=== PATIENT | male | born 1945 | race Caucasian/White ===

== ENCOUNTER 2019-10-08 08:13 | Outpatient (CLI) | payer OTHER, SELFPAY ==
--- NOTE | 2019-10-08 08:26 | CT_ITS ---
WS: [id number] CTA scan of the thoracic aorta. Additional two-dimensional coronal and sagittal reconstruction was pe rformed. MIP images were also performed. 10/08/2019 Clinical Data: THORACIC AORTIC ANEURYSM Comparison: CTA of the thoracic aorta, 06/02/2017. DLP: 1505.[address] scans at [facility] use at least one of these dose optimization techniques: automat ed exposure control; mA and/or kV adjustment per patient size (includes targeted exams where dose is matched to clinical indication); or iterative reconstruction. Findings: The ascending aorta measures 4.5 cm in largest dimension which is comparable to prior studies. No dis section or atherosclerotic plaque is seen. The aortic arch and descending aorta show no abnormalities . The lungs show no nodules, masses or effusions. No adnexal or mediastinal adenopathy is seen. The tra paz bifurcates normally into the bronchi. The pulmonary artery is unremarkable. Heart remains the sa me size. No pericardial effusion is present. The upper abdomen shows no change from before. The bones of the thorax demonstrate mild osteoarthriti c change. CT/CT angio chest 01245 Impression: 1. Unchanged dilatation of a sending aorta 4.5 cm. 2. No acute cardiopulmonary disease is noted.
[2019-10-08 08:50] LABS: Blood Urea Nitrogen 12 mg/dL (8-23)
[2019-10-08] MEDS: iodixanol 320 mg/mL 100mL Btl IV (08:57)
== END 2019-10-08 08:14 | disposition home or self-care (01) ==
PROVIDERS: PCP Family Medicine; Visit Provider Family Medicine
DX: I71.2 Thoracic aortic aneurysm, without rupture (principal)
CPT/HCPCS: 71275; 82565; 84520; Q9967

== ENCOUNTER 2021-04-25 09:43 | Emergency (ER) | payer OTHER, MEDICARE, BC, SELFPAY ==
[2021-04-25 10:01] VITALS: BP 158/100; PULSE 87; RESP 16; TEMP 36.7; O2SAT 91
--- NOTE | 2021-04-25 10:08 | XR_ITS ---
WS: [id number] Exam: XR chest 1V portable [id number] Date/Time of Exam: 04/25/2021 10:32 AM Reason For Exam: cough, SOB Comparison 11/10/2014. Mild diffuse infiltrates in the mid and lower bilateral lung zones suspicious for pneumonia. Areas of plaque atelectasis noted bilaterally. No pleural effusions. The lungs are fully expanded. Unremarkab le cardiomediastinal silhouette and regional bony elements. XR/XR chest 1V portable [id number] IMPRESSION: 1. Mild diffuse bilateral groundglass infiltrates in the mid and lower lung zon e suggesting active pneumonia.
--- NOTE | 2021-04-25 10:09 | W.ED.GENADLT ---
HPI - General Adult General: Chief complaint: General Medical Stated complaint: head pain, bilateral ear pain Time Seen by Provider: 04/25/21 09:45 Source: patient and family Mode of arrival: ambulatory Limitations: no limitations History of Present Illness: HPI narrative: Patient is a nice 75-year-old male who presents to ED today with complaint of a nonproductive cough, shortness of breath, headache, and ear pain. He states ear pain and headache has been present over the past week. He just noticed a dry cough and shortness of breath over the past 1 to 2 days. No known COVID exposure. He is unvaccinated for COVID. He is not complaining of chest pain. Associated symptoms: Reports dyspnea and headache(s); Deny chest pain, confusion, nausea, rash, palpitations, syncope or vomiting Review of Systems Const: Reports: other (weakness); Denies: fever(s), chills or body aches Eyes: Denies: change in vision, blurry vision or photophobia ENMT: Reports: ear or mastoid pain; Denies: throat pain, odynophagia, hoarseness, ear discharge, change in hearing, tinnitus, disequilibrium, nasal discharge, nasal congestion, post nasal drip or sinus pain Card: Denies: chest pain, palpitations, irregular heart rhythm, edema, swelling of feet/ankles, lightheadedness, syncope, pre-syncope or leg pain with exertion Resp: Reports: dyspnea and non-productive cough; Denies: wheezing, hemoptysis or chest congestion GI: Denies: abdominal pain, nausea, vomiting or diarrhea : Denies: flank pain or dysuria Musc: Denies: neck pain, back pain, extremity pain or joint pain Skin/Breast: Denies: rash Neuro: Reports: headache(s); Denies: numbness in extremities, weakness in extremities, sensory changes, lack of coordination, difficulty walking, frequent falls, dizziness, vertigo, confusion, behavioral changes, Slurred speech present, difficulty communicating thoughts or seizure-like activity Physical Exam Const: COMMON NORMALS: no acute distress, average body habitus, patient oriented x3, no limitations, healthy appearing, alert and well nourished GENERAL APPEARANCE: cooperative ORIENTATION/CONSCIOUSNESS: Yes awake, Yes oriented to person, Yes oriented to place and Yes oriented to time HENMT: COMMON NORMALS: normocephalic, atraumatic, hearing grossly normal bilaterally, external ears normal and Normal external nose present HEAD & SCALP: normal to inspection, normocephalic and atraumatic FACE & SINUS: normal facial exam NOSE: Normal external nose present EXTERNAL EAR: Yes external ears normal TYMPANIC MEMBRANE: TM normal on the left and unable to visualize TM (R-cerumen impaction) MOUTH: Normal oral and palatal mucosa present, lip normal and tongue normal THROAT: posterior oropharynx normal, tonsils normal and uvula midline OTHER: R EAC irrigated and can now visualize majority of TM and appears normal Eye: COMMON NORMALS: Equal, round and reactive pupils present and EOMs intact bilaterally GENERAL EYE: appearance normal, both eyes and all related structures PUPIL: Yes Equal, round and reactive pupils present Neck/C-Spine: COMMON NORMALS: full ROM, no lymphadenopathy and no meningeal signs Resp: COMMON NORMALS: normal respiratory effort and clear to auscultation bilaterally AUSCULTATION: clear to auscultation bilaterally OTHER: fairly persistent dry cough Cardio: COMMON NORMALS: regular rate and regular rhythm RATE: regular rate RHYTHM: regular rhythm Extremity: COMMON NORMALS: capillary refill normal, no clubbing, cyanosis or edema, no calf tenderness and no pedal edema Neuro: LESA COMA SCALE: document GCS findings Partridge coma scale eye opening: Spontaneous Partridge coma scale verbal response: Orientated Partridge coma scale motor response: Obey commands Partridge coma scale total score: 15 COMMON NORMALS: patient oriented x3, CN's II-XII intact bilaterally, moves all extremities, no focal motor deficits, no sensory deficits noted and gait normal SENSORIUM/ORIENTATION: Yes alert, Yes oriented to person, Yes oriented to place and Yes oriented to time MENINGEAL SIGNS: Yes no meningeal signs Skin: COMMON NORMALS: no rashes or lesions noted GENERAL SKIN EXAM: no rashes or lesions noted Course Vital Signs: Vital signs: Vital Signs Temperature 98.0 F 04/25/21 10:01 Pulse Rate 87 04/25/21 10:01 Respiratory Rate 16 04/25/21 10:01 Blood Pressure 158/100 04/25/21 10:01 Pulse Oximetry 86 L 04/25/21 11:22 MDM - General Adult MDM Narrative: Medical decision making narrative: Patient here with COVID pneumonia. He clinically appears non-ill and non-toxic appearing. His vital signs are stable apart from some mild hypoxia on room air around 88%. He sats well on 2L O2. Labs showing a normal white count, thrombocytopenia, mild decreases in electrolytes, and an elevated CRP at 129. He does not qualify for MCA based on the fact that he is requiring oxygen. Was given IV dexamethasone here and will be sent home with oral tabs x 6 days. He will also be sent with home O2. [facility] to [facility] follow[facility]telehealth visit for reevaluation. Strict return to ED precautions given. Quarantine instructions discussed. Of note upon arrival he seemed very focused on his headache-my early suspicion was this was just secondary to COVID but due to his persistent worry, I did obtain CT imaging which was negative. No neurological symptoms on exam. Lab Data: Labs: Lab Results 04/25/21 04/25/21 04/25/21 Range/Units 10:15 10:15 10:21 WBC 6.6 (4.0-10.0) 10^3/ uL RBC 5.34 H (4.1-5.3) 10^6/u L Hgb 16.5 (11.7-16.6) g/dL Hct 47.8 (42.0-52.0) % MCV 89.5 (80-94) fl MCH 30.9 (28.0-34.0) pg MCHC 34.5 (30.0-36.0) g/dL RDW 13.8 (12.1-15.1) % Plt Count 97 L (130-400) 10^3/c mm MPV 11.8 H (7.4-10.4) fL Neut % (Auto) 79.3 % Lymph % (Auto) 9.5 % [place] % (Auto) 10.6 % Eos % (Auto) 0.0 % Baso % (Auto) 0.3 % Neut # (Auto) 5.23 (1.8-7.7) 10^3/u L Lymph # (Auto) 0.6 L (0.8-4.8) 10^3/u L [place] # (Auto) 0.7 (0.2-0.9) 10^3/u L Eos # (Auto) 0.0 (0.0-0.8) 10^3/u L Baso # (Auto) 0.0 (0.0-0.1) 10^3/u L Nucleated RBC % (a uto) 0 % Nucleated RBCs # 0.0 /100WBC Sodium Cancelled Potassium Cancelled Chloride Cancelled Carbon Dioxide Cancelled Anion Gap Cancelled BUN Cancelled Creatinine Cancelled GFR Calculation Cancelled Glucose Cancelled Calculated Osmolal ity Cancelled Calcium Cancelled Total Bilirubin Cancelled AST Cancelled ALT Cancelled Alkaline Phosphata se Cancelled C-Reactive Protein (0.0-4.9) mg/L Total Protein Cancelled Albumin Cancelled Globulin Cancelled Procalcitonin (0-0.5) ng/mL SARS-CoV-2 Ag (Rap id) Positive H (Negative) 04/25/21 Range/Units 10:31 WBC (4.0-10.0) 10^3/ uL RBC (4.1-5.3) 10^6/u L Hgb (11.7-16.6) g/dL Hct (42.0-52.0) % MCV (80-94) fl MCH (28.0-34.0) pg MCHC (30.0-36.0) g/dL RDW (12.1-15.1) % Plt Count (130-400) 10^3/c mm MPV (7.4-10.4) fL Neut % (Auto) % Lymph % (Auto) % [place] % (Auto) % Eos % (Auto) % Baso % (Auto) % Neut # (Auto) (1.8-7.7) 10^3/u L Lymph # (Auto) (0.8-4.8) 10^3/u L [place] # (Auto) (0.2-0.9) 10^3/u L Eos # (Auto) (0.0-0.8) 10^3/u L Baso # (Auto) (0.0-0.1) 10^3/u L Nucleated RBC % (a uto) % Nucleated RBCs # /100WBC Sodium 133 L Potassium 3.4 L Chloride 94 L Carbon Dioxide 29 Anion Gap 13.4 BUN 13 Creatinine 1.3 H GFR Calculation Not Reportable Glucose 104 Calculated Osmolal ity 276 L Calcium 8.1 L Total Bilirubin 0.6 AST 34 ALT 20 Alkaline Phosphata se 61 C-Reactive Protein 129.5 H (0.0-4.9) mg/L Total Protein 7.0 Albumin 3.8 Globulin 3.2 Procalcitonin 0.29 (0-0.5) ng/mL SARS-CoV-2 Ag (Rap id) (Negative) Imaging Data^: CT Head: Radiologist's impression: [facility] [facility], [place] [address]WZ Scan ReportSigned Patient: Taran Carrera #: [id number]: 1945cct#:[id number]/Sex: 75 / MADM Date: 04/25/21Loc: ERRoom/Bed:Attending Dr: Ordering Provider/Ordering MD: Lashon Omalley Date of Service: 04/25/21 Procedure(s): CT head wo con* [id number] Accession Number(s): [id number] Report Number: [id number] WS: [email or web address] Exam: CT head wo con* [id number] Date/Time of Exam: 04/25/2021 11:11 AM Reason For Exam: severe ESCALANTE, ear pain DLP: 929.[address] scans at [facility] use at least one of these dose optimization techniques: automated exposure control; mA and/or kV adjustment per patient size (includes targeted exams where dose is matched to clinical indication); or iterative reconstruction. No sign of acute intracranial bleed or space-occupying mass. The ventricles and basal cisterns are normal in appearance. Diffuse cerebral atrophy and mild microvascular ischemic changes. No extra-axial fluid collections are seen. The mastoids and middle ear cavities are clear. There is bilateral ethmoid and left frontal sinusitis. The skull is intact. CT/CT head wo con* [id number] IMPRESSION: 1. Diffuse atrophy and microvascular ischemic changes. No acute intracranial process. 2. Bilateral ethmoid and left frontal sinusitis. Dictated By:Milan Hallman, DOSigned By:Milan Hallman, DOSigned Date/Time:04/25/21 1221DD/ 1218 CXR: Radiologist's impression: [facility] [address] [place] [address] XRay Report Signed Patient: Taran Carrera Unit #: [id number] : 1945 Age/Sex: 75 / M ADM Date: 04/25/21 Loc: ER Room/Bed: Attending Dr: Ordering Provider/Ordering MD: Lashon Omalley Date of Service: 04/25/21 Procedure(s): XR chest 1V portable [id number] Accession Number(s): [id number] Report Number: [id number] WS: [email or web address] Exam: XR chest 1V portable [id number] Date/Time of Exam: 04/25/2021 10:32 AM Reason For Exam: cough, SOB Comparison 11/10/2014. Mild diffuse infiltrates in the mid and lower bilateral lung zones suspicious for pneumonia. Areas of plaque atelectasis noted bilaterally. No pleural effusions. The lungs are fully expanded. Unremarkable cardiomediastinal silhouette and regional bony elements. XR/XR chest 1V portable [id number] IMPRESSION: 1. Mild diffuse bilateral groundglass infiltrates in the mid and lower lung zone suggesting active pneumonia. Dictated By: Milan Hallman DO Signed By: Milan Hallman DO Signed Date/Time: 04/25/21 1043 DD/ 1041 Discharge Plan Discharge Patient Disposition: Home Clinical Impression: COVID-19 Condition: Stable Prescriptions: New dexamethasone 6 mg tablet 6 mg PO DAILY Qty: 6 RF: 0 Discharge Orders: Discharge ED (Routine); Ordered 04/25/21 Ordered By: Lashon Omalley Other Ambulatory Orders: DME: Oxygen (Order) Location: None Selected Ordered By: Lashon Omalley Referrals: Sandra Partida MD [Primary Care Provider] - Activity Restrictions/Additional Instructions: As we discussed [facility] to [facility]up appointment in the next 48 hours for reevaluation. You need to return to the emergency department for severe shortness of breath or difficulty breathing, or any other concerns you may have. You need to quarantine for a full 10 days starting from symptom onset. Quarantine is not lifted until symptoms are improving and you are afebrile. Coding Level of Care Code ED Survey Technologist for Chg Fwd Exam Comprehensive
[2021-04-25 10:16] VITALS: O2SAT 93
[2021-04-25 10:32] LABS: Basophils % 0.3 %; Hematocrit 47.8 % (42.0-52.0); Hemoglobin 16.5 g/dL (11.7-16.6); Lymphocytes # 0.6 10^3/uL (0.8-4.8); Lymphocytes % 9.5 %; Mean Corpuscular HGB Conc 34.5 g/dL (30.0-36.0); Mean Corpuscular Hemoglobin 30.9 pg (28.0-34.0); Mean Corpuscular Volume 89.5 fl (80-94); Mean Platelet Volume 11.8 fL (7.4-10.4); Monocytes # 0.7 10^3/uL (0.2-0.9); Monocytes % 10.6 %; Neutrophils # 5.23 10^3/uL (1.8-7.7); Neutrophils % 79.3 %; Nucleated Red Blood Cells % 0 %; Platelet Count 97 10^3/cmm (130-400); Red Blood Count 5.34 10^6/uL (4.1-5.3); Red Cell Distribution Width 13.8 % (12.1-15.1); White Blood Count 6.6 10^3/uL (4.0-10.0)
[2021-04-25 10:48] LABS: SARS Covid-2 Antigen Positive (Negative)
--- NOTE | 2021-04-25 10:59 | CT_ITS ---
WS: [email or web address] Exam: CT head wo con* [id number] Date/Time of Exam: 04/25/2021 11:11 AM Reason For Exam: severe ESCALANTE, ear pain DLP: 929.[address] scans at [facility] use at least one of these dose optimization techniques: automat ed exposure control; mA and/or kV adjustment per patient size (includes targeted exams where dose is matched to clinical indication); or iterative reconstruction. No sign of acute intracranial bleed or space-occupying mass. The ventricles and basal cisterns are no rmal in appearance. Diffuse cerebral atrophy and mild microvascular ischemic changes. No extra-axial fluid collections are seen. The mastoids and middle ear cavities are clear. There is bilateral ethmoi d and left frontal sinusitis. The skull is intact. CT/CT head wo con* [id number] IMPRESSION: 1. Diffuse atrophy and microvascular ischemic changes. No acute intracranial pr ocess. 2. Bilateral ethmoid and left frontal sinusitis.
[2021-04-25 11:17] LABS: Alanine Aminotransferase 20 U/L (0-41); Albumin Level 3.8 g/dL (3.5-5.2); Alkaline Phosphatase 61 IU/L (40-130); Anion Gap 13.4 (5-19); Aspartate Amino Transferase 34 U/L (0-40); Blood Urea Nitrogen 13 mg/dL (8-23); C Reactive Protein 129.5 mg/L (0.0-4.9); Calcium 8.1 mg/dL (8.5-10.5); Carbon Dioxide 29 mmol/L (22-29); Chloride 94 mmol/L (98-107); Globulin 3.2 g/dL (1.3-4.6); Glucose 104 mg/dL (65-115); Osmolality Calculated 276 mOsm/kg (285-295); Potassium 3.4 mmol/L (3.5-5.1); Sodium 133 mmol/L (136-145); Total Bilirubin 0.6 mg/dL (0.15-1.2)
[2021-04-25 11:22] VITALS: O2SAT 86; O2SAT 93
[2021-04-25 11:24] LABS: Procalcitonin 0.29 ng/mL (0-0.5)
[2021-04-25] MEDS: acetaminophen 1,000 MG/100 ML PIGGYBACK 400 MG IV (11:36)
[2021-04-25] MEDS: dexamethasone 10 mg/mL INJ 6 MG IVP (11:36)
[2021-04-25 13:30] VITALS: BP 119/76; PULSE 65; RESP 16; O2SAT 92
== END 2021-04-25 13:31 | disposition home or self-care (01) ==
PROVIDERS: Emergency Provider Physician Assistant; PCP Family Medicine
DX: U07.1 COVID-19 (principal)
CPT/HCPCS: 70450; 71045; 80053; 84145; 85025; 86140; 87426; 96374; 96375; 99283; J1100

== ENCOUNTER 2021-04-28 14:49 | Inpatient (IN) | payer OTHER, MEDICARE, BC, SELFPAY ==
[2021-04-28] VITALS (52 sets, daily range): BP systolic 78–162; BP diastolic 57–120; PULSE 64–110; RESP 17–46; TEMP 36.2–36.7; O2SAT 65–100; BMI 29.5
[2021-04-28] MEDS: succinylcholine 20 mg/mL SDV 10mL 100 MG IV (15:02)
--- NOTE | 2021-04-28 15:09 | XRR_ITS ---
PROCEDURE INFORMATION: Exam: XR Chest Exam date and time: 04/28/2021 3:09 PM Age: 75 years old Clinical indication: Device placement; Other: Et and ng placement; Additional info: Post intubation TECHNIQUE: Imaging protocol: XR of the chest. Views: 1 view. COMPARISON: CR XR chest 1V portable [id number] 04/25/2021 10:22 AM FINDINGS: Tubes, catheters and devices: Intubation with tip 5.0 cm above the lauren. Gastric tube with tip in the mid stomach. Lungs: Mild ground-glass opacities in the central and lower lungs. Pleural spaces: Unremarkable. No pleural effusion. No pneumothorax. Heart/Mediastinum: Unremarkable. No cardiomegaly. Bones/joints: Unremarkable. XR/XR chest 1V portable [id number] IMPRESSION: 1. Mild pulmonary edema versus pneumonia.
[2021-04-28] MEDS: propofol 1,000 MG/100 ML INJ 5.44 MG IV (15:10)
--- NOTE | 2021-04-28 15:10 | ECG_ITS ---
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 Measurements Intervals [place] Rate: 98 P: 19 HI: 147 QRS: 19 QRSD: 138 T: -4 QT: 408 QTc: 521 Interpretive Statements SINUS RHYTHM INTRAVENTRICULAR CONDUCTION DELAY [130+ ms QRS DURATION] Compared to ECG 10/25/2014 21:14:54 Intraventricular conduction delay now present T-wave abnormality no longer present Electronically Signed On 04-28-2021 21:32:28 CDT by Adalberto Taylor M.D. [id number]
--- NOTE | 2021-04-28 15:24 | PC.NURSE ---
intubation note: 1500 time out done. intubation meds given at 1502. pt intubated at 1503 with 8.0 ETT, 24 cm at lip. pt tolerated procedure well. er physician, RN *2, and RT *2 at bedside
--- NOTE | 2021-04-28 15:48 | PC.PHAR ---
pt unable to verify meds due to intubation- dexamethasone 6mg once daily x 6 days last filled on 04/25/21
--- NOTE | 2021-04-28 15:50 | PC.NURSE ---
pt given IVP propofol by ER physician for sedation and pt's BP decreased. Pt's pulse became unpalpable. Pt given 100mcg phenylepinephrine by ER physician at 1533. CPR started at 1534. CPR for *2 minutes. Pt had ROSC at 2min pulse check
[2021-04-28] MEDS: fentaNYL 50 mcg/mL INJ 2mL 100 MCG IVP ×2 (16:10→17:10)
[2021-04-28 16:11] LABS: Basophils # 0.1 10^3/uL (0.0-0.1); Basophils % 0.3 %; Hematocrit 48.3 % (42.0-52.0); Hemoglobin 16.4 g/dL (11.7-16.6); Lymphocytes % 5.8 %; Mean Corpuscular Hemoglobin 30.4 pg (28.0-34.0); Mean Corpuscular Volume 89.4 fl (80-94); Mean Platelet Volume 11.2 fL (7.4-10.4); Monocytes % 11.2 %; Neutrophils # 14.33 10^3/uL (1.8-7.7); Neutrophils % 80.2 %; Nucleated Red Blood Cells % 0.2 %; Platelet Count 199 10^3/cmm (130-400); Red Cell Distribution Width 13.8 % (12.1-15.1); White Blood Count 17.9 10^3/uL (4.0-10.0)
[2021-04-28 16:18] LABS: INR 1.18 (0.8-1.2)
[2021-04-28 16:19] LABS: Fibrinogen 413 mg/dL (174-498); Partial Thromboplastin Time 27.1 SECONDS (23.9-36.7)
[2021-04-28 16:23] LABS: D Dimer 2.24 ug/mIFEU (0-0.59)
[2021-04-28 16:25] LABS: Lactic Sepsis W/Reflex 5.5 mmol/L (0.5-2.2); Troponin(5th) Baseline 162 ng/L (0-15)
[2021-04-28 16:25] LABS: ABG PCO2 37.2 mmHg (35-45); ABG PH Result 7.41 (7.35-7.45); Arterial Blood Gas Hematocrit 54.4 % (42-52); Base Excess ABG -0.5 mmol/L (-2.0-2.0); Blood Gas Allen Test Pos; Blood Gas Operator Identificat glc; Blood Gas Sample Site Radial, right; Blood Gas Sample Type Arterial; Blood Gas Tidal Volume 0.45; HCO3 ABG 23.7 mmol/L (22-26); Oxygen Device VENT; PO2 ABG 77.2 mmHg (80.0-100.0)
[2021-04-28 16:27] LABS: NT Pro B Type Natriuretic Pept 8650 pg/mL (0-450)
--- NOTE | 2021-04-28 16:33 | ED_ITS ---
HPI - General Adult General: Chief complaint: ER Hold Stated complaint: covid/ resp distress Time Seen by Provider: 04/28/21 15:07 History of Present Illness: HPI narrative: HPI: This is a 75 yo patient w/ hx of covid PNA BIBA for severe respiratory distress. Per family, patient has been having symptoms of cough, dyspnea, and generalized weakness x 2 weeks. Today, patient was noted to be confused and altered. EMS was alerted. Patient was satting in the 40s on RA by the time EMS arrived. Patient was placed on CPAP with PEEP of 10 with improvement of sats to the 70. On arrival, patient is confused and unable to answer questions. Onset: 14 days ago Duration: ongoing for the last 14 days Location: home Severity: severe Review of Systems Narrative: PER FAMILY: Constitutional: +subjective fever, +generalized weakness HEENT: No vision changes CV: No chest pain, no palpitations PULM: +dyspnea, +respiratory distress GI: No abdominal pain, no N/V/D. : No dysuria MSKEL: No muscle pain SKIN: No new rashes, no lesions. NEURO: +AMS HEME: No visible bruises PSYCH: Normal mood PFSH ED PFSH: Medical History (Updated 04/28/21 @ 18:22 by Abdiaziz Ann MD) HTN (hypertension) with goal to be determined Surgical History (Updated 04/28/21 @ 18:15 by Abdiaziz Ann MD) No pertinent past surgical history Family History (Updated 04/28/21 @ 18:15 by Abdiaziz Ann MD) Mother Cancer Social History (Updated 04/28/21 @ 18:15 by Abdiaziz Ann MD) Smoking and tobacco status: never smoked Alcohol intake: current Alcohol intake frequency: holidays/special occasions only Substance/Drug Use: never Physical Exam Narrative: EXAM NARRATIVE: Head: Atraumatic Eyes: PERRL, conjunctiva without injection ENT: Dry membrane moist NECK: Supple without lymphadenopathy LUNGS: +Coarse lung sounds, +rhonchi and crackles throughout the lung hightower CV: RRR ABDOMEN: Soft, nontender in all quadrants, no guarding or rebound tenderness EXTREMITY: Normal ROM SKIN: No rash or erythema NEURO: Obtunded, GCS of 6 (occasional eye opening and movement) PSYCH: Unable to assess at this time Procedures Arterial Line Time Out Performed: Yes Size (Gauge): 22 Technique Used: guide wire technique Post-Procedure: line sutured into place Patient Tolerated Procedure: well Complications: none Site: right Additional Comments: Germain test performed on the R hand. R radial/ulnar nerve visualized. Central Line Placement Left Femoral: Time Out Performed: Yes Patient Placed on Monitor/Pulse Ox: Yes MD Prep: mask Central Line Prep: Povidone-Iodine 1% Ultrasound Used for Placement: Yes Central Line Lumen Inserted: triple Post Procedure: sutured in place, good blood return, all ports aspirated, flushed, capped and sterile dressing applied Post Procedure X-Ray: tip of catheter in good position Patient Tolerated Procedure: well Complications: none Intubation Time out performed: Yes sedative: Etomidate Mg Given: 20 paralytic: Succinylcholine Mg Given: 100 Laryngoscope: Carlitos ET Tube Size: 8 ET Tube Uncuffed: No Tube Secured Depth (cm): 25 Tube Secured Location: teeth Tube Placement Confirmation: visualized tube passing through cords, equal breath sounds bilaterally, no breath sounds over epigastrium and confirmation by capnometry Patient Tolerated Procedure: well Intubation Complications: none Course Vital Signs: Vital signs: Vital Signs Temperature 98.1 F 04/29/21 00:00 Pulse Rate 70 04/28/21 23:41 Respiratory Rate 22 H 04/29/21 05:58 Blood Pressure 102/72 04/28/21 23:41 Pulse Oximetry 96 04/29/21 05:58 MDM - General Adult MDM Narrative: Medical decision making narrative: [75]yo patient w/ hx of covid x 2 weeks BIBA for severe respiratory distress. On arrival patient is satting at 76% with increased work of breathing on CPAP on a rrival. [3:20pm] On arrival, patient is altered and hypoxemic requiring immediate intubation. He was preoxygenated with BIPAP with improvement of O2 sat to 95%. Please refer to intubation note. Post-intubation, patient was agitated requiring propofol 200mcg to sedate. Post-intbuation was complicated by hypotension. Transient CPR was performed for 2 minutes while awaiting pulse confirmation. Patient received 100mcg of phenylephrine with successful pulse confirmation and improvement in BP. Patient is currently on a fentanyl drip only. Lactic of 5, WBC of 17.9K. Status post Vanco, cefepime, azithromycin, Decadron, remdesivir. Central line and art line placed. Case was discussed with Dr. Ann from ICU who agrees with plan. Pending CTA chest and CT head. Disposition: Admission to ICU Lab Data: Labs: Lab Results 04/28/21 04/28/21 04/28/21 Range/Units 15:50 15:50 15:50 WBC 17.9 H (4.0-10.0) 10^3/ uL RBC 5.40 H (4.1-5.3) 10^6/u L Hgb 16.4 (11.7-16.6) g/dL Hct 48.3 (42.0-52.0) % MCV 89.4 (80-94) fl MCH 30.4 (28.0-34.0) pg MCHC 34.0 (30.0-36.0) g/dL RDW 13.8 (12.1-15.1) % Plt Count 199 (130-400) 10^3/c mm MPV 11.2 H (7.4-10.4) fL Neut % (Auto) 80.2 % Lymph % (Auto) 5.8 % [place] % (Auto) 11.2 % Eos % (Auto) 0.0 % Baso % (Auto) 0.3 % Neut # (Auto) 14.33 H (1.8-7.7) 10^3/u L Lymph # (Auto) 1.0 (0.8-4.8) 10^3/u L [place] # (Auto) 2.0 H (0.2-0.9) 10^3/u L Eos # (Auto) 0.0 (0.0-0.8) 10^3/u L Baso # (Auto) 0.1 (0.0-0.1) 10^3/u L Nucleated RBC % (a uto) 0.2 % Nucleated RBCs # 0.0 /100WBC PT (12.1-14.9) SECO NDS INR (0.8-1.2) APTT (23.9-36.7) SECO NDS Fibrinogen (174-498) mg/dL D-Dimer (0-0.59) ug/mIFE U Specimen Type Sample Site ABG pH (7.35-7.45) ABG pCO2 (35-45) mmHg ABG pO2 (80.0-100.0) mmH g ABG HCO3 (22-26) mmol/L ABG Base Excess (-2.0-2.0) mmol/ L Germain Test Hematocrit (42-52) % O2 Delivery Device FiO2 % Tidal Volume PEEP cmH20 Sex Worker Or Escort ID Sodium 136 (136-145) mmol/L Potassium 4.6 (3.5-5.1) mmol/L Chloride 96 L (98-107) mmol/L Carbon Dioxide 22 (22-29) mmol/L Anion Gap 22.6 H (5-19) BUN 50 H (8-23) mg/dL Creatinine 2.2 H (0.7-1.2) mg/dL GFR Calculation Not Reportable Glucose 258 H (65-115) mg/dL Estimat Average Gl ucose Hemoglobin A1c (4.0-6.0) % Calculated Osmolal ity 304 H (285-295) mOsm/k g Lactic Acid (0.5-2.2) mmol/L Lactic Acid (Sepsi s) (0.5-2.2) mmol/L Calcium 7.6 L (8.5-10.5) mg/dL Ferritin 2556 H (30-400) ng/mL Total Bilirubin 0.9 (0.15-1.2) mg/dL AST 220 H (0-40) U/L ALT 121 H (0-41) U/L Alkaline Phosphata se 74 (40-130) IU/L Lactate Dehydrogen ase 1380 H (135-225) U/L Creatine Kinase (39-308) U/L Troponin T Baselin e 162 H* (0-15) ng/L Troponin T 120 Min lower [place] (0-15) ng/L Delta Troponin T (0-10) ABS# C-Reactive Protein 60.2 H (0.0-4.9) mg/L NT-Pro-B Natriuret Pep 8650 H (0-450) pg/mL Total Protein 6.5 L (6.6-8.7) g/dL Albumin 3.1 L (3.5-5.2) g/dL Globulin 3.4 (1.3-4.6) g/dL Triglycerides (0-150) mg/dL Cholesterol (0-200) mg/dL LDL Cholesterol, C alc (50-129) mg/dL HDL Cholesterol (60-100) mg/dL LDL/HDL Ratio (0.00-3.22) RATI O Cholesterol/HDL Ra chay (1.0-5.00) mg/dL Lipase 89 H (13-60) U/L Procalcitonin 0.70 H (0-0.5) ng/mL TSH (0.27-4.20) uIU/ mL Urine Color (Yellow) Urine Appearance (CLEAR) Urine pH (5-7) Ur Specific Gravit y (1.005-1.030) Urine Protein (Negative) Urine Glucose (UA) (Normal) Urine Ketones (Negative) Urine Blood (Negative) Urine Nitrate (Negative) Urine Bilirubin (Negative) Urine Urobilinogen (Negative) mg/dL Ur Leukocyte Katia ase (Negative) Urine RBC (0-2) /hpf Urine WBC (0-5) /hpf Ur Eosinophil Smea r (0-0) Ur Squamous Epith Cells (0-5) /hpf Amorphous Sediment Urine Bacteria (NONE) /hpf Urine Eosinophils Ur Random Sodium mmol/L Ur Random Potassiu m mmol/L Ur Random Chloride mmol/L Urine Creatinine (39-259) mg/dL 04/28/21 04/28/21 04/28/21 Range/Units 15:50 15:50 16:15 WBC (4.0-10.0) 10^3/ uL RBC (4.1-5.3) 10^6/u L Hgb (11.7-16.6) g/dL Hct (42.0-52.0) % MCV (80-94) fl MCH (28.0-34.0) pg MCHC (30.0-36.0) g/dL RDW (12.1-15.1) % Plt Count (130-400) 10^3/c mm MPV (7.4-10.4) fL Neut % (Auto) % Lymph % (Auto) % [place] % (Auto) % Eos % (Auto) % Baso % (Auto) % Neut # (Auto) (1.8-7.7) 10^3/u L Lymph # (Auto) (0.8-4.8) 10^3/u L [place] # (Auto) (0.2-0.9) 10^3/u L Eos # (Auto) (0.0-0.8) 10^3/u L Baso # (Auto) (0.0-0.1) 10^3/u L Nucleated RBC % (a uto) % Nucleated RBCs # /100WBC PT 15.30 H (12.1-14.9) SECO NDS INR 1.18 (0.8-1.2) APTT 27.1 (23.9-36.7) SECO NDS Fibrinogen 413 (174-498) mg/dL D-Dimer 2.24 H (0-0.59) ug/mIFE U Specimen Type Sample Site ABG pH (7.35-7.45) ABG pCO2 (35-45) mmHg ABG pO2 (80.0-100.0) mmH g ABG HCO3 (22-26) mmol/L ABG Base Excess (-2.0-2.0) mmol/ L Germain Test Hematocrit (42-52) % O2 Delivery Device FiO2 % Tidal Volume PEEP cmH20 Sex Worker Or Escort ID Sodium (136-145) mmol/L Potassium (3.5-5.1) mmol/L Chloride (98-107) mmol/L Carbon Dioxide (22-29) mmol/L Anion Gap (5-19) BUN (8-23) mg/dL Creatinine (0.7-1.2) mg/dL GFR Calculation Glucose (65-115) mg/dL Estimat Average Gl ucose Hemoglobin A1c (4.0-6.0) % Calculated Osmolal ity (285-295) mOsm/k g Lactic Acid 5.5 H* (0.5-2.2) mmol/L Lactic Acid (Sepsi s) (0.5-2.2) mmol/L Calcium (8.5-10.5) mg/dL Ferritin (30-400) ng/mL Total Bilirubin (0.15-1.2) mg/dL AST (0-40) U/L ALT (0-41) U/L Alkaline Phosphata se (40-130) IU/L Lactate Dehydrogen ase (135-225) U/L Creatine Kinase (39-308) U/L Troponin T Baselin e (0-15) ng/L Troponin T 120 Min lower [place] (0-15) ng/L Delta Troponin T (0-10) ABS# C-Reactive Protein (0.0-4.9) mg/L NT-Pro-B Natriuret Pep (0-450) pg/mL Total Protein (6.6-8.7) g/dL Albumin (3.5-5.2) g/dL Globulin (1.3-4.6) g/dL Triglycerides (0-150) mg/dL Cholesterol (0-200) mg/dL LDL Cholesterol, C alc (50-129) mg/dL HDL Cholesterol (60-100) mg/dL LDL/HDL Ratio (0.00-3.22) RATI O Cholesterol/HDL Ra chay (1.0-5.00) mg/dL Lipase (13-60) U/L Procalcitonin (0-0.5) ng/mL TSH (0.27-4.20) uIU/ mL Urine Color Brown (Yellow) Urine Appearance Cloudy (CLEAR) Urine pH 5 (5-7) Ur Specific Gravit y 1.010 (1.005-1.030) Urine Protein 3+ H (Negative) Urine Glucose (UA) Norm (Normal) Urine Ketones 1+ H (Negative) Urine Blood 3+ H (Negative) Urine Nitrate Negative (Negative) Urine Bilirubin 1+ H (Negative) Urine Urobilinogen 1 H (Negative) mg/dL Ur Leukocyte Katia ase 1+ H (Negative) Urine RBC Too numerous to c nt H (0-2) /hpf Urine WBC >100 H (0-5) /hpf Ur Eosinophil Smea r (0-0) Ur Squamous Epith Cells None (0-5) /hpf Amorphous Sediment Not Reportable Urine Bacteria 1+ H (NONE) /hpf Urine Eosinophils Ur Random Sodium mmol/L Ur Random Potassiu m mmol/L Ur Random Chloride mmol/L Urine Creatinine (39-259) mg/dL 04/28/21 04/28/21 04/28/21 Range/Units 16:15 16:15 16:16 WBC (4.0-10.0) 10^3/ uL RBC (4.1-5.3) 10^6/u L Hgb (11.7-16.6) g/dL Hct (42.0-52.0) % MCV (80-94) fl MCH (28.0-34.0) pg MCHC (30.0-36.0) g/dL RDW (12.1-15.1) % Plt Count (130-400) 10^3/c mm MPV (7.4-10.4) fL Neut % (Auto) % Lymph % (Auto) % [place] % (Auto) % Eos % (Auto) % Baso % (Auto) % Neut # (Auto) (1.8-7.7) 10^3/u L Lymph # (Auto) (0.8-4.8) 10^3/u L [place] # (Auto) (0.2-0.9) 10^3/u L Eos # (Auto) (0.0-0.8) 10^3/u L Baso # (Auto) (0.0-0.1) 10^3/u L Nucleated RBC % (a uto) % Nucleated RBCs # /100WBC PT (12.1-14.9) SECO NDS INR (0.8-1.2) APTT (23.9-36.7) SECO NDS Fibrinogen (174-498) mg/dL D-Dimer (0-0.59) ug/mIFE U Specimen Type Arterial Sample Site Radial, right ABG pH 7.41 (7.35-7.45) ABG pCO2 37.2 (35-45) mmHg ABG pO2 77.2 L (80.0-100.0) mmH g ABG HCO3 23.7 (22-26) mmol/L ABG Base Excess -0.5 (-2.0-2.0) mmol/ L Germain Test Pos Hematocrit 54.4 H (42-52) % O2 Delivery Device Vent FiO2 100.0 % Tidal Volume 0.45 PEEP 12.0 cmH20 Sex Worker Or Escort ID glc Sodium (136-145) mmol/L Potassium (3.5-5.1) mmol/L Chloride (98-107) mmol/L Carbon Dioxide (22-29) mmol/L Anion Gap (5-19) BUN (8-23) mg/dL Creatinine (0.7-1.2) mg/dL GFR Calculation Glucose (65-115) mg/dL Estimat Average Gl ucose Hemoglobin A1c (4.0-6.0) % Calculated Osmolal ity (285-295) mOsm/k g Lactic Acid (0.5-2.2) mmol/L Lactic Acid (Sepsi s) (0.5-2.2) mmol/L Calcium (8.5-10.5) mg/dL Ferritin (30-400) ng/mL Total Bilirubin (0.15-1.2) mg/dL AST (0-40) U/L ALT (0-41) U/L Alkaline Phosphata se (40-130) IU/L Lactate Dehydrogen ase (135-225) U/L Creatine Kinase (39-308) U/L Troponin T Baselin e (0-15) ng/L Troponin T 120 Min lower [place] (0-15) ng/L Delta Troponin T (0-10) ABS# C-Reactive Protein (0.0-4.9) mg/L NT-Pro-B Natriuret Pep (0-450) pg/mL Total Protein (6.6-8.7) g/dL Albumin (3.5-5.2) g/dL Globulin (1.3-4.6) g/dL Triglycerides (0-150) mg/dL Cholesterol (0-200) mg/dL LDL Cholesterol, C alc (50-129) mg/dL HDL Cholesterol (60-100) mg/dL LDL/HDL Ratio (0.00-3.22) RATI O Cholesterol/HDL Ra chay (1.0-5.00) mg/dL Lipase (13-60) U/L Procalcitonin (0-0.5) ng/mL TSH (0.27-4.20) uIU/ mL Urine Color (Yellow) Urine Appearance (CLEAR) Urine pH (5-7) Ur Specific Gravit y (1.005-1.030) Urine Protein (Negative) Urine Glucose (UA) (Normal) Urine Ketones (Negative) Urine Blood (Negative) Urine Nitrate (Negative) Urine Bilirubin (Negative) Urine Urobilinogen (Negative) mg/dL Ur Leukocyte Katia ase (Negative) Urine RBC (0-2) /hpf Urine WBC (0-5) /hpf Ur Eosinophil Smea r 0 (0-0) Ur Squamous Epith Cells (0-5) /hpf Amorphous Sediment Urine Bacteria (NONE) /hpf Urine Eosinophils No eosinophils se en Ur Random Sodium 10 mmol/L Ur Random Potassiu m 30 mmol/L Ur Random Chloride < 10 mmol/L Urine Creatinine 122 (39-259) mg/dL 04/28/21 04/28/21 04/28/21 Range/Units 18:08 18:08 18:08 WBC (4.0-10.0) 10^3/ uL RBC (4.1-5.3) 10^6/u L Hgb (11.7-16.6) g/dL Hct (42.0-52.0) % MCV (80-94) fl MCH (28.0-34.0) pg MCHC (30.0-36.0) g/dL RDW (12.1-15.1) % Plt Count (130-400) 10^3/c mm MPV (7.4-10.4) fL Neut % (Auto) % Lymph % (Auto) % [place] % (Auto) % Eos % (Auto) % Baso % (Auto) % Neut # (Auto) (1.8-7.7) 10^3/u L Lymph # (Auto) (0.8-4.8) 10^3/u L [place] # (Auto) (0.2-0.9) 10^3/u L Eos # (Auto) (0.0-0.8) 10^3/u L Baso # (Auto) (0.0-0.1) 10^3/u L Nucleated RBC % (a uto) % Nucleated RBCs # /100WBC PT (12.1-14.9) SECO NDS INR (0.8-1.2) APTT (23.9-36.7) SECO NDS Fibrinogen (174-498) mg/dL D-Dimer (0-0.59) ug/mIFE U Specimen Type Sample Site ABG pH (7.35-7.45) ABG pCO2 (35-45) mmHg ABG pO2 (80.0-100.0) mmH g ABG HCO3 (22-26) mmol/L ABG Base Excess (-2.0-2.0) mmol/ L Germain Test Hematocrit (42-52) % O2 Delivery Device FiO2 % Tidal Volume PEEP cmH20 Sex Worker Or Escort ID Sodium (136-145) mmol/L Potassium (3.5-5.1) mmol/L Chloride (98-107) mmol/L Carbon Dioxide (22-29) mmol/L Anion Gap (5-19) BUN (8-23) mg/dL Creatinine (0.7-1.2) mg/dL GFR Calculation Glucose (65-115) mg/dL Estimat Average Gl ucose 117 Hemoglobin A1c 5.7 (4.0-6.0) % Calculated Osmolal ity (285-295) mOsm/k g Lactic Acid (0.5-2.2) mmol/L Lactic Acid (Sepsi s) 3.5 H (0.5-2.2) mmol/L Calcium (8.5-10.5) mg/dL Ferritin (30-400) ng/mL Total Bilirubin (0.15-1.2) mg/dL AST (0-40) U/L ALT (0-41) U/L Alkaline Phosphata se (40-130) IU/L Lactate Dehydrogen ase (135-225) U/L Creatine Kinase (39-308) U/L Troponin T Baselin e (0-15) ng/L Troponin T 120 Min lower [place] 179.5 H (0-15) ng/L Delta Troponin T 17.5 H* (0-10) ABS# C-Reactive Protein (0.0-4.9) mg/L NT-Pro-B Natriuret Pep (0-450) pg/mL Total Protein (6.6-8.7) g/dL Albumin (3.5-5.2) g/dL Globulin (1.3-4.6) g/dL Triglycerides (0-150) mg/dL Cholesterol (0-200) mg/dL LDL Cholesterol, C alc (50-129) mg/dL HDL Cholesterol (60-100) mg/dL LDL/HDL Ratio (0.00-3.22) RATI O Cholesterol/HDL Ra chay (1.0-5.00) mg/dL Lipase (13-60) U/L Procalcitonin (0-0.5) ng/mL TSH (0.27-4.20) uIU/ mL Urine Color (Yellow) Urine Appearance (CLEAR) Urine pH (5-7) Ur Specific Gravit y (1.005-1.030) Urine Protein (Negative) Urine Glucose (UA) (Normal) Urine Ketones (Negative) Urine Blood (Negative) Urine Nitrate (Negative) Urine Bilirubin (Negative) Urine Urobilinogen (Negative) mg/dL Ur Leukocyte Katia ase (Negative) Urine RBC (0-2) /hpf Urine WBC (0-5) /hpf Ur Eosinophil Smea r (0-0) Ur Squamous Epith Cells (0-5) /hpf Amorphous Sediment Urine Bacteria (NONE) /hpf Urine Eosinophils Ur Random Sodium mmol/L Ur Random Potassiu m mmol/L Ur Random Chloride mmol/L Urine Creatinine (39-259) mg/dL 04/28/21 04/28/21 04/28/21 Range/Units 18:08 18:08 18:08 WBC 15.3 H (4.0-10.0) 10^3/ uL RBC 5.02 (4.1-5.3) 10^6/u L Hgb 15.5 (11.7-16.6) g/dL Hct 45.7 (42.0-52.0) % MCV 91.0 (80-94) fl MCH 30.9 (28.0-34.0) pg MCHC 33.9 (30.0-36.0) g/dL RDW 13.9 (12.1-15.1) % Plt Count 160 (130-400) 10^3/c mm MPV 10.9 H (7.4-10.4) fL Neut % (Auto) 81.7 % Lymph % (Auto) 4.8 % [place] % (Auto) 11.2 % Eos % (Auto) 0.0 % Baso % (Auto) 0.2 % Neut # (Auto) 12.50 H (1.8-7.7) 10^3/u L Lymph # (Auto) 0.7 L (0.8-4.8) 10^3/u L [place] # (Auto) 1.7 H (0.2-0.9) 10^3/u L Eos # (Auto) 0.0 (0.0-0.8) 10^3/u L Baso # (Auto) 0.0 (0.0-0.1) 10^3/u L Nucleated RBC % (a uto) 0 % Nucleated RBCs # 0.0 /100WBC PT (12.1-14.9) SECO NDS INR (0.8-1.2) APTT (23.9-36.7) SECO NDS Fibrinogen (174-498) mg/dL D-Dimer (0-0.59) ug/mIFE U Specimen Type Sample Site ABG pH (7.35-7.45) ABG pCO2 (35-45) mmHg ABG pO2 (80.0-100.0) mmH g ABG HCO3 (22-26) mmol/L ABG Base Excess (-2.0-2.0) mmol/ L Germain Test Hematocrit (42-52) % O2 Delivery Device FiO2 % Tidal Volume PEEP cmH20 Sex Worker Or Escort ID Sodium (136-145) mmol/L Potassium (3.5-5.1) mmol/L Chloride (98-107) mmol/L Carbon Dioxide (22-29) mmol/L Anion Gap (5-19) BUN (8-23) mg/dL Creatinine (0.7-1.2) mg/dL GFR Calculation Glucose (65-115) mg/dL Estimat Average Gl ucose Hemoglobin A1c (4.0-6.0) % Calculated Osmolal ity (285-295) mOsm/k g Lactic Acid (0.5-2.2) mmol/L Lactic Acid (Sepsi s) (0.5-2.2) mmol/L Calcium (8.5-10.5) mg/dL Ferritin (30-400) ng/mL Total Bilirubin (0.15-1.2) mg/dL AST (0-40) U/L ALT (0-41) U/L Alkaline Phosphata se (40-130) IU/L Lactate Dehydrogen ase (135-225) U/L Creatine Kinase 548 H* (39-308) U/L Troponin T Baselin e (0-15) ng/L Troponin T 120 Min lower [place] (0-15) ng/L Delta Troponin T (0-10) ABS# C-Reactive Protein (0.0-4.9) mg/L NT-Pro-B Natriuret Pep (0-450) pg/mL Total Protein (6.6-8.7) g/dL Albumin (3.5-5.2) g/dL Globulin (1.3-4.6) g/dL Triglycerides 178 H (0-150) mg/dL Cholesterol 98 (0-200) mg/dL LDL Cholesterol, C alc 32 L (50-129) mg/dL HDL Cholesterol 30 L (60-100) mg/dL LDL/HDL Ratio 1.07 (0.00-3.22) RATI O Cholesterol/HDL Ra chay 3.27 (1.0-5.00) mg/dL Lipase (13-60) U/L Procalcitonin (0-0.5) ng/mL TSH 0.16 L (0.27-4.20) uIU/ mL Urine Color (Yellow) Urine Appearance (CLEAR) Urine pH (5-7) Ur Specific Gravit y (1.005-1.030) Urine Protein (Negative) Urine Glucose (UA) (Normal) Urine Ketones (Negative) Urine Blood (Negative) Urine Nitrate (Negative) Urine Bilirubin (Negative) Urine Urobilinogen (Negative) mg/dL Ur Leukocyte Katia ase (Negative) Urine RBC (0-2) /hpf Urine WBC (0-5) /hpf Ur Eosinophil Smea r (0-0) Ur Squamous Epith Cells (0-5) /hpf Amorphous Sediment Urine Bacteria (NONE) /hpf Urine Eosinophils Ur Random Sodium mmol/L Ur Random Potassiu m mmol/L Ur Random Chloride mmol/L Urine Creatinine (39-259) mg/dL 04/28/21 Range/Units 18:08 WBC (4.0-10.0) 10^3/ uL RBC (4.1-5.3) 10^6/u L Hgb (11.7-16.6) g/dL Hct (42.0-52.0) % MCV (80-94) fl MCH (28.0-34.0) pg MCHC (30.0-36.0) g/dL RDW (12.1-15.1) % Plt Count (130-400) 10^3/c mm MPV (7.4-10.4) fL Neut % (Auto) % Lymph % (Auto) % [place] % (Auto) % Eos % (Auto) % Baso % (Auto) % Neut # (Auto) (1.8-7.7) 10^3/u L Lymph # (Auto) (0.8-4.8) 10^3/u L [place] # (Auto) (0.2-0.9) 10^3/u L Eos # (Auto) (0.0-0.8) 10^3/u L Baso # (Auto) (0.0-0.1) 10^3/u L Nucleated RBC % (a uto) % Nucleated RBCs # /100WBC PT 14.80 (12.1-14.9) SECO NDS INR 1.12 (0.8-1.2) APTT (23.9-36.7) SECO NDS Fibrinogen (174-498) mg/dL D-Dimer (0-0.59) ug/mIFE U Specimen Type Sample Site ABG pH (7.35-7.45) ABG pCO2 (35-45) mmHg ABG pO2 (80.0-100.0) mmH g ABG HCO3 (22-26) mmol/L ABG Base Excess (-2.0-2.0) mmol/ L Germain Test Hematocrit (42-52) % O2 Delivery Device FiO2 % Tidal Volume PEEP cmH20 Sex Worker Or Escort ID Sodium (136-145) mmol/L Potassium (3.5-5.1) mmol/L Chloride (98-107) mmol/L Carbon Dioxide (22-29) mmol/L Anion Gap (5-19) BUN (8-23) mg/dL Creatinine (0.7-1.2) mg/dL GFR Calculation Glucose (65-115) mg/dL Estimat Average Gl ucose Hemoglobin A1c (4.0-6.0) % Calculated Osmolal ity (285-295) mOsm/k g Lactic Acid (0.5-2.2) mmol/L Lactic Acid (Sepsi s) (0.5-2.2) mmol/L Calcium (8.5-10.5) mg/dL Ferritin (30-400) ng/mL Total Bilirubin (0.15-1.2) mg/dL AST (0-40) U/L ALT (0-41) U/L Alkaline Phosphata se (40-130) IU/L Lactate Dehydrogen ase (135-225) U/L Creatine Kinase (39-308) U/L Troponin T Baselin e (0-15) ng/L Troponin T 120 Min lower [place]wha (0-15) ng/L Delta Troponin T (0-10) ABS# C-Reactive Protein (0.0-4.9) mg/L NT-Pro-B Natriuret Pep (0-450) pg/mL Total Protein (6.6-8.7) g/dL Albumin (3.5-5.2) g/dL Globulin (1.3-4.6) g/dL Triglycerides (0-150) mg/dL Cholesterol (0-200) mg/dL LDL Cholesterol, C alc (50-129) mg/dL HDL Cholesterol (60-100) mg/dL LDL/HDL Ratio (0.00-3.22) RATI O Cholesterol/HDL Ra chay (1.0-5.00) mg/dL Lipase (13-60) U/L Procalcitonin (0-0.5) ng/mL TSH (0.27-4.20) uIU/ mL Urine Color (Yellow) Urine Appearance (CLEAR) Urine pH (5-7) Ur Specific Gravit y (1.005-1.030) Urine Protein (Negative) Urine Glucose (UA) (Normal) Urine Ketones (Negative) Urine Blood (Negative) Urine Nitrate (Negative) Urine Bilirubin (Negative) Urine Urobilinogen (Negative) mg/dL Ur Leukocyte Katia ase (Negative) Urine RBC (0-2) /hpf Urine WBC (0-5) /hpf Ur Eosinophil Smea r (0-0) Ur Squamous Epith Cells (0-5) /hpf Amorphous Sediment Urine Bacteria (NONE) /hpf Urine Eosinophils Ur Random Sodium mmol/L Ur Random Potassiu m mmol/L Ur Random Chloride mmol/L Urine Creatinine (39-259) mg/dL Imaging Data^: Other Imaging: Radiologist's impression: [address] [id number] ReportSigned Patient: Taran Carrera #: [id number]: [id number]#:[id number]/Sex: 75 / MADM Date: 04/28/21Loc: ER IPRoom/Bed: [id number] Dr: Abdiaziz Ann MD Ordering Provider/Ordering MD: Abdiaziz Ann MD Date of Service: 04/28/21 Procedure(s): XR chest 1V portable [id number] Accession Number(s): [id number] Report Number: [id number] PROCEDURE INFORMATION: Exam: XR Chest Exam date and time: 04/28/2021 6:06 PM Age: 75 years old Clinical indication: Device placement; Ett placement (vent status); Additional info: Post intubation TECHNIQUE: Imaging protocol: XR of the chest. Views: 1 view. COMPARISON: CR XR chest 1V portable [id number] 04/28/2021 4:30 PM FINDINGS: Tubes, catheters and devices: Intubation with tip 4.8 cm above the lauren. NG tube extends into the stomach, beyond the field of view. Pacemaker pad over the lower left chest. Lungs: Ground-glass opacities are unchanged in both lungs. Pleural spaces: Unremarkable. No pleural effusion. No pneumothorax. Heart/Mediastinum: Unremarkable. No cardiomegaly. Bones/joints: Unremarkable. XR/XR chest 1V portable [id number] IMPRESSION: 1. Stable pulmonary edema versus pneumonia. Dictated By:Saji Hampton By:Saji Hampton Date/Time:04/28/21D/ [address] [id number] Scan ReportSigned Patient: Taran Carrera #: [id number]: [id number]#:[id number]/Sex: 75 / MADM Date: 04/28/21Loc: ICURoom/Bed: [address]: Abdiaziz Ann MD Ordering Provider/Ordering MD: Clemente Hernandez MD Date of Service: 04/28/21 Procedure(s): CT head wo con* [id number] Accession Number(s): [id number] Report Number: [id number] PROCEDURE INFORMATION: Exam: CT Head Without Contrast Exam date and time: 04/28/2021 4:37 PM Age: 75 years old Clinical indication: Altered mental status/memory loss; Additional info: AMS on arrival TECHNIQUE: Imaging protocol: Computed tomography of the head without contrast. Radiation optimization: All CT scans at this facility use at least one of these dose optimization techniques: automated exposure control; mA and/or kV adjustment per patient size (includes targeted exams where dose is matched to clinical indication); or iterative reconstruction. COMPARISON: CT head wo con* [id number] 04/25/2021 12:10 PM RADIATION DOSE METRICS: Total DLP (mGy-cm): 916.02 FINDINGS: Brain: Mild diffuse cortical volume loss. Moderate hypodensities in supratentorial periventricular and subcortical white matter, consistent with microangiopathy. No intracranial hemorrhage. Cerebral ventricles: No ventriculomegaly. Paranasal sinuses: Mucosal thickening in the ethmoid air cells. No sinus air-fluid levels. Mastoid air cells: Visualized mastoid air cells are well aerated. Vasculature: No hyperdense artery. Bones/joints: Unremarkable. No acute fracture. Soft tissues: Unremarkable. CT/CT head wo con* [id number] IMPRESSION: No acute intracranial abnormality. Radiation Dose CTDIVOL = (mGy): DLP = 916.02 (mGy-cm) Dictated By:Saji Hampton By:Saji Hampton Date/Time:04/28/21D/ 20 Critical Care Time Critical Care Time: Critical Care Time: Yes Total Critical Care Time: 45 Attestation: Given the high probability of imminent or life threatening deterioration of the patient?s condition without intervention, the patient was immediately assessed by myself and the nurse, and cardiac monitoring initiated. The patient was also placed on oxygen and continuous pulse oximetry initiated. During the course of the patient?s stay, I spent a considerable amount of time at the bedside performing serial re-evaluations of the patient?s hemodynamic and clinical status because of the recognized potential threat to life or limb in this condition. Clinical management of this patient involved high complexity decision making to assess, manipulate, and support vital organ system failure. I then had a chance to review all of the available laboratory and radiographic studies obtained today, and I also reviewed old records available to me at the time. Sequential vital signs were obtained. Critical care time noted below was time spent engaged in work directly related to the individual patient?s care, not including time performing procedures; however it does include time spent at the immediate bedside or elsewhere on the floor or unit. TOTAL CRITICAL CARE TIME ELAPSED: in excess of 30 minutes. BODY SYSTEM AT HIGHEST RISK: Pulmonary. 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
--- NOTE | 2021-04-28 16:37 | CTR_ITS ---
PROCEDURE INFORMATION: Exam: CT Head Without Contrast Exam date and time: 04/28/2021 4:37 PM Age: 75 years old Clinical indication: Altered mental status/memory loss; Additional info: AMS on arrival TECHNIQUE: Imaging protocol: Computed tomography of the head without contrast. Radiation optimization: All CT scans at this facility use at least one of these dose optimization techniques: automated exposure control; mA and/or kV adjustment per patient size (includes targeted exams where dose is matched to clinical indication); or iterative reconstruction. COMPARISON: CT head wo con* [id number] 04/25/2021 12:10 PM RADIATION DOSE METRICS: Total DLP (mGy-cm): 916.02 FINDINGS: Brain: Mild diffuse cortical volume loss. Moderate hypodensities in supratentorial periventricular and subcortical white matter, consistent with microangiopathy. No intracranial hemorrhage. Cerebral ventricles: No ventriculomegaly. Paranasal sinuses: Mucosal thickening in the ethmoid air cells. No sinus air-fluid levels. Mastoid air cells: Visualized mastoid air cells are well aerated. Vasculature: No hyperdense artery. Bones/joints: Unremarkable. No acute fracture. Soft tissues: Unremarkable. CT/CT head wo con* [id number] IMPRESSION: No acute intracranial abnormality. Radiation Dose CTDIVOL = (mGy): DLP = 916.02 (mGy-cm)
[2021-04-28 16:39] LABS: Alanine Aminotransferase 121 U/L (0-41); Albumin Level 3.1 g/dL (3.5-5.2); Alkaline Phosphatase 74 IU/L (40-130); Aspartate Amino Transferase 220 U/L (0-40); Blood Urea Nitrogen 50 mg/dL (8-23); C Reactive Protein 60.2 mg/L (0.0-4.9); Calcium 7.6 mg/dL (8.5-10.5); Carbon Dioxide 22 mmol/L (22-29); Chloride 96 mmol/L (98-107); Creatinine Clr Calc Pharmacy 31.8009; Globulin 3.4 g/dL (1.3-4.6); Glucose 258 mg/dL (65-115); Lipase 89 U/L (13-60); Osmolality Calculated 304 mOsm/kg (285-295); Sodium 136 mmol/L (136-145); Total Bilirubin 0.9 mg/dL (0.15-1.2); Total Protein 6.5 g/dL (6.6-8.7)
[2021-04-28 16:46] LABS: Anion Gap 22.6 (5-19); Potassium 4.6 mmol/L (3.5-5.1)
[2021-04-28 17:00] LABS: Ferritin 2556 ng/mL (30-400); Lactate Dehydrogenase 1380 U/L (135-225)
[2021-04-28] MEDS: dexamethasone 10 mg/mL INJ 6 MG IVP (17:00)
[2021-04-28] MEDS: cefepime 1,000 MG in sodium chloride 0.9% (plus) 50 ML 100 MG IV (17:00)
[2021-04-28] MEDS: sodium chloride 0.9% 1,000 ML 999 ML IV (17:00)
[2021-04-28 17:06] LABS: Reflex Lactate Order REFLEX LACTIC ORDERD
[2021-04-28 17:20] LABS: Add Urine Microscopic? YES; Bilirubin Urine 1+ (Negative); Blood Urine 3+ (Negative); Glucose Urine UA Norm (Normal); Ketones Urine 1+ (Negative); Leukocyte Esterase Urine 1+ (Negative); Nitrate Urine Negative (Negative); Protein Urine 3+ (Negative); Urine Appearance Cloudy (CLEAR); Urine Color Brown (Yellow); Urobilinogen Urine 1 mg/dL (Negative); pH Urine 5 (5-7)
[2021-04-28 17:21] LABS: Add Urine Culture? Yes; Bacteria Urine 1+ /hpf; RBC Urine TOO NUMEROUS TO CNT /hpf (0-2); WBC Urine >100 /hpf (0-5)
[2021-04-28] MEDS: bacitracin ointment Pkt 1 EACH TOPICAL (17:31)
--- NOTE | 2021-04-28 18:06 | XRR_ITS ---
PROCEDURE INFORMATION: Exam: XR Chest Exam date and time: 04/28/2021 6:06 PM Age: 75 years old Clinical indication: Device placement; Ett placement (vent status); Additional info: Post intubation TECHNIQUE: Imaging protocol: XR of the chest. Views: 1 view. COMPARISON: CR XR chest 1V portable [id number] 04/28/2021 4:30 PM FINDINGS: Tubes, catheters and devices: Intubation with tip 4.8 cm above the lauren. NG tube extends into the stomach, beyond the field of view. Pacemaker pad over the lower left chest. Lungs: Ground-glass opacities are unchanged in both lungs. Pleural spaces: Unremarkable. No pleural effusion. No pneumothorax. Heart/Mediastinum: Unremarkable. No cardiomegaly. Bones/joints: Unremarkable. XR/XR chest 1V portable [id number] IMPRESSION: 1. Stable pulmonary edema versus pneumonia.
--- NOTE | 2021-04-28 18:10 | P.HP_ITS ---
Providers/Chief Complaint Admitting Physician: Abdiaziz Ann MD Primary Care Provider: Sandra Partida MD Chief Complaint: ncovid/ resp distress History of Present Illness Taran Carrera is a 75 year old male with a past medical history of hypertension who presents to [facility] due to concerns for shortness of breath and hypoxia. Currently patient is intubated, sedated, in the emergency room history was obtained from . According to , patient started to develop h eadaches, fatigue, malaise starting on April 20, over the week he started to develop intermittent fevers, cough, fatigue, malaise, shortness of breath. He showed up to the emergency room on April 25, was diagnosed with COVID-19 pneumonia, was sent home on oxygen, is not sure maybe 2 L, he was given Decadron, antibiotics, shortness of breath, cough, fatigue, malaise, intermittent fevers. This morning, patient had sudden worsening of shortness of breath, he was confused, his O2 sats were in the low 40s, so they brought him over to the emergency room. He was brought in by EMS he was satting in the 40s on room air, was placed on CPAP with a PEEP of 10, O2 sats remained in the 70s, remained confused, Review of Systems General: Reports: ROS unobtainable due to medical condition Medications/Allergies Home Medications Medication Instructions Recorded Confirmed Last Taken Type dexamethasone 6 mg PO DAILY #6 tab MDD see 04/25/21 04/28/21 Unknown Rx pharmacy comment Allergies Allergy/AdvReac Type Severity Reaction Status Date / Time No Known Allergies Allergy Verified 04/25/21 10:07 PFSH Acute PFSH: Medical History (Updated 04/28/21 @ 18:22 by Abdiaziz Ann MD) HTN (hypertension) with goal to be determined Surgical History (Updated 04/28/21 @ 18:15 by Abdiaziz Ann MD) No pertinent past surgical history Family History (Updated 04/28/21 @ 18:15 by Abdiaziz Ann MD) Mother Cancer Social History (Updated 04/28/21 @ 18:15 by Abdiaziz Ann MD) Smoking and tobacco status: never smoked Alcohol intake: current Alcohol intake frequency: holidays/special occasions only Substance/Drug Use: never Vitals/I&O/Wt Last Vital Signs Temp 97.2 F L 04/28/21 14:51 Pulse 87 04/28/21 17:42 Resp 22 H 04/28/21 17:42 BP 117/84 04/28/21 17:42 Pulse Ox 91 04/28/21 17:42 04/28/21 04/28/21 04/28/21 06:59 14:59 22:59 Intake Total 9.036 / 9.036 Balance 9.036 / 9.036 Weight last 48 hrs Weight 90.718 kg Physical Exam Narrative: EXAM NARRATIVE: Intubated, sedated, on the ventilator HENMT: COMMON NORMALS: normocephalic Eye: OTHER: Pupils Neck/C-Spine: OTHER: Bloody discharge from OG tube Lymph: LYMPHATIC: no lymphadenopathy noted Chest: COMMONS NORMALS: normal inspection of the chest Resp: COMMON NORMALS: normal respiratory effort, No retractions and No use of accessory muscles AUSCULTATION: diminished lung sounds diffuse Cardio: COMMON NORMALS: regular rate, regular rhythm, S1 normal heart sound present and S2 normal heart sound present GI: COMMON NORMALS: Normal to inspection, nondistended, normoactive bowel sounds present, Soft to palpation and non-tender : OTHER: William catheter in place, William bag blood within the urine Extremity: COMMON NORMALS: no pedal edema Neuro: OTHER: Intubated, sedated Urinary Catheter Management^: William: Cath Placed During This Visit: yes Urinary Catheter Date of Insertion: 04/28/21 Urinary Catheter Time of Insertion: 16:00 Sepsis: Is patient septic: Yes Focused sepsis exam performed: Yes Date exam was performed: 04/28/21 Time exam was performed: 18:00 Data : 04/28/21 15:50 04/28/21 15:50 A&P Assessment and plan (1) Pneumonia due to COVID-19 virus: Acute hypoxic respiratory acute hypoxic respiratory failure secondary to COVID-19 pneumonia, with acute respiratory distress syndrome -Septic shock secondary to COVID-19 pneumonia, possible secondary bacterial pneumonia, possible UTI Plan: -Admit to ICU -Ventilator protocol, minimize tidal volume, minimize FiO2, optimize PEEP -pH 7.41, PCO2 37.2, PO2 77.2, bicarb 23.7 on 100% FiO2, PEEP of 12, tidal v olume 450 -Prone, paralyzed -Nimbex, bis -Fentanyl, Versed, propofol for sedation -When supine, can start trickle feeds, hold Nimbex --Levophed, maintain MAP greater than 65 -Follow blood cultures, sputum cultures, urine bacterial antigens, urine cultures -Continue remdesivir -Continue Decadron -We will consider Actemra based upon cultures -Continue broad-spectrum antibiotic therapy for, vancomycin, cefepime, Levaquin -Serial EKGs, monitor QT -Monitor ferritin, procalcitonin, CRP -Vitamin C, zinc, vitamin D - CT angiogram of the chest pending -CT of the head pending -CT of the abdomen pelvis pending -BNP is elevated, cardiac echo pending -Patient does have bloody output from OG tube, hematuria, repeat CBC -Protonix for GI prophylaxis -DVT prophylax SCDs, hold off on anticoagulation until imaging, repeat CBC -Full code -Prognosis is guarded, status is critical Blood sugar on admission was 258, known history of underlying diabetes, obtain an A1c, check blood sugars, depending on work-up will start him on sliding scale Bloody output from OG tube, no significant anemia, no significant coagulopathy, blood in the urine, will get DIC markers, repeat CBC, Protonix 40 twice daily, Carafate Septic shock, secondary to COVID-19 pneumonia, possible secondary bacterial pneumonia, possible UTI Transaminitis, secondary to COVID-19 pneumonia, sepsis GUMARO on CKD, creatinine 2.2, urine output in the ER was over 2 L, bloody, obtain renal ultrasound, urine studies, likely secondary to sepsis, will give fluid bolus, maintain MAP greater than 75, nephrology on consult Lactic acidosis, secondary to septic shock NSTEMI -No known underlying cardiovascular disease -EKG no acute ST-T wave changes -Baseline troponin 162 -BNP 8650 -Clinically does not look fluid overloaded, chest x-ray does show slight evidence of pulmonary edema Plan: -Elevated troponin, likely secondary to sepsis, COVID-19 pneumonia as above, possible Covid 19 myocarditis -However cannot rule out underlying cardiovascular disease, given age, history of hypertension -Continue aspirin -Statin if CPK is reasonable -Hold off on anticoagulation, given bleeding from William catheter, OG tube site, until CBC and imaging is obtained -Cardiac echo -Serial EKGs, serial troponins, telemetry monitoring Status: Acute (2) Acute respiratory distress syndrome: Status: Acute (3) Septic shock: Status: Acute (4) Transaminitis: Status: Acute (5) Acute kidney injury superimposed on CKD: Status: Acute (6) Acute respiratory failure with hypoxia: Status: Acute (7) Acidosis, lactic: Status: Acute (8) NSTEMI (non-ST elevated myocardial infarction): Status: Acute (9) UTI (urinary tract infection): Status: Acute Attestations Medical Necessity Statement*: Patient requires hospitalization, inpatient due to pneumonia secondary COVID-19, acute respiratory distress syndrome, acute hypoxic respiratory failure, GUMARO, acute renal failure, NSTEMI, lactic acidosis, Coding Level of Care Code 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 [facility] Fwd Diagnoses Pneumonia due to COVID-19 virus U07.1; J12.82 Acute respiratory distress syndrome J80 Septic shock A41.9; R65.21 Transaminitis R74.01 Acute kidney injury superimposed on CKD N17.9; N18.9 Acute respiratory failure with hypoxia J96.01 Acidosis, lactic E87.2 NSTEMI (non-ST elevated myocardial infarction) I21.4 UTI (urinary tract infection) N39.0 Sepsis Event Note Evaluation Current stage of sepsis: severe sepsis Initial hypotension due to sepsis/infection: SBP < 90 mmHg Possible source: pulmonary and genitourinary Focused Exam Vital signs: Vital Signs Temp Pulse Pulse Resp BP BP Pulse Ox 04/28/21 18:08 90 21 H 112/71 94 04/28/21 17:42 87 22 H 117/84 91 04/28/21 16:15 99 32 H 132/95 98 04/28/21 15:09 65 L 04/28/21 15:00 99 94 04/28/21 14:51 97.2 F L 110 H 40 H 162/120 66 L Respiratory exam: Present respiratory distress Capillary refill: > 3 Seconds Peripheral pulse strength: 1+ Faint Peripheral pulse location: Pedal Skin exam: flushed Date exam was performed: 04/28/21 Time exam was performed: 18:19 Problem List (1) Pneumonia due to COVID-19 virus: Status: Acute (2) Acute respiratory distress syndrome: Status: Acute (3) Septic shock: Status: Acute (4) Transaminitis: Status: Acute (5) Acute kidney injury superimposed on CKD: Status: Acute (6) Acute respiratory failure with hypoxia: Status: Acute (7) Acidosis, lactic: Status: Acute (8) NSTEMI (non-ST elevated myocardial infarction): Status: Acute (9) UTI (urinary tract infection): Status: Acute Sepsis Event Note Evaluation Current stage of sepsis: severe sepsis Focused Exam Vital Signs Temp Pulse Pulse Resp BP BP Pulse Ox 04/28/21 18:08 90 21 H 112/71 94 04/28/21 17:42 87 22 H 117/84 91 04/28/21 16:15 99 32 H 132/95 98 04/28/21 15:09 65 L 04/28/21 15:00 99 94 04/28/21 14:51 97.2 F L 110 H 40 H 162/120 66 L Date exam was performed: 04/28/21 Time exam was performed: 18:19 Problem List (1) Pneumonia due to COVID-19 virus: Status: Acute (2) Acute respiratory distress syndrome: Status: Acute (3) Septic shock: Status: Acute (4) Transaminitis: Status: Acute (5) Acute kidney injury superimposed on CKD: Status: Acute (6) Acute respiratory failure with hypoxia: Status: Acute (7) Acidosis, lactic: Status: Acute (8) NSTEMI (non-ST elevated myocardial infarction): Status: Acute (9) UTI (urinary tract infection): Status: Acute
[2021-04-28 18:20] LABS: Urine Creatinine 122 mg/dL (39-259)
[2021-04-28 18:24] LABS: Urine Random Sodium 10 mmol/L
[2021-04-28 18:25] LABS: Urine Random Chloride < 10 mmol/L
[2021-04-28 18:26] LABS: Basophils % 0.2 %; Hematocrit 45.7 % (42.0-52.0); Hemoglobin 15.5 g/dL (11.7-16.6); Lymphocytes # 0.7 10^3/uL (0.8-4.8); Lymphocytes % 4.8 %; Mean Corpuscular HGB Conc 33.9 g/dL (30.0-36.0); Mean Corpuscular Hemoglobin 30.9 pg (28.0-34.0); Mean Platelet Volume 10.9 fL (7.4-10.4); Monocytes # 1.7 10^3/uL (0.2-0.9); Monocytes % 11.2 %; Neutrophils % 81.7 %; Nucleated Red Blood Cells % 0 %; Platelet Count 160 10^3/cmm (130-400); Red Blood Count 5.02 10^6/uL (4.1-5.3); Red Cell Distribution Width 13.9 % (12.1-15.1); White Blood Count 15.3 10^3/uL (4.0-10.0)
[2021-04-28 18:41] LABS: INR 1.12 (0.8-1.2)
[2021-04-28 18:50] LABS: Lactic Acid level (Lactate) 3.5 mmol/L (0.5-2.2)
[2021-04-28 18:59] LABS: Chol HDL Ratio 3.27 mg/dL (1.0-5.00); Cholesterol 98 mg/dL (0-200); HDL Cholesterol 30 mg/dL (60-100); LDL Cholesterol Calculated 32 mg/dL (50-129); LDL HDL Ratio 1.07 RATIO (0.00-3.22); Thyroid Stimulating Hormone 0.16 uIU/mL (0.27-4.20); Triglycerides 178 mg/dL (0-150)
[2021-04-28 19:01] LABS: Creatine Phosphokinase 548 U/L (39-308); Troponin 5 2HR 179.5 ng/L (0-15); Troponin 5 2HR Delta 17.5 ABS# (0-10)
[2021-04-28] MEDS: vancomycin 1,000 MG in sodium chloride 0.9% 250 ML 250 MG IV (19:29)
[2021-04-28] MEDS: remdesivir 200 MG in sodium chloride 0.9% (100 ml) 100 ML 100 MG IV (19:43)
[2021-04-28 20:06] LABS: Urine Random Potassium 30 mmol/L
[2021-04-28] MEDS: levofloxacin-dextrose 5 % 750 MG/150 ML PREMIX 100 MG IV (20:07)
[2021-04-28 20:16] LABS: Eosinophil Urine No Eosinophils Seen; Urine Eosinophil Count 0 (0-0)
[2021-04-28] MEDS: pantoprazole 40 mg SDV IVP (21:00)
[2021-04-28] MEDS: lactated ringers 500 ML 999 ML IV (21:00)
[2021-04-28 21:20] LABS: Estmated Average Glucose 117; Hemoglobin A1C 5.7 % (4.0-6.0)
[2021-04-28 22:35] LABS: Troponin 5 6HR 139.6 ng/L (0-15); Troponin 5 6HR Delta -22.4 ng/L (0-12)
[2021-04-29] VITALS (63 sets, daily range): BP systolic 87–119; BP diastolic 68–84; PULSE 55–62; RESP 18–22; TEMP 36.6–36.8; O2SAT 92–97
[2021-04-29 00:01] LABS: Glucose Point of Care 227 mg/dL (70-110)
[2021-04-29] MEDS: propofol 1,000 MG/100 ML INJ 2.72 MG IV (03:46)
[2021-04-29 04:35] LABS: ABG PH Result 7.37 (7.35-7.45); Base Excess ABG -1.8 mmol/L (-2.0-2.0); Blood Gas Operator Identificat JB; Blood Gas Sample Type Arterial; Blood Gas Tidal Volume 0.45; HCO3 ABG 23.5 mmol/L (22-26); Oxygen Device VENT
[2021-04-29 04:50] LABS: Basophils % 0.2 %; Hematocrit 44.9 % (42.0-52.0); Lymphocytes # 0.7 10^3/uL (0.8-4.8); Lymphocytes % 3.4 %; Mean Corpuscular HGB Conc 33.4 g/dL (30.0-36.0); Mean Corpuscular Hemoglobin 30.7 pg (28.0-34.0); Monocytes # 1.3 10^3/uL (0.2-0.9); Monocytes % 6.5 %; Neutrophils # 17.65 10^3/uL (1.8-7.7); Neutrophils % 87.8 %; Nucleated Red Blood Cells % 0 %; Platelet Count 175 10^3/cmm (130-400); Red Blood Count 4.88 10^6/uL (4.1-5.3); Red Cell Distribution Width 14.1 % (12.1-15.1); White Blood Count 20.1 10^3/uL (4.0-10.0)
[2021-04-29 05:05] LABS: Fibrinogen 333 mg/dL (174-498); Partial Thromboplastin Time 28.3 SECONDS (23.9-36.7)
[2021-04-29 05:08] LABS: Alanine Aminotransferase 161 U/L (0-41); Albumin Level 2.9 g/dL (3.5-5.2); Alkaline Phosphatase 61 IU/L (40-130); Anion Gap 14.2 (5-19); Aspartate Amino Transferase 235 U/L (0-40); Blood Urea Nitrogen 55 mg/dL (8-23); Calcium 7.1 mg/dL (8.5-10.5); Carbon Dioxide 26 mmol/L (22-29); Chloride 102 mmol/L (98-107); Globulin 2.8 g/dL (1.3-4.6); Glucose 248 mg/dL (65-115); Magnesium 3.5 mg/dL (1.7-2.3); Osmolality Calculated 309 mOsm/kg (285-295); Phosphorus 4.1 mg/dL (2.5-4.5); Potassium 4.2 mmol/L (3.5-5.1); Sodium 138 mmol/L (136-145); Total Bilirubin 0.7 mg/dL (0.15-1.2); Total Protein 5.7 g/dL (6.6-8.7)
[2021-04-29 05:10] LABS: INR 1.14 (0.8-1.2)
[2021-04-29 05:20] LABS: NT Pro B Type Natriuretic Pept 6903 pg/mL (0-450); Procalcitonin 1.26 ng/mL (0-0.5)
[2021-04-29 05:35] LABS: Creatine Phosphokinase 553 U/L (39-308)
[2021-04-29 05:49] LABS: Ferritin 2023 ng/mL (30-400)
--- NOTE | 2021-04-29 06:00 | ECG_ITS ---
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 Measurements Intervals [place] Rate: 58 P: 27 IA: 161 QRS: 8 QRSD: 106 T: -7 QT: 508 QTc: 499 Interpretive Statements SINUS BRADYCARDIA NONSPECIFIC ST ELEVATION [0.05+ mV ST ELEVATION] PROLONGED QT INTERVAL Compared to ECG 04/28/2021 16:24:22 ST (T wave) deviation now present Prolonged QT interval now present Sinus rhythm no longer present Intraventricular conduction delay no longer present Electronically Signed On 04-29-2021 19:48:31 CDT by Adalberto Taylor M.D. [email or web address]
[2021-04-29 06:12] LABS: Cortisol Random 12.24 ug/dL (2.47-19.5)
[2021-04-29] MEDS: pantoprazole 40 mg SDV IVP ×2 (06:40→17:58)
--- NOTE | 2021-04-29 07:00 | XRR_ITS ---
PROCEDURE INFORMATION: Exam: XR Chest Exam date and time: 04/29/2021 7:00 AM Age: 75 years old Clinical indication: Shortness of breath; Additional info: SOB TECHNIQUE: Imaging protocol: XR of the chest. Views: 1 view. Total images: 1 COMPARISON: CR (CHEST, ) 04/28/2021 6:03 PM FINDINGS: Tubes, catheters and devices: Nasogastric tube has its proximal port in the lower esophagus, recommend advancement by 7-10 cm. An endotracheal tube is present, terminating above the lauren by unchanged Lungs: Bilateral pulmonary opacities are again noted and appear unchanged. Pleural spaces: Unremarkable. No pleural effusion. No pneumothorax. Heart/Mediastinum: Heart is enlarged but stable when compared to the prior exam. Bones/joints: Osseous structures are unchanged from the prior exam. XR/XR chest 1V portable [id number] IMPRESSION: 1. Nasogastric tube has its proximal port in the lower esophagus, recommend advancement by 7-10 cm. 2. Heart is enlarged but stable when compared to the prior exam. 3. Bilateral pulmonary opacities are again noted and appear unchanged.
--- NOTE | 2021-04-29 07:34 | PC.NURSE ---
Frequent safety and comfort rounds continue. Orders and/or nursing care completed as indicated. Patient monitored for response to intervention and treatment(s). Education provided includes[]. Patient and/or advertising representative [[email or web address]]. Will continue to monitor. Received patient from ED at 2313. Replaced the dressings on the arterial line and the left femoral central line. The patient remained critically stable on the monitor.
[2021-04-29] MEDS: ascorbic acid 500 mg Tablet PO ×2 (08:12→17:14)
[2021-04-29] MEDS: zinc gluconate 50 mg Tablet PO (08:12)
[2021-04-29] MEDS: cholecalciferol (vitamin D3) 1,000 unit Tablet 1000 UNIT PO (08:13)
[2021-04-29] MEDS: aspirin 81 mg EC Tablet PO (08:13)
[2021-04-29] MEDS: propofol 1,000 MG/100 ML INJ 16.33 MG IV ×3 (08:19→21:09)
[2021-04-29] MEDS: sucralfate 1 gm/10 mL Oral Liq UDC PO ×2 (09:41→21:58)
[2021-04-29] MEDS: enoxaparin 100 mg/mL Syringe 90 MG SUBCUT ×2 (09:44→21:58)
--- NOTE | 2021-04-29 10:15 | P.CONIM_ITS ---
Providers/Reason For Consult Consulting Physician/Specialty*: Nephrology Reason for Consult*: Renal Failure Attending Physician: Abdiaziz Ann MD Primary Care Provider: Sandra Partida MD History of Present Illness History of Present Illness Thank you for consultation, today had the pleasure of reviewing this 75-year-old gentleman for evaluation of acute on chronic kidney disease. He has had shortness of breath, fevers and chills now for the last 2 weeks. He originally presented on 04/25 to the emergency department where he was diagnosed with Covid pneumonitis and received oral Decadron and was subsequently discharged. He represented to our facility yesterday with sudden increasing shortness of breath and confusion. Oxygen saturation with in the low 40s and subsequently he required intubation and mechanical ventilation. Unfortunately he has not been vaccinated. Today he is more stable on the ventilator, FiO2 75%, PEEP of 12 and sat 95%. Hemodynamics relatively stable, requiring low dose Levophed to maintain a more robust pressure. From a nephrology perspective, I see in his chart that he has an elevated creatinine of 1.4 as measured in October of last year, on 04/25 his creatinine was 1.3, yesterday and today his creatinine is 2.2 mg/dL. Urine output was 1300 mL over the last 24 hours. No known exposure to nephrology services, history of needing dialysis etc. He currently has a William catheter. No obvious extremity edema or other features of hypervolemia. The only known medical history is of high blood pressure. No recent exposure to nephrotoxic agents as far as I can see. It appears that he was not taking other medications at home. History is taken from bedside RN and EMR as he is currently intubated and mechanically ventilated. Review of Systems General: Reports: ROS unobtainable due to endotracheal tube, ROS unobtainable due to medical condition and ROS unobtainable due to mental status Meds/Allergies Home Medications and Allergies Home Medications Medication Instructions Recorded Confirmed Last Taken Type dexamethasone 6 mg PO DAILY #6 tab MDD see 04/25/21 04/28/21 Unknown Rx pharmacy comment Allergies Allergy/AdvReac Type Severity Reaction Status Date / Time No Known Allergies Allergy Verified 04/25/21 10:07 Current Medications Current Medications Generic Name Dose Route Start Last Admin Trade Name Freq PRN Reason Stop Dose Admin Ascorbic Acid 500 mg 04/28/21 18:00 04/29/21 08:12 Ascorbic Acid 500 Mg Tablet PO 500 mg BID HIWOT Administration Aspirin 81 mg 04/28/21 17:45 04/29/21 08:13 Aspirin 81 Mg Ec Tablet PO 81 mg DAILY HIWOT Administration Enoxaparin Sodium 90 mg 04/29/21 10:00 04/29/21 09:44 Enoxaparin 100 Mg/Ml Syringe 1 mg/kg (90 mg) 90 mg SUBCUT Administration Q12H HIWOT Fentanyl 1,000 mcg/ Sodium 100 mls @ 0 mls/hr 04/28/21 15:15 04/29/21 08:00 Chloride IV 75 mcg/hr .Q0M HIWOT 7.5 mls/hr Titration Protocol Per Protocol Propofol 1,000 mg in 100 mls @ 0 mls/hr 04/28/21 15:15 04/29/21 08:19 Diprivan IV 30 mcg/kg/min .Q0M HIWOT 16.33 mls/hr Administration Protocol Per Protocol Cefepime HCl 2,000 mg/ Sodium 50 mls @ 100 mls/hr 04/29/21 06:00 04/29/21 07:01 Chloride IV Not Given Q12H HIWOT Protocol Levofloxacin/Dextrose 750 mg in 150 mls @ 100 mls/hr 04/28/21 18:00 04/28/21 20:07 Levaquin-D5w IV 100 mls/hr Q24H HIWOT Administration Protocol Midazolam HCl 100 mg/ Sodium 100 mls @ 0 mls/hr 04/28/21 17:45 04/29/21 08:35 Chloride IV 0 mg/hr .Q0M HIWOT 0 mls/hr Titration Protocol Per Protocol Norepinephrine Bitartrate 4 mg 254 mls @ 0 mls/hr 04/28/21 17:45 04/29/21 08:00 / Dextrose IV 3 mcg/min .Q0M HIWOT 11.43 mls/hr Titration Protocol Per Protocol Pantoprazole Sodium 40 mg 04/28/21 17:45 04/29/21 06:40 Pantoprazole 40 Mg Sdv IVP 40 mg Q12H HIWOT Administration Sucralfate 1 gm 04/28/21 21:00 04/29/21 09:41 Sucralfate 1 Gm/10 Ml Oral Liq Udc PO 1 gm Q12H HIWOT Administration Vitamin D 1,000 unit 04/29/21 09:00 04/29/21 08:13 Cholecalciferol (Vitamin D3) 1,000 Unit Tablet PO 1,000 unit DAILY HIWOT Administration Zinc Gluconate 50 mg 04/29/21 09:00 04/29/21 08:12 Zinc Gluconate 50 Mg Tablet PO 50 mg DAILY HIWOT Administration PFSH Acute PFSH: Medical History (Updated 04/28/21 @ 18:22 by Abdiaziz Ann MD) HTN (hypertension) with goal to be determined Surgical History (Updated 04/28/21 @ 18:15 by Abdiaziz Ann MD) No pertinent past surgical history Family History (Updated 04/28/21 @ 18:15 by Abdiaziz Ann MD) Mother Cancer Social History (Updated 04/28/21 @ 18:15 by Abdiaziz Ann MD) Smoking and tobacco status: never smoked Alcohol intake: current Alcohol intake frequency: holidays/special occasions only Substance/Drug Use: never Vitals/I&O/Wt Last Vital Signs Temp 98 F 04/29/21 08:00 Pulse 57 L 04/29/21 08:00 Resp 20 H 04/29/21 09:36 BP 109/79 04/29/21 08:00 Pulse Ox 95 04/29/21 09:36 04/28/21 04/29/21 04/29/21 22:59 06:59 14:59 Intake Total 1909.036 / 1909.036 94.934 / 2003.970 160.150 / 160.150 Output Total 1300 / 1300 300 / 1600 Balance 609.036 / 609.036 -205.066 / 403.970 160.150 / 160.150 Weight last 48 hrs Weight 92.442 kg Weight 90.718 kg Physical Exam Narrative: EXAM NARRATIVE: Constitutional: Sedated and vented HEENT: Wet mucosa, no jvp, non icteric Lungs: Bilaterally diminshed, without discernible wheeze, rales in all lung zones CVS: S1 S2, no murmurs Abdo: Soft, BS ok Ext 4: Minimal edema, peripheral perfusion with no cyanosis Neurological: Grossly non-focal Urinary Catheter Management^: William: Cath Placed During This Visit: yes Reason for Continuing Indwelling Catheter: Accurate Measurement of Urinary Output in Critically Ill Patients Urinary Catheter Date of Insertion: 04/28/21 Urinary Catheter Time of Insertion: 16:00 Data Micro: Micro: Microbiology 04/28/21 16:13 Gram Stain - Final Sputum - Endotrac heal Tube Aspirate 04/28/21 16:15 Bacterial Antigens - Final Urine,Clean Catch 04/28/21 18:08 Blood Culture - Pr eliminary Blood SPECIMEN BELKIS ISABELLE 04/28/21 18:08 Blood Culture - Pr eliminary Blood SPECIMEN [facility] ISABELLE A&P Additional A&P Information 1. Acute on chronic kidney disease We commonly see this in Covid pneumonitis, it is a multifactorial process. We like to keep these patients as dry as possible for the sake of ventilation. If we can defer diuretics for the time being that would be my preference, defer further IV hydration. Renal function relatively stable since yesterday. Urine output remains relatively robust since yesterday We will do a limited evaluation to include urinalysis, uric acid, TSH, CPK, fractional excretion of sodium. Daily renal panel Close monitoring of I's and O's Dose medications for GFR less than 30 Avoid usual nephrotoxic agents 2. Covid pneumonitis Unfortunately was not vaccinated Receiving combination medication including remdesivir, cefepime, Levaquin and has received steroids Vent settings per ICU 3. Lytes Well balanced 4. 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
[2021-04-29 12:53] LABS: Glucose Point of Care 206 mg/dL (70-110)
[2021-04-29] MEDS: cisatracurium 100 MG in sodium chloride 0.9% 50 ML IV (13:00)
--- NOTE | 2021-04-29 13:11 | PM.PN ---
Subjective Subjective: Interval history: No acute events overnight, afebrile overnight, onto Levophed, sedated with propofol and fentanyl, continues to have decent urine output, patient is intubated, sedated Vitals/I&O/Wt Last Vital Signs Temp 98 F 04/29/21 08:00 Pulse 57 L 04/29/21 08:00 Resp 20 H 04/29/21 09:36 BP 109/79 04/29/21 08:00 Pulse Ox 95 04/29/21 09:36 04/28/21 04/29/21 04/29/21 22:59 06:59 14:59 Intake Total 1909.036 / 1909.036 94.934 / 2003.970 160.150 / 160.150 Output Total 1300 / 1300 300 / 1600 Balance 609.036 / 609.036 -205.066 / 403.970 160.150 / 160.150 Weight last 48 hrs Weight 92.442 kg Weight 90.718 kg Physical Exam Narrative: EXAM NARRATIVE: Intubated, sedated, on the ventilator Const: COMMON NORMALS: no acute distress OTHER: Intubated, sedated Resp: COMMON NORMALS: normal respiratory effort, No retractions, No use of accessory muscles and clear to auscultation bilaterally AUSCULTATION: clear to auscultation bilaterally Cardio: COMMON NORMALS: regular rate, regular rhythm, S1 normal heart sound present and S2 normal heart sound present RATE: regular rate RHYTHM: regular rhythm HEART SOUNDS: S1 normal heart sound present and S2 normal heart sound present GI: COMMON NORMALS: Normal to inspection, nondistended, normoactive bowel sounds present, Soft to palpation, non-tender and no bruits PALPATION: Yes Soft to palpation : OTHER: William catheter in place, William bag blood within the urine Extremity: COMMON NORMALS: no pedal edema NARRATIVE EXTREMITY EXAM: Right art line in place, left femoral line in place OTHER: DP PT pulses palpable Skin: COMMON NORMALS: turgor normal and no mottling GENERAL SKIN EXAM: turgor normal Urinary Catheter Management^: William: Cath Placed During This Visit: yes Reason for Continuing Indwelling Catheter: Accurate Measurement of Urinary Output in Critically Ill Patients Urinary Catheter Date of Insertion: 04/28/21 Urinary Catheter Time of Insertion: 16:00 Data : 04/29/21 04:00 04/29/21 04:00 Micro: Microbiology 04/28/21 16:13 Gram Stain - Final Sputum - Endotracheal Tube Aspirate 04/28/21 16:15 Bacterial Antigens - Final Urine,Clean Catch 04/28/21 18:08 Blood Culture - Preliminary Blood SPECIMEN COLLECTED 04/28/21 18:08 Blood Culture - Preliminary Blood SPECIMEN COLLECTED A&P Assessment and plan (1) Pneumonia due to COVID-19 virus: Acute hypoxic respiratory acute hypoxic respiratory failure secondary to COVID-19 pneumonia, with acute respiratory distress syndrome -Septic shock secondary to COVID-19 pneumonia, possible secondary bacterial pneumonia, possible UTI Plan: -Admit to ICU -Ventilator protocol, minimize tidal volume, minimize FiO2, optimize PEEP -pH 7.37, PCO2 41, PO2 118, bicarb 23.5, 100% FiO2, tidal volume 450, PEEP of 12, will titrate down FiO2 -Currently supine -Start prone positioning at 4 PM today, Nimbex -Fentanyl, Versed, propofol for sedation -When supine, can start trickle feeds, Pulmicort 10 cc/hr, free water flushes 50 cc every 4 hours --Levophed, maintain MAP greater than 75, currently minimally going at 2 -Due to concerns for fluid overload, hold off on hydration therapy or fluid boluses -Follow blood cultures, sputum cultures, urine bacterial antigens, urine cultures -Continue remdesivir -Continue Decadron -We will consider Actemra based upon cultures -Continue broad-spectrum antibiotic therapy for, vancomycin, cefepime, Levaquin -Serial EKGs, monitor QT -Monitor ferritin, procalcitonin, CRP -Vitamin C, zinc, vitamin D -CT angiogram cannot be performed due to patient's creatinine -CT of the head no acute findings -Renal artery ultrasound no nephrolithiasis or hydronephrosis -BNP is elevated, no clinical signs of fluid overload, hold off on Lasix therapy -Cardiac echocardiogram shows an ejection of 40 to 45%, mild global hypokinesis -Protonix for GI prophylaxis -DVT prophylax SCDs, full dose anticoagulation given elevated D-dimer of 13, cannot rule out underlying pulmonary emboli -Full code -Prognosis is guarded, status is critical Blood sugar on admission was 258, A1c 5.7, no history of diabetes , no known history of underlying diabetes, check blood sugars, start low-dose sliding scale Bloody output from OG tube, no significant anemia, no significant coagulopathy, blood in the urine, continue, Protonix 40 twice daily, Carafate Septic shock, secondary to COVID-19 pneumonia, possible secondary bacterial pneumonia, possible UTI Transaminitis, secondary to COVID-19 pneumonia, sepsis GUMARO on CKD, creatinine 2.2, continues to have good urine output, bloody, , urine studies, likely secondary to sepsis, will give fluid bolus, maintain MAP greater than 75, nephrology on consult Lactic acidosis, secondary to septic shock NSTEMI -No known underlying cardiovascular disease -EKG no acute ST-T wave changes -Baseline troponin 162, 6-hour 139 -BNP 8650 -Clinically does not look fluid overloaded, chest x-ray does show slight evidence of pulmonary edema Plan: -Elevated troponin, likely secondary to sepsis, COVID-19 pneumonia as above, possible Covid 19 myocarditis -However cannot rule out underlying cardiovascular disease, given age, history of hypertension -Continue aspirin -Hold statin given elevated CPK -Hold off on anticoagulation, given bleeding from William catheter, OG tube site, until CBC and imaging is obtained -Cardiac echo shows an ejection fraction of 40 to 45%, global left ventricle hypokinesis, Status: Acute (2) Acute respiratory distress syndrome: Status: Acute (3) Septic shock: Status: Acute (4) Transaminitis: Status: Acute (5) Acute kidney injury superimposed on CKD: Status: Acute (6) Acute respiratory failure with hypoxia: Status: Acute (7) Acidosis, lactic: Status: Acute (8) NSTEMI (non-ST elevated myocardial infarction): Status: Acute (9) UTI (urinary tract infection): Status: Acute (10) Myocarditis due to 2019 novel coronavirus: Status: Acute Attestations Medical Necessity Statement*: Patient requires hospitalization for acute respiratory failure secondary COVID-19, septic shock, multiorgan failure, Coding Level of Care Code 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 Diagnoses Pneumonia due to COVID-19 virus U07.1; J12.82 Acute respiratory distress syndrome J80 Septic shock A41.9; R65.21 Transaminitis R74.01 Acute kidney injury superimposed on CKD N17.9; N18.9 Acute respiratory failure with hypoxia J96.01 Acidosis, lactic E87.2 NSTEMI (non-ST elevated myocardial infarction) I21.4 UTI (urinary tract infection) N39.0 Myocarditis due to 2019 novel coronavirus U07.1; I40.0
[2021-04-29 13:37] LABS: Basophils # 0.1 10^3/uL (0.0-0.1); Basophils % 0.2 %; Hematocrit 45.4 % (42.0-52.0); Lymphocytes # 0.6 10^3/uL (0.8-4.8); Lymphocytes % 2.4 %; Mean Corpuscular Hemoglobin 30.5 pg (28.0-34.0); Mean Corpuscular Volume 92.5 fl (80-94); Mean Platelet Volume 11.2 fL (7.4-10.4); Monocytes # 1.7 10^3/uL (0.2-0.9); Monocytes % 7.1 %; Neutrophils # 20.79 10^3/uL (1.8-7.7); Neutrophils % 86.8 %; Nucleated Red Blood Cells % 0.1 %; Platelet Count 165 10^3/cmm (130-400); Red Blood Count 4.91 10^6/uL (4.1-5.3); Red Cell Distribution Width 14.1 % (12.1-15.1)
[2021-04-29 14:05] LABS: Alanine Aminotransferase 137 U/L (0-41); Albumin Level 2.9 g/dL (3.5-5.2); Alkaline Phosphatase 67 IU/L (40-130); Anion Gap 14.1 (5-19); Aspartate Amino Transferase 118 U/L (0-40); Blood Urea Nitrogen 53 mg/dL (8-23); Calcium 7.5 mg/dL (8.5-10.5); Carbon Dioxide 24 mmol/L (22-29); Chloride 103 mmol/L (98-107); Globulin 3.2 g/dL (1.3-4.6); Glucose 215 mg/dL (65-115); Osmolality Calculated 305 mOsm/kg (285-295); Potassium 4.1 mmol/L (3.5-5.1); Sodium 137 mmol/L (136-145); Total Bilirubin 0.9 mg/dL (0.15-1.2); Total Protein 6.1 g/dL (6.6-8.7)
--- NOTE | 2021-04-29 14:54 | PC.NURSE ---
1400 patient to prone position with multiple nurse assistance. Patient resp at 18 which is what the vent is set at, 18, on Nimbex at 1.2mcg/kg/min. 1445 Running 38-40 on BIS. Sats holding well at 97%.
--- NOTE | 2021-04-29 17:34 | USCV_ITS ---
Taran Carrera Age: 75 Gender: M : 1945 Exam Date: 04/29/2021 06:13 Ordering Phys: Abdiaziz Ann MD Technologist: Maxine Tinajero Exam Location: [facility] [place] Indication: SOB COVID ON VENT BP: 110 / 79 HR: 56 Rhythm: Sinus Technical Quality: Adequate MEASUREMENTS (Male / Female) Normal Values 2D ECHO LV Diastolic Diameter PLAX 3.2 cm 4.2 - 5.9 / 3.9 - 5.3 cm LV Systolic Diameter PLAX 1.9 cm LV Chamber Size 3.3 cm IVS Diastolic Thickness 1.2 cm 0.6 - 1.0 / 0.6 - 0.9 cm IVS Systolic Thickness 1.1 cm LVPW Diastolic Thickness 1.6 cm 0.6 - 1.0 / 0.6 - 0.9 cm LVPW Systolic Thickness 1.7 cm RV Chamber Size 3.4 cm LVOT Diameter 2.0 cm LV Ejection Fraction 2D Teich 73.5 % LV Ejection Fraction MOD 2C 26.6 % LV Ejection Fraction 2C AL 21.2 % LA Diameter 3.8 cm LA Width 3.7 cm LA Height 4.3 cm RA Width 3.8 cm RA Height 4.8 cm Aorta at Sinotubular Diameter 3.1 cm M-MODE LV Diastolic Diameter MM 4.5 cm 4.2 - 5.9 / 3.9 - 5.3 cm LV Systolic Diameter MM 3.1 cm LV Ejection Fraction MM Teich 58.4 % IVS Diastolic Thickness MM 1.3 cm 0.6 - 1.0 / 0.6 - 0.9 cm IVS Systolic Thickness MM 1.5 cm LVPW Diastolic Thickness MM 1.4 cm 0.6 - 1.0 / 0.6 - 0.9 cm LVPW Systolic Thickness MM 2.0 cm Aortic Annulus Diameter 3.6 cm LA Ao Ratio MM 1.1 MV E Point Septal Separation 0.5 cm DOPPLER AV Peak Velocity 150.0 cm/s LVOT Peak Velocity 76.0 cm/s AV Area Cont Eq vti 1.9 cm squared AV Area Cont Eq pk 1.6 cm squared MV Area PHT 3.1 cm squared Mitral E to A Ratio 1.0 MV E' Velocity 26.0 cm/s Mitral E to MV E' Ratio 11.7 Mitral E to LV E' Lateral Ratio 11.7 Mitral E to LV E' Septal Ratio 11.7 TR Peak Velocity 201.6 cm/s TR Peak Gradient 16.3 mmHg TR Mean Velocity 142.7 cm/s TR Mean Gradient 9.6 mmHg TR Velocity Time Integral 68.6 cm TV Peak E Velocity 36.0 cm/s Right Atrial Pressure 15.0 mmHg Pulmonary Artery Systolic Pressu 31.3 mmHg PV Peak Velocity 49.7 cm/s RV Acceleration Time 0.2 s RV Ejection Time 0.4 s RV AcT/ET 0.4 FINDINGS Left Ventricle Normal left ventricular size. LV systolic function is mildly reduced with EF of 40-45%. Mild global hypokinesis. Diastolic function is abnormal Right Ventricle Not well visualized. Grossly normal in size Right Atrium The right atrium is normal in size. Left Atrium The left atrium is normal in size. Mitral Valve Grossly normal without significant stenosis or prolapse. There is no mitral regurgitation. Aortic Valve Grossly normal without significant sclerosis or stenosis. There is no aortic regurgitation. Tricuspid Valve Structurally normal tricuspid valve without significant stenosis or regurgitation. Insufficient TR jet to calculate RVSP Pulmonic Valve Not well visualized Pericardium Normal pericardium without effusion. Aorta Normal ascending aorta dimension. CONCLUSIONS Technically difficult study because of poor ultrasonic windows. LV systolic function is mildly reduced with EF of 40 to 45%. Mild global hypokinesis is noted. Diastolic function is abnormal. Mild mitral regurgitation is seen. No comparison studies are available. Adalberto Taylor MD (Electronically Signed) Final Date: 29 April 2021 12:54 S
--- NOTE | 2021-04-29 17:34 | USR_ITS ---
PROCEDURE INFORMATION: Exam: US Duplex Lower Extremity Veins, Bilateral Exam date and time: 04/29/2021 5:34 PM Age: 75 years old Clinical indication: Edema, localized and other: Maybe pe but chest CT not yet done; Lower extremity, bilateral; Patient HX: PT. Icu on vent. Covid; Additional info: Covid 19, evaluate for dvt TECHNIQUE: Imaging protocol: Real-time duplex ultrasound of the extremities with 2-D dixon scale, color Doppler flow and spectral waveform analysis with image documentation. Complete exam focused on the bilateral lower extremity veins. Total images: 63 COMPARISON: CT Chest/Abdomen/Pelvis w IV* 10/25/2014 6:31 PM FINDINGS: Right deep veins: Unremarkable. The common femoral, femoral, proximal profunda femoral and popliteal veins are patent without thrombus. Normal Doppler waveforms. Normal compressibility and/or augmentation response. Right superficial veins: Saphenofemoral junction is patent without thrombus. Left deep veins: Unremarkable. The common femoral, femoral, proximal profunda femoral and popliteal veins are patent without thrombus. Normal Doppler waveforms. Normal compressibility and/or augmentation response. Left superficial veins: Saphenofemoral junction is patent without thrombus. Soft tissues: Unremarkable. US/[place] [id number] IMPRESSION: No evidence of deep vein thrombosis.
--- NOTE | 2021-04-29 17:34 | USR_ITS ---
PROCEDURE INFORMATION: Exam: US Retroperitoneal; Complete; Kidneys and Bladder Exam date and time: 04/29/2021 5:34 PM Age: 75 years old Clinical indication: Other: Vincent; Patient HX: On vent with covid. Change in lab values; Additional info: Vincent, need crrt TECHNIQUE: Imaging protocol: Real-time ultrasound of the retroperitoneum with image documentation. Complete exam focused on the kidneys and bladder. Total images: 35 COMPARISON: CT Chest/Abdomen/Pelvis w IV* 10/25/2014 6:31 PM FINDINGS: Right kidney: 9.7 cm length of right kidney. Right kidney with normal echogenicity and no hydronephrosis, calculi, solid masses, nor perinephric fluid collection. Left kidney: 9.4 cm length of left kidney. Left kidney with normal echogenicity and no hydronephrosis, calculi, solid masses, nor perinephric fluid collection. Aorta: Limited visualization of the abdominal aorta is unremarkable. Urinary bladder: A William catheter decompresses urinary bladder. US/US renal BI* [id number] IMPRESSION: Unremarkable kidneys
[2021-04-29] MEDS: remdesivir 100 MG in sodium chloride 0.9% (100 ml) 100 ML IV (18:19)
--- NOTE | 2021-04-29 18:30 | PC.NURSE ---
1600 BIS running at 42. 1800 BIS running at 39. Patient continues to have resp of 18, which is what the vent is set at, a rate of 18.
[2021-04-29] MEDS: vancomycin 1,250 MG/250 ML PIGGYBACK 250 MG IV (21:56)
[2021-04-30] VITALS (117 sets, daily range): BP systolic 96–150; BP diastolic 70–99; PULSE 53–75; RESP 18–20; TEMP 36.6–37.1; O2SAT 88–97
[2021-04-30] MEDS: propofol 1,000 MG/100 ML INJ 27.22 MG IV ×5 (01:39→23:38)
[2021-04-30] MEDS: cisatracurium 100 MG in sodium chloride 0.9% 50 ML 6.53 MG IV ×2 (02:00→16:51)
[2021-04-30 03:58] LABS: Basophils # 0.1 10^3/uL (0.0-0.1); Basophils % 0.4 %; Hematocrit 44.3 % (42.0-52.0); Hemoglobin 14.7 g/dL (11.7-16.6); Lymphocytes # 0.5 10^3/uL (0.8-4.8); Mean Corpuscular HGB Conc 33.2 g/dL (30.0-36.0); Mean Corpuscular Hemoglobin 31.1 pg (28.0-34.0); Mean Corpuscular Volume 93.9 fl (80-94); Mean Platelet Volume 11.1 fL (7.4-10.4); Monocytes # 1.7 10^3/uL (0.2-0.9); Monocytes % 6.4 %; Neutrophils % 86.3 %; Nucleated Red Blood Cells % 0.1 %; Platelet Count 159 10^3/cmm (130-400); Red Blood Count 4.72 10^6/uL (4.1-5.3); Red Cell Distribution Width 14.2 % (12.1-15.1); White Blood Count 27.3 10^3/uL (4.0-10.0)
[2021-04-30 04:10] LABS: INR 1.27 (0.8-1.2)
[2021-04-30 04:11] LABS: Partial Thromboplastin Time 36.2 SECONDS (23.9-36.7)
[2021-04-30 04:15] LABS: Lactate (Lactic Acid level) 1.2 mmol/L (0.5-2.2)
[2021-04-30 04:21] LABS: Fibrinogen 309 mg/dL (174-498)
[2021-04-30 04:29] LABS: NT Pro B Type Natriuretic Pept 980 pg/mL (0-450); Procalcitonin 0.66 ng/mL (0-0.5)
[2021-04-30 04:31] LABS: D Dimer 13.31 ug/mIFEU (0-0.59)
[2021-04-30 04:41] LABS: Alanine Aminotransferase 113 U/L (0-41); Albumin Level 2.8 g/dL (3.5-5.2); Alkaline Phosphatase 64 IU/L (40-130); Anion Gap 14.5 (5-19); Aspartate Amino Transferase 61 U/L (0-40); Blood Urea Nitrogen 49 mg/dL (8-23); C Reactive Protein 72.8 mg/L (0.0-4.9); Calcium 7.2 mg/dL (8.5-10.5); Carbon Dioxide 25 mmol/L (22-29); Chloride 106 mmol/L (98-107); Creatine Phosphokinase 249 U/L (39-308); Globulin 2.9 g/dL (1.3-4.6); Glucose 178 mg/dL (65-115); Magnesium 3.4 mg/dL (1.7-2.3); Osmolality Calculated 309 mOsm/kg (285-295); Potassium 4.5 mmol/L (3.5-5.1); Sodium 141 mmol/L (136-145); Total Bilirubin 0.7 mg/dL (0.15-1.2); Total Protein 5.7 g/dL (6.6-8.7)
[2021-04-30 05:08] LABS: ABG PCO2 49.6 mmHg (35-45); ABG PH Result 7.32 (7.35-7.45); Arterial Blood Gas Hematocrit 45.7 % (42-52); Blood Gas Operator Identificat JB; Blood Gas Sample Type Arterial; Blood Gas Tidal Volume 0.45; HCO3 ABG 25.8 mmol/L (22-26); Oxygen Device VENT; PO2 ABG 86.2 mmHg (80.0-100.0)
[2021-04-30 05:09] LABS: Ferritin 1973 ng/mL (30-400)
--- NOTE | 2021-04-30 06:00 | ECG_ITS ---
[facility] Test Date: 2021-04-30 Pat Name: Taran Carrera Department: Room: [facility] Gender: Male Appeals Coordinator: : 1945 Requested By: Abdiaziz Ann Order Number: [id number] Kalyan MD: Adalberto Taylor M.D. Measurements Intervals [address] Rate: 60 P: 44 [place]: 161 QRS: 11 QRSD: 109 T: 4 QT: 480 QTc: 480 Interpretive Statements SINUS RHYTHM NONSPECIFIC ST ELEVATION [0.05+ mV ST ELEVATION] PROLONGED QT INTERVAL Compared to ECG 04/29/2021 06:40:55 Sinus bradycardia no longer present ST (T wave) deviation still present Electronically Signed On 04-30-2021 6:58:52 CDT by Adalberto Taylor M.D. [email or web address]
--- NOTE | 2021-04-30 06:00 | PC.NURSE ---
The respiratory therapist, Sheryl, was present as we supine the patient at 0600. There were no complications during the turn.
--- NOTE | 2021-04-30 07:00 | PC.NURSE ---
Addendum entered by Gonzalo Zimmerman RN 04/30/21 07:53: The patient was in the prone position for the shift. The patient's rhythm remained in Sinus Bradycardia, and blood pressure was stable. The levophed was completely turned off a little before the start of day shift. The blood pressure even with the levophed off remained stable. The patient's BIS during the ranged from low thirties to low forties. Original Note: Shift Note Frequent safety and comfort rounds continue. Orders and/or nursing care completed as indicated. Patient monitored for response to intervention and treatment(s). Education provided includes[]. Patient and/or financial sales representative [ResponseToTeaching]. Will continue to monitor.
--- NOTE | 2021-04-30 07:00 | XRR_ITS ---
PROCEDURE INFORMATION: Exam: XR Chest Exam date and time: 04/30/2021 7:00 AM Age: 75 years old Clinical indication: Shortness of breath; Additional info: SOB TECHNIQUE: Imaging protocol: XR of the chest. Views: 1 view. COMPARISON: CR (CHEST, ) 04/29/2021 6:22 AM FINDINGS: Tubes, catheters and devices: Endotracheal tube, tip 5.7 cm above lauren. Nasogastric tube, tip in the left upper quadrant of the abdomen. Lungs: Moderate interstitial opacities throughout both lungs, increased from prior study. These may represent any combination of pulmonary edema and pneumonia. Pleural spaces: No visible pneumothorax or pleural effusion. Heart/Mediastinum: Heart size within normal limits. Bones/joints: No emergent findings identified. XR/XR chest 1V portable [id number] IMPRESSION: 1. Moderate interstitial opacities throughout both lungs, increased from prior study. These may represent any combination of pulmonary edema and pneumonia.
[2021-04-30] MEDS: pantoprazole 40 mg SDV IVP ×2 (07:01→16:33)
--- NOTE | 2021-04-30 08:37 | PC.CHAP ---
Pastoral Care Encounter/Spiritual Assessment Type of Contact [] Declined shoeblack visit [] Patient/Family/Request visit [] Outpatient visit [] Follow-up visit [] Physician referral [] Code/Alert [x] Routine visit [] Staff referral [] Actively dying [] Patient sleeping [] Family support [] [] Out of room [] Palliative care [] [] Receiving care in room [] Pre-surgical visit [] Trauma [] Long length of stay [x] ICU visit [x] Other: covid Relational/Emotional Strength [] Patient feels connected with others/family/visitors/staff [] Distress [] Loneliness/isolation [] Abandonment Spirituality of Patient [] Person of [place] [] Attends Jehovah'S Witness of their [place] [] Believes in Prayer [] Reads Bible or Baptist materials [] There are Spiritual issues to be addressed 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 [x] Prayer [] Active listening [] Non-anxious presence [] Spiritual/emotional support [] Crisis/trauma care [] Spiritual counseling [] Bereavement support [] Provided bereavement packet [] Provided Bible/devotional materials [] Provided toy/stuffed animal, coloring book to patient or family member [] Provided Communion [] Anointing/[place] [] Salvation [x] Completed spiritual assessment [] Other: Impact on Illness or Injury [] Angry [] Fearful [] Anxious [] Often cries [] Exhaustion [] Unable to work [] Unable to attend taoist [] Unable to walk/stand [] Unable to read [] Unable to drive [] Unable to eat/drink [] Unable to sleep [] Unable to be with family [] Patient intubated [] Other: Summary Time spent with patient
[2021-04-30] MEDS: ascorbic acid 500 mg Tablet PO (08:39)
[2021-04-30] MEDS: aspirin 81 mg EC Tablet PO (08:39)
[2021-04-30] MEDS: zinc gluconate 50 mg Tablet PO (08:39)
[2021-04-30] MEDS: cholecalciferol (vitamin D3) 1,000 unit Tablet 1000 UNIT PO (08:39)
[2021-04-30] MEDS: enoxaparin 100 mg/mL Syringe 90 MG SUBCUT ×2 (08:39→21:27)
[2021-04-30] MEDS: sucralfate 1 gm/10 mL Oral Liq UDC PO ×2 (08:39→20:40)
[2021-04-30] MEDS: FUROsemide 10 mg/mL SDV 10mL 60 MG IVP (10:23)
--- NOTE | 2021-04-30 10:34 | P.PN_ITS ---
Subjective Subjective: Interval history: Sedated and vented. Hemodynamics reviewed, intermittent requirement for Levophed. FiO2 coming down to 50% and PEEP of 12. Chest x-ray noted to demonstrate increased consolidation consistent with pneumonia/pulmonary edema. No other evidence of hypervolemia i.e. no anasarca. Vitals/I&O/Wt Last Vital Signs Temp 98.0 F 04/30/21 07:35 Pulse 53 L 04/30/21 07:45 Resp 20 H 04/30/21 09:39 BP 96/70 04/30/21 07:45 Pulse Ox 94 04/30/21 09:39 04/29/21 04/30/21 04/30/21 22:59 06:59 14:59 Intake Total 809.423 / 1073.657 283.910 / 1357.567 69.625 / 69.625 Output Total 425 / 425 1725 / 1725 Balance 384.423 / 648.657 283.910 / 932.567 -1655.375 / -1655.375 Weight last 48 hrs Weight 92.442 kg Weight 90.718 kg Physical Exam Narrative: EXAM NARRATIVE: Constitutional: Sedated and vented HEENT: Wet mucosa, no jvp, non icteric Lungs: Bilaterally diminshed, without discernible wheeze, rales in all lung zones CVS: S1 S2, no murmurs Abdo: Soft, BS ok Ext 4: Minimal edema, peripheral perfusion with no cyanosis Neurological: Grossly non-focal Urinary Catheter Management^: William: Cath Placed During This Visit: yes Reason for Continuing Indwelling Catheter: Accurate Measurement of Urinary Output in Critically Ill Patients Urinary Catheter Date of Insertion: 04/28/21 Urinary Catheter Time of Insertion: 16:00 Data : 04/30/21 03:30 04/30/21 03:30 Micro: Microbiology 04/28/21 16:13 Gram Stain - Final Sputum - Endotracheal Tube Aspirate Sputum Culture - Preliminary 04/28/21 16:15 Urine Culture - Final Urine,Clean Catch 04/28/21 18:08 Blood Culture - Preliminary Blood NEGATIVE TO DATE 04/28/21 18:08 Blood Culture - Preliminary Blood NEGATIVE TO DATE 04/28/21 16:15 Bacterial Antigens - Final Urine,Clean Catch A&P Additional A&P Information 1. Acute on chronic kidney disease We commonly see this in Covid pneumonitis, it is a multifactorial process. We like to keep these patients as dry as possible for the sake of ventilation. If we can defer diuretics for the time being that would be my preference, defer further IV hydration. Renal function improved with decreasing creatinine and good urine output Daily renal panel Close monitoring of I's and O's Dose medications for GFR less than 30 Avoid usual nephrotoxic agents 2. Covid pneumonitis Unfortunately was not vaccinated Receiving combination medication including remdesivir, cefepime, Levaquin and has received steroids Vent settings per ICU Given CXR findings will give Lsaix 60mg ivp x 1 3. Lytes Well balanced 4. 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
--- NOTE | 2021-04-30 14:30 | PC.NURSE ---
Proned Pt proned at 1430 with the help of nursing staff and RT.
--- NOTE | 2021-04-30 15:14 | PM.PN ---
Subjective Subjective: Interval history: This is a 75-year-old male with past medical history of hypertension who presented to the hospital with concerns of shortness of breath and hypoxemia. He was intubated and sedated in the emergency room. The patient was diagnosed with COVID-19 April 25. There was also concern that he may have had PEA. Given a dose of phenylephrine. The patient currently on ventilator protocol. Also being treated for suspected bacterial pneumonia. Also noted to have bloody output from OG tube without significant anemia. Protonix as well as Carafate was initiated. Nephrology also has been consulted for acute on chronic kidney disease. plan to prone today current vent settings: CMV TV 450/12/ FIOW 50/RR 20 Medications: Reviewed: Yes Vitals/I&O/Wt Last Vital Signs Temp 98.7 F 04/30/21 12:00 Pulse 62 04/30/21 14:00 Resp 20 H 04/30/21 13:21 BP 96/70 04/30/21 12:00 Pulse Ox 92 04/30/21 13:21 04/30/21 04/30/21 04/30/21 06:59 14:59 22:59 Intake Total 283.910 / 1357.567 169.625 / 169.625 Output Total 3450 / 3450 Balance 283.910 / 932.567 -3280.375 / -3280.375 Weight last 48 hrs Weight 203 lb 12.8 oz Physical Exam Const: OTHER: intubated and sedated Resp: COMMON NORMALS: No use of accessory muscles and clear to auscultation bilaterally AUSCULTATION: clear to auscultation bilaterally Cardio: COMMON NORMALS: regular rate and regular rhythm RATE: regular rate RHYTHM: regular rhythm GI: COMMON NORMALS: Soft to palpation PALPATION: Yes Soft to palpation Extremity: OTHER: no pedal edema Urinary Catheter Management^: William: Cath Placed During This Visit: yes Reason for Continuing Indwelling Catheter: Accurate Measurement of Urinary Output in Critically Ill Patients Urinary Catheter Date of Insertion: 04/28/21 Urinary Catheter Time of Insertion: 16:00 Data : 04/30/21 03:30 04/30/21 03:30 Micro: Microbiology 04/28/21 16:13 Gram Stain - Final Sputum - Endotracheal Tube Aspirate Sputum Culture - Preliminary 04/28/21 16:15 Urine Culture - Final Urine,Clean Catch 04/28/21 18:08 Blood Culture - Preliminary Blood NEGATIVE TO DATE 04/28/21 18:08 Blood Culture - Preliminary Blood NEGATIVE TO DATE A&P Assessment and plan (1) Acute respiratory distress syndrome: Status: Acute (2) Pneumonia due to COVID-19 virus: Status: Acute (3) Septic shock: Status: Acute (4) NSTEMI (non-ST elevated myocardial infarction): Status: Acute Additional A&P Information #Covid 19 pneumonia #acute hypoxic respiratory failure #septic shock --Continue ventilator protocol --Continue remdesivir, restart Decadron --Continue empiric antibiotics including vancomycin, cefepime, Levaquin --Zinc vitamin D, vitamin C #hyperglycemia --does not have history of diabetes, aic 5.7 --imagine will elevate with decadron #NSTEMI --Likely multifactorial demand ischemia intermittent need for Levophed. #acute on CKD --likely multi factorial including secondary to septic shock. Monitor I's and O's. Renally dose medications. Appreciate nephrology recommendations. #elevated CK --statin held --improved 548--> 553--> 249 DVT: Lovenox 90 mg every 12 hours CTA unable to be completed due to kidney function Attestations Medical Necessity Statement*: Taran Carrera's hospital stay will require greater than 2 midnights for respiratory failure Coding Level of Care Code Acute Children'S Minister for g Fwd Exam Expanded Problem Focused Diagnoses Acute respiratory distress syndrome J80 Pneumonia due to COVID-19 virus U07.1; J12.82 Septic shock A41.9; R65.21 NSTEMI (non-ST elevated myocardial infarction) I21.4
[2021-04-30] MEDS: dexamethasone 10 mg/mL INJ 6 MG IVP ×2 (16:33→16:36)
[2021-04-30 16:59] LABS: Osmolality Urine 465 mOsm/kg (50-1200)
[2021-04-30 17:39] LABS: Glucose Point of Care 146 mg/dL (70-110)
[2021-04-30] MEDS: remdesivir 100 MG in sodium chloride 0.9% (100 ml) 100 ML IV (18:16)
--- NOTE | 2021-04-30 18:49 | PC.NUTR ---
Tube feeding recommendation: Trickle feeds mentioned in MD note 04/28, and [facility] @ 10 ml/hr with 50 ml H2O flush q 4 hrs mentioned in MD note 04/29, however no orders in place at this time. Recommend to initiate TF when medically appropriate. Standard formulas generally recommended in covid patients, per ASPEN. Recommend Glucerna 1.2 starting at 10 ml/hr, increasing by 10 ml/hr q 8 hours to goal rate of 30 ml/hr, to provide 864 kcal, 43 g protein, 580 ml H2O. Additional H2O flushes per MD discretion. Noted Propofol @ 27.22 ml/hr providing 719 kcal/day. TF goal rate likely to increase to meet calorie needs when propofol is decreased. See full RD assessment for further details.
[2021-04-30] MEDS: vancomycin 1,250 MG/250 ML PIGGYBACK 250 MG IV (20:38)
[2021-04-30] MEDS: levofloxacin-dextrose 5 % 750 MG/150 ML PREMIX 100 MG IV (20:40)
[2021-05-01] VITALS (63 sets, daily range): BP systolic 106–165; BP diastolic 78–105; PULSE 65–109; RESP 18–20; TEMP 36.4–37.1; O2SAT 90–98
[2021-05-01] MEDS: propofol 1,000 MG/100 ML INJ 27.22 MG IV ×4 (04:36→21:56)
[2021-05-01 04:58] LABS: ABG PCO2 47.9 mmHg (35-45); ABG PH Result 7.36 (7.35-7.45); Arterial Blood Gas Hematocrit 44.3 % (42-52); Base Excess ABG 0.8 mmol/L (-2.0-2.0); Blood Gas Sample Type Arterial; Blood Gas Tidal Volume 0.45; Oxygen Device VENT; PO2 ABG 92.2 mmHg (80.0-100.0)
[2021-05-01] MEDS: pantoprazole 40 mg SDV IVP ×2 (05:14→16:52)
[2021-05-01 05:44] LABS: Blood Gas Sample Site ARTLINE
--- NOTE | 2021-05-01 06:00 | ECG_ITS ---
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: : 1945 Requested By: Abdiaziz Ann Order Number: [id number] Reading MD: BERNARDINO MITCHELL Measurements Intervals [place] Rate: 65 P: 41 MS: 157 QRS: 5 QRSD: 110 T: -5 QT: 455 QTc: 475 Interpretive Statements SINUS RHYTHM INCOMPLETE RIGHT BUNDLE BRANCH BLOCK [90+ ms QRS DURATION, TERMINAL R IN V1/V2, 40+ ms S IN I/aVL/V4/V5/V6] PROLONGED QT INTERVAL Compared to ECG 04/30/2021 05:56:37 Incomplete right bundle-branch block now present ST (T wave) deviation no longer present Electronically Signed On 05-01-2021 21:12:57 CDT by BERNARDINO MITCHELL [id number]
[2021-05-01 06:01] LABS: Hematocrit 44.5 % (42.0-52.0); Hemoglobin 14.5 g/dL (11.7-16.6); Mean Corpuscular HGB Conc 32.6 g/dL (30.0-36.0); Mean Corpuscular Hemoglobin 30.6 pg (28.0-34.0); Mean Corpuscular Volume 93.9 fl (80-94); Mean Platelet Volume 10.7 fL (7.4-10.4); Platelet Count 150 10^3/cmm (130-400); Red Blood Count 4.74 10^6/uL (4.1-5.3); Red Cell Distribution Width 14.3 % (12.1-15.1); White Blood Count 22.2 10^3/uL (4.0-10.0)
[2021-05-01 06:20] LABS: Lactate (Lactic Acid level) 1.4 mmol/L (0.5-2.2)
[2021-05-01 06:25] LABS: INR 1.26 (0.8-1.2); NT Pro B Type Natriuretic Pept 446 pg/mL (0-450); Procalcitonin 0.41 ng/mL (0-0.5)
[2021-05-01 06:26] LABS: Partial Thromboplastin Time 36.1 SECONDS (23.9-36.7)
[2021-05-01 06:27] LABS: Fibrinogen 331 mg/dL (174-498)
[2021-05-01 06:37] LABS: Alanine Aminotransferase 77 U/L (0-41); Albumin Level 2.7 g/dL (3.5-5.2); Alkaline Phosphatase 63 IU/L (40-130); Anion Gap 11.5 (5-19); Aspartate Amino Transferase 37 U/L (0-40); Blood Urea Nitrogen 45 mg/dL (8-23); C Reactive Protein 49.4 mg/L (0.0-4.9); Calcium 7.3 mg/dL (8.5-10.5); Carbon Dioxide 29 mmol/L (22-29); Chloride 108 mmol/L (98-107); Creatine Phosphokinase 209 U/L (39-308); Globulin 2.7 g/dL (1.3-4.6); Glucose 143 mg/dL (65-115); Magnesium 2.9 mg/dL (1.7-2.3); Osmolality Calculated 312 mOsm/kg (285-295); Phosphorus 3.5 mg/dL (2.5-4.5); Potassium 4.5 mmol/L (3.5-5.1); Sodium 144 mmol/L (136-145); Total Bilirubin 0.6 mg/dL (0.15-1.2); Total Protein 5.4 g/dL (6.6-8.7)
[2021-05-01 06:57] LABS: Ferritin 1592 ng/mL (30-400)
[2021-05-01 07:03] LABS: Slide Review Slide Review Perform
[2021-05-01 07:05] LABS: Absolute Neutrophil 18.6 10^3/cmm (1.4-6.5); Absolute Segmented Neutrophil 15.3 10/cmm (1.6-7.1); Band Neutrophils Absolute 3.3 10^3/cmm (0.0-1.2); Lymphocytes 5 %; Lymphocytes Absolute 1.3 10^3/cmm (1.2-3.4); Monocytes Absolute 1.3 10^3/cmm (0.1-0.6); Platelet Estimate Normal (Normal); Segmented Neutrophils 69 %; Total Cells Counted 100 (0-100)
[2021-05-01 07:06] LABS: Eosinophils 0 %
--- NOTE | 2021-05-01 07:17 | PC.NURSE ---
Shift Note Frequent safety and comfort rounds continue. Orders and/or nursing care completed as indicated. Patient monitored for response to intervention and treatment(s). Education provided includes[]. Patient and/or physician representative [ResponseToTeaching]. Will continue to monitor. The patient did really well during the shift while proned. There were no changes and the patient remained stable. Urine output was 1075 mL for the shift. Lungs sounds sound considerably more clear since yesterday, before the lasix was given on day shift.
--- NOTE | 2021-05-01 07:29 | PM.PN ---
Subjective Subjective: Interval history: intubated, sedated- can not get aROS Medications: Reviewed: Yes Medication Review Details: Current Medications Acetaminophen (Acetaminophen 325 Mg Tablet) 650 mg PO Q6H PRN PRN Reason: Mild/Mod Pain Or Temp >/= 101 Artificial Tears (Artificial Tears Op Oint 3.5 Gm) 1 applic EYE-BOTH PRN PRN PRN Reason: DRY EYE(S) Ascorbic Acid (Ascorbic Acid 500 Mg Tablet) 500 mg PO BID REPLACED BY [facility] Last Admin: 04/30/21 16:25 Dose: Not Given Documented by: Aspirin (Aspirin 81 Mg Ec Tablet) 81 mg PO DAILY REPLACED BY [facility] Last Admin: 04/30/21 08:39 Dose: 81 mg Documented by: Bisacodyl (Bisacodyl 5 Mg Tablet) 10 mg PO DAILY PRN; Protocol PRN Reason: Constipation (see protocol) Dexamethasone (Dexamethasone 10 Mg/Ml Inj) 6 mg IVP Q24H REPLACED BY [facility] Last Admin: 04/30/21 16:36 Dose: 6 mg Documented by: Dextrose (Dextrose 50% Syringe 50 Ml) 25 ml IVP ONCE PRN; Protocol PRN Reason: hypoglycemia protocol Dextrose (Dextrose 50% Syringe 50 Ml) 50 ml IVP PRN PRN; Protocol PRN Reason: hypoglycemia protocol Enoxaparin Sodium (Enoxaparin 100 Mg/Ml Syringe) 90 mg 1 mg/kg (90 mg) SUBCUT Q12H [facility]WOT Last Admin: 04/30/21 21:27 Dose: 90 mg Documented by: Glucagon (Glucagon 1 Mg/Ml Inj 1 Ml) 1 mg IM ONCE PRN; Protocol PRN Reason: Adult Acute Hypoglycemia Prot. Fentanyl 1,000 mcg/ Sodium (Chloride) 100 mls @ 0 mls/hr IV .Q0M REPLACED BY [facility]; Protocol Last Admin: 05/01/21 05:43 Dose: 50 mcg/hr, 5 mls/hr Documented by: Propofol (Diprivan) 1,000 mg in 100 mls @ 0 mls/hr IV .Q0M REPLACED BY [facility]; Protocol Last Admin: 05/01/21 04:36 Dose: 50 mcg/kg/min, 27.22 mls/hr Documented by: Remdesivir 100 mg/ Sodium (Chloride) 100 mls @ 100 mls/hr IV Q24H REPLACED BY [facility] Stop: 05/02/21 18:59 Last Infusion: 04/30/21 19:16 Dose: Infused Documented by: Cisatracurium Besylate 100 mg/ (Sodium Chloride) 100 mls @ 0 mls/hr IV .Q0M HIWOT; Protocol Last Admin: 04/30/21 16:51 Dose: 1.2 mcg/kg/min, 6.53 mls/hr Documented by: Midazolam HCl 100 mg/ Sodium (Chloride) 100 mls @ 0 mls/hr IV .Q0M HIWOT; Protocol Last Titration: 04/29/21 08:35 Dose: 0 mg/hr, 0 mls/hr Documented by: Norepinephrine Bitartrate 4 mg (/ Dextrose) 254 mls @ 0 mls/hr IV .Q0M HIWOT; Protocol Last Titration: 04/29/21 23:01 Dose: 2 mcg/min, 7.62 mls/hr Documented by: Dextrose (D5w) 500 mls @ 100 mls/hr IV ONCE PRN; Protocol PRN Reason: Adult Acute Hypoglycemia Prot Vancomycin/PEG/NADA/Lysine/Water (Vancocin) 1,250 mg in 250 mls @ 250 mls/hr IV Q24H HIWOT Last Infusion: 04/30/21 21:38 Dose: Infused Documented by: Cefepime HCl 2,000 mg/ Sodium (Chloride) 100 mls @ 200 mls/hr IV Q24H HIWOT; Protocol Last Infusion: 04/30/21 17:05 Dose: Infused Documented by: Levofloxacin/Dextrose (Levaquin-D5w) 750 mg in 150 mls @ 100 mls/hr IV Q24H HIWOT; Protocol Last Infusion: 04/30/21 22:10 Dose: Infused Documented by: Lactulose (Lactulose Oral Liq 20 Gm/30 Ml Udc) 10 gm PO DAILY PRN; Protocol PRN Reason: Constipation (see protocol) Lorazepam (Lorazepam 2 Mg/Ml Inj 1 Ml) 1 mg IVP Q1H PRN PRN Reason: for breakthrough agitation Non-Formulary Route - Milrinone 200 Mcg/Ml 0 each INHALATION Q4H PRN PRN Reason: RESP DILATION Last Admin: 04/29/21 23:57 Dose: 1 each Documented by: Ondansetron HCl (Ondansetron 2 Mg/Ml Sdv 2 Ml) 4 mg IVP Q8H PRN PRN Reason: vomiting, or N/V if npo Pantoprazole Sodium (Pantoprazole 40 Mg Sdv) 40 mg IVP Q12H REPLACED BY [facility] Last Admin: 05/01/21 05:14 Dose: 40 mg Documented by: Sucralfate (Sucralfate 1 Gm/10 Ml Oral Liq Udc) 1 gm PO Q12H REPLACED BY [facility] Last Admin: 04/30/21 20:40 Dose: 1 gm Documented by: Vitamin D (Cholecalciferol (Vitamin D3) 1,000 Unit Tablet) 1,000 unit PO DAILY REPLACED BY [facility] Last Admin: 04/30/21 08:39 Dose: 1,000 unit Documented by: Zinc Gluconate (Zinc Gluconate 50 Mg Tablet) 50 mg PO DAILY REPLACED BY [facility] Last Admin: 04/30/21 08:39 Dose: 50 mg Documented by: Vitals/I&O/Wt Last Vital Signs Temp 98.7 F 05/01/21 04:00 Pulse 68 05/01/21 06:00 Resp 20 H 05/01/21 05:50 BP 121/84 05/01/21 03:25 Pulse Ox 98 05/01/21 05:50 04/30/21 05/01/21 05/01/21 22:59 06:59 14:59 Intake Total 996.971 / 1166.596 100 / 1266.596 Output Total 2300 / 5750 1075 / 6825 Balance -1303.029 / -4583.404 -975 / -5558.404 Physical Exam Narrative: EXAM NARRATIVE: exam by RN- as COVID-1(= to limit risk of infection spread- telehealth ipad and stethoscope not brought in to pts room sedated, vent- fio2=45%, PEEP 12, RR20, CMV, heent- nc/at neck supple lungs crackles heart reg abd soft ext 1+ edema Urinary Catheter Management^: William: Cath Placed During This Visit: yes Reason for Continuing Indwelling Catheter: Accurate Measurement of Urinary Output in Critically Ill Patients Urinary Catheter Date of Insertion: 04/28/21 Urinary Catheter Time of Insertion: 16:00 Data : 05/01/21 05:27 05/01/21 05:27 Micro: Microbiology 04/28/21 16:13 Gram Stain - Final Sputum - Endotracheal Tube Aspirate Sputum Culture - Preliminary 04/28/21 16:15 Urine Culture - Final Urine,Clean Catch A&P Additional A&P Information 1. Acute on chronic kidney disease from ATN vs COVID related disease Renal function improving, with decreasing creatinine and good urine output Daily renal panel Close monitoring of I's and O's Dose medications for decreased GFR Avoid usual nephrotoxic agents 2. Covid pneumonitis Receiving combination medication including remdesivir, cefepime, Levaquin and has received steroids Vent settings per ICU -diuretics per medicine/ pulm 3. Lytes hypernatremia from lasix- if gets more diuretics, then give water also 4. meds reviewed renal fxn improving. 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
[2021-05-01 07:41] LABS: Glucose Point of Care 133 mg/dL (70-110)
[2021-05-01] MEDS: cisatracurium 100 MG in sodium chloride 0.9% 50 ML 6.53 MG IV (08:21)
--- NOTE | 2021-05-01 08:41 | PC.CHAP ---
Pastoral Care Encounter/Spiritual Assessment Type of Contact [] Declined canal driver visit [] Patient/Family/Request visit [] Outpatient visit [] Follow-up visit [] Physician referral [] Code/Alert [x] Routine visit [] Staff referral [] Actively dying [] Patient sleeping [] Family support [] [] Out of room [] Palliative care [] [] Receiving care in room [] Pre-surgical visit [] Trauma [] Long length of stay [x] ICU visit [] Other: Relational/Emotional Strength [] Patient feels connected with others/family/visitors/staff [] Distress [] Loneliness/isolation [] Abandonment Spirituality of Patient [] Person of [place] [] Attends Evangelical of their [place] [] Believes in Prayer [] Reads Bible or Methodist materials [] There are Spiritual issues to be addressed Labor Relations Consultant 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 [x] Prayer [] Active listening [] Non-anxious presence [] Spiritual/emotional support [] Crisis/trauma care [] Spiritual counseling [] Bereavement support [] Provided bereavement packet [] Provided Bible/devotional materials [] Provided toy/stuffed animal, coloring book to patient or family member [] Provided Communion [] Anointing/[place] [] Salvation [x] Completed spiritual assessment [] Other: Impact on Illness or Injury [] Angry [] Fearful [] Anxious [] Often cries [] Exhaustion [] Unable to work [] Unable to attend yazidism [] Unable to walk/stand [] Unable to read [] Unable to drive [] Unable to eat/drink [] Unable to sleep [] Unable to be with family [] Patient intubated [] Other: Summary Time spent with patient
[2021-05-01] MEDS: ascorbic acid 500 mg Tablet PO ×2 (08:50→17:36)
[2021-05-01] MEDS: cholecalciferol (vitamin D3) 1,000 unit Tablet 1000 UNIT PO (08:50)
[2021-05-01] MEDS: zinc gluconate 50 mg Tablet PO (08:50)
[2021-05-01] MEDS: FUROsemide 10 mg/mL SDV 4mL 40 MG IVP (08:50)
[2021-05-01] MEDS: aspirin 81 mg EC Tablet PO (08:50)
[2021-05-01] MEDS: sucralfate 1 gm/10 mL Oral Liq UDC PO ×2 (08:50→20:04)
[2021-05-01] MEDS: enoxaparin 100 mg/mL Syringe 90 MG SUBCUT ×2 (08:51→21:13)
--- NOTE | 2021-05-01 09:14 | PC.SOCIAL ---
IMM update IMM not updated due to patient not expected to DC in the next 24-48 hours.
[2021-05-01 11:34] LABS: Glucose Point of Care 165 mg/dL (70-110)
--- NOTE | 2021-05-01 15:48 | PM.PN ---
Subjective Subjective: Interval history: This is a 75-year-old male with past medical history of hypertension who presented to the hospital with concerns of shortness of breath and hypoxemia. He was intubated and sedated in the emergency room. The patient was diagnosed with COVID-19 April 25. There was also concern that he may have had PEA. Given a dose of phenylephrine. The patient currently on ventilator protocol. Also being treated for suspected bacterial pneumonia. Also noted to have bloody output from OG tube without significant anemia. Protonix as well as Carafate was initiated. Nephrology also has been consulted for acute on chronic kidney disease. current vent settings CMV/450/18/10/40% Medications: Reviewed: Yes Vitals/I&O/Wt Last Vital Signs Temp 98.2 F 05/01/21 12:00 Pulse 75 05/01/21 14:00 Resp 20 H 05/01/21 13:38 BP 121/84 05/01/21 12:00 Pulse Ox 95 05/01/21 13:38 05/01/21 05/01/21 05/01/21 06:59 14:59 22:59 Intake Total 100 / 1266.596 200 / 200 Output Total 1075 / 6825 1200 / 1200 Balance -975 / -5558.404 -1000 / -1000 Physical Exam Const: OTHER: intubated and sedated Resp: EFFORT & INSPECTION: Yes symmetric chest movement OTHER: on vent Cardio: COMMON NORMALS: regular rate and regular rhythm RATE: regular rate RHYTHM: regular rhythm GI: COMMON NORMALS: Soft to palpation and non-tender PALPATION: Yes Soft to palpation Extremity: COMMON NORMALS: no pedal edema GENERAL: No edema Urinary Catheter Management^: William: Cath Placed During This Visit: yes Reason for Continuing Indwelling Catheter: Accurate Measurement of Urinary Output in Critically Ill Patients Urinary Catheter Date of Insertion: 04/28/21 Urinary Catheter Time of Insertion: 16:00 Data : 05/01/21 05:27 05/01/21 05:27 Micro: Microbiology 04/28/21 16:13 Gram Stain - Final Sputum - Endotracheal Tube Aspirate Sputum Culture - Final A&P Assessment and plan (1) UTI (urinary tract infection): Status: Acute (2) Myocarditis due to 2019 novel coronavirus: Status: Acute (3) NSTEMI (non-ST elevated myocardial infarction): Status: Acute (4) Acute respiratory failure with hypoxia: Status: Acute (5) Acute kidney injury superimposed on CKD: Status: Acute (6) Acute respiratory distress syndrome: Status: Acute (7) Acute hypoxemic respiratory failure: Status: Acute Additional A&P Information #Covid 19 pneumonia #acute hypoxic respiratory failure #septic shock --Continue ventilator protocol, FIO@ 40% --Continue remdesivir, r Decadron --Continue empiric antibiotics including vancomycin, cefepime, Levaquin --Zinc vitamin D, vitamin C #hyperglycemia --does not have history of diabetes, aic 5.7 --imagine will elevate with decadron #NSTEMI --Likely multifactorial demand ischemia intermittent need for Levophed. #acute on CKD --likely multi factorial including secondary to septic shock. Monitor I's and O's. Renally dose medications. Appreciate nephrology recommendations. 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
[2021-05-01] MEDS: dexamethasone 10 mg/mL INJ 6 MG IVP (16:52)
[2021-05-01] MEDS: remdesivir 100 MG in sodium chloride 0.9% (100 ml) 100 ML IV (17:37)
--- NOTE | 2021-05-01 18:27 | PC.NURSE ---
Shift Note Frequent safety and comfort rounds continue. Orders and/or nursing care completed as indicated. Patient monitored for response to intervention and treatment(s). Education provided includes ventilator settings and sedation. Patient and/or area representative verbalize understanding. Will continue to monitor.
[2021-05-01] MEDS: levofloxacin-dextrose 5 % 750 MG/150 ML PREMIX 100 MG IV (19:45)
[2021-05-01] MEDS: vancomycin 1,250 MG/250 ML PIGGYBACK 250 MG IV (19:46)
[2021-05-01] MEDS: ipratropium-albuterol 3 mL Neb INHALATION ×2 (20:44→23:58)
[2021-05-01] MEDS: cisatracurium 100 MG in sodium chloride 0.9% 50 ML 7.08 MG IV (21:15)
[2021-05-02] VITALS (45 sets, daily range): BP systolic 102–170; BP diastolic 68–109; PULSE 85–113; RESP 18–25; TEMP 37.5–38.1; O2SAT 89–94
[2021-05-02] MEDS: propofol 1,000 MG/100 ML INJ 27.22 MG IV ×6 (01:26→21:01)
[2021-05-02] MEDS: ipratropium-albuterol 3 mL Neb INHALATION ×6 (04:10→23:40)
[2021-05-02 04:50] LABS: ABG PCO2 56.3 mmHg (35-45); ABG PH Result 7.36 (7.35-7.45); Arterial Blood Gas Hematocrit 49.8 % (42-52); Base Excess ABG 4.7 mmol/L (-2.0-2.0); Blood Gas Sample Type Arterial; HCO3 ABG 32.1 mmol/L (22-26); PO2 ABG 71.3 mmHg (80.0-100.0)
[2021-05-02 04:52] LABS: Blood Gas Operator Identificat HARKR; Blood Gas Sample Site Not specified; Blood Gas Tidal Volume 0.45; Oxygen Device VENT
[2021-05-02] MEDS: pantoprazole 40 mg SDV IVP ×2 (05:03→17:53)
[2021-05-02 05:49] LABS: Basophils % 0.1 %; Hematocrit 48.9 % (42.0-52.0); Lymphocytes % 3.3 %; Mean Corpuscular HGB Conc 32.7 g/dL (30.0-36.0); Mean Corpuscular Hemoglobin 30.9 pg (28.0-34.0); Mean Corpuscular Volume 94.6 fl (80-94); Monocytes # 1.5 10^3/uL (0.2-0.9); Monocytes % 5.3 %; Neutrophils # 22.39 10^3/uL (1.8-7.7); Neutrophils % 77.1 %; Nucleated Red Blood Cells % 0.1 %; Platelet Count 202 10^3/cmm (130-400); Red Blood Count 5.17 10^6/uL (4.1-5.3); Red Cell Distribution Width 14.5 % (12.1-15.1)
[2021-05-02 06:03] LABS: Alanine Aminotransferase 100 U/L (0-41); Albumin Level 3.1 g/dL (3.5-5.2); Alkaline Phosphatase 88 IU/L (40-130); Anion Gap 13.5 (5-19); Aspartate Amino Transferase 67 U/L (0-40); Blood Urea Nitrogen 35 mg/dL (8-23); Calcium 7.8 mg/dL (8.5-10.5); Carbon Dioxide 31 mmol/L (22-29); Chloride 105 mmol/L (98-107); Globulin 2.6 g/dL (1.3-4.6); Glucose 181 mg/dL (65-115); Magnesium 2.6 mg/dL (1.7-2.3); Osmolality Calculated 313 mOsm/kg (285-295); Phosphorus 3.8 mg/dL (2.5-4.5); Potassium 4.5 mmol/L (3.5-5.1); Sodium 145 mmol/L (136-145); Total Bilirubin 1.2 mg/dL (0.15-1.2); Total Protein 5.7 g/dL (6.6-8.7)
[2021-05-02 06:07] LABS: Vancomycin Random 16.7 ug/mL (20.0-40.0)
[2021-05-02 06:22] LABS: Slide Review Slide Review Perform
[2021-05-02] MEDS: sucralfate 1 gm/10 mL Oral Liq UDC PO ×2 (08:27→20:00)
[2021-05-02] MEDS: zinc gluconate 50 mg Tablet PO (08:27)
[2021-05-02] MEDS: ascorbic acid 500 mg Tablet PO ×2 (08:27→17:53)
[2021-05-02] MEDS: enoxaparin 100 mg/mL Syringe 90 MG SUBCUT ×2 (08:27→21:00)
[2021-05-02] MEDS: cholecalciferol (vitamin D3) 1,000 unit Tablet 1000 UNIT PO (08:27)
[2021-05-02] MEDS: aspirin 81 mg EC Tablet PO (08:27)
--- NOTE | 2021-05-02 08:29 | XR_ITS ---
WS: [id number] Portable AP semiupright chest, 05/02/2021 Clinical Data: followup pneumonia Comparison: Portable chest, 04/30/2021. Findings: The bilateral pulmonary opacities have cleared moderately. The heart is at the upper limits of normal. Endotracheal tube and nasogastric tube remain in the same position. Monitor leads are on the chest wall. XR/XR chest 1V portable [id number] Impression: 1. Moderate clearing of bilateral patchy opacities. 2. No change in position of nasogastric tube and endotracheal tube.
--- NOTE | 2021-05-02 08:55 | PC.CHAP ---
Pastoral Care Encounter/Spiritual Assessment Type of Contact [] Declined manager non profit visit [] Patient/Family/Request visit [] Outpatient visit [] Follow-up visit [] Physician referral [] Code/Alert [x] Routine visit [] Staff referral [] Actively dying [] Patient sleeping [] Family support [] [] Out of room [] Palliative care [] [] Receiving care in room [] Pre-surgical visit [] Trauma [] Long length of stay [x] ICU visit [] Other: Relational/Emotional Strength [] Patient feels connected with others/family/visitors/staff [] Distress [] Loneliness/isolation [] Abandonment Spirituality of Patient [] Person of [place] [] Attends Orthodox of their [place] [] Believes in Prayer [] Reads Bible or Yarsani materials [] There are Spiritual issues to be addressed Criminal Profiler 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 [x] Prayer [] Active listening [] Non-anxious presence [] Spiritual/emotional support [] Crisis/trauma care [] Spiritual counseling [] Bereavement support [] Provided bereavement packet [] Provided Bible/devotional materials [] Provided toy/stuffed animal, coloring book to patient or family member [] Provided Communion [] Anointing/[place] [] Salvation [x] Completed spiritual assessment [] Other: Impact on Illness or Injury [] Angry [] Fearful [] Anxious [] Often cries [] Exhaustion [] Unable to work [] Unable to attend jew [] Unable to walk/stand [] Unable to read [] Unable to drive [] Unable to eat/drink [] Unable to sleep [] Unable to be with family [] Patient intubated [] Other: Summary Time spent with patient
--- NOTE | 2021-05-02 09:14 | PC.NURSE ---
Shift Note Frequent safety and comfort rounds continue. Orders and/or nursing care completed as indicated. Patient monitored for response to intervention and treatment(s). Education provided includes[covid 19, ventilation, sedation and sedation vacation]. Patient and/or labor representative [verbally understood]. Will continue to monitor. Received bed side shift report from off going nurse. Pt's plan of care reviewed. Pt is resting in bed. Respirations are even and unlabored. No s/sx of distress noted. Pt is currently vented and under sedation medication. Pt appears to be resting comfortably at this time. Family called and was notified of pt's status and plan of care. Bed in lowest and locked position and bed alarm on. Will continue to monitor pt.
--- NOTE | 2021-05-02 13:47 | P.PN_ITS ---
Subjective Subjective: Interval history: This is a 75-year-old male with past medical history of hypertension who presented to the hospital with concerns of shortness of breath and hypoxemia. He was intubated and sedated in the emergency room. The patient was diagnosed with COVID-19 April 25. There was also concern that he may have had PEA. Given a dose of phenylephrine. The patient currently on ventilator protocol. Also being treated for suspected bacterial pneumonia. Also noted to have bloody output from OG tube without significant anemia. Protonix as well as Carafate was initiated. Nephrology also has been consulted for acute on chronic kidney disease. CMV/450/19/8/40% Medications: Reviewed: Yes Vitals/I&O/Wt Last Vital Signs Temp 99.5 F 05/02/21 07:57 Pulse 97 05/02/21 12:00 Resp 23 H 05/02/21 13:36 BP 111/82 05/02/21 12:00 Pulse Ox 90 05/02/21 13:36 05/01/21 05/02/21 05/02/21 22:59 06:59 14:59 Intake Total 1713.849 / 5679.300 8364.549 / 2920.398 280.238 / 280.238 Output Total 600 / 1800 950 / 2750 Balance 1113.849 / 113.849 56.549 / 170.398 280.238 / 280.238 Physical Exam Const: OTHER: intubated and sedated Chest: COMMONS NORMALS: normal inspection of the chest Resp: EFFORT & INSPECTION: Yes symmetric chest movement OTHER: clear Cardio: COMMON NORMALS: regular rate and regular rhythm RATE: regular rate RHYTHM: regular rhythm GI: COMMON NORMALS: Soft to palpation PALPATION: Yes Soft to palpation Neuro: OTHER: on vent Skin: COMMON NORMALS: no rashes or lesions noted GENERAL SKIN EXAM: no rashes or lesions noted Urinary Catheter Management^: William: Cath Placed During This Visit: yes Reason for Continuing Indwelling Catheter: Accurate Measurement of Urinary Output in Critically Ill Patients Urinary Catheter Date of Insertion: 04/28/21 Urinary Catheter Time of Insertion: 16:00 Data : 05/02/21 05:15 05/02/21 05:15 A&P Assessment and plan (1) Myocarditis due to 2019 novel coronavirus: Status: Acute (2) UTI (urinary tract infection): Status: Acute (3) NSTEMI (non-ST elevated myocardial infarction): Status: Acute (4) Acute respiratory failure with hypoxia: Status: Acute (5) Acute kidney injury superimposed on CKD: Status: Acute (6) Transaminitis: Status: Acute (7) Acute respiratory distress syndrome: Status: Acute Additional A&P Information #Covid 19 pneumonia #acute hypoxic respiratory failure #septic shock --Continue ventilator protocol, CMV/450/19/8/40% --currently supine --Continue Decadron --remdisivir given --Continue empiric antibiotics including vancomycin, cefepime, Levaquin --Zinc vitamin D, vitamin C #hyperglycemia --does not have history of diabetes, aic 5.7 --imagine will elevate with decadron #NSTEMI --Likely multifactorial demand ischemia intermittent need for Levophed. #acute on CKD --likely multi factorial including secondary to septic shock. Monitor I's and O's. Renally dose medications. Appreciate nephrology recommendations. 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
--- NOTE | 2021-05-02 14:02 | PC.NUTR ---
Nutrition note: Pt triggered for dietitian assessment per Luis today, however pt assessed by this RD on 04/30/21 with recommendations placed in EMR. Will follow up tomorrow 05/03/21. See assessment and note from 04/30 for further details.
[2021-05-02] MEDS: dexamethasone 10 mg/mL INJ 6 MG IVP (17:48)
[2021-05-02] MEDS: cefepime 2,000 MG in sodium chloride 0.9% (plus) 50 ML 100 MG IV (18:13)
[2021-05-02] MEDS: remdesivir 100 MG in sodium chloride 0.9% (100 ml) 100 ML IV (18:26)
[2021-05-02 19:54] LABS: Vancomycin Trough 14.4 ug/mL (10-15)
[2021-05-02] MEDS: vancomycin 1,250 MG/250 ML PIGGYBACK 250 MG IV (19:59)
[2021-05-02] MEDS: levofloxacin-dextrose 5 % 750 MG/150 ML PREMIX 100 MG IV (19:59)
[2021-05-03] VITALS (40 sets, daily range): BP systolic 90–139; BP diastolic 61–85; PULSE 89–103; RESP 20–24; TEMP 37.2–37.7; O2SAT 88–93
[2021-05-03] MEDS: propofol 1,000 MG/100 ML INJ 27.22 MG IV ×6 (00:42→21:38)
[2021-05-03 01:20] LABS: Glucose Point of Care 192 mg/dL (70-110)
[2021-05-03] MEDS: ipratropium-albuterol 3 mL Neb INHALATION ×6 (03:44→23:30)
[2021-05-03 04:44] LABS: Glucose Point of Care 157 mg/dL (70-110)
[2021-05-03 05:21] LABS: Basophils % 0.1 %; Hematocrit 45.2 % (42.0-52.0); Hemoglobin 14.6 g/dL (11.7-16.6); Lymphocytes % 2.7 %; Mean Corpuscular HGB Conc 32.3 g/dL (30.0-36.0); Mean Corpuscular Hemoglobin 30.5 pg (28.0-34.0); Mean Corpuscular Volume 94.6 fl (80-94); Mean Platelet Volume 11.4 fL (7.4-10.4); Monocytes # 1.6 10^3/uL (0.2-0.9); Monocytes % 4.5 %; Neutrophils # 28.09 10^3/uL (1.8-7.7); Neutrophils % 77.7 %; Nucleated Red Blood Cells % 0.1 %; Platelet Count 229 10^3/cmm (130-400); Red Blood Count 4.78 10^6/uL (4.1-5.3); Red Cell Distribution Width 14.9 % (12.1-15.1)
[2021-05-03] MEDS: pantoprazole 40 mg SDV IVP ×2 (05:53→17:01)
[2021-05-03 05:59] LABS: Alanine Aminotransferase 88 U/L (0-41); Albumin Level 2.7 g/dL (3.5-5.2); Alkaline Phosphatase 71 IU/L (40-130); Aspartate Amino Transferase 75 U/L (0-40); Blood Urea Nitrogen 58 mg/dL (8-23); Calcium 7.7 mg/dL (8.5-10.5); Carbon Dioxide 28 mmol/L (22-29); Chloride 106 mmol/L (98-107); Globulin 3.2 g/dL (1.3-4.6); Glucose 143 mg/dL (65-115); Magnesium 3.1 mg/dL (1.7-2.3); Osmolality Calculated 317 mOsm/kg (285-295); Phosphorus 3.1 mg/dL (2.5-4.5); Sodium 144 mmol/L (136-145); Total Bilirubin 1.1 mg/dL (0.15-1.2); Total Protein 5.9 g/dL (6.6-8.7)
[2021-05-03 06:01] LABS: Vancomycin Random 25.7 ug/mL (20.0-40.0)
[2021-05-03 06:03] LABS: Anion Gap 14.7 (5-19); Potassium 4.7 mmol/L (3.5-5.1)
--- NOTE | 2021-05-03 06:18 | PC.NURSE ---
Shift Note Frequent safety and comfort rounds continue. Orders and/or nursing care completed as indicated. Patient monitored for response to intervention and treatment(s). Education provided includes[]. Patient and/or artists' booking representative [ResponseToTeaching]. Will continue to monitor. It was uneventful shift with the patient who remained sedated and stable on propofol and fentanyl drips. He appears to have a weak gag and cough reflex when performing inline suction. Temperatures for the patient slowly decreased from the day shift to within normal limits. There was one hypotensive episode that occured around 0100, which lead to having the levophed drip turned back on to 2 mcg. The blood pressure has been fine ever since, and could probably be turned off. Last arterial blood pressure was 122/63, and the manual BP cuff showed 109/81.
[2021-05-03 06:51] LABS: Slide Review Slide Review Perform; White Blood Count 36.1 10^3/uL (4.0-10.0)
[2021-05-03 07:52] LABS: Glucose Point of Care 143 mg/dL (70-110)
[2021-05-03] MEDS: cholecalciferol (vitamin D3) 1,000 unit Tablet 1000 UNIT PO (07:54)
[2021-05-03] MEDS: sucralfate 1 gm/10 mL Oral Liq UDC PO ×2 (07:55→20:15)
[2021-05-03] MEDS: ascorbic acid 500 mg Tablet PO ×2 (07:55→17:00)
[2021-05-03] MEDS: aspirin 81 mg EC Tablet PO (07:55)
[2021-05-03] MEDS: zinc gluconate 50 mg Tablet PO (07:55)
[2021-05-03] MEDS: enoxaparin 100 mg/mL Syringe 90 MG SUBCUT ×2 (09:53→21:05)
[2021-05-03 11:53] LABS: Glucose Point of Care 172 mg/dL (70-110)
--- NOTE | 2021-05-03 15:35 | PC.RESP ---
RT Shift Note Frequent safety and respiratory rounds continue. Orders completed as indicated. Patient monitored pre and post treatments throughout shift. Patient [Did.] tolerate treatments appropriately. Condition [I.DidNotChange]. Patient and/or labor union business representative educated on respiratory treatment and medications. Patient and/or labor union business representative [unable to comprehend]. Will continue to monitor patient progress.
[2021-05-03] MEDS: dexamethasone 10 mg/mL INJ 6 MG IVP (17:01)
--- NOTE | 2021-05-03 17:15 | PC.NUTR ---
Tube feeding recommendations: Recommend to change order to continuous (24 hr) if proning sessions completed. Currently running at 15 ml/hr, suggest increasing to 20 ml/hr, with 50 ml H2O flushes q 4 hours, to provide 720 kcal, 30 g protein, and 677 ml H2O. Flushes to be modified per MD discretion. Noted Propofol @ 27.22 ml/hr providing 719 kcal/day. D5W @ 100 ml/hr providing 408 kcal/day. TF would only provide 41% protein needs. If unable to increase TF rate within 1-3 days, would suggest addition of Beneprotein to meet protein needs. See full RD assessment for further details.
[2021-05-03 17:36] LABS: Glucose Point of Care 144 mg/dL (70-110)
[2021-05-03] MEDS: cefepime 2,000 MG in sodium chloride 0.9% (plus) 50 ML 100 MG IV (17:52)
--- NOTE | 2021-05-03 18:36 | PC.NURSE ---
Shift Note Frequent safety and comfort rounds continue. Orders and nursing care completed as indicated. Patient continues to stay intubated and sedated. Pt turn every 2 hours with help of nursing staff. Tube feedings increased to 20ml/hour with 50ml water flushes Q4H. Patient monitored for response to intervention and treatment. Unable to educate patient at this time dut to patient being sedated and ventilated. Spoke with family this morning and afternoon regarding plan of care and patient status, verbalized understanding. Will continue to monitor. CURRENT VENTILATOR SETTINGS MODE: CMV FIO2:45 RR: 20 PEEP: 10 VT: 450 ETT: 8.0 26 at lip
--- NOTE | 2021-05-03 18:58 | P.PN_ITS ---
Subjective Subjective: Interval history: Patient remained on vent. Unchanged. CMV/450/19/8/40% Afebrile Medications: Reviewed: Yes Medication Review Details: Current Medications Acetaminophen (Acetaminophen 325 Mg Tablet) 650 mg PO Q6H PRN PRN Reason: Mild/Mod Pain Or Temp >/= 101 Artificial Tears (Artificial Tears Op Oint 3.5 Gm) 1 applic EYE-BOTH PRN PRN PRN Reason: DRY EYE(S) Ascorbic Acid (Ascorbic Acid 500 Mg Tablet) 500 mg PO BID [facility] Last Admin: 04/30/21 16:25 Dose: Not Given Documented by: Aspirin (Aspirin 81 Mg Ec Tablet) 81 mg PO DAILY [facility] Last Admin: 04/30/21 08:39 Dose: 81 mg Documented by: Bisacodyl (Bisacodyl 5 Mg Tablet) 10 mg PO DAILY PRN; Protocol PRN Reason: Constipation (see protocol) Dexamethasone (Dexamethasone 10 Mg/Ml Inj) 6 mg IVP Q24H [facility] Last Admin: 04/30/21 16:36 Dose: 6 mg Documented by: Dextrose (Dextrose 50% Syringe 50 Ml) 25 ml IVP ONCE PRN; Protocol PRN Reason: hypoglycemia protocol Dextrose (Dextrose 50% Syringe 50 Ml) 50 ml IVP PRN PRN; Protocol PRN Reason: hypoglycemia protocol Enoxaparin Sodium (Enoxaparin 100 Mg/Ml Syringe) 90 mg 1 mg/kg (90 mg) SUBCUT Q12H [facility] Last Admin: 04/30/21 21:27 Dose: 90 mg Documented by: Glucagon (Glucagon 1 Mg/Ml Inj 1 Ml) 1 mg IM ONCE PRN; Protocol PRN Reason: Adult Acute Hypoglycemia Prot. Fentanyl 1,000 mcg/ Sodium (Chloride) 100 mls @ 0 mls/hr IV .Q0M [facility]; Protocol Last Admin: 05/01/21 05:43 Dose: 50 mcg/hr, 5 mls/hr Documented by: Propofol (Diprivan) 1,000 mg in 100 mls @ 0 mls/hr IV .Q0M [facility]; Protocol Last Admin: 05/01/21 04:36 Dose: 50 mcg/kg/min, 27.22 mls/hr Documented by: Remdesivir 100 mg/ Sodium (Chloride) 100 mls @ 100 mls/hr IV Q24H [facility] Stop: 05/02/21 18:59 Last Infusion: 04/30/21 19:16 Dose: Infused Documented by: Cisatracurium Besylate 100 mg/ (Sodium Chloride) 100 mls @ 0 mls/hr IV .Q0M [facility]; Protocol Last Admin: 04/30/21 16:51 Dose: 1.2 mcg/kg/min, 6.53 mls/hr Documented by: Midazolam HCl 100 mg/ Sodium (Chloride) 100 mls @ 0 mls/hr IV .Q0M [facility]; Protocol Last Titration: 04/29/21 08:35 Dose: 0 mg/hr, 0 mls/hr Documented by: Norepinephrine Bitartrate 4 mg (/ Dextrose) 254 mls @ 0 mls/hr IV .Q0M [facility]; Protocol Last Titration: 04/29/21 23:01 Dose: 2 mcg/min, 7.62 mls/hr Documented by: Dextrose (D5w) 500 mls @ 100 mls/hr IV ONCE PRN; Protocol PRN Reason: Adult Acute Hypoglycemia Prot Vancomycin/PEG/NADA/Lysine/Water (Vancocin) 1,250 mg in 250 mls @ 250 mls/hr IV Q24H [facility] Last Infusion: 04/30/21 21:38 Dose: Infused Documented by: Cefepime HCl 2,000 mg/ Sodium (Chloride) 100 mls @ 200 mls/hr IV Q24H [facility]; Protocol Last Infusion: 04/30/21 17:05 Dose: Infused Documented by: Levofloxacin/Dextrose (Levaquin-D5w) 750 mg in 150 mls @ 100 mls/hr IV Q24H [facility]; Protocol Last Infusion: 04/30/21 22:10 Dose: Infused Documented by: Lactulose (Lactulose Oral Liq 20 Gm/30 Ml Udc) 10 gm PO DAILY PRN; Protocol PRN Reason: Constipation (see protocol) Lorazepam (Lorazepam 2 Mg/Ml Inj 1 Ml) 1 mg IVP Q1H PRN PRN Reason: for breakthrough agitation Non-Formulary Route - Milrinone 200 Mcg/Ml 0 each INHALATION Q4H PRN PRN Reason: RESP DILATION Last Admin: 04/29/21 23:57 Dose: 1 each Documented by: Ondansetron HCl (Ondansetron 2 Mg/Ml Sdv 2 Ml) 4 mg IVP Q8H PRN PRN Reason: vomiting, or N/V if npo Pantoprazole Sodium (Pantoprazole 40 Mg Sdv) 40 mg IVP Q12H [facility] Last Admin: 05/01/21 05:14 Dose: 40 mg Documented by: Sucralfate (Sucralfate 1 Gm/10 Ml Oral Liq Udc) 1 gm PO Q12H [facility] Last Admin: 04/30/21 20:40 Dose: 1 gm Documented by: Vitamin D (Cholecalciferol (Vitamin D3) 1,000 Unit Tablet) 1,000 unit PO DAILY [facility] Last Admin: 04/30/21 08:39 Dose: 1,000 unit Documented by: Zinc Gluconate (Zinc Gluconate 50 Mg Tablet) 50 mg PO DAILY [facility] Last Admin: 04/30/21 08:39 Dose: 50 mg Documented by: Vitals/I&O/Wt Last Vital Signs Temp 98.9 F 05/03/21 12:00 Pulse 99 05/03/21 16:00 Resp 21 H 05/03/21 17:52 BP 109/68 05/03/21 16:00 Pulse Ox 92 05/03/21 17:52 05/03/21 05/03/21 05/03/21 06:59 14:59 22:59 Intake Total 980 / 2663.238 300 / 300 415.289 / 715.289 Output Total 700 / 1500 750 / 750 Balance 280 / 1163.238 300 / 300 -334.711 / -34.711 Physical Exam Narrative: EXAM NARRATIVE: Intubated, sedated, on the ventilator Const: OTHER: intubated and sedated Eye: OTHER: Pupils Neck/C-Spine: OTHER: Bloody discharge from OG tube Lymph: LYMPHATIC: no lymphadenopathy noted Resp: COMMON NORMALS: normal respiratory effort, No retractions, No use of accessory muscles and clear to auscultation bilaterally EFFORT & INSPECTION: Yes symmetric chest movement AUSCULTATION: clear to auscultation bilaterally and diminished lung sounds diffuse OTHER: Vented sounds b/l Cardio: COMMON NORMALS: regular rate, regular rhythm, S1 normal heart sound present and S2 normal heart sound present RATE: regular rate RHYTHM: regular rhythm HEART SOUNDS: S1 normal heart sound present and S2 normal heart sound present GI: COMMON NORMALS: Normal to inspection, nondistended, normoactive bowel sounds present, Soft to palpation, non-tender and no bruits PALPATION: Yes Soft to palpation : OTHER: William catheter in place, William bag blood within the urine Extremity: COMMON NORMALS: no pedal edema NARRATIVE EXTREMITY EXAM: Right art line in place, left femoral line in place GENERAL: No edema OTHER: DP PT pulses palpable Neuro: OTHER: on vent Skin: COMMON NORMALS: no rashes or lesions noted, turgor normal and no mottling GENERAL SKIN EXAM: no rashes or lesions noted and turgor normal Urinary Catheter Management^: William: Cath Placed During This Visit: yes Reason for Continuing Indwelling Catheter: Accurate Measurement of Urinary Output in Critically Ill Patients Urinary Catheter Date of Insertion: 04/28/21 Urinary Catheter Time of Insertion: 16:00 Data : 05/03/21 04:20 05/03/21 04:20 Micro: Microbiology 04/28/21 18:08 Blood Culture - Final Blood NO GROWTH AFTER 5 DAYS 04/28/21 18:08 Blood Culture - Final Blood NO GROWTH AFTER 5 DAYS A&P Assessment and plan (1) Myocarditis due to 2019 novel coronavirus: Status: Acute (2) UTI (urinary tract infection): Status: Acute (3) NSTEMI (non-ST elevated myocardial infarction): Status: Acute (4) Acute respiratory failure with hypoxia: Status: Acute (5) Acute kidney injury superimposed on CKD: Status: Acute (6) Transaminitis: Status: Acute (7) Acute respiratory distress syndrome: Status: Acute Additional A&P Information #Covid 19 pneumonia #acute hypoxic respiratory failure #septic shock --Continue ventilator protocol, CMV/450/19/8/40% --currently supine --Continue Decadron --remdisivir given --Continue empiric antibiotics including vancomycin, cefepime, Levaquin --Zinc vitamin D, vitamin C -- Worsening leukocytosis -- Will check pro-xi in am -- Will d/w pulmonary -- Concern for superimposed opportunistic infection -- CBC in am #hyperglycemia --does not have history of diabetes, aic 5.7 --imagine will elevate with decadron #NSTEMI --Likely multifactorial demand ischemia #acute on CKD --likely multi factorial including secondary to septic shock. Monitor I's and O's. Renally dose medications. Appreciate nephrology recommendations. #elevated CK --statin held --improved 548--> 553--> 249 #Bloody output from OG tube, no significant anemia, no significant coagulopathy, blood in the urine, continue, Protonix 40 twice daily, Carafate DVT: Lovenox 90mg q12 hr Attestations Medical Necessity Statement*: Will require further hospitalization for management of vent dependent respiratory failure and sepsis Time Spent in Patient Care: Greater than 35 minutes (>than 50% of time spent in counselling and/or direct pt care on unit) . Critical Care Time: Critical Care Time (min): 55 Coding Level of Care Code Acute [employer] [facility] Fwd Diagnoses Myocarditis due to 2019 novel coronavirus U07.1; I40.0 UTI (urinary tract infection) N39.0 NSTEMI (non-ST elevated myocardial infarction) I21.4 Acute respiratory failure with hypoxia J96.01 Acute kidney injury superimposed on CKD N17.9; N18.9 Transaminitis R74.01 Acute respiratory distress syndrome J80
[2021-05-03] MEDS: vancomycin 1,250 MG/250 ML PIGGYBACK 250 MG IV (19:22)
[2021-05-03] MEDS: levofloxacin-dextrose 5 % 750 MG/150 ML PREMIX 100 MG IV (19:22)
[2021-05-03 21:12] LABS: Glucose Point of Care 174 mg/dL (70-110)
[2021-05-03 21:25] LABS: Vancomycin Trough 48.7 ug/mL (10-15)
--- NOTE | 2021-05-03 21:36 | PC.PHAR ---
Vancomycin trough noted as critical at 48.7. Documentation shows that Vancomycin administered at 1922 and trough drawn at 1940 which means that the trough was basically obtained from the IV bag. Asked nurse to continue Vancomycin as ordered at every 24 hours and another trough ordered and to please be sure the level is drawn before the IV administered.
[2021-05-04] VITALS (45 sets, daily range): BP systolic 77–133; BP diastolic 54–85; PULSE 87–172; RESP 18–25; TEMP 37–38.1; O2SAT 87–94
[2021-05-04] MEDS: propofol 1,000 MG/100 ML INJ 27.22 MG IV ×6 (01:25→22:49)
[2021-05-04] MEDS: ipratropium-albuterol 3 mL Neb INHALATION ×6 (03:48→23:42)
[2021-05-04 04:10] LABS: ABG PH Result 7.36 (7.35-7.45); Arterial Blood Gas Hematocrit 39.3 % (42-52); Base Excess ABG -2.5 mmol/L (-2.0-2.0); Blood Gas Operator Identificat HARKR; Blood Gas Sample Type Arterial; HCO3 ABG 22.7 mmol/L (22-26); Oxygen Device VENT; PO2 ABG 64.5 mmHg (80.0-100.0)
[2021-05-04 04:19] LABS: Glucose Point of Care 137 mg/dL (70-110)
[2021-05-04] MEDS: pantoprazole 40 mg SDV IVP ×2 (05:55→17:36)
[2021-05-04 06:50] LABS: Basophils # 0.1 10^3/uL (0.0-0.1); Basophils % 0.5 %; Eosinophils % 0.1 %; Hematocrit 42.8 % (42.0-52.0); Hemoglobin 13.9 g/dL (11.7-16.6); Lymphocytes # 0.4 10^3/uL (0.8-4.8); Lymphocytes % 1.2 %; Mean Corpuscular HGB Conc 32.5 g/dL (30.0-36.0); Mean Corpuscular Hemoglobin 31.1 pg (28.0-34.0); Mean Corpuscular Volume 95.7 fl (80-94); Mean Platelet Volume 11.1 fL (7.4-10.4); Monocytes # 0.8 10^3/uL (0.2-0.9); Monocytes % 2.5 %; Neutrophils # 24.74 10^3/uL (1.8-7.7); Neutrophils % 82.7 %; Nucleated Red Blood Cells % 0 %; Platelet Count 175 10^3/cmm (130-400); Red Blood Count 4.47 10^6/uL (4.1-5.3); Red Cell Distribution Width 15.1 % (12.1-15.1); White Blood Count 29.9 10^3/uL (4.0-10.0)
[2021-05-04 07:00] LABS: D Dimer 2.49 ug/mIFEU (0-0.59)
--- NOTE | 2021-05-04 07:00 | XR_ITS ---
WS: [id number] Portable AP semiupright chest, 05/04/2021 Clinical Data: respiratory failure Comparison portable chest, 05/04/2021 Findings: The bilateral patchy pulmonary opacities again are seen. There is a slight increase in the right opacity. The endotracheal tube and nasogastric tube are in good position. Monitor leads are on the chest wall. XR/XR chest 1V portable [id number] Impression: 1. Slight increase in bilateral pulmonary opacities. 2. No change in endotracheal tube and nasogastric tube.
--- NOTE | 2021-05-04 07:12 | PC.NURSE ---
Shift Note Frequent safety and comfort rounds continue. Orders and/or nursing care completed as indicated. Patient monitored for response to intervention and treatment(s). Education provided includes[]. Patient and/or assistance representative [ResponseToTeaching]. Will continue to monitor. During the shift there were only a few changes with the patient's condition. The patient's oxygen saturation was hovering from 88-92% with an FiO2 at 45 most the shift. I believe around 2556-0829 the RT increased the FiO2 up to 50%. The patient also had an hypotensive episode shortly after shift change and so the levophed was restarted at 2 mcg. The patient received a bath, and the dressing on the arterial line was changed. Sedations include propofol and fentanyl. Urine output was 950 for the shift.
[2021-05-04 07:18] LABS: Phosphorus 4.3 mg/dL (2.5-4.5)
[2021-05-04 07:20] LABS: Glucose Point of Care 131 mg/dL (70-110)
[2021-05-04 07:21] LABS: Alanine Aminotransferase 64 U/L (0-41); Albumin Level 2.6 g/dL (3.5-5.2); Alkaline Phosphatase 61 IU/L (40-130); Anion Gap 17.6 (5-19); Aspartate Amino Transferase 50 U/L (0-40); Blood Urea Nitrogen 72 mg/dL (8-23); C Reactive Protein 194.7 mg/L (0.0-4.9); Calcium 7.9 mg/dL (8.5-10.5); Carbon Dioxide 23 mmol/L (22-29); Chloride 106 mmol/L (98-107); Globulin 3.1 g/dL (1.3-4.6); Glucose 122 mg/dL (65-115); Magnesium 3.1 mg/dL (1.7-2.3); Osmolality Calculated 316 mOsm/kg (285-295); Potassium 4.6 mmol/L (3.5-5.1); Sodium 142 mmol/L (136-145); Total Bilirubin 1.2 mg/dL (0.15-1.2); Total Protein 5.7 g/dL (6.6-8.7)
[2021-05-04 07:32] LABS: Ferritin 1672 ng/mL (30-400)
[2021-05-04] MEDS: aspirin 81 mg EC Tablet PO (07:59)
[2021-05-04] MEDS: cholecalciferol (vitamin D3) 1,000 unit Tablet 1000 UNIT PO (07:59)
[2021-05-04] MEDS: zinc gluconate 50 mg Tablet PO (07:59)
[2021-05-04] MEDS: sucralfate 1 gm/10 mL Oral Liq UDC PO ×2 (07:59→20:50)
[2021-05-04] MEDS: ascorbic acid 500 mg Tablet PO ×2 (07:59→17:36)
[2021-05-04 08:05] LABS: Slide Review Slide Review Perform
[2021-05-04] MEDS: enoxaparin 100 mg/mL Syringe 90 MG SUBCUT (09:28)
[2021-05-04] MEDS: dexmedeTOMIDine 0.9 % NaCL 400 MCG/100 ML PREMIX IV (09:52)
[2021-05-04 10:05] LABS: Procalcitonin 0.98 ng/mL (0-0.5)
[2021-05-04] MEDS: sodium chloride 0.9% 1,000 ML 30 ML IV (10:55)
--- NOTE | 2021-05-04 11:59 | PM.PN ---
Subjective Subjective: Interval history: Mr Carrera is again reviewed by our team. We were following him during his earlier course of his hospitalization, he is currently intubated in the ICU. His renal function has gotten worse over the last few days. Urine output is recorded as 1700 mL yesterday. His FiO2 is currently 50%, PEEP of 10. Maintaining his blood pressure without the need for vasopressor agents. Medications: Reviewed: Yes Medication Review Details: Current Medications Acetaminophen (Acetaminophen 325 Mg Tablet) 650 mg PO Q6H PRN PRN Reason: Mild/Mod Pain Or Temp >/= 101 Artificial Tears (Artificial Tears Op Oint 3.5 Gm) 1 applic EYE-BOTH PRN PRN PRN Reason: DRY EYE(S) Ascorbic Acid (Ascorbic Acid 500 Mg Tablet) 500 mg PO BID [facility] Last Admin: 04/30/21 16:25 Dose: Not Given Documented by: Aspirin (Aspirin 81 Mg Ec Tablet) 81 mg PO DAILY [facility] Last Admin: 04/30/21 08:39 Dose: 81 mg Documented by: Bisacodyl (Bisacodyl 5 Mg Tablet) 10 mg PO DAILY PRN; Protocol PRN Reason: Constipation (see protocol) Dexamethasone (Dexamethasone 10 Mg/Ml Inj) 6 mg IVP Q24H [facility] Last Admin: 04/30/21 16:36 Dose: 6 mg Documented by: Dextrose (Dextrose 50% Syringe 50 Ml) 25 ml IVP ONCE PRN; Protocol PRN Reason: hypoglycemia protocol Dextrose (Dextrose 50% Syringe 50 Ml) 50 ml IVP PRN PRN; Protocol PRN Reason: hypoglycemia protocol Enoxaparin Sodium (Enoxaparin 100 Mg/Ml Syringe) 90 mg 1 mg/kg (90 mg) SUBCUT Q12H [facility] Last Admin: 04/30/21 21:27 Dose: 90 mg Documented by: Glucagon (Glucagon 1 Mg/Ml Inj 1 Ml) 1 mg IM ONCE PRN; Protocol PRN Reason: Adult Acute Hypoglycemia Prot. Fentanyl 1,000 mcg/ Sodium (Chloride) 100 mls @ 0 mls/hr IV .Q0M [facility]; Protocol Last Admin: 05/01/21 05:43 Dose: 50 mcg/hr, 5 mls/hr Documented by: Propofol (Diprivan) 1,000 mg in 100 mls @ 0 mls/hr IV .Q0M [facility]; Protocol Last Admin: 05/01/21 04:36 Dose: 50 mcg/kg/min, 27.22 mls/hr Documented by: Remdesivir 100 mg/ Sodium (Chloride) 100 mls @ 100 mls/hr IV Q24H [facility] Stop: 05/02/21 18:59 Last Infusion: 04/30/21 19:16 Dose: Infused Documented by: Cisatracurium Besylate 100 mg/ (Sodium Chloride) 100 mls @ 0 mls/hr IV .Q0M [facility]; Protocol Last Admin: 04/30/21 16:51 Dose: 1.2 mcg/kg/min, 6.53 mls/hr Documented by: Midazolam HCl 100 mg/ Sodium (Chloride) 100 mls @ 0 mls/hr IV .Q0M [facility]; Protocol Last Titration: 04/29/21 08:35 Dose: 0 mg/hr, 0 mls/hr Documented by: Norepinephrine Bitartrate 4 mg (/ Dextrose) 254 mls @ 0 mls/hr IV .Q0M [facility]; Protocol Last Titration: 04/29/21 23:01 Dose: 2 mcg/min, 7.62 mls/hr Documented by: Dextrose (D5w) 500 mls @ 100 mls/hr IV ONCE PRN; Protocol PRN Reason: Adult Acute Hypoglycemia Prot Vancomycin/PEG/[place]/Lysine/Water (Vancocin) 1,250 mg in 250 mls @ 250 mls/hr IV Q24H [facility] Last Infusion: 04/30/21 21:38 Dose: Infused Documented by: Cefepime HCl 2,000 mg/ Sodium (Chloride) 100 mls @ 200 mls/hr IV Q24H [facility]; Protocol Last Infusion: 04/30/21 17:05 Dose: Infused Documented by: Levofloxacin/Dextrose (Levaquin-D5w) 750 mg in 150 mls @ 100 mls/hr IV Q24H [facility]; Protocol Last Infusion: 04/30/21 22:10 Dose: Infused Documented by: Lactulose (Lactulose Oral Liq 20 Gm/30 Ml Udc) 10 gm PO DAILY PRN; Protocol PRN Reason: Constipation (see protocol) Lorazepam (Lorazepam 2 Mg/Ml Inj 1 Ml) 1 mg IVP Q1H PRN PRN Reason: for breakthrough agitation Non-Formulary Route - Milrinone 200 Mcg/Ml 0 each INHALATION Q4H PRN PRN Reason: RESP DILATION Last Admin: 04/29/21 23:57 Dose: 1 each Documented by: Ondansetron HCl (Ondansetron 2 Mg/Ml Sdv 2 Ml) 4 mg IVP Q8H PRN PRN Reason: vomiting, or N/V if npo Pantoprazole Sodium (Pantoprazole 40 Mg Sdv) 40 mg IVP Q12H [facility] Last Admin: 05/01/21 05:14 Dose: 40 mg Documented by: Sucralfate (Sucralfate 1 Gm/10 Ml Oral Liq Udc) 1 gm PO Q12H [facility] Last Admin: 04/30/21 20:40 Dose: 1 gm Documented by: Vitamin D (Cholecalciferol (Vitamin D3) 1,000 Unit Tablet) 1,000 unit PO DAILY [facility] Last Admin: 04/30/21 08:39 Dose: 1,000 unit Documented by: Zinc Gluconate (Zinc Gluconate 50 Mg Tablet) 50 mg PO DAILY [facility] Last Admin: 04/30/21 08:39 Dose: 50 mg Documented by: Vitals/I&O/Wt Last Vital Signs Temp 98.9 F 05/04/21 08:00 Pulse 172 H 05/04/21 10:00 Resp 20 H 05/04/21 09:19 BP 104/85 05/04/21 10:00 Pulse Ox 89 L 05/04/21 10:00 05/03/21 05/04/21 05/04/21 22:59 06:59 14:59 Intake Total 1015.289 / 1315.289 530 / 1845.289 306.661 / 306.661 Output Total 750 / 750 950 / 1700 Balance 265.289 / 565.289 -420 / 145.289 306.661 / 306.661 Physical Exam Narrative: EXAM NARRATIVE: Constitutional: Sedated and vented HEENT: Wet mucosa, no jvp, non icteric Lungs: Bilaterally diminshed, without discernible wheeze, rales in all lung zones CVS: S1 S2, no murmurs Abdo: Soft, BS ok Ext 4: Minimal edema, peripheral perfusion with no cyanosis Neurological: Grossly non-focal Urinary Catheter Management^: William: Cath Placed During This Visit: yes Reason for Continuing Indwelling Catheter: Accurate Measurement of Urinary Output in Critically Ill Patients Urinary Catheter Date of Insertion: 04/28/21 Urinary Catheter Time of Insertion: 16:00 Data : 05/04/21 06:38 05/04/21 06:38 Micro: Microbiology 04/28/21 18:08 Blood Culture - Final Blood NO GROWTH AFTER 5 DAYS 04/28/21 18:08 Blood Culture - Final Blood NO GROWTH AFTER 5 DAYS A&P Additional A&P Information 1. Acute on chronic kidney disease We commonly see this in Covid pneumonitis, it is a multifactorial process. ? Vanco assoc ATN/AIN Will give some very gentle ivf at 30mL/hr and see how he responds Recheck urine studies Bedside bladder scan No indication for dialysis at this time but he is at high risk for needing this in the next few days Daily renal panel Close monitoring of I's and O's Dose medications for GFR less than 30 Avoid usual nephrotoxic agents 2. Covid pneumonitis Unfortunately was not vaccinated Receiving combination medication including remdesivir, Vanco, levaquin, cefepime, has received steroids. Dose Vanco to keep level < 20 Vent settings per ICU 3. Lytes Well balanced 4. Hemodynamics Intermittent Levophed but stable at this time Thank you for our involvement in his care Mirza Arechiga MD Nephrology [phone] Patient seen and examined via telemedicine, with the assistance of the bedside RN > 25 min spent in evaluation and mgmt of patient Attestations Medical Necessity Statement*: Eval for GUMARO Coding Level of Care Code Acute [employer] for [facility]
[2021-05-04] MEDS: phenylephrine inj 25 MG in sodium chloride 0.9% 250 ML 24.24 MG IV (16:53)
--- NOTE | 2021-05-04 16:58 | PM.PN ---
Subjective Subjective: Interval history: Hospital Course 75 year old male with a past medical history of hypertension and chronic kidney disease stage 3 with baseline creatinine around 1.[address] [facility] due to concerns for shortness of breath and hypoxia. Upon arrival to ER patient was intubated and placed on mechanical ventilation. Initial laboratory workup showed a WBC of 15.3, hemoglobin 15.5, hematocrit of 45.7, platelet count of 160. Sodium 136, potassium 4.6, chloride 96, bicarb 22, BUN 50 and creatinine of 2.2. Glucose of 258. Lactic acid of 5.5. AST of 220, ALT of 121, ALP of 74. Troponin of 162, 129,130 at 6hr. TSH of 0.16. COVID19 labs included Ferritin of 2556, LDH of 1380, CRP of 129.5, procalcitonin of 0.70. Imaging studies on arrival included a cxr which showed mild pulmonary edema versus pneumonia. Head CT w/o contrast was negative. Upon admit started on Remdesivir 5 day protocol, decadron 6 mg IV daily and broad spectrum antibiotics with vancomycin, cefepime levaquin. Continued on fentanyl, propofol, versed for sedation. Nimbex was then added for ARDS prone protocol. D-dimer was elevated at 13. CTA was not performed due to renal dysfunction however empirically started on full dose lovenox. Echocardiogram was performed which showed EF of 40-45% with mild global hyperkinesis. Nephrology was consulted. Initially renal function improved to 1.2 however again worsened with increase to 2.6. Net negative balance of 2.6L. Intermittently required pressor support. Subjective 05/04/2021 Noted to have hemoptysis. Blood tingled mucus. Lovenox stopped. Hgb stable. Heparin 5000 units q8hr started. Nephrology consulted again due to worsening renal failure. T-Max of 100.5. Medications: Reviewed: Yes Medication Review Details: Current Medications Acetaminophen (Acetaminophen 325 Mg Tablet) 650 mg PO Q6H PRN PRN Reason: Mild/Mod Pain Or Temp >/= 101 Artificial Tears (Artificial Tears Op Oint 3.5 Gm) 1 applic EYE-BOTH PRN PRN PRN Reason: DRY EYE(S) Ascorbic Acid (Ascorbic Acid 500 Mg Tablet) 500 mg PO BID [facility] Last Admin: 04/30/21 16:25 Dose: Not Given Documented by: Aspirin (Aspirin 81 Mg Ec Tablet) 81 mg PO DAILY [facility] Last Admin: 04/30/21 08:39 Dose: 81 mg Documented by: Bisacodyl (Bisacodyl 5 Mg Tablet) 10 mg PO DAILY PRN; Protocol PRN Reason: Constipation (see protocol) Dexamethasone (Dexamethasone 10 Mg/Ml Inj) 6 mg IVP Q24H [facility] Last Admin: 04/30/21 16:36 Dose: 6 mg Documented by: Dextrose (Dextrose 50% Syringe 50 Ml) 25 ml IVP ONCE PRN; Protocol PRN Reason: hypoglycemia protocol Dextrose (Dextrose 50% Syringe 50 Ml) 50 ml IVP PRN PRN; Protocol PRN Reason: hypoglycemia protocol Enoxaparin Sodium (Enoxaparin 100 Mg/Ml Syringe) 90 mg 1 mg/kg (90 mg) SUBCUT Q12H [facility] Last Admin: 04/30/21 21:27 Dose: 90 mg Documented by: Glucagon (Glucagon 1 Mg/Ml Inj 1 Ml) 1 mg IM ONCE PRN; Protocol PRN Reason: Adult Acute Hypoglycemia Prot. Fentanyl 1,000 mcg/ Sodium (Chloride) 100 mls @ 0 mls/hr IV .Q0M [facility]; Protocol Last Admin: 05/01/21 05:43 Dose: 50 mcg/hr, 5 mls/hr Documented by: Propofol (Diprivan) 1,000 mg in 100 mls @ 0 mls/hr IV .Q0M [facility]; Protocol Last Admin: 05/01/21 04:36 Dose: 50 mcg/kg/min, 27.22 mls/hr Documented by: Remdesivir 100 mg/ Sodium (Chloride) 100 mls @ 100 mls/hr IV Q24H [facility] Stop: 05/02/21 18:59 Last Infusion: 04/30/21 19:16 Dose: Infused Documented by: Cisatracurium Besylate 100 mg/ (Sodium Chloride) 100 mls @ 0 mls/hr IV .Q0M [facility]; Protocol Last Admin: 04/30/21 16:51 Dose: 1.2 mcg/kg/min, 6.53 mls/hr Documented by: Midazolam HCl 100 mg/ Sodium (Chloride) 100 mls @ 0 mls/hr IV .Q0M [facility]; Protocol Last Titration: 04/29/21 08:35 Dose: 0 mg/hr, 0 mls/hr Documented by: Norepinephrine Bitartrate 4 mg (/ Dextrose) 254 mls @ 0 mls/hr IV .Q0M [facility]; Protocol Last Titration: 04/29/21 23:01 Dose: 2 mcg/min, 7.62 mls/hr Documented by: Dextrose (D5w) 500 mls @ 100 mls/hr IV ONCE PRN; Protocol PRN Reason: Adult Acute Hypoglycemia Prot Vancomycin/PEG/NADA/Lysine/Water (Vancocin) 1,250 mg in 250 mls @ 250 mls/hr IV Q24H [facility] Last Infusion: 04/30/21 21:38 Dose: Infused Documented by: Cefepime HCl 2,000 mg/ Sodium (Chloride) 100 mls @ 200 mls/hr IV Q24H [facility]; Protocol Last Infusion: 04/30/21 17:05 Dose: Infused Documented by: Levofloxacin/Dextrose (Levaquin-D5w) 750 mg in 150 mls @ 100 mls/hr IV Q24H [facility]; Protocol Last Infusion: 04/30/21 22:10 Dose: Infused Documented by: Lactulose (Lactulose Oral Liq 20 Gm/30 Ml Udc) 10 gm PO DAILY PRN; Protocol PRN Reason: Constipation (see protocol) Lorazepam (Lorazepam 2 Mg/Ml Inj 1 Ml) 1 mg IVP Q1H PRN PRN Reason: for breakthrough agitation Non-Formulary Route - Milrinone 200 Mcg/Ml 0 each INHALATION Q4H PRN PRN Reason: RESP DILATION Last Admin: 04/29/21 23:57 Dose: 1 each Documented by: Ondansetron HCl (Ondansetron 2 Mg/Ml Sdv 2 Ml) 4 mg IVP Q8H PRN PRN Reason: vomiting, or N/V if npo Pantoprazole Sodium (Pantoprazole 40 Mg Sdv) 40 mg IVP Q12H [facility] Last Admin: 05/01/21 05:14 Dose: 40 mg Documented by: Sucralfate (Sucralfate 1 Gm/10 Ml Oral Liq Udc) 1 gm PO Q12H [facility] Last Admin: 04/30/21 20:40 Dose: 1 gm Documented by: Vitamin D (Cholecalciferol (Vitamin D3) 1,000 Unit Tablet) 1,000 unit PO DAILY [facility] Last Admin: 04/30/21 08:39 Dose: 1,000 unit Documented by: Zinc Gluconate (Zinc Gluconate 50 Mg Tablet) 50 mg PO DAILY [facility] Last Admin: 04/30/21 08:39 Dose: 50 mg Documented by: Vitals/I&O/Wt Last Vital Signs Temp 99.0 F 05/04/21 13:00 Pulse 99 05/04/21 16:00 Resp 23 H 05/04/21 18:12 BP 108/68 05/04/21 16:00 Pulse Ox 93 05/04/21 18:12 05/04/21 05/04/21 05/04/21 06:59 14:59 22:59 Intake Total 530 / 1845.289 406.661 / 406.661 345.404 / 752.065 Output Total 950 / 1700 700 / 700 Balance -420 / 145.289 406.661 / 406.661 -354.596 / 52.065 Physical Exam Narrative: EXAM NARRATIVE: Intubated, sedated, on the ventilator Const: OTHER: intubated and sedated Eye: OTHER: Pupils Neck/C-Spine: OTHER: Bloody discharge from OG tube Lymph: LYMPHATIC: no lymphadenopathy noted Resp: COMMON NORMALS: normal respiratory effort, No retractions, No use of accessory muscles and clear to auscultation bilaterally EFFORT & INSPECTION: Yes symmetric chest movement AUSCULTATION: clear to auscultation bilaterally and diminished lung sounds diffuse OTHER: Vented sounds b/l Cardio: COMMON NORMALS: regular rate, regular rhythm, S1 normal heart sound present and S2 normal heart sound present RATE: regular rate RHYTHM: regular rhythm HEART SOUNDS: S1 normal heart sound present and S2 normal heart sound present GI: COMMON NORMALS: Normal to inspection, nondistended, normoactive bowel sounds present, Soft to palpation, non-tender and no bruits PALPATION: Yes Soft to palpation : OTHER: William catheter in place, William bag blood within the urine Extremity: COMMON NORMALS: no pedal edema NARRATIVE EXTREMITY EXAM: Right art line in place, left femoral line in place GENERAL: No edema OTHER: DP PT pulses palpable Neuro: OTHER: on vent Skin: COMMON NORMALS: no rashes or lesions noted, turgor normal and no mottling GENERAL SKIN EXAM: no rashes or lesions noted and turgor normal Urinary Catheter Management^: William: Cath Placed During This Visit: yes Reason for Continuing Indwelling Catheter: Accurate Measurement of Urinary Output in Critically Ill Patients Urinary Catheter Date of Insertion: 04/28/21 Urinary Catheter Time of Insertion: 16:00 Data : 05/04/21 06:38 05/04/21 06:38 Micro: Microbiology 04/28/21 18:08 Blood Culture - Final Blood NO GROWTH AFTER 5 DAYS 04/28/21 18:08 Blood Culture - Final Blood NO GROWTH AFTER 5 DAYS A&P Assessment and plan (1) Myocarditis due to 2019 novel coronavirus: Status: Acute (2) UTI (urinary tract infection): Status: Acute (3) NSTEMI (non-ST elevated myocardial infarction): Status: Acute (4) Acute respiratory failure with hypoxia: Status: Acute (5) Acute kidney injury superimposed on CKD: Status: Acute (6) Transaminitis: Status: Acute (7) Acute respiratory distress syndrome: Status: Acute Additional A&P Information #COVID-19 pneumonia #Acute hypoxemic respiratory failure --Continue ventilator protocol, CMV - FIo2 50% --Completed Remdesivir, On Decadron 6 mg IV daily, Continue Duoneb q6hr, Pulmicort 0.5 inh BID --D-dimer - 13 on arrival -> 2.5, can not rule out PE, Lovenox stopped due to increasing hemoptysis --Repeat Chest x-ray and ABG in AM Sepsis with Shock --Continue empiric antibiotics including vancomycin, cefepime, Levaquin --Marked Leukocytosis - WBC 36-> 29 --Procalcitonin elevated --May consider adding antifungal --Maintain MAP > 65 --Pressor support as needed Acute on stage 3 CKD --Creatinine increase to 2.6 --Neprhology re-consulted --Renal US noted --BMP in AM Acute Systolic HF --ECHO 45% --Likely due to sepsis --Will likely repeat Limited ECHO --Will dierese once renal function stable #NSTEMI - Type 2 --Likely multifactorial demand ischemia #Rhabomyolysis --statin held --improved 548--> 553--> 249 GI PPx --Protonix 40mg IV BID DVT ppx - Start Heparin 5000 units Q8hr if Hb stable Attestations Medical Necessity Statement*: We for continued hospitalization for management of COVID-19 related sepsis which struck and increasing renal failure Time Spent in Patient Care: Greater than 35 minutes (>than 50% of time spent in counselling and/or direct pt care on unit). Critical Care Time: Critical Care Time (min): 65 Coding Level of Care Code Acute Analog Device Designer for Chg Fwd Diagnoses Myocarditis due to 2019 novel coronavirus U07.1; I40.0 UTI (urinary tract infection) N39.0 NSTEMI (non-ST elevated myocardial infarction) I21.4 Acute respiratory failure with hypoxia J96.01 Acute kidney injury superimposed on CKD N17.9; N18.9 Transaminitis R74.01 Acute respiratory distress syndrome J80
--- NOTE | 2021-05-04 17:14 | ECG_ITS ---
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: : 1945 Requested By: Singh Haque Order Number: [id number] Reading MD: BERNARDINO MITCHELL Measurements Intervals [place] Rate: 101 P: 32 [place]: 163 QRS: 17 QRSD: 128 T: -12 QT: 361 QTc: 469 Interpretive Statements Sinus tachycardia ABNORMAL RHYTHM ECG INTERPRETATION BASED ON A DEFAULT AGE OF 40 YEARS Compared to ECG 05/01/2021 06:17:47 Sinus rhythm no longer present Incomplete right bundle-branch block no longer present Prolonged QT interval no longer present Electronically Signed On 05-05-2021 20:16:31 CDT by BERNARDINO MITCHELL [id number]
[2021-05-04 17:26] LABS: Bacteria Urine 1+ /hpf; Bilirubin Urine Neg (Negative); Blood Urine 3+ (Negative); Glucose Urine UA Norm (Normal); Ketones Urine Negative (Negative); Leukocyte Esterase Urine Trace (Negative); Nitrate Urine Negative (Negative); Protein Urine Neg (Negative); Specific Gravity, Urine 1.015 (1.005-1.030); Urine Appearance Cloudy (CLEAR); Urine Color Straw (Yellow); Urobilinogen Urine Norm (Negative); pH Urine 5 (5-7)
[2021-05-04 17:27] LABS: Add Urine Culture? No; Amorphous Sediment Urine 4+ /hpf
[2021-05-04] MEDS: cefepime 2,000 MG in sodium chloride 0.9% (plus) 50 ML 100 MG IV (17:36)
[2021-05-04] MEDS: dexamethasone 10 mg/mL INJ 6 MG IVP (17:36)
[2021-05-04 17:51] LABS: Urine Creatinine 73 mg/dL (39-259); Urine Random Sodium 23 mmol/L
[2021-05-04 18:07] LABS: Aspergillus AG,EIA,Serum NOT DETECTED; Aspergillus Galactomannan Inde <0.50
--- NOTE | 2021-05-04 18:14 | PC.NURSE ---
Shift Note Frequent safety and comfort rounds continue. Orders and nursing care completed as indicated. Care team attempted to wean patient down on sedation, patient heartrate increased to 170s, BP decreased, Levophed turned on for 1 hour at a rate of 2mcg/min. EKG ordered, see report. Pt has bloody sputum and art line noted to be leaking blood. Physician notified and Lovenox stopped. Patient monitored for response to intervention and treatments. Unable to educate patient at this time due to patient being sedated and ventilated. This nurse updated family on patient status and verbalized understanding. Will continue to monitor.
[2021-05-04] MEDS: vancomycin 1,250 MG/250 ML PIGGYBACK 250 MG IV (20:49)
[2021-05-04] MEDS: levofloxacin-dextrose 5 % 750 MG/150 ML PREMIX 100 MG IV (20:49)
[2021-05-04 21:28] LABS: Hemoglobin 13.3 g/dL (11.7-16.6)
[2021-05-05] VITALS (40 sets, daily range): BP systolic 87–122; BP diastolic 58–78; PULSE 91–155; RESP 21–41; TEMP 36.8–38.5; O2SAT 92–95
[2021-05-05] MEDS: propofol 1,000 MG/100 ML INJ 27.22 MG IV ×6 (02:37→23:54)
[2021-05-05] MEDS: ipratropium-albuterol 3 mL Neb INHALATION ×5 (03:37→19:58)
[2021-05-05 04:57] LABS: Basophils # 0.1 10^3/uL (0.0-0.1); Basophils % 0.4 %; Eosinophils % 0.1 %; Hematocrit 38.8 % (42.0-52.0); Hemoglobin 12.5 g/dL (11.7-16.6); Lymphocytes # 0.3 10^3/uL (0.8-4.8); Lymphocytes % 1.2 %; Mean Corpuscular HGB Conc 32.2 g/dL (30.0-36.0); Mean Corpuscular Hemoglobin 30.8 pg (28.0-34.0); Mean Corpuscular Volume 95.6 fl (80-94); Mean Platelet Volume 11.8 fL (7.4-10.4); Monocytes # 0.7 10^3/uL (0.2-0.9); Monocytes % 2.8 %; Neutrophils # 20.87 10^3/uL (1.8-7.7); Neutrophils % 86.4 %; Nucleated Red Blood Cells % 0 %; Platelet Count 164 10^3/cmm (130-400); Red Blood Count 4.06 10^6/uL (4.1-5.3); Red Cell Distribution Width 15.2 % (12.1-15.1); White Blood Count 24.2 10^3/uL (4.0-10.0)
[2021-05-05] MEDS: pantoprazole 40 mg SDV IVP ×2 (05:10→17:19)
[2021-05-05 05:33] LABS: INR 1.36 (0.8-1.2)
[2021-05-05 05:34] LABS: Partial Thromboplastin Time 40.3 SECONDS (23.9-36.7)
[2021-05-05 05:35] LABS: Alanine Aminotransferase 45 U/L (0-41); Albumin Level 2.3 g/dL (3.5-5.2); Alkaline Phosphatase 65 IU/L (40-130); Anion Gap 21.3 (5-19); Aspartate Amino Transferase 38 U/L (0-40); Calcium 7.8 mg/dL (8.5-10.5); Carbon Dioxide 21 mmol/L (22-29); Chloride 106 mmol/L (98-107); Globulin 3.2 g/dL (1.3-4.6); Glucose 118 mg/dL (65-115); Osmolality Calculated 325 mOsm/kg (285-295); Potassium 5.3 mmol/L (3.5-5.1); Sodium 143 mmol/L (136-145); Total Bilirubin 1.2 mg/dL (0.15-1.2); Total Protein 5.5 g/dL (6.6-8.7)
[2021-05-05 05:39] LABS: Blood Urea Nitrogen 92 mg/dL (8-23)
[2021-05-05 06:05] LABS: Fibrinogen 713 mg/dL (174-498)
[2021-05-05 06:20] LABS: Slide Review Slide Review Perform
--- NOTE | 2021-05-05 07:00 | PC.NURSE ---
Shift Note Frequent safety and comfort rounds continue. Orders and/or nursing care completed as indicated. Patient monitored for response to intervention and treatment(s). Education provided includes[]. 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 Will continue to monitor. The arterial line continued to leak around the dressing, even after changing it once it leaked through. It was pulled around 0500, due to the leakage and also its in accuracy with the blood pressure cuff. The patient's sedation was not changed during the shift and the patient was breathing 2-3 breaths over the ventilator. When the Patient's oxygen saturation remained stable in the low to mid 90's. When oral suction or inline suction was performed, cathleen colored blood was pulled. The patient required suction several times due to the pooling. At the beginning of shift I pulled what appeared to be dark brown, possibly coffee ground residual from the OG tube. I pulled 250 mL out and stopped the pump at the beginning of shift. Right before shift change I pulled 260 mL out.
[2021-05-05 07:50] LABS: Lactate Dehydrogenase 702 U/L (135-225)
[2021-05-05] MEDS: sucralfate 1 gm/10 mL Oral Liq UDC PO ×2 (08:04→20:55)
[2021-05-05] MEDS: cholecalciferol (vitamin D3) 1,000 unit Tablet 1000 UNIT PO (08:04)
[2021-05-05] MEDS: zinc gluconate 50 mg Tablet PO (08:04)
[2021-05-05] MEDS: ascorbic acid 500 mg Tablet PO ×2 (08:04→17:19)
--- NOTE | 2021-05-05 08:36 | PM.PN ---
Subjective Subjective: Interval history: Not doing well. Remains intubated, mechanically ventilated, ventilator settings noted, FiO2 50% and PEEP of 12, Levophed no longer required over the last 24 hours. Urine output noted to be 1350 mL over the last 24 hours. Medications: Reviewed: Yes Medication Review Details: Current Medications Acetaminophen (Acetaminophen 325 Mg Tablet) 650 mg PO Q6H PRN PRN Reason: Mild/Mod Pain Or Temp >/= 101 Artificial Tears (Artificial Tears Op Oint 3.5 Gm) 1 applic EYE-BOTH PRN PRN PRN Reason: DRY EYE(S) Ascorbic Acid (Ascorbic Acid 500 Mg Tablet) 500 mg PO BID [facility] Last Admin: 04/30/21 16:25 Dose: Not Given Documented by: Aspirin (Aspirin 81 Mg Ec Tablet) 81 mg PO DAILY [facility] Last Admin: 04/30/21 08:39 Dose: 81 mg Documented by: Bisacodyl (Bisacodyl 5 Mg Tablet) 10 mg PO DAILY PRN; Protocol PRN Reason: Constipation (see protocol) Dexamethasone (Dexamethasone 10 Mg/Ml Inj) 6 mg IVP Q24H [facility] Last Admin: 04/30/21 16:36 Dose: 6 mg Documented by: Dextrose (Dextrose 50% Syringe 50 Ml) 25 ml IVP ONCE PRN; Protocol PRN Reason: hypoglycemia protocol Dextrose (Dextrose 50% Syringe 50 Ml) 50 ml IVP PRN PRN; Protocol PRN Reason: hypoglycemia protocol Enoxaparin Sodium (Enoxaparin 100 Mg/Ml Syringe) 90 mg 1 mg/kg (90 mg) SUBCUT Q12H [facility] Last Admin: 04/30/21 21:27 Dose: 90 mg Documented by: Glucagon (Glucagon 1 Mg/Ml Inj 1 Ml) 1 mg IM ONCE PRN; Protocol PRN Reason: Adult Acute Hypoglycemia Prot. Fentanyl 1,000 mcg/ Sodium (Chloride) 100 mls @ 0 mls/hr IV .Q0M [facility]; Protocol Last Admin: 05/01/21 05:43 Dose: 50 mcg/hr, 5 mls/hr Documented by: Propofol (Diprivan) 1,000 mg in 100 mls @ 0 mls/hr IV .Q0M [facility]; Protocol Last Admin: 05/01/21 04:36 Dose: 50 mcg/kg/min, 27.22 mls/hr Documented by: Remdesivir 100 mg/ Sodium (Chloride) 100 mls @ 100 mls/hr IV Q24H [facility] Stop: 05/02/21 18:59 Last Infusion: 04/30/21 19:16 Dose: Infused Documented by: Cisatracurium Besylate 100 mg/ (Sodium Chloride) 100 mls @ 0 mls/hr IV .Q0M [facility]; Protocol Last Admin: 04/30/21 16:51 Dose: 1.2 mcg/kg/min, 6.53 mls/hr Documented by: Midazolam HCl 100 mg/ Sodium (Chloride) 100 mls @ 0 mls/hr IV .Q0M [facility]; Protocol Last Titration: 04/29/21 08:35 Dose: 0 mg/hr, 0 mls/hr Documented by: Norepinephrine Bitartrate 4 mg (/ Dextrose) 254 mls @ 0 mls/hr IV .Q0M [facility]; Protocol Last Titration: 04/29/21 23:01 Dose: 2 mcg/min, 7.62 mls/hr Documented by: Dextrose (D5w) 500 mls @ 100 mls/hr IV ONCE PRN; Protocol PRN Reason: Adult Acute Hypoglycemia Prot Vancomycin/PEG/[place]/Lysine/Water (Vancocin) 1,250 mg in 250 mls @ 250 mls/hr IV Q24H [facility] Last Infusion: 04/30/21 21:38 Dose: Infused Documented by: Cefepime HCl 2,000 mg/ Sodium (Chloride) 100 mls @ 200 mls/hr IV Q24H [facility]; Protocol Last Infusion: 04/30/21 17:05 Dose: Infused Documented by: Levofloxacin/Dextrose (Levaquin-D5w) 750 mg in 150 mls @ 100 mls/hr IV Q24H [facility]; Protocol Last Infusion: 04/30/21 22:10 Dose: Infused Documented by: Lactulose (Lactulose Oral Liq 20 Gm/30 Ml Udc) 10 gm PO DAILY PRN; Protocol PRN Reason: Constipation (see protocol) Lorazepam (Lorazepam 2 Mg/Ml Inj 1 Ml) 1 mg IVP Q1H PRN PRN Reason: for breakthrough agitation Non-Formulary Route - Milrinone 200 Mcg/Ml 0 each INHALATION Q4H PRN PRN Reason: RESP DILATION Last Admin: 04/29/21 23:57 Dose: 1 each Documented by: Ondansetron HCl (Ondansetron 2 Mg/Ml Sdv 2 Ml) 4 mg IVP Q8H PRN PRN Reason: vomiting, or N/V if npo Pantoprazole Sodium (Pantoprazole 40 Mg Sdv) 40 mg IVP Q12H [facility] Last Admin: 05/01/21 05:14 Dose: 40 mg Documented by: Sucralfate (Sucralfate 1 Gm/10 Ml Oral Liq Udc) 1 gm PO Q12H [facility] Last Admin: 04/30/21 20:40 Dose: 1 gm Documented by: Vitamin D (Cholecalciferol (Vitamin D3) 1,000 Unit Tablet) 1,000 unit PO DAILY [facility] Last Admin: 04/30/21 08:39 Dose: 1,000 unit Documented by: Zinc Gluconate (Zinc Gluconate 50 Mg Tablet) 50 mg PO DAILY [facility] Last Admin: 04/30/21 08:39 Dose: 50 mg Documented by: Vitals/I&O/Wt Last Vital Signs Temp 100.1 F H 05/05/21 04:00 Pulse 97 05/05/21 08:08 Resp 21 H 05/05/21 08:18 BP 99/64 05/05/21 07:36 Pulse Ox 94 05/05/21 08:18 05/04/21 05/05/21 05/05/21 22:59 06:59 14:59 Intake Total 545.404 / 952.065 200 / 1152.065 150 / 150 Output Total 700 / 700 900 / 1600 Balance -154.596 / 252.065 -700 / -447.935 150 / 150 Physical Exam Narrative: EXAM NARRATIVE: Constitutional: Sedated and vented HEENT: Wet mucosa, no jvp, non icteric Lungs: Bilaterally diminshed, without discernible wheeze, rales in all lung zones CVS: S1 S2, no murmurs Abdo: Soft, BS ok Ext 4: Minimal edema, peripheral perfusion with no cyanosis Neurological: Grossly non-focal Urinary Catheter Management^: William: Cath Placed During This Visit: yes Reason for Continuing Indwelling Catheter: Accurate Measurement of Urinary Output in Critically Ill Patients Urinary Catheter Date of Insertion: 04/28/21 Urinary Catheter Time of Insertion: 16:00 Data : 05/05/21 04:00 05/05/21 04:00 A&P Additional A&P Information 1. Acute on chronic kidney disease We commonly see this in Covid pneumonitis, it is a multifactorial process. ? Vanco assoc ATN/AIN Seemed to tolerate ivf yesterday from a volume perspective, will bump rate to 75mL/hr x 1 L Bedside bladder scan No indication for dialysis at this time but he is at high risk for needing this tomorrow Daily renal panel Close monitoring of I's and O's Dose medications for GFR less than 30 Avoid usual nephrotoxic agents 2. Covid pneumonitis Unfortunately was not vaccinated Receiving combination medication including remdesivir, Vanco, levaquin, cefepime, has received steroids. Dose Vanco to keep level < 20 Vent settings per ICU 3. Lytes Non critical aberration, monitor for now 4. Hemodynamics Intermittent Levophed but stable at this time Thank you for our involvement in his care He has now developed overt renal failure in the setting of Covid pneumonitis. When patients get to this point, the prognosis becomes evermore abysmal, to the point where offering dialysis becomes somewhat futile. Case discussed with Dr Haque, to review goals of care with family members. It may be reasonable at this time to transition to palliative care. Mirza Arechiga MD Nephrology [phone] Patient seen and examined via telemedicine, with the assistance of the bedside RN > 25 min spent in evaluation and mgmt of patient Attestations Medical Necessity Statement*: eval for GUMARO Coding Level of Care Code Acute Turbine Measurements Engineer for Silvana Lennon
[2021-05-05] MEDS: sodium chloride 0.9% 1,000 ML 30 ML IV (10:10)
--- NOTE | 2021-05-05 11:51 | PM.PN ---
Subjective Subjective: Interval history: Hospital Course 75 year old male with a past medical history of hypertension and chronic kidney disease stage 3 with baseline creatinine around 1.3 who presented to [facility] due to concerns for shortness of breath and hypoxia. Upon arrival to ER patient was intubated and placed on mechanical ventilation. Initial laboratory workup showed a WBC of 15.3, hemoglobin 15.5, hematocrit of 45.7, platelet count of 160. Sodium 136, potassium 4.6, chloride 96, bicarb 22, BUN 50 and creatinine of 2.2. Glucose of 258. Lactic acid of 5.5. AST of 220, ALT of 121, ALP of 74. Troponin of 162, 129,130 at 6hr. TSH of 0.16. COVID19 labs included Ferritin of 2556, LDH of 1380, CRP of 129.5, procalcitonin of 0.70. Imaging studies on arrival included a cxr which showed mild pulmonary edema versus pneumonia. Head CT w/o contrast was negative. Upon admit started on Remdesivir 5 day protocol, decadron 6 mg IV daily and broad spectrum antibiotics with vancomycin, cefepime levaquin. Continued on fentanyl, propofol, versed for sedation. Nimbex was then added for ARDS prone protocol. D-dimer was elevated at 13. CTA was not performed due to renal dysfunction however empirically started on full dose lovenox. Echocardiogram was performed which showed EF of 40-45% with mild global hyperkinesis. Nephrology was consulted. Initially renal function improved to 1.2 however again worsened with increase to 2.6. Net negative balance of 2.6L. Intermittently required pressor support. Subjective 05/04/2021 Noted to have hemoptysis. Blood tingled mucus. Lovenox stopped. Hgb stable. Heparin 5000 units q8hr started. Nephrology consulted again due to worsening renal failure. T-Max of 100.5. 05/05/2021 Overnight patient was noted to have a T-max of a 100.1. Remained on 50% FiO2. Noted to have worsening renal failure with hyperkalemia this morning. Medications: Reviewed: Yes Medication Review Details: Current Medications Acetaminophen (Acetaminophen 325 Mg Tablet) 650 mg PO Q6H PRN PRN Reason: Mild/Mod Pain Or Temp >/= 101 Artificial Tears (Artificial Tears Op Oint 3.5 Gm) 1 applic EYE-BOTH PRN PRN PRN Reason: DRY EYE(S) Ascorbic Acid (Ascorbic Acid 500 Mg Tablet) 500 mg PO BID [facility] Last Admin: 04/30/21 16:25 Dose: Not Given Documented by: Aspirin (Aspirin 81 Mg Ec Tablet) 81 mg PO DAILY [facility] Last Admin: 04/30/21 08:39 Dose: 81 mg Documented by: Bisacodyl (Bisacodyl 5 Mg Tablet) 10 mg PO DAILY PRN; Protocol PRN Reason: Constipation (see protocol) Dexamethasone (Dexamethasone 10 Mg/Ml Inj) 6 mg IVP Q24H [facility] Last Admin: 04/30/21 16:36 Dose: 6 mg Documented by: Dextrose (Dextrose 50% Syringe 50 Ml) 25 ml IVP ONCE PRN; Protocol PRN Reason: hypoglycemia protocol Dextrose (Dextrose 50% Syringe 50 Ml) 50 ml IVP PRN PRN; Protocol PRN Reason: hypoglycemia protocol Enoxaparin Sodium (Enoxaparin 100 Mg/Ml Syringe) 90 mg 1 mg/kg (90 mg) SUBCUT Q12H [facility] Last Admin: 04/30/21 21:27 Dose: 90 mg Documented by: Glucagon (Glucagon 1 Mg/Ml Inj 1 Ml) 1 mg IM ONCE PRN; Protocol PRN Reason: Adult Acute Hypoglycemia Prot. Fentanyl 1,000 mcg/ Sodium (Chloride) 100 mls @ 0 mls/hr IV .Q0M [facility]; Protocol Last Admin: 05/01/21 05:43 Dose: 50 mcg/hr, 5 mls/hr Documented by: Propofol (Diprivan) 1,000 mg in 100 mls @ 0 mls/hr IV .Q0M [facility]; Protocol Last Admin: 05/01/21 04:36 Dose: 50 mcg/kg/min, 27.22 mls/hr Documented by: Remdesivir 100 mg/ Sodium (Chloride) 100 mls @ 100 mls/hr IV Q24H [facility] Stop: 05/02/21 18:59 Last Infusion: 04/30/21 19:16 Dose: Infused Documented by: Cisatracurium Besylate 100 mg/ (Sodium Chloride) 100 mls @ 0 mls/hr IV .Q0M [facility]; Protocol Last Admin: 04/30/21 16:51 Dose: 1.2 mcg/kg/min, 6.53 mls/hr Documented by: Midazolam HCl 100 mg/ Sodium (Chloride) 100 mls @ 0 mls/hr IV .Q0M [facility]; Protocol Last Titration: 04/29/21 08:35 Dose: 0 mg/hr, 0 mls/hr Documented by: Norepinephrine Bitartrate 4 mg (/ Dextrose) 254 mls @ 0 mls/hr IV .Q0M [facility]; Protocol Last Titration: 04/29/21 23:01 Dose: 2 mcg/min, 7.62 mls/hr Documented by: Dextrose (D5w) 500 mls @ 100 mls/hr IV ONCE PRN; Protocol PRN Reason: Adult Acute Hypoglycemia Prot Vancomycin/PEG/NADA/Lysine/Water (Vancocin) 1,250 mg in 250 mls @ 250 mls/hr IV Q24H [facility] Last Infusion: 04/30/21 21:38 Dose: Infused Documented by: Cefepime HCl 2,000 mg/ Sodium (Chloride) 100 mls @ 200 mls/hr IV Q24H [facility]; Protocol Last Infusion: 04/30/21 17:05 Dose: Infused Documented by: Levofloxacin/Dextrose (Levaquin-D5w) 750 mg in 150 mls @ 100 mls/hr IV Q24H [facility]; Protocol Last Infusion: 04/30/21 22:10 Dose: Infused Documented by: Lactulose (Lactulose Oral Liq 20 Gm/30 Ml Udc) 10 gm PO DAILY PRN; Protocol PRN Reason: Constipation (see protocol) Lorazepam (Lorazepam 2 Mg/Ml Inj 1 Ml) 1 mg IVP Q1H PRN PRN Reason: for breakthrough agitation Non-Formulary Route - Milrinone 200 Mcg/Ml 0 each INHALATION Q4H PRN PRN Reason: RESP DILATION Last Admin: 04/29/21 23:57 Dose: 1 each Documented by: Ondansetron HCl (Ondansetron 2 Mg/Ml Sdv 2 Ml) 4 mg IVP Q8H PRN PRN Reason: vomiting, or N/V if npo Pantoprazole Sodium (Pantoprazole 40 Mg Sdv) 40 mg IVP Q12H [facility] Last Admin: 05/01/21 05:14 Dose: 40 mg Documented by: Sucralfate (Sucralfate 1 Gm/10 Ml Oral Liq Udc) 1 gm PO Q12H [facility] Last Admin: 04/30/21 20:40 Dose: 1 gm Documented by: Vitamin D (Cholecalciferol (Vitamin D3) 1,000 Unit Tablet) 1,000 unit PO DAILY [facility] Last Admin: 04/30/21 08:39 Dose: 1,000 unit Documented by: Zinc Gluconate (Zinc Gluconate 50 Mg Tablet) 50 mg PO DAILY [facility] Last Admin: 04/30/21 08:39 Dose: 50 mg Documented by: Vitals/I&O/Wt Last Vital Signs Temp 100.1 F H 05/05/21 04:00 Pulse 103 H 05/05/21 11:13 Resp 22 H 05/05/21 11:13 BP 99/64 05/05/21 09:00 Pulse Ox 95 05/05/21 11:13 05/04/21 05/05/21 05/05/21 22:59 06:59 14:59 Intake Total 545.404 / 952.065 200 / 0454.617 2399.901 / 1021.901 Output Total 700 / 700 900 / 1600 Balance -154.596 / 252.065 -700 / -886.083 7882.901 / 1021.901 Physical Exam Narrative: EXAM NARRATIVE: Intubated, sedated, on the ventilator Const: OTHER: intubated and sedated Eye: OTHER: Pupils Neck/C-Spine: OTHER: Bloody discharge from OG tube Lymph: LYMPHATIC: no lymphadenopathy noted Resp: COMMON NORMALS: normal respiratory effort, No retractions, No use of accessory muscles and clear to auscultation bilaterally EFFORT & INSPECTION: Yes symmetric chest movement AUSCULTATION: clear to auscultation bilaterally and diminished lung sounds diffuse OTHER: Vented sounds b/l Cardio: COMMON NORMALS: regular rate, regular rhythm, S1 normal heart sound present and S2 normal heart sound present RATE: regular rate RHYTHM: regular rhythm HEART SOUNDS: S1 normal heart sound present and S2 normal heart sound present GI: COMMON NORMALS: Normal to inspection, nondistended, normoactive bowel sounds present, Soft to palpation, non-tender and no bruits PALPATION: Yes Soft to palpation : OTHER: William catheter in place, William bag blood within the urine Extremity: COMMON NORMALS: no pedal edema NARRATIVE EXTREMITY EXAM: Right art line in place, left femoral line in place GENERAL: No edema OTHER: DP PT pulses palpable Neuro: OTHER: on vent Skin: COMMON NORMALS: no rashes or lesions noted, turgor normal and no mottling GENERAL SKIN EXAM: no rashes or lesions noted and turgor normal Urinary Catheter Management^: William: Cath Placed During This Visit: yes Reason for Continuing Indwelling Catheter: Accurate Measurement of Urinary Output in Critically Ill Patients Urinary Catheter Date of Insertion: 04/28/21 Urinary Catheter Time of Insertion: 16:00 Data : 05/05/21 04:00 05/05/21 04:00 A&P Assessment and plan (1) Myocarditis due to 2019 novel coronavirus: Status: Acute (2) UTI (urinary tract infection): Status: Acute (3) NSTEMI (non-ST elevated myocardial infarction): Status: Acute (4) Acute respiratory failure with hypoxia: Status: Acute (5) Acute kidney injury superimposed on CKD: Status: Acute (6) Transaminitis: Status: Acute (7) Acute respiratory distress syndrome: Status: Acute Additional A&P Information #COVID-19 pneumonia #Acute hypoxemic respiratory failure --Continue ventilator protocol, CMV - FIo2 50% --Completed Remdesivir, On Decadron 6 mg IV daily, Continue Duoneb q6hr, Pulmicort 0.5 inh BID --D-dimer - 13 on arrival -> 2.5, can not rule out PE, Lovenox stopped due to increasing hemoptysis, Hgb has been stable - started on DVT ppx dose of heparin --Repeat Chest x-ray and ABG in AM Sepsis with Shock --Continue empiric antibiotics including vancomycin, cefepime, Levaquin --Marked Leukocytosis - WBC 36-> 29 -> 24. --Procalcitonin elevated --Diflucan 100mg IV daily added --Maintain MAP > 65 --Pressor support as needed Will consider getting CT chest/abd/pelvis if continues to be febrile Acute on stage 3 CKD --Creatinine increase to 2.6 -> 3. --Neprhology re-consulted --Renal US noted --BMP in AM --NS at 75 cc/hr for 1L trial --K 5.3 --High risk for needing HD Acute Systolic HF --ECHO 45% --Likely due to sepsis --Will likely repeat Limited ECHO --Will diurese once renal function stable #NSTEMI - Type 2 --Likely multifactorial demand ischemia #Rhabdomyolysis --statin held --improved 548--> 553--> 249 GI PPx --Protonix 40mg IV BID DVT ppx Started Heparin 5000 units Q8hr ( Bleeding precautions) Prognosis: Guarded. Attestations Medical Necessity Statement*: Continue hospitalization for management of COVID-19 related respiratory failure and worsening renal failure Time Spent in Patient Care: Greater than 35 minutes (>than 50% of time spent in counselling and/or direct pt care on unit). Critical Care Time: Critical Care Time (min): 63 Coding Level of Care Code Acute Knockdown Man for [facility] Fwd Diagnoses Myocarditis due to 2019 novel coronavirus U07.1; I40.0 UTI (urinary tract infection) N39.0 NSTEMI (non-ST elevated myocardial infarction) I21.4 Acute respiratory failure with hypoxia J96.01 Acute kidney injury superimposed on CKD N17.9; N18.9 Transaminitis R74.01 Acute respiratory distress syndrome J80
[2021-05-05] MEDS: heparin 5,000 unit/mL INJ 1 mL 5000 UNIT SUBCUT ×2 (13:56→20:55)
[2021-05-05] MEDS: fluconazole premix 100 MG in empty flexible container 1 EACH 50 MG IV (13:56)
--- NOTE | 2021-05-05 15:46 | PC.RESP ---
RT Shift Note Frequent safety and respiratory rounds continue. Orders completed as indicated. Patient monitored pre and post treatments throughout shift. Patient [Did.] tolerate treatments appropriately. Condition [.DidNotChange]. Patient and/or market survey representative educated on respiratory treatment and medications. Patient and/or market survey representative [unable to comprehend]. Will continue to monitor patient progress.
--- NOTE | 2021-05-05 16:18 | PC.SOCIAL ---
IMM not Given IMM not updated. Pt is intubated & is not expected to discharge within the next 24-48hrs.
[2021-05-05] MEDS: acetaminophen 325 mg Tablet 650 MG PO (17:19)
[2021-05-05] MEDS: dexamethasone 10 mg/mL INJ 6 MG IVP (17:19)
[2021-05-05] MEDS: cefepime 2,000 MG in sodium chloride 0.9% (plus) 50 ML 100 MG IV (17:36)
--- NOTE | 2021-05-05 18:15 | PC.NURSE ---
Shift Note Frequent safety and comfort rounds continue. Orders and nursing care completed as indicated. Patient's ventilator settings remain the same. Dr. Grace rounded on pt today and ordered 1 liter of NS at 75m/hr and spoke of possible dialysis tomorrow. Tube feedings discontinued at this time due to high amounts of residual and the residual being blood tinged. Pt started on Heparin, and difulican today. This nurse spoke with brother and of pt today and gave update on how patient did over night and new additional orders that were placed. Family verbalized understanding and requested to speak to Physician to discuss more detail of further plans of care. Physician notified. Patient monitored for response to intervention and treatments. Will continue to monitor.
[2021-05-06] VITALS (40 sets, daily range): BP systolic 92–148; BP diastolic 55–93; PULSE 90–105; RESP 20–40; TEMP 36.7–37.1; O2SAT 91–97
[2021-05-06] MEDS: ipratropium-albuterol 3 mL Neb INHALATION ×7 (00:40→23:45)
[2021-05-06] MEDS: propofol 1,000 MG/100 ML INJ 27.22 MG IV ×6 (02:42→21:05)
[2021-05-06 04:46] LABS: Basophils # 0.1 10^3/uL (0.0-0.1); Basophils % 0.3 %; Hematocrit 36.8 % (42.0-52.0); Hemoglobin 11.5 g/dL (11.7-16.6); Lymphocytes # 0.2 10^3/uL (0.8-4.8); Lymphocytes % 0.9 %; Mean Corpuscular HGB Conc 31.3 g/dL (30.0-36.0); Mean Corpuscular Hemoglobin 30.5 pg (28.0-34.0); Mean Corpuscular Volume 97.6 fl (80-94); Mean Platelet Volume 11.7 fL (7.4-10.4); Monocytes # 0.6 10^3/uL (0.2-0.9); Monocytes % 2.5 %; Neutrophils # 21.38 10^3/uL (1.8-7.7); Neutrophils % 89.7 %; Nucleated Red Blood Cells % 0 %; Platelet Count 188 10^3/cmm (130-400); Red Blood Count 3.77 10^6/uL (4.1-5.3); Red Cell Distribution Width 15.8 % (12.1-15.1); White Blood Count 23.8 10^3/uL (4.0-10.0)
[2021-05-06 05:06] LABS: Alanine Aminotransferase 35 U/L (0-41); Albumin Level 2.2 g/dL (3.5-5.2); Alkaline Phosphatase 63 IU/L (40-130); Aspartate Amino Transferase 34 U/L (0-40); Calcium 8.2 mg/dL (8.5-10.5); Carbon Dioxide 17 mmol/L (22-29); Chloride 106 mmol/L (98-107); Globulin 3.2 g/dL (1.3-4.6); Glucose 145 mg/dL (65-115); Magnesium 3.4 mg/dL (1.7-2.3); Sodium 142 mmol/L (136-145); Total Bilirubin 1.1 mg/dL (0.15-1.2); Total Protein 5.4 g/dL (6.6-8.7)
[2021-05-06 05:15] LABS: INR 1.27 (0.8-1.2)
[2021-05-06 05:16] LABS: D Dimer 2.08 ug/mIFEU (0-0.59)
[2021-05-06 05:16] LABS: ABG PCO2 43.9 mmHg (35-45); ABG PH Result 7.22 (7.35-7.45); Arterial Blood Gas Hematocrit 34.7 % (42-52); Base Excess ABG -9.2 mmol/L (-2.0-2.0); Blood Gas Allen Test Pos; Blood Gas Sample Site Radial, left; Blood Gas Sample Type Arterial; Blood Gas Tidal Volume 0.45; HCO3 ABG 18.1 mmol/L (22-26); Oxygen Device VENT; PO2 ABG 84.9 mmHg (80.0-100.0)
[2021-05-06 05:27] LABS: Osmolality Calculated 332 mOsm/kg (285-295)
[2021-05-06 05:28] LABS: Blood Urea Nitrogen 112 mg/dL (8-23)
[2021-05-06] MEDS: heparin 5,000 unit/mL INJ 1 mL 5000 UNIT SUBCUT ×3 (05:36→21:04)
[2021-05-06] MEDS: pantoprazole 40 mg SDV IVP ×2 (05:37→18:05)
[2021-05-06 05:45] LABS: Slide Review Slide Review Perform
--- NOTE | 2021-05-06 07:00 | XRR_ITS ---
PROCEDURE INFORMATION: Exam: XR Chest Exam date and time: 05/06/2021 7:00 AM Age: 75 years old Clinical indication: Shortness of breath; Additional info: Respiratory failure TECHNIQUE: Imaging protocol: XR of the chest. Views: 1 view. COMPARISON: CR XR chest 1V portable [id number] 05/04/2021 5:05 AM FINDINGS: Tubes, catheters and devices: Endotracheal tube is in satisfactory position. Feeding tube is in satisfactory position. Lungs: Persistent bilateral airspace opacities. No large pleural effusion or pneumothorax. Pleural spaces: See Lungs finding. Heart/Mediastinum: Stable cardiomediastinal silhouette. Bones/joints: No acute osseous injury identified. XR/XR chest 1V portable [id number] IMPRESSION: Persistent bilateral airspace opacities.
--- NOTE | 2021-05-06 07:12 | P.PN_ITS ---
Subjective Subjective: Interval history: sedated, vent in icu- not paralyzed, responds to pain Medications: Reviewed: Yes Medication Review Details: Current Medications Acetaminophen (Acetaminophen 325 Mg Tablet) 650 mg PO Q6H PRN PRN Reason: Mild/Mod Pain Or Temp >/= 101 Last Admin: 05/05/21 17:19 Dose: 650 mg Documented by: Albuterol/Ipratropium (Ipratropium-Albuterol 3 Ml Neb) 3 ml INHALATION Q4H.RESPIRATORY [facility] Last Admin: 05/06/21 03:33 Dose: 3 ml Documented by: Artificial Tears (Artificial Tears Op Oint 3.5 Gm) 1 applic EYE-BOTH PRN PRN PRN Reason: DRY EYE(S) Ascorbic Acid (Ascorbic Acid 500 Mg Tablet) 500 mg PO BID [facility] Last Admin: 05/05/21 17:19 Dose: 500 mg Documented by: Bisacodyl (Bisacodyl 5 Mg Tablet) 10 mg PO DAILY PRN; Protocol PRN Reason: Constipation (see protocol) Dexamethasone (Dexamethasone 10 Mg/Ml Inj) 6 mg IVP Q24H [facility] Last Admin: 05/05/21 17:19 Dose: 6 mg Documented by: Dextrose (Dextrose 50% Syringe 50 Ml) 25 ml IVP ONCE PRN; Protocol PRN Reason: hypoglycemia protocol Dextrose (Dextrose 50% Syringe 50 Ml) 50 ml IVP PRN PRN; Protocol PRN Reason: hypoglycemia protocol Glucagon (Glucagon 1 Mg/Ml Inj 1 Ml) 1 mg IM ONCE PRN; Protocol PRN Reason: Adult Acute Hypoglycemia Prot. Heparin Sodium (Beef Lung) (Heparin 5,000 Unit/Ml Inj 1 Ml) 5,000 unit SUBCUT Q8H [facility] Last Admin: 05/06/21 05:36 Dose: 5,000 unit Documented by: Propofol (Diprivan) 1,000 mg in 100 mls @ 0 mls/hr IV .Q0M [facility]; Protocol Last Admin: 05/06/21 02:42 Dose: 50 mcg/kg/min, 27.22 mls/hr Documented by: Cisatracurium Besylate 100 mg/ (Sodium Chloride) 100 mls @ 0 mls/hr IV .Q0M [facility]; Protocol Last Titration: 05/02/21 09:59 Dose: 0 mcg/kg/min, 0 mls/hr Documented by: Norepinephrine Bitartrate 4 mg (/ Dextrose) 254 mls @ 0 mls/hr IV .Q0M [facility]; Protocol Last Titration: 05/04/21 16:54 Dose: Infused Documented by: Dextrose (D5w) 500 mls @ 100 mls/hr IV ONCE PRN; Protocol PRN Reason: Adult Acute Hypoglycemia Prot Vancomycin/PEG/NADA/Lysine/Water (Vancocin) 1,250 mg in 250 mls @ 250 mls/hr IV Q24H [facility] Last Admin: 05/04/21 20:49 Dose: 250 mls/hr Documented by: Cefepime HCl 2,000 mg/ Sodium (Chloride) 50 mls @ 100 mls/hr IV Q24H [facility]; Protocol Last Infusion: 05/05/21 18:06 Dose: Infused Documented by: Fentanyl 1,000 mcg/ Sodium (Chloride) 100 mls @ 0 mls/hr IV .Q0M [facility]; Protocol Last Admin: 05/05/21 22:50 Dose: 100 mcg/hr, 10 mls/hr Documented by: dexmedeTOMIDine 0.9 % NaCL (Dexmedetomidine-Ns) 400 mcg in 100 mls @ 0 mls/hr IV .Q0M [facility]; Protocol Last Titration: 05/04/21 10:08 Dose: 0 mcg/kg/hr, 0 mls/hr Documented by: Phenylephrine HCl 25 mg/ (Sodium Chloride) 252.5 mls @ 0 mls/hr IV .Q0M [facility]; Protocol Last Titration: 05/04/21 16:54 Dose: 0 mcg/min, 0 mls/hr Documented by: Levofloxacin/Dextrose (Levaquin-D5w) 750 mg in 150 mls @ 100 mls/hr IV Q48H [facility]; Protocol Fluconazole 100 mg/ N/A 50 mls @ 50 mls/hr IV Q24H [facility] Last Infusion: 05/05/21 14:56 Dose: Infused Documented by: Lactulose (Lactulose Oral Liq 20 Gm/30 Ml Udc) 10 gm PO DAILY PRN; Protocol PRN Reason: Constipation (see protocol) Ondansetron HCl (Ondansetron 2 Mg/Ml Sdv 2 Ml) 4 mg IVP Q8H PRN PRN Reason: vomiting, or N/V if npo Pantoprazole Sodium (Pantoprazole 40 Mg Sdv) 40 mg IVP Q12H [facility] Last Admin: 05/06/21 05:37 Dose: 40 mg Documented by: Sucralfate (Sucralfate 1 Gm/10 Ml Oral Liq Udc) 1 gm PO Q12H [facility] Last Admin: 05/05/21 20:55 Dose: 1 gm Documented by: Vitamin D (Cholecalciferol (Vitamin D3) 1,000 Unit Tablet) 1,000 unit PO DAILY [facility] Last Admin: 05/05/21 08:04 Dose: 1,000 unit Documented by: Zinc Gluconate (Zinc Gluconate 50 Mg Tablet) 50 mg PO DAILY [facility] Last Admin: 05/05/21 08:04 Dose: 50 mg Documented by: Vitals/I&O/Wt Last Vital Signs Temp 98.5 F 05/06/21 04:00 Pulse 97 05/06/21 06:00 Resp 23 H 05/06/21 06:02 BP 100/63 05/06/21 06:00 Pulse Ox 94 05/06/21 06:02 05/05/21 05/06/21 05/06/21 22:59 06:59 14:59 Intake Total 350 / 1521.901 126.216 / 1648.117 Output Total 400 / 400 700 / 1100 Balance -50 / 1121.901 -573.784 / 548.117 Physical Exam Narrative: EXAM NARRATIVE: sedated, vent- fio2=50%, PEEP 12, RR20, CMV, 700 ml uop overnight heent- nc/at neck supple lungs dec crackles heart reg abd soft ext 1+ edema Urinary Catheter Management^: William: Cath Placed During This Visit: yes Reason for Continuing Indwelling Catheter: Accurate Measurement of Urinary Output in Critically Ill Patients Urinary Catheter Date of Insertion: 04/28/21 Urinary Catheter Time of Insertion: 16:00 Data : 05/06/21 04:00 05/06/21 04:00 A&P Additional A&P Information 1. Acute on chronic kidney disease We commonly see this in Covid pneumonitis, it is a multifactorial process. ? Vanco assoc ATN/AIN -bun and cr are rising, bicarb dropping, k is 6- however good uop -will rx k medically and repeat chem 7 in a few hours -give lasix, d/c ivf -if cr still rising today, then start HD Daily renal panel Close monitoring of I's and O's Dose medications for GFR less than 30 Avoid usual nephrotoxic agents 2. Covid pneumonitis Unfortunately was not vaccinated Receiving combination medication including remdesivir, Vanco, levaquin, cefepime, has received steroids. Dose Vanco to keep level < 20 Vent settings per ICU 3. wbc remeians elevated at 23.8 4. ph 7.22/ 44- mixed met acidosis and resp acidosis -monitor w/ lasix and if needs ivf give D5W w/ bicarb 5. CKD stage 3- b/l cr 1.3 Patient seen and examined via telemedicine, with the assistance of the bedside RN > 25 min spent in evaluation and mgmt of patient Attestations Medical Necessity Statement*: cheryl, vdrf, covid- 19 pna Time Spent in Patient Care: 16 - 35 minutes Coding Level of Care Code Acute Rn Transplant for Silv[facility]on
[2021-05-06] MEDS: dextrose 50% syringe 50 mL IVP (07:40)
[2021-05-06] MEDS: FUROsemide 10 mg/mL SDV 4mL 40 MG IVP (07:40)
[2021-05-06] MEDS: insulin regular-human 10 UNIT in SYRINGE 1 EACH IVP (07:41)
[2021-05-06] MEDS: calcium gluconate 0.1 gm/mL 10% SDV 10mL 1 GM IVP (07:41)
[2021-05-06] MEDS: sodium polystyrene sulfonate 15 gm/60 mL Btl 30 GM PO (07:41)
[2021-05-06 07:56] LABS: Glucose Point of Care 149 mg/dL (70-110)
[2021-05-06 07:56] LABS: Glucose Point of Care 143 mg/dL (70-110)
[2021-05-06 07:56] LABS: Glucose Point of Care 127 mg/dL (70-110)
[2021-05-06 07:56] LABS: Glucose Point of Care 134 mg/dL (70-110)
[2021-05-06 07:56] LABS: Glucose Point of Care 123 mg/dL (70-110)
[2021-05-06 07:58] LABS: Glucose Point of Care 124 mg/dL (70-110)
[2021-05-06 07:58] LABS: Glucose Point of Care 150 mg/dL (70-110)
[2021-05-06 07:58] LABS: Glucose Point of Care 132 mg/dL (70-110)
[2021-05-06 07:59] LABS: Glucose Point of Care 114 mg/dL (70-110)
[2021-05-06] MEDS: zinc gluconate 50 mg Tablet PO (08:06)
[2021-05-06] MEDS: ascorbic acid 500 mg Tablet PO ×2 (08:06→18:06)
[2021-05-06] MEDS: sucralfate 1 gm/10 mL Oral Liq UDC PO ×2 (08:06→21:04)
[2021-05-06] MEDS: cholecalciferol (vitamin D3) 1,000 unit Tablet 1000 UNIT PO (08:06)
[2021-05-06 11:26] LABS: Hepatitis B Core AB, Total Non-Reactive (Nonreactive); Hepatitis B Surface Antigen Non-Reactive (Nonreactive); Hepatitis C Virus Antibody Non-Reactive (Nonreactive)
[2021-05-06 11:35] LABS: Hepatitis B Surface AB < 3.5 (11.5-1000)
[2021-05-06 13:09] LABS: Alanine Aminotransferase 37 U/L (0-41); Albumin Level 2.3 g/dL (3.5-5.2); Alkaline Phosphatase 68 IU/L (40-130); Anion Gap 25.9 (5-19); Aspartate Amino Transferase 37 U/L (0-40); Calcium 8.5 mg/dL (8.5-10.5); Carbon Dioxide 17 mmol/L (22-29); Chloride 104 mmol/L (98-107); Globulin 3.3 g/dL (1.3-4.6); Glucose 115 mg/dL (65-115); Potassium 5.9 mmol/L (3.5-5.1); Sodium 141 mmol/L (136-145); Total Protein 5.6 g/dL (6.6-8.7)
[2021-05-06 13:22] LABS: Osmolality Calculated 329 mOsm/kg (285-295)
[2021-05-06 13:24] LABS: Blood Urea Nitrogen 115 mg/dL (8-23)
[2021-05-06] MEDS: fluconazole premix 100 MG in empty flexible container 1 EACH 50 MG IV (13:56)
--- NOTE | 2021-05-06 14:51 | XRR_ITS ---
PROCEDURE INFORMATION: Exam: XR Chest Exam date and time: 05/06/2021 2:51 PM Age: 75 years old Clinical indication: Other vascular access device placement or adjustment; Central line, non-tunnelled; Patient HX: L triple lumen placement; Additional info: Hd catheter TECHNIQUE: Imaging protocol: XR of the chest. Views: 1 view. Total images: 1 COMPARISON: CR (CHEST, ) 05/06/2021 5:30 AM FINDINGS: Tubes, catheters and devices: Endotracheal tube in satisfactory position tip above the lauren. Nasogastric tube tip below the diaphragm out of the field of view. Left jugular central venous catheter tip mid SVC level. Right internal jugular central venous catheter tip atrial caval junction. EKG leads. Lungs: Bilateral ground-glass interstitial lung disease again evident involving primarily the lung bases of active interstitial pneumonitis. Pleural spaces: No pleural effusion. No pneumothorax. Heart/Mediastinum: Cardiac structures and configuration with arteriosclerosis. Bones/joints: Unremarkable. XR/XR chest 1V portable [id number] IMPRESSION: Interval placement of bilateral central venous catheters without radiographic evidence of complicating features.
--- NOTE | 2021-05-06 15:45 | PM.CONSULT ---
Providers/Reason For Consult Consulting Physician/Specialty*: Rajinder Mendoza, DO- General Surgery- [facility] Reason for Consult*: 1. dialysis line placement 2. central line placement Attending Physician: Singh Haque Primary Care Provider: Sandra Partida MD History of Present Illness History of Present Illness Taran Carrera is a 75 year old male with prolonged ICU stay. He has recently had hyperkalemia and increased white count with fevers. I have been consulted to place a dialysis line for hemodialysis to treat the hyperkalemia. Also been consulted to place a central line in order to remove his other central line which is needed for continued access. Review of Systems General: Reports: ROS unobtainable due to endotracheal tube Meds/Allergies Home Medications and Allergies Home Medications Medication Instructions Recorded Confirmed Last Taken Type dexamethasone 6 mg PO DAILY #6 tab MDD see 04/25/21 04/28/21 Unknown Rx pharmacy comment Allergies Allergy/AdvReac Type Severity Reaction Status Date / Time No Known Allergies Allergy Verified 04/25/21 10:07 Current Medications Current Medications Generic Name Dose Route Start Last Admin Trade Name Freq PRN Reason Stop Dose Admin Acetaminophen 650 mg 04/28/21 17:42 05/05/21 17:19 Acetaminophen 325 Mg Tablet PO 650 mg Q6H PRN Administration Mild/Mod Pain Or Temp >/= 101 Albuterol/Ipratropium 3 ml 05/01/21 20:00 05/06/21 11:31 Ipratropium-Albuterol 3 Ml Neb INHALATION 3 ml Q4H.RESPIRATORY HIWOT Administration Ascorbic Acid 500 mg 04/28/21 18:00 05/06/21 08:06 Ascorbic Acid 500 Mg Tablet PO 500 mg BID HIWOT Administration Dexamethasone 6 mg 04/30/21 16:30 05/05/21 17:19 Dexamethasone 10 Mg/Ml Inj IVP 6 mg Q24H HIWOT Administration Heparin Sodium (Beef Lung) 5,000 unit 05/05/21 12:00 05/06/21 13:52 Heparin 5,000 Unit/Ml Inj 1 Ml SUBCUT 5,000 unit Q8H HIWOT Administration Propofol 1,000 mg in 100 mls @ 0 mls/hr 04/28/21 15:15 05/06/21 13:51 Diprivan IV 50 mcg/kg/min .Q0M HIWOT 27.22 mls/hr Administration Protocol Per Protocol Cisatracurium Besylate 100 mg/ 100 mls @ 0 mls/hr 04/28/21 17:45 05/02/21 09:59 Sodium Chloride IV 0 mcg/kg/min .Q0M HIWOT 0 mls/hr Titration Protocol Per Protocol Norepinephrine Bitartrate 4 mg 254 mls @ 0 mls/hr 04/28/21 17:45 05/04/21 16:54 / Dextrose IV Infused .Q0M HIWOT Titration Protocol Per Protocol Vancomycin/PEG/NADA/Lysine/Water 1,250 mg in 250 mls @ 250 mls/hr 04/29/21 20:00 05/04/21 20:49 Vancocin IV 250 mls/hr Q24H HIWOT Administration Cefepime HCl 2,000 mg/ Sodium 50 mls @ 100 mls/hr 05/02/21 18:30 05/05/21 18:06 Chloride IV Infused Q24H HIWOT Infusion Protocol Fentanyl 1,000 mcg/ Sodium 100 mls @ 0 mls/hr 05/02/21 22:15 05/06/21 10:01 Chloride IV 100 mcg/hr .Q0M HIWOT 10 mls/hr Administration Protocol Per Protocol dexmedeTOMIDine 0.9 % NaCL 400 mcg in 100 mls @ 0 mls/hr 05/04/21 09:30 05/04/21 10:08 Dexmedetomidine-Ns IV 0 mcg/kg/hr .Q0M HIWOT 0 mls/hr Titration Protocol Per Protocol Phenylephrine HCl 25 mg/ 252.5 mls @ 0 mls/hr 05/04/21 13:15 05/04/21 16:54 Sodium Chloride IV 0 mcg/min .Q0M HIWOT 0 mls/hr Titration Protocol Per Protocol Fluconazole 100 mg/ N/A 50 mls @ 50 mls/hr 05/05/21 14:00 05/06/21 14:56 IV Infused Q24H HIWOT Infusion Pantoprazole Sodium 40 mg 04/28/21 17:45 05/06/21 05:37 Pantoprazole 40 Mg Sdv IVP 40 mg Q12H HIWOT Administration Sucralfate 1 gm 04/28/21 21:00 05/06/21 08:06 Sucralfate 1 Gm/10 Ml Oral Liq Udc PO 1 gm Q12H HIWOT Administration Vitamin D 1,000 unit 04/29/21 09:00 05/06/21 08:06 Cholecalciferol (Vitamin D3) 1,000 Unit Tablet PO 1,000 unit DAILY HIWOT Administration Zinc Gluconate 50 mg 04/29/21 09:00 05/06/21 08:06 Zinc Gluconate 50 Mg Tablet PO 50 mg DAILY HIWOT Administration PFSH Acute PFSH: Medical History (Updated 04/29/21 @ 13:14 by Abdiaziz Ann MD) HTN (hypertension) with goal to be determined Surgical History (Updated 04/28/21 @ 18:15 by Abdiaziz Ann MD) No pertinent past surgical history Family History (Updated 04/28/21 @ 18:15 by Abdiaziz Ann MD) Mother Cancer Social History (Updated 04/28/21 @ 18:15 by Abdiaziz Ann MD) Smoking and tobacco status: never smoked Alcohol intake: current Alcohol intake frequency: holidays/special occasions only Substance/Drug Use: never Vitals/I&O/Wt Last Vital Signs Temp 98.5 F 05/06/21 04:00 Pulse 98 05/06/21 12:00 Resp 22 H 05/06/21 14:11 BP 104/65 05/06/21 12:00 Pulse Ox 95 05/06/21 14:11 05/06/21 05/06/21 05/06/21 06:59 14:59 22:59 Intake Total 226.216 / 1748.117 332.214 / 332.214 Output Total 700 / 1100 Balance -473.784 / 648.117 332.214 / 332.214 Physical Exam Neck/C-Spine: COMMON NORMALS: full ROM, no lymphadenopathy and no JVD GENERAL: Yes normal visual inspection and Yes trachea midline Cardio: COMMON NORMALS: no JVD Urinary Catheter Management^: William: Cath Placed During This Visit: yes Reason for Continuing Indwelling Catheter: Accurate Measurement of Urinary Output in Critically Ill Patients Urinary Catheter Date of Insertion: 04/28/21 Urinary Catheter Time of Insertion: 16:00 A&P Additional A&P Information 35-year-old male dialysis access to treat hyperkalemia And new central line placement in the setting of increasing fevers and white count. We will place lines at bedside. Consent obtained from . Procedures Time out/Consent Time Out Performed: Yes Consent for Procedure: Consent obtained from other (indicate) (), Risks & Benefits reviewed and Agrees to proceed with procedure Central Line Placement^ Right IJ: Time out performed: Yes Patient placed on monitor/pulse ox: Yes prep: mask, gown and gloves Central line prep: Povidone-Iodine 1% Ultrasound used for placement: Yes Central line lumen inserted: double Post procedure: sutured in place, good blood return, all ports aspirated, flushed, capped and sterile dressing applied Post procedure x-ray: tip of catheter in good position and no pneumothorax seen Patient tolerated procedure: well and no complications Additional comments: dailysis line Left IJ: Time out performed: Yes Patient placed on monitor/pulse ox: Yes prep: mask, gown and gloves Central line prep: Povidone-Iodine 1% Ultrasound used for placement: Yes Central line lumen inserted: triple Post procedure: sutured in place, good blood return, all ports aspirated, flushed, capped and sterile dressing applied Post procedure x-ray: tip of catheter in good position and no pneumothorax seen Patient tolerated procedure: well and no complications Coding Level of Care Code Acute Adjunct Communications Faculty Member for Silvana Lennon
--- NOTE | 2021-05-06 15:48 | PC.RESP ---
RT Shift Note Frequent safety and respiratory rounds continue. Orders completed as indicated. Patient monitored pre and post treatments throughout shift. Patient [Did.] tolerate treatments appropriately. Condition [.DidNotChange]. Patient and/or sales representative trainee educated on respiratory treatment and medications. Patient and/or sales representative trainee [verbalized understanding]. Will continue to monitor patient progress.
--- NOTE | 2021-05-06 15:57 | PM.PN ---
Subjective Subjective: Interval history: Hospital Course 75 year old male with a past medical history of hypertension and chronic kidney disease stage 3 with baseline creatinine around 1.3 who presented to [facility] due to concerns for shortness of breath and hypoxia. Upon arrival to ER patient was intubated and placed on mechanical ventilation. Initial laboratory workup showed a WBC of 15.3, hemoglobin 15.5, hematocrit of 45.7, platelet count of 160. Sodium 136, potassium 4.6, chloride 96, bicarb 22, BUN 50 and creatinine of 2.2. Glucose of 258. Lactic acid of 5.5. AST of 220, ALT of 121, ALP of 74. Troponin of 162, 129,130 at 6hr. TSH of 0.16. COVID19 labs included Ferritin of 2556, LDH of 1380, CRP of 129.5, procalcitonin of 0.70. Imaging studies on arrival included a cxr which showed mild pulmonary edema versus pneumonia. Head CT w/o contrast was negative. Upon admit started on Remdesivir 5 day protocol, decadron 6 mg IV daily and broad spectrum antibiotics with vancomycin, cefepime levaquin. Continued on fentanyl, propofol, versed for sedation. Nimbex was then added for ARDS prone protocol. D-dimer was elevated at 13. CTA was not performed due to renal dysfunction however empirically started on full dose lovenox. Echocardiogram was performed which showed EF of 40-45% with mild global hyperkinesis. Nephrology was consulted. Initially renal function improved to 1.2 however again worsened with increase to 2.6. Net negative balance of 2.6L. Intermittently required pressor support. Subjective 05/04/2021 Noted to have hemoptysis. Blood tingled mucus. Lovenox stopped. Hgb stable. Heparin 5000 units q8hr started. Nephrology consulted again due to worsening renal failure. T-Max of 100.5. 05/05/2021 Overnight patient was noted to have a T-max of a 100.1. Remained on 50% FiO2. Noted to have worsening renal failure with hyperkalemia this morning. 05/06/2021 Patient was noted to have poor urine output. A.m. labs showed hyperkalemia and worsening renal dysfunction. General surgery was consulted and dialysis catheter was placed and pt initiated on HD per nephrology. Femoral central line was removed and left IJ was placed. Continued to have intermittent fevers. Medications: Reviewed: Yes Medication Review Details: Current Medications Acetaminophen (Acetaminophen 325 Mg Tablet) 650 mg PO Q6H PRN PRN Reason: Mild/Mod Pain Or Temp >/= 101 Artificial Tears (Artificial Tears Op Oint 3.5 Gm) 1 applic EYE-BOTH PRN PRN PRN Reason: DRY EYE(S) Ascorbic Acid (Ascorbic Acid 500 Mg Tablet) 500 mg PO BID [facility] Last Admin: 04/30/21 16:25 Dose: Not Given Documented by: Aspirin (Aspirin 81 Mg Ec Tablet) 81 mg PO DAILY [facility] Last Admin: 04/30/21 08:39 Dose: 81 mg Documented by: Bisacodyl (Bisacodyl 5 Mg Tablet) 10 mg PO DAILY PRN; Protocol PRN Reason: Constipation (see protocol) Dexamethasone (Dexamethasone 10 Mg/Ml Inj) 6 mg IVP Q24H [facility] Last Admin: 04/30/21 16:36 Dose: 6 mg Documented by: Dextrose (Dextrose 50% Syringe 50 Ml) 25 ml IVP ONCE PRN; Protocol PRN Reason: hypoglycemia protocol Dextrose (Dextrose 50% Syringe 50 Ml) 50 ml IVP PRN PRN; Protocol PRN Reason: hypoglycemia protocol Enoxaparin Sodium (Enoxaparin 100 Mg/Ml Syringe) 90 mg 1 mg/kg (90 mg) SUBCUT Q12H [facility] Last Admin: 04/30/21 21:27 Dose: 90 mg Documented by: Glucagon (Glucagon 1 Mg/Ml Inj 1 Ml) 1 mg IM ONCE PRN; Protocol PRN Reason: Adult Acute Hypoglycemia Prot. Fentanyl 1,000 mcg/ Sodium (Chloride) 100 mls @ 0 mls/hr IV .Q0M [facility]; Protocol Last Admin: 05/01/21 05:43 Dose: 50 mcg/hr, 5 mls/hr Documented by: Propofol (Diprivan) 1,000 mg in 100 mls @ 0 mls/hr IV .Q0M [facility]; Protocol Last Admin: 05/01/21 04:36 Dose: 50 mcg/kg/min, 27.22 mls/hr Documented by: Remdesivir 100 mg/ Sodium (Chloride) 100 mls @ 100 mls/hr IV Q24H [facility] Stop: 05/02/21 18:59 Last Infusion: 04/30/21 19:16 Dose: Infused Documented by: Cisatracurium Besylate 100 mg/ (Sodium Chloride) 100 mls @ 0 mls/hr IV .Q0M HIWOT; Protocol Last Admin: 04/30/21 16:51 Dose: 1.2 mcg/kg/min, 6.53 mls/hr Documented by: Midazolam HCl 100 mg/ Sodium (Chloride) 100 mls @ 0 mls/hr IV .Q0M HIWOT; Protocol Last Titration: 04/29/21 08:35 Dose: 0 mg/hr, 0 mls/hr Documented by: Norepinephrine Bitartrate 4 mg (/ Dextrose) 254 mls @ 0 mls/hr IV .Q0M HIWOT; Protocol Last Titration: 04/29/21 23:01 Dose: 2 mcg/min, 7.62 mls/hr Documented by: Dextrose (D5w) 500 mls @ 100 mls/hr IV ONCE PRN; Protocol PRN Reason: Adult Acute Hypoglycemia Prot Vancomycin/PEG/NADA/Lysine/Water (Vancocin) 1,250 mg in 250 mls @ 250 mls/hr IV Q24H HIWOT Last Infusion: 04/30/21 21:38 Dose: Infused Documented by: Cefepime HCl 2,000 mg/ Sodium (Chloride) 100 mls @ 200 mls/hr IV Q24H HIWOT; Protocol Last Infusion: 04/30/21 17:05 Dose: Infused Documented by: Levofloxacin/Dextrose (Levaquin-D5w) 750 mg in 150 mls @ 100 mls/hr IV Q24H HIWOT; Protocol Last Infusion: 04/30/21 22:10 Dose: Infused Documented by: Lactulose (Lactulose Oral Liq 20 Gm/30 Ml Udc) 10 gm PO DAILY PRN; Protocol PRN Reason: Constipation (see protocol) Lorazepam (Lorazepam 2 Mg/Ml Inj 1 Ml) 1 mg IVP Q1H PRN PRN Reason: for breakthrough agitation Non-Formulary Route - Milrinone 200 Mcg/Ml 0 each INHALATION Q4H PRN PRN Reason: RESP DILATION Last Admin: 04/29/21 23:57 Dose: 1 each Documented by: Ondansetron HCl (Ondansetron 2 Mg/Ml Sdv 2 Ml) 4 mg IVP Q8H PRN PRN Reason: vomiting, or N/V if npo Pantoprazole Sodium (Pantoprazole 40 Mg Sdv) 40 mg IVP Q12H [facility] Last Admin: 05/01/21 05:14 Dose: 40 mg Documented by: Sucralfate (Sucralfate 1 Gm/10 Ml Oral Liq Udc) 1 gm PO Q12H [facility] Last Admin: 04/30/21 20:40 Dose: 1 gm Documented by: Vitamin D (Cholecalciferol (Vitamin D3) 1,000 Unit Tablet) 1,000 unit PO DAILY [facility] Last Admin: 04/30/21 08:39 Dose: 1,000 unit Documented by: Zinc Gluconate (Zinc Gluconate 50 Mg Tablet) 50 mg PO DAILY [facility] Last Admin: 04/30/21 08:39 Dose: 50 mg Documented by: Vitals/I&O/Wt Last Vital Signs Temp 98.1 F 05/06/21 19:52 Pulse 96 05/06/21 23:45 Resp 22 H 05/06/21 23:45 BP 125/84 05/06/21 19:52 Pulse Ox 93 05/06/21 23:45 05/06/21 05/06/21 05/07/21 14:59 22:59 06:59 Intake Total 332.214 / 332.214 496.631 / 828.845 Output Total 950 / 950 Balance 332.214 / 332.214 -453.369 / -121.155 Weight last 48 hrs Weight 90 kg Physical Exam Narrative: EXAM NARRATIVE: Intubated, sedated, on the ventilator Const: OTHER: intubated and sedated Eye: OTHER: Pupils Neck/C-Spine: OTHER: Bloody discharge from OG tube Lymph: LYMPHATIC: no lymphadenopathy noted Resp: COMMON NORMALS: normal respiratory effort, No retractions, No use of accessory muscles and clear to auscultation bilaterally EFFORT & INSPECTION: Yes symmetric chest movement AUSCULTATION: clear to auscultation bilaterally and diminished lung sounds diffuse OTHER: Vented sounds b/l Cardio: COMMON NORMALS: regular rate, regular rhythm, S1 normal heart sound present and S2 normal heart sound present RATE: regular rate RHYTHM: regular rhythm HEART SOUNDS: S1 normal heart sound present and S2 normal heart sound present GI: COMMON NORMALS: Normal to inspection, nondistended, normoactive bowel sounds present, Soft to palpation, non-tender and no bruits PALPATION: Yes Soft to palpation : OTHER: William catheter in place, William bag blood within the urine Extremity: COMMON NORMALS: no pedal edema NARRATIVE EXTREMITY EXAM: Right art line in place, left femoral line in place GENERAL: No edema OTHER: DP PT pulses palpable Neuro: OTHER: on vent Skin: COMMON NORMALS: no rashes or lesions noted, turgor normal and no mottling GENERAL SKIN EXAM: no rashes or lesions noted and turgor normal Urinary Catheter Management^: William: Cath Placed During This Visit: yes Reason for Continuing Indwelling Catheter: Accurate Measurement of Urinary Output in Critically Ill Patients Urinary Catheter Date of Insertion: 04/28/21 Urinary Catheter Time of Insertion: 16:00 Data : 05/06/21 04:00 05/06/21 11:16 A&P Assessment and plan (1) Myocarditis due to 2019 novel coronavirus: Status: Acute (2) UTI (urinary tract infection): Status: Acute (3) NSTEMI (non-ST elevated myocardial infarction): Status: Acute (4) Acute respiratory failure with hypoxia: Status: Acute (5) Acute kidney injury superimposed on CKD: Status: Acute (6) Transaminitis: Status: Acute (7) Acute respiratory distress syndrome: Status: Acute Additional A&P Information #COVID-19 pneumonia #Acute hypoxemic respiratory failure --Continue ventilator protocol, CMV - FIo2 50% --Completed Remdesivir, On Decadron 6 mg IV daily, Continue Duoneb q6hr, Pulmicort 0.5 inh BID --D-dimer - 13 on arrival -> 2.5, can not rule out PE, Lovenox stopped due to increasing hemoptysis, Hgb decreased 13-11 - started on DVT ppx dose of heparin however d/c again due to bleeding --Repeat Chest x-ray and ABG in AM Sepsis with Shock --Continue empiric antibiotics including vancomycin, cefepime, Levaquin, diflucan --Marked Leukocytosis - WBC 36-> 29 -> 24 - 23 --Procalcitonin elevated --Maintain MAP > 65 --Pressor support as needed --Will consider getting CT chest/abd/pelvis if continues to be febrile Acute on stage 3 CKD now on HD --Creatinine increase to 2.6 -> 3. --Neprhology re-consulted --Renal US noted --BMP in AM --Oliguria - Temp HD cath placed. - Started on HD Acute Systolic HF --ECHO 45% --Likely due to sepsis --Will likely repeat Limited ECHO --Fluid removal via HD as tolerated. #NSTEMI - Type 2 --Likely multifactorial demand ischemia #Rhabdomyolysis --statin held --improved 548--> 553--> 249 GI PPx --Protonix 40mg IV BID DVT ppx HELD - Heparin 5000 units Q8hr ( Bleeding) Prognosis: Guarded. Attestations Medical Necessity Statement*: Continue hospitalization for management ofCOVID-19 pneumonia requiring mechanical ventilation, sepsis on broad-spectrum antibiotics and now renal failure on dialysis Time Spent in Patient Care: Greater than 35 minutes (>than 50% of time spent in counselling and/or direct pt care on unit). Critical Care Time: Critical Care Time (min): 50 Coding Level of Care Code Acute Probation Counselor for [facility] Fwd Diagnoses Myocarditis due to 2019 novel coronavirus U07.1; I40.0 UTI (urinary tract infection) N39.0 NSTEMI (non-ST elevated myocardial infarction) I21.4 Acute respiratory failure with hypoxia J96.01 Acute kidney injury superimposed on CKD N17.9; N18.9 Transaminitis R74.01 Acute respiratory distress syndrome J80
[2021-05-06] MEDS: dexamethasone 10 mg/mL INJ 6 MG IVP (18:05)
[2021-05-06] MEDS: heparin, porcine 1,000 unit/mL INJ 10 mL HE (18:21)
--- NOTE | 2021-05-06 18:30 | PC.NURSE ---
Shift Note Frequent safety and comfort rounds continue. Orders and nursing care completed as indicated. Patient monitored for response to intervention and treatments. Orders to place dialysis catheter today and initiate first round of dialysis. Consent forms signed and placed in chart. Dr. Mendoza placed dialysis catheter and new IJ central line and RADHA Mckinney started Hemodialysis late this afternoon and is still ongoing at this time. Pt had 450ml out in urine this shift. Unable to educate patient at this time due to patient on ventilator and sedated. Family called for consents and updated on patient's status. Mely verbalized understanding. Will continue to monitor.
[2021-05-06 19:09] LABS: Glucose Point of Care 91 mg/dL (70-110)
--- NOTE | 2021-05-06 19:55 | PC.HD ---
Intradialytic hypotension managed with pressor infusion per [employer]. Episodes of non-sustained A-fib with RVR noted during treatment, [employer] states this is not new.
[2021-05-06] MEDS: cefepime 2,000 MG in sodium chloride 0.9% (plus) 50 ML 100 MG IV (21:00)
[2021-05-06] MEDS: levofloxacin-dextrose 5 % 750 MG/150 ML PREMIX 100 MG IV (21:04)
[2021-05-06 22:01] LABS: Glucose Point of Care 114 mg/dL (70-110)
[2021-05-07] VITALS (36 sets, daily range): BP systolic 72–137; BP diastolic 48–83; PULSE 87–152; RESP 21–25; TEMP 36.7–37.9; O2SAT 83–99
[2021-05-07] MEDS: propofol 1,000 MG/100 ML INJ 27.22 MG IV ×8 (00:17→23:23)
[2021-05-07] MEDS: ipratropium-albuterol 3 mL Neb INHALATION ×5 (03:39→20:30)
[2021-05-07] MEDS: pantoprazole 40 mg SDV IVP ×2 (04:58→17:12)
[2021-05-07 05:25] LABS: Glucose Point of Care 128 mg/dL (70-110)
[2021-05-07 05:25] LABS: Glucose Point of Care 98 mg/dL (70-110)
[2021-05-07 05:28] LABS: Basophils # 0.1 10^3/uL (0.0-0.1); Basophils % 0.3 %; Eosinophils # 0.1 10^3/uL (0.0-0.8); Eosinophils % 0.3 %; Hemoglobin 10.6 g/dL (11.7-16.6); Lymphocytes # 0.2 10^3/uL (0.8-4.8); Lymphocytes % 0.8 %; Mean Corpuscular HGB Conc 32.1 g/dL (30.0-36.0); Mean Corpuscular Hemoglobin 30.3 pg (28.0-34.0); Mean Corpuscular Volume 94.3 fl (80-94); Mean Platelet Volume 10.7 fL (7.4-10.4); Monocytes # 0.8 10^3/uL (0.2-0.9); Neutrophils # 25.02 10^3/uL (1.8-7.7); Neutrophils % 91.2 %; Nucleated Red Blood Cells % 0 %; Platelet Count 202 10^3/cmm (130-400); Red Cell Distribution Width 15.4 % (12.1-15.1); White Blood Count 27.4 10^3/uL (4.0-10.0)
[2021-05-07 05:56] LABS: Alanine Aminotransferase 32 U/L (0-41); Albumin Level 2.3 g/dL (3.5-5.2); Alkaline Phosphatase 54 IU/L (40-130); Aspartate Amino Transferase 32 U/L (0-40); Calcium 7.9 mg/dL (8.5-10.5); Carbon Dioxide 21 mmol/L (22-29); Chloride 101 mmol/L (98-107); Globulin 3.2 g/dL (1.3-4.6); Glucose 99 mg/dL (65-115); Magnesium 2.8 mg/dL (1.7-2.3); Osmolality Calculated 313 mOsm/kg (285-295); Sodium 139 mmol/L (136-145); Total Bilirubin 1.3 mg/dL (0.15-1.2); Total Protein 5.5 g/dL (6.6-8.7)
[2021-05-07 06:13] LABS: Blood Urea Nitrogen 82 mg/dL (8-23)
--- NOTE | 2021-05-07 06:44 | PC.SOCIAL ---
IM follow up not provided. Patient still on vent and discharge not anticipated within 2 days.
--- NOTE | 2021-05-07 06:51 | PC.NURSE ---
Shift Note Frequent safety and comfort rounds continue. Orders and/or nursing care completed as indicated. Patient monitored for response to intervention and treatment(s). Education provided includes[]. Patient and/or airport representative [ResponseToTeaching]. Will continue to monitor. The patient did well during the shift. There were no complications with the patients vitals. The patient is still on phenylephrine at 20 mcg. The blood pressure has been stable. Oxygenation has been within normal limits.
[2021-05-07] MEDS: cholecalciferol (vitamin D3) 1,000 unit Tablet 1000 UNIT PO (07:44)
[2021-05-07] MEDS: ascorbic acid 500 mg Tablet PO (07:44)
[2021-05-07] MEDS: zinc gluconate 50 mg Tablet PO (07:44)
[2021-05-07] MEDS: sucralfate 1 gm/10 mL Oral Liq UDC PO ×2 (07:45→21:07)
--- NOTE | 2021-05-07 07:58 | PM.PN ---
Subjective Medications: Reviewed: Yes Vitals/I&O/Wt Last Vital Signs Temp 98.4 F 05/07/21 04:00 Pulse 88 05/07/21 06:00 Resp 22 H 05/07/21 03:41 BP 121/78 05/07/21 06:00 Pulse Ox 91 05/07/21 06:00 05/06/21 05/07/21 05/07/21 22:59 06:59 14:59 Intake Total 563.291 / 895.505 187.104 / 1082.609 100 / 100 Output Total 950 / 950 400 / 1350 Balance -386.709 / -54.495 -212.896 / -267.391 100 / 100 Weight last 48 hrs Weight 90 kg Physical Exam Urinary Catheter Management^: William: Cath Placed During This Visit: yes Reason for Continuing Indwelling Catheter: Accurate Measurement of Urinary Output in Critically Ill Patients Urinary Catheter Date of Insertion: 04/28/21 Urinary Catheter Time of Insertion: 16:00 Data : 05/07/21 05:10 05/07/21 05:10 Other Labs: phos 9, calcium 7.9, alb 2.3, Mg 2.8 A&P Additional A&P Information 1. Acute kidney injury, s/p dialysis yesterday. Urine output currently 100 ml/hr, yesterday urine output 850 ml 2. COVID pneumonia 3. hyperphosphatemia Recommend: No indication for dialysis today. Check vancomycin level. add calcium acetate as phosphate binder Attestations Medical Necessity Statement*: see above Coding Level of Care Code Acute Air Shovel Operator for Silvana Lennon
[2021-05-07] MEDS: phenylephrine inj 25 MG in sodium chloride 0.9% 250 ML 12.12 MG IV (08:02)
[2021-05-07 08:28] LABS: Glucose Point of Care 96 mg/dL (70-110)
--- NOTE | 2021-05-07 08:28 | PC.CHAP ---
Pastoral Care Encounter/Spiritual Assessment Type of Contact [] Declined easement worker visit [] Patient/Family/Request visit [] Outpatient visit [] Follow-up visit [] Physician referral [] Code/Alert [x] Routine visit [] Staff referral [] Actively dying [] Patient sleeping [] Family support [] [] Out of room [] Palliative care [] [] Receiving care in room [] Pre-surgical visit [] Trauma [] Long length of stay [x] ICU visit [] Other: Relational/Emotional Strength [] Patient feels connected with others/family/visitors/staff [] Distress [] Loneliness/isolation [] Abandonment Spirituality of Patient [] Person of [place] [] Attends Hoahaoism of their [place] [] Believes in Prayer [] Reads Bible or Cheondoism materials [] There are Spiritual issues to be addressed Psych Sales Specialist 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 [x] Prayer [] Active listening [] Non-anxious presence [] Spiritual/emotional support [] Crisis/trauma care [] Spiritual counseling [] Bereavement support [] Provided bereavement packet [] Provided Bible/devotional materials [] Provided toy/stuffed animal, coloring book to patient or family member [] Provided Communion [] Anointing/[place] [] Salvation [x] Completed spiritual assessment [] Other: Impact on Illness or Injury [] Angry [] Fearful [] Anxious [] Often cries [] Exhaustion [] Unable to work [] Unable to attend zoroastrianism [] Unable to walk/stand [] Unable to read [] Unable to drive [] Unable to eat/drink [] Unable to sleep [] Unable to be with family [] Patient intubated [] Other: Summary Time spent with patient
--- NOTE | 2021-05-07 11:00 | PC.NURSE ---
Tube feeding, Pulmacare 1.2 started at 15 ml hr.
[2021-05-07 11:47] LABS: Iron 70 ug/dL (59-158); Percent Saturation 58.3 % (20-50); Total Iron Binding Capacity 120 mcg/dl; Unsaturated Iron Binding 50 ug/dL (112-347); Vancomycin Random 21.3 ug/mL (20.0-40.0)
[2021-05-07] MEDS: calcium acetate 667 mg Capsule 1334 MG PO ×2 (11:53→17:12)
[2021-05-07 13:06] LABS: ABG PH Result 7.29 (7.35-7.45); Alveolar-Arterial Oxygen Gradi 25.2 mmHg (5-10); Arterial Blood Gas Hematocrit 35.2 % (42-52); Base Excess ABG -5.7 mmol/L (-2.0-2.0); Blood Gas Allen Test Pos; Blood Gas Operator Identificat GD; Blood Gas Sample Site Radial, left; Blood Gas Sample Type Arterial; Blood Gas Tidal Volume 0.45; Carboxyhemoglobin 1.4 %THgb (0.4-20.1); HCO3 ABG 20.6 mmol/L (22-26); HGB O2 Sat 96.5 % (95-100); Ionized Calcium Level - ABG 1.1 mmol/L (1.1-1.4); Methemoglobin 0.3 % (0.4-1.5); Oxygen Device VENT; Oxygen Saturation ABG 98.3; Potassium Level - ABG 4.7 mmol/L (3.5-5.0); Total Hemoglobin 11.5 g/dL (14-18)
[2021-05-07] MEDS: fluconazole premix 100 MG in empty flexible container 1 EACH 50 MG IV (14:38)
--- NOTE | 2021-05-07 15:25 | PC.RESP ---
RT Shift Note Frequent safety and respiratory rounds continue. Orders completed as indicated. Patient monitored pre and post treatments throughout shift. Patient [Did.] tolerate treatments appropriately. Condition [.DidNotChange]. Patient and/or aircraft sales representative educated on respiratory treatment and medications. Patient and/or aircraft sales representative unable to comprened. Will continue to monitor patient progress.
--- NOTE | 2021-05-07 17:08 | P.PN_ITS ---
Subjective Subjective: Interval history: Hospital course, labs appreciated. Patient seen multiple times during the day. On examination patient is sedated and intubated. He is off pressors early in the morning but later in the evening around 6 PM had to be started back on Levophed because of hypotension. He is on sedation with propofol and fentanyl. Intubated with ventilator setting of FiO2 of 450, FiO2 of 50%, PEEP of 12 saturating 94% in the morning. Had HD yesterday and was recommended by nephrology for no dialysis today. In evening patient started having episodes of tachycardia with heart rate going up to 150s blood pressure MAP less than 65 for which he was started on levophed, repeat Cxr was done which was negative for pneumothorax and fio2 increased to 100% Echocardiogram was performed which showed EF of 40-45% with mild global hyperkinesis. Nephrology was consulted. Initially renal function improved to 1.2 however again worsened with increase to 2.6. Net negative balance of 2.6L. Intermittently required pressor support. Vitals/I&O/Wt Last Vital Signs Temp 98.1 F 05/07/21 12:00 Pulse 118 H 05/07/21 16:00 Resp 23 H 05/07/21 15:18 BP 108/67 05/07/21 16:00 Pulse Ox 93 05/07/21 16:00 05/07/21 05/07/21 05/07/21 06:59 14:59 22:59 Intake Total 187.104 / 1082.609 556.747 / 556.747 82.567 / 639.314 Output Total 400 / 1350 Balance -212.896 / -267.391 556.747 / 556.747 82.567 / 639.314 Weight last 48 hrs Weight 90 kg Physical Exam Narrative: EXAM NARRATIVE: Intubated, sedated, on the ventilator Const: COMMON NORMALS: no acute distress OTHER: intubated and sedated HENMT: COMMON NORMALS: normocephalic HEAD & SCALP: normocephalic Eye: OTHER: Pupils Neck/C-Spine: OTHER: Bloody discharge from OG tube Lymph: LYMPHATIC: no lymphadenopathy noted Chest: COMMONS NORMALS: normal inspection of the chest Resp: COMMON NORMALS: normal respiratory effort, No retractions, No use of accessory muscles and clear to auscultation bilaterally EFFORT & INSPECTION: Yes symmetric chest movement AUSCULTATION: clear to auscultation bilaterally and diminished lung sounds diffuse OTHER: Vented sounds b/l Cardio: COMMON NORMALS: regular rate, regular rhythm, S1 normal heart sound present and S2 normal heart sound present RATE: regular rate RHYTHM: regular rhythm HEART SOUNDS: S1 normal heart sound present and S2 normal heart sound present GI: COMMON NORMALS: Normal to inspection, nondistended, normoactive bowel sounds present, Soft to palpation, non-tender and no bruits PALPATION: Yes Soft to palpation : OTHER: William catheter in place, William bag blood within the urine Extremity: COMMON NORMALS: no pedal edema NARRATIVE EXTREMITY EXAM: Right art line in place, left femoral line in place GENERAL: No edema OTHER: DP PT pulses palpable Neuro: OTHER: on vent Skin: COMMON NORMALS: no rashes or lesions noted, turgor normal and no mottling GENERAL SKIN EXAM: no rashes or lesions noted and turgor normal Urinary Catheter Management^: William: Cath Placed During This Visit: yes Reason for Continuing Indwelling Catheter: Accurate Measurement of Urinary Output in Critically Ill Patients Urinary Catheter Date of Insertion: 04/28/21 Urinary Catheter Time of Insertion: 16:00 Data : 05/07/21 05:10 05/07/21 05:10 Micro: Microbiology 05/07/21 14:30 Legionella Urinary Antigen - Final Urine Catheterized 05/07/21 16:02 Blood Culture - Preliminary Blood SPECIMEN COLLECTED 05/07/21 15:50 Blood Culture - Preliminary Blood SPECIMEN COLLECTED 05/07/21 14:30 Bacterial Antigens - Final Urine Kidney A&P Assessment and plan (1) COVID-19: Status: Acute (2) Acute respiratory distress syndrome: Status: Acute (3) Acute respiratory failure with hypoxia: Status: Acute (4) Acute kidney injury superimposed on CKD: Status: Acute (5) Metabolic acidosis: Status: Acute (6) Hemoptysis: Status: Acute (7) Transaminitis: Status: Acute (8) NSTEMI (non-ST elevated myocardial infarction): Status: Acute (9) UTI (urinary tract infection): Status: Acute (10) Myocarditis due to 2019 novel coronavirus: Status: Acute Additional A&P Information ARDS secondary to COVID-19 pneumonia along with possible superadded bacterial pneumonia: Ventilator dependent. Continue sedation with propofol fentanyl. Completed remdesivir. Currently on dexamethasone. Continue with DuoNeb, budesonide. D-dimer - 13 on arrival -> 2.5, can not rule out PE, Lovenox stopped due to increasing hemoptysis, Hgb decreased 13-11 - started on DVT ppx dose of heparin however d/c again due to bleeding Continue to monitor inflammatory markers including ESR, CRP, D-dimer every 48 hourly. Given ARDS we will try to keep patient as negative as possible. Daily weights, strict input output charting. Severe sepsis: Patient has been having intermittent fevers. Cultures from admission, 10 days ago negative. Recheck urinalysis, urine Legionella, bacterial antigen, blood culture, sputum culture, procal. Patient received 1 dose of vancomycin on May 05. Check Vanco random level. Continue with cefepime, Levaquin, Diflucan. Will readjust dose as per creatinine clearance and post dialysis status. Levophed as needed keeping mean arterial pressure over 65. Hemoptysis: Recheck chest x-ray to rule out pneumothorax. Can be ventilator associated lung injury versus pulmonary hemorrhage. Pulmonology not media relations manager today. Will consult tomorrow for possible bronchoscopy. Acute on stage 3 CKD/metabolic acidosis: Post 1 session of dialysis. Continues to have metabolic acidosis now on HD Medical reconciliation done for nephrotoxic drugs. Nephrology on board. Acute Systolic HF: Most likely secondary to sepsis versus possible myocarditis secondary to COVID-19. NSTEMI - Type 2 Likely multifactorial demand ischemia GI PPx Protonix 40mg IV BID DVT ppx HELD - Heparin 5000 units Q8hr ( Bleeding) Prognosis: Guarded. Discussed patient's care in detail with his over the phone. We discussed unfortunately patient has severe COVID-19 pneumonia, ARDS along with multiple organ dysfunction including GUMARO on CKD, new congestive heart failure secondary to possible myocarditis and possible anoxic brain injury. We discussed patient has a severely guarded prognosis. We also discussed it is quite possible that patient can have cardiac arrest. states for now if she would want the pat ient to remain full code as she would discuss further goals of care with his family. Attestations Medical Necessity Statement*: Requires further hospitalization for ventilator dependent ARDS secondary to COVID-19 pneumonia, myocarditis, GUMARO on CKD requiring hemodialysis, metabolic acidosis Critical Care Time: The high probability of a clinically significant, sudden or life threatening deterioration of the patient's [pulmonary, cardiac, renal, ID, social] system(s) required my full and direct attention, intervention and personal management. The critical care time is as shown. 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
[2021-05-07] MEDS: dexamethasone 10 mg/mL INJ 6 MG IVP (17:12)
[2021-05-07] MEDS: cefepime 1,000 MG in sodium chloride 0.9% (plus) 50 ML 100 MG IV (17:13)
[2021-05-07 17:31] LABS: Glucose Urine UA Norm (Normal); Ketones Urine Negative (Negative); Protein Urine Trace (Negative); Specific Gravity, Urine 1.015 (1.005-1.030); Urine Appearance Clear (CLEAR); Urine Color Straw (Yellow); pH Urine 5 (5-7)
[2021-05-07 17:32] LABS: Add Urine Culture? No; Amorphous Sediment Urine 1+ /hpf; Bacteria Urine TRACE /hpf; Bilirubin Urine Neg (Negative); Blood Urine 3+ (Negative); Leukocyte Esterase Urine Negative (Negative); Nitrate Urine Negative (Negative); Urobilinogen Urine Norm (Negative); WBC Urine RARE /hpf (0-5)
--- NOTE | 2021-05-07 17:56 | XRR_ITS ---
PROCEDURE INFORMATION: Exam: XR Chest Exam date and time: 05/07/2021 5:56 PM Age: 75 years old Clinical indication: Other: Tachycardia TECHNIQUE: Imaging protocol: XR of the chest. Views: 1 view. COMPARISON: CR XR chest 1V portable [id number] 05/06/2021 3:25 PM FINDINGS: Tubes, catheters and devices: Endotracheal tube tip in place 5.7 cm above the lauren. Left central venous catheter tip in the superior vena cava. Enteric tube tip extending inferiorly off the field of view below the left diaphragm. Lungs: Patchy bilateral mixed interstitial and airspace infiltrates again seen. Pleural spaces: Unremarkable. No pleural effusion. No pneumothorax. Heart/Mediastinum: Unremarkable. No cardiomegaly. Bones/joints: Unremarkable. XR/XR chest 1V portable [id number] IMPRESSION: 1. Endotracheal tube tip in place 5.7 cm above the lauren. 2. Left central venous catheter tip in the superior vena cava. 3. Enteric tube tip extending inferiorly off the field of view below the left diaphragm. 4. Patchy bilateral mixed interstitial and airspace infiltrates again seen.
[2021-05-07] MEDS: albumin 12.5 GM/250 ML VIAL IV ×2 (18:07→19:42)
--- NOTE | 2021-05-07 19:03 | ECG_ITS ---
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 Measurements Intervals [place] Rate: 103 P: -9 [place]: 120 QRS: 50 QRSD: 92 T: 30 QT: 358 QTc: 470 Interpretive Statements SINUS TACHYCARDIA NONSPECIFIC ST & T-WAVE ABNORMALITY ABNORMAL RHYTHM ECG Compared to ECG 05/04/2021 13:12:00 T-wave abnormality now present Electronically Signed On 05-10-2021 9:07:22 CDT by Martha Marie M.D. [id number]
[2021-05-07 20:42] LABS: Glucose Point of Care 101 mg/dL (70-110)
[2021-05-07 20:54] LABS: ABG PCO2 42.4 mmHg (35-45); ABG PH Result 7.28 (7.35-7.45); Base Excess ABG -6.7 mmol/L (-2.0-2.0); Blood Gas Allen Test Pos; Blood Gas Sample Type Arterial; HCO3 ABG 19.8 mmol/L (22-26); HGB O2 Sat 96.6 % (95-100); Ionized Calcium Level - ABG 1.1 mmol/L (1.1-1.4); Methemoglobin 0.9 % (0.4-1.5); Oxygen Saturation ABG 98.5; Potassium Level - ABG 4.6 mmol/L (3.5-5.0); Total Hemoglobin 16.7 g/dL (14-18)
[2021-05-07 20:58] LABS: Alveolar-Arterial Oxygen Gradi 69.4 mmHg (5-10); Blood Gas Operator Identificat JB; Blood Gas Sample Site Radial, right; Blood Gas Tidal Volume 0.45; Oxygen Device VENT
[2021-05-08] VITALS (78 sets, daily range): BP systolic 82–132; BP diastolic 51–89; PULSE 88–155; RESP 18–25; TEMP 33.8–37.4; O2SAT 93–100
[2021-05-08] MEDS: ipratropium-albuterol 3 mL Neb INHALATION ×7 (00:20→23:59)
--- NOTE | 2021-05-08 02:00 | PC.NURSE ---
I checked the residual right before 0200, and the patient had 260 mL. The tube feeding was stopped at 0200.
[2021-05-08] MEDS: propofol 1,000 MG/100 ML INJ 27.22 MG IV ×6 (02:29→20:30)
[2021-05-08] MEDS: pantoprazole 40 mg SDV IVP ×2 (05:08→17:15)
[2021-05-08 05:11] LABS: ABG PH Result 7.27 (7.35-7.45); Alveolar-Arterial Oxygen Gradi 53.3 mmHg (5-10); Arterial Blood Gas Hematocrit 49.5 % (42-52); Base Excess ABG -7.6 mmol/L (-2.0-2.0); Blood Gas Allen Test Pos; Blood Gas Operator Identificat JB; Blood Gas Sample Site Radial, right; Blood Gas Sample Type Arterial; Blood Gas Tidal Volume 0.45; Carboxyhemoglobin 0.9 %THgb (0.4-20.1); HCO3 ABG 19.1 mmol/L (22-26); HGB O2 Sat 95.7 % (95-100); Ionized Calcium Level - ABG 1.1 mmol/L (1.1-1.4); Oxygen Device VENT; Oxygen Saturation ABG 97.6; Potassium Level - ABG 5.2 mmol/L (3.5-5.0); Total Hemoglobin 16.2 g/dL (14-18)
[2021-05-08 05:42] LABS: Glucose Point of Care 106 mg/dL (70-110)
[2021-05-08 05:42] LABS: Glucose Point of Care 102 mg/dL (70-110)
[2021-05-08 05:54] LABS: Basophils # 0.1 10^3/uL (0.0-0.1); Basophils % 0.3 %; Eosinophils # 0.1 10^3/uL (0.0-0.8); Eosinophils % 0.4 %; Hematocrit 31.8 % (42.0-52.0); Hemoglobin 10.5 g/dL (11.7-16.6); Lymphocytes # 0.4 10^3/uL (0.8-4.8); Lymphocytes % 1.5 %; Mean Corpuscular Hemoglobin 30.6 pg (28.0-34.0); Mean Corpuscular Volume 92.7 fl (80-94); Mean Platelet Volume 11.2 fL (7.4-10.4); Monocytes # 0.7 10^3/uL (0.2-0.9); Monocytes % 2.6 %; Neutrophils # 24.14 10^3/uL (1.8-7.7); Neutrophils % 93.4 %; Nucleated Red Blood Cells % 0 %; Platelet Count 184 10^3/cmm (130-400); Red Blood Count 3.43 10^6/uL (4.1-5.3); Red Cell Distribution Width 15.1 % (12.1-15.1); White Blood Count 25.8 10^3/uL (4.0-10.0)
[2021-05-08 06:09] LABS: Vancomycin Random 19.5 ug/mL (20.0-40.0)
[2021-05-08 06:31] LABS: NT Pro B Type Natriuretic Pept 4983 pg/mL (0-450); Procalcitonin 7.89 ng/mL (0-0.5)
[2021-05-08 06:43] LABS: Erythrocyte Sedimentation Rate 87 mm/hr (0-10)
[2021-05-08 06:44] LABS: Alanine Aminotransferase 25 U/L (0-41); Albumin Level 2.3 g/dL (3.5-5.2); Alkaline Phosphatase 49 IU/L (40-130); Anion Gap 25.3 (5-19); Aspartate Amino Transferase 30 U/L (0-40); C Reactive Protein 248.3 mg/L (0.0-4.9); Calcium 7.9 mg/dL (8.5-10.5); Carbon Dioxide 19 mmol/L (22-29); Chloride 99 mmol/L (98-107); Globulin 3.1 g/dL (1.3-4.6); Glucose 95 mg/dL (65-115); Magnesium 3.2 mg/dL (1.7-2.3); Potassium 5.3 mmol/L (3.5-5.1); Sodium 138 mmol/L (136-145); Total Bilirubin 1.7 mg/dL (0.15-1.2); Total Protein 5.4 g/dL (6.6-8.7)
--- NOTE | 2021-05-08 07:00 | PC.NURSE ---
Shift Note Frequent safety and comfort rounds continue. Orders and/or nursing care completed as indicated. Patient monitored for response to intervention and treatment(s). Education provided includes[]. 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 Will continue to monitor. At the beginning of the shift the patient received a Cheetah assessment to evaluate if the patient was overloaded. The patient was fluid responsive at 14.9%. He also received an ABG and a EKG. This was reported to Dr. Kumar between [id number]. I received orders from the physician to work on titrating the phenylephrine down and off during the shift. The patient's urine output was similar to what it was the night before, at 420 mL for the shift. The patient remained stable during the night with no complications. Vitals remained stable.
[2021-05-08 07:07] LABS: D Dimer 2.11 ug/mIFEU (0-0.59)
[2021-05-08 07:34] LABS: Blood Urea Nitrogen 120 mg/dL (8-23); Osmolality Calculated 324 mOsm/kg (285-295); Phosphorus 10.3 mg/dL (2.5-4.5)
[2021-05-08 08:19] LABS: Glucose Point of Care 103 mg/dL (70-110)
[2021-05-08] MEDS: cholecalciferol (vitamin D3) 1,000 unit Tablet 1000 UNIT PO (09:26)
[2021-05-08] MEDS: calcium acetate 667 mg Capsule 1334 MG PO ×3 (09:26→17:15)
[2021-05-08] MEDS: sucralfate 1 gm/10 mL Oral Liq UDC PO ×2 (09:26→20:10)
[2021-05-08] MEDS: zinc gluconate 50 mg Tablet PO (09:26)
[2021-05-08] MEDS: ascorbic acid 500 mg Tablet PO (09:26)
--- NOTE | 2021-05-08 11:23 | PM.PN ---
Subjective Subjective: Interval history: He continues to do very poorly. Remains on high ventilator settings including FiO2 80% and PEEP of 12. Urine output noted, creatinine increasing from 3.90-5.1. Significant peripheral edema. Remains on phenylephrine at 10. Medications: Reviewed: Yes Medication Review Details: Current Medications Acetaminophen (Acetaminophen 325 Mg Tablet) 650 mg PO Q6H PRN PRN Reason: Mild/Mod Pain Or Temp >/= 101 Artificial Tears (Artificial Tears Op Oint 3.5 Gm) 1 applic EYE-BOTH PRN PRN PRN Reason: DRY EYE(S) Ascorbic Acid (Ascorbic Acid 500 Mg Tablet) 500 mg PO BID [facility] Last Admin: 04/30/21 16:25 Dose: Not Given Documented by: Aspirin (Aspirin 81 Mg Ec Tablet) 81 mg PO DAILY [facility] Last Admin: 04/30/21 08:39 Dose: 81 mg Documented by: Bisacodyl (Bisacodyl 5 Mg Tablet) 10 mg PO DAILY PRN; Protocol PRN Reason: Constipation (see protocol) Dexamethasone (Dexamethasone 10 Mg/Ml Inj) 6 mg IVP Q24H [facility] Last Admin: 04/30/21 16:36 Dose: 6 mg Documented by: Dextrose (Dextrose 50% Syringe 50 Ml) 25 ml IVP ONCE PRN; Protocol PRN Reason: hypoglycemia protocol Dextrose (Dextrose 50% Syringe 50 Ml) 50 ml IVP PRN PRN; Protocol PRN Reason: hypoglycemia protocol Enoxaparin Sodium (Enoxaparin 100 Mg/Ml Syringe) 90 mg 1 mg/kg (90 mg) SUBCUT Q12H [facility] Last Admin: 04/30/21 21:27 Dose: 90 mg Documented by: Glucagon (Glucagon 1 Mg/Ml Inj 1 Ml) 1 mg IM ONCE PRN; Protocol PRN Reason: Adult Acute Hypoglycemia Prot. Fentanyl 1,000 mcg/ Sodium (Chloride) 100 mls @ 0 mls/hr IV .Q0M [facility]; Protocol Last Admin: 05/01/21 05:43 Dose: 50 mcg/hr, 5 mls/hr Documented by: Propofol (Diprivan) 1,000 mg in 100 mls @ 0 mls/hr IV .Q0M [facility]; Protocol Last Admin: 05/01/21 04:36 Dose: 50 mcg/kg/min, 27.22 mls/hr Documented by: Remdesivir 100 mg/ Sodium (Chloride) 100 mls @ 100 mls/hr IV Q24H [facility] Stop: 05/02/21 18:59 Last Infusion: 04/30/21 19:16 Dose: Infused Documented by: Cisatracurium Besylate 100 mg/ (Sodium Chloride) 100 mls @ 0 mls/hr IV .Q0M [facility]; Protocol Last Admin: 04/30/21 16:51 Dose: 1.2 mcg/kg/min, 6.53 mls/hr Documented by: Midazolam HCl 100 mg/ Sodium (Chloride) 100 mls @ 0 mls/hr IV .Q0M [facility]; Protocol Last Titration: 04/29/21 08:35 Dose: 0 mg/hr, 0 mls/hr Documented by: Norepinephrine Bitartrate 4 mg (/ Dextrose) 254 mls @ 0 mls/hr IV .Q0M [facility]; Protocol Last Titration: 04/29/21 23:01 Dose: 2 mcg/min, 7.62 mls/hr Documented by: Dextrose (D5w) 500 mls @ 100 mls/hr IV ONCE PRN; Protocol PRN Reason: Adult Acute Hypoglycemia Prot Vancomycin/PEG/NADA/Lysine/Water (Vancocin) 1,250 mg in 250 mls @ 250 mls/hr IV Q24H [facility] Last Infusion: 04/30/21 21:38 Dose: Infused Documented by: Cefepime HCl 2,000 mg/ Sodium (Chloride) 100 mls @ 200 mls/hr IV Q24H [facility]; Protocol Last Infusion: 04/30/21 17:05 Dose: Infused Documented by: Levofloxacin/Dextrose (Levaquin-D5w) 750 mg in 150 mls @ 100 mls/hr IV Q24H [facility]; Protocol Last Infusion: 04/30/21 22:10 Dose: Infused Documented by: Lactulose (Lactulose Oral Liq 20 Gm/30 Ml Udc) 10 gm PO DAILY PRN; Protocol PRN Reason: Constipation (see protocol) Lorazepam (Lorazepam 2 Mg/Ml Inj 1 Ml) 1 mg IVP Q1H PRN PRN Reason: for breakthrough agitation Non-Formulary Route - Milrinone 200 Mcg/Ml 0 each INHALATION Q4H PRN PRN Reason: RESP DILATION Last Admin: 04/29/21 23:57 Dose: 1 each Documented by: Ondansetron HCl (Ondansetron 2 Mg/Ml Sdv 2 Ml) 4 mg IVP Q8H PRN PRN Reason: vomiting, or N/V if npo Pantoprazole Sodium (Pantoprazole 40 Mg Sdv) 40 mg IVP Q12H [facility] Last Admin: 05/01/21 05:14 Dose: 40 mg Documented by: Sucralfate (Sucralfate 1 Gm/10 Ml Oral Liq Udc) 1 gm PO Q12H [facility] Last Admin: 04/30/21 20:40 Dose: 1 gm Documented by: Vitamin D (Cholecalciferol (Vitamin D3) 1,000 Unit Tablet) 1,000 unit PO DAILY [facility] Last Admin: 04/30/21 08:39 Dose: 1,000 unit Documented by: Zinc Gluconate (Zinc Gluconate 50 Mg Tablet) 50 mg PO DAILY [facility] Last Admin: 04/30/21 08:39 Dose: 50 mg Documented by: Vitals/I&O/Wt Last Vital Signs Temp 98.5 F 05/08/21 10:00 Pulse 100 05/08/21 10:30 Resp 24 H 05/08/21 10:00 BP 117/75 05/08/21 10:30 Pulse Ox 97 05/08/21 10:30 05/07/21 05/08/21 05/08/21 22:59 06:59 14:59 Intake Total 555.617 / 1112.364 472.065 / 1584.429 140.753 / 140.753 Output Total 500 / 500 420 / 920 200 / 200 Balance 55.617 / 612.364 52.065 / 664.429 -59.247 / -59.247 Weight last 48 hrs Weight 90 kg Physical Exam Narrative: EXAM NARRATIVE: Constitutional: Sedated and vented HEENT: Wet mucosa, no jvp, non icteric Lungs: Bilaterally diminshed, without discernible wheeze, rales in all lung zones CVS: S1 S2, no murmurs Abdo: Soft, BS ok Ext 4: global edema, peripheral perfusion with no cyanosis Neurological: Grossly non-focal Urinary Catheter Management^: William: Cath Placed During This Visit: yes Reason for Continuing Indwelling Catheter: Accurate Measurement of Urinary Output in Critically Ill Patients Urinary Catheter Date of Insertion: 04/28/21 Urinary Catheter Time of Insertion: 16:00 Data : 05/08/21 05:15 05/08/21 05:15 Micro: Microbiology 05/07/21 14:40 Gram Stain - Final Sputum - Endotracheal Tube Aspirate 05/07/21 14:30 Legionella Urinary Antigen - Final Urine Catheterized 05/07/21 16:02 Blood Culture - Preliminary Blood SPECIMEN COLLECTED 05/07/21 15:50 Blood Culture - Preliminary Blood SPECIMEN COLLECTED 05/07/21 14:30 Bacterial Antigens - Final Urine Kidney A&P Additional A&P Information 1. Acute on chronic kidney disease We commonly see this in Covid pneumonitis, it is a multifactorial process. ? Vanco assoc ATN/AIN At this time given peripheral edema and high ventilator settings with hemodynamic lability and need for ultrafiltration will start CRRT. 2K PrismaSol bath. pre/intra/post 1000/1000/1000 UF goal 200 mL/h, roughly 4 L/day. Daily evaluation for need for renal replacement therapy Heparin protocol started Close monitoring of serum chemistry Daily renal panel Close monitoring of I's and O's Dose medications for GFR less than 30 Avoid usual nephrotoxic agents 2. Covid pneumonitis Unfortunately was not vaccinated Receiving combination medication including remdesivir, Vanco, levaquin, cefepime, has received steroids. Dose Vanco to keep level < 20 Vent settings per ICU 3. Lytes Elevated potassium and acidosis noted. This will correct with CRRT. Close monitoring of serum chemistry every 8 hours while on CRRT. 4. Hemodynamics Intermittent [place] on board Currently family wish to continue aggressive care. As he continues to develop multisystem organ failure including renal failure requiring CRRT the prognosis becomes ever more poor. Ongoing discussions with family members regarding goals of care. 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
[2021-05-08 11:25] LABS: Glucose Point of Care 98 mg/dL (70-110)
[2021-05-08] MEDS: PrismaSol BGK 4/2.5 - 5,000 mL Bag 5000 ML CRRT ×2 (12:31→18:13)
[2021-05-08] MEDS: PrismaSol BGK 2/3.5 - 5,000 ML BAG 5000 ML CRRT ×4 (12:34→18:18)
[2021-05-08 13:08] LABS: Albumin Level 2.2 g/dL (3.5-5.2); Anion Gap 26.4 (5-19); Calcium 8.3 mg/dL (8.5-10.5); Carbon Dioxide 17 mmol/L (22-29); Chloride 99 mmol/L (98-107); Glucose 85 mg/dL (65-115); Magnesium 3.2 mg/dL (1.7-2.3); Potassium 5.4 mmol/L (3.5-5.1); Sodium 137 mmol/L (136-145)
[2021-05-08 13:09] LABS: Lactate Dehydrogenase 482 U/L (135-225)
[2021-05-08 13:12] LABS: Blood Urea Nitrogen 110 mg/dL (8-23)
[2021-05-08 13:13] LABS: Phosphorus 11.4 mg/dL (2.5-4.5)
[2021-05-08] MEDS: fluconazole premix 100 MG in empty flexible container 1 EACH 50 MG IV (14:43)
[2021-05-08] MEDS: albumin 12.5 GM/250 ML VIAL IV (15:39)
[2021-05-08] MEDS: phenylephrine inj 25 MG in sodium chloride 0.9% 250 ML 6.06 MG IV (15:45)
[2021-05-08] MEDS: dexamethasone 10 mg/mL INJ 6 MG IVP (16:22)
[2021-05-08 16:37] LABS: Glucose Point of Care 95 mg/dL (70-110)
--- NOTE | 2021-05-08 16:44 | P.PN_ITS ---
Subjective Subjective: Interval history: Patient remains critically sick. He has had occasional episodes of tachycardia and hypotension during the night. Has remained afebrile. Vent settings are tidal volume 450, PEEP of 10, FiO2 turned down from 80% to 60% during the day. Documented urine output of around 1000 cc in last 24 hours. Patient went into CRRT during the day at which 250 cc of fluid was drawn at that time he became tachycardic and hypotensive for which negative balance was st opped. He required 1 bolus of albumin at that time. Currently remains sedated on propofol and fentanyl. Requiring phenylephrine on and off in between. Medications: Reviewed: Yes Vitals/I&O/Wt Last Vital Signs Temp 98.4 F 05/08/21 15:00 Pulse 88 05/08/21 16:40 Resp 22 H 05/08/21 16:38 BP 115/79 05/08/21 16:00 Pulse Ox 96 05/08/21 16:38 05/08/21 05/08/21 05/08/21 06:59 14:59 22:59 Intake Total 472.065 / 1584.429 340.753 / 340.753 189.885 / 530.638 Output Total 420 / 920 200 / 200 Balance 52.065 / 664.429 140.753 / 140.753 189.885 / 330.638 Weight last 48 hrs Weight 90 kg Physical Exam Narrative: EXAM NARRATIVE: Intubated, sedated, on the ventilator Const: COMMON NORMALS: no acute distress OTHER: intubated and sedated HENMT: COMMON NORMALS: normocephalic HEAD & SCALP: normocephalic Eye: OTHER: Pupils Neck/C-Spine: OTHER: Bloody discharge from OG tube Lymph: LYMPHATIC: no lymphadenopathy noted Chest: COMMONS NORMALS: normal inspection of the chest Resp: COMMON NORMALS: normal respiratory effort, No retractions, No use of accessory muscles and clear to auscultation bilaterally EFFORT & INSPECTION: Yes symmetric chest movement AUSCULTATION: clear to auscultation bilaterally and diminished lung sounds diffuse OTHER: Vented sounds b/l Cardio: COMMON NORMALS: regular rate, regular rhythm, S1 normal heart sound present and S2 normal heart sound present RATE: regular rate RHYTHM: regular rhythm HEART SOUNDS: S1 normal heart sound present and S2 normal heart sound present GI: COMMON NORMALS: Normal to inspection, nondistended, normoactive bowel sounds present, Soft to palpation, non-tender and no bruits PALPATION: Yes Soft to palpation : OTHER: William catheter in place, William bag blood within the urine Extremity: COMMON NORMALS: no pedal edema NARRATIVE EXTREMITY EXAM: Right art line in place, left femoral line in place GENERAL: No edema OTHER: DP PT pulses palpable Neuro: OTHER: on vent Skin: COMMON NORMALS: no rashes or lesions noted, turgor normal and no mottling GENERAL SKIN EXAM: no rashes or lesions noted and turgor normal Urinary Catheter Management^: William: Cath Placed During This Visit: yes Reason for Continuing Indwelling Catheter: Accurate Measurement of Urinary O utput in Critically Ill Patients Urinary Catheter Date of Insertion: 04/28/21 Urinary Catheter Time of Insertion: 16:00 Data : 05/09/21 03:25 05/09/21 09:22 Micro: Microbiology 05/07/21 16:02 Blood Culture - Preliminary Blood NEGATIVE TO DATE 05/07/21 15:50 Blood Culture - Preliminary Blood NEGATIVE TO DATE 05/07/21 14:30 MRSA Culture - Final Nose 05/07/21 14:40 Gram Stain - Final Sputum - Endotracheal Tube Aspirate 05/07/21 14:30 Legionella Urinary Antigen - Final Urine Catheterized 05/07/21 14:30 Bacterial Antigens - Final Urine Kidney A&P Assessment and plan (1) COVID-19: Status: Acute (2) Acute respiratory distress syndrome: Status: Acute (3) Acute kidney injury superimposed on CKD: Status: Acute (4) Metabolic acidosis: Status: Acute (5) Hemoptysis: Status: Acute (6) Myocarditis due to 2019 novel coronavirus: Status: Acute (7) UTI (urinary tract infection): Status: Acute (8) NSTEMI (non-ST elevated myocardial infarction): Status: Acute (9) Transaminitis: Status: Acute Additional A&P Information ARDS secondary to COVID-19 pneumonia along with possible superadded bacterial pneumonia: Ventilator dependent. Continue sedation with propofol fentanyl. Completed remdesivir. Currently on dexamethasone. Continue with DuoNeb, budesonide. D-dimer - 13 on arrival -> 2.5, can not rule out PE, Lovenox stopped due to increasing hemoptysis, Hgb decreased 13-11 - started on DVT ppx dose of heparin however d/c again due to bleeding. Continue to monitor inflammatory markers including ESR, CRP, D-dimer every 48 hourly. Given ARDS we will try to keep patient as negative as possible. Daily weights, strict input output charting. Severe sepsis: Patient has been having intermittent fevers. Cultures from admission, 10 days ago negative. Repeat urine Legionella, bacterial antigen, MRSA swab remain negative. Sputum culture awaited. Blood cultures so far negative. Pro-Luis elevated. Vanco random level appropriate. Continue to hold off on vancomycin for now. We will continue repeat Vanco random level daily. Continue with Levaquin, Diflucan for now. We will switch cefepime to imipenem as patient is on CRRT now for better drug level maintenance. Levophed as needed keeping mean arterial pressure over 65. Hemoptysis: Recheck chest x-ray ruled out pneumothorax. Can be ventilator associated lung injury versus pulmonary hemorrhage. 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 Will consult tomorrow for possible bronchoscopy. Acute on stage 3 CKD/ Metabolic acidosis: Post 1 session of HD. Continues to have metabolic acidosis and possible fluid over load. Most likely will benefit with CRRT. Medical reconciliation done for nephrotoxic drugs. Nephrology on board. Myocarditis/Acute Systolic HF: Most likely secondary to sepsis versus possible myocarditis secondary to COVID-19. Tachycardia: Occasional. Will start on low dose lopressor. Start on ASA 81 mg PO QD. GI PPx Protonix 40mg IV BID DVT ppx HELD - Heparin 5000 units Q8hr ( Bleeding) Prognosis: Guarded. Discussed patient's care in detail with his over the phone. We discussed unfortunately patient has severe COVID-19 pneumonia, ARDS along with multiple organ dysfunction including GUMARO on CKD, new congestive heart failure secondary to possible myocarditis and possible anoxic brain injury. We discussed patient has a severely guarded prognosis. We also discussed it is quite possible that patient can have cardiac arrest. states for now if she would want the patient to remain full code as she would discuss further goals of care with his family. Attestations Medical Necessity Statement*: Requires further hospitalization for management of ARDS secondary COVID-19 pneumonia, superadded bacterial pneumonia, GUMARO requiring CRRT, myocarditis Critical Care Time: The high probability of a clinically significant, sudden or life threatening deterioration of the patient's [cardiac, renal, pulmonary, neurological] system(s) required my full and direct attention, intervention and personal management. The critical care time is as shown. This time is in addition to time spent performing any reported procedures but includes the following: [x] Data and vital sign review and interpretation [x] Patient assessment, examination and intervention [x] Documentation [x] Medication orders and management Critical Care Time (min): 90 Coding Level of Care Code Acute [employer] for [facility] Fwd Exam Comprehensive Diagnoses COVID-19 U07.1 Acute respiratory distress syndrome J80 Acute kidney injury superimposed on CKD N17.9; N18.9 Metabolic acidosis E87.2 Hemoptysis R04.2 Myocarditis due to 2019 novel coronavirus U07.1; I40.0 UTI (urinary tract infection) N39.0 NSTEMI (non-ST elevated myocardial infarction) I21.4 Transaminitis R74.01
[2021-05-08 17:08] LABS: Chloride 102 mmol/L (98-107); Glucose 73 mg/dL (65-115); Potassium 4.6 mmol/L (3.5-5.1); Sodium 141 mmol/L (136-145)
[2021-05-08 18:27] LABS: Anion Gap 24.6 (5-19); Carbon Dioxide 19 mmol/L (22-29)
[2021-05-08 18:29] LABS: Albumin Level 2.4 g/dL (3.5-5.2); Magnesium 2.9 mg/dL (1.7-2.3)
[2021-05-08 18:32] LABS: Blood Urea Nitrogen 107 mg/dL (8-23)
--- NOTE | 2021-05-08 18:35 | PC.NURSE ---
1110 Clar[address] orders with Dr. Arechiga. 1350 Clarified [address] orders with Dr. Arechiga. Orders not to give 4,[address] bolus[address] Martinez of patient's elevated heart rate and low BP. Orders to change CRRT settings to 0 ml/hr fluid removal and give Albumin x1 dose. [address] Arechiga on change in patient status and Dr. Martinez's orders. Agreed with plan of care. 1545 Dr. Martinez at bedside. Orders to continue with CRRT without fluid removal at this time. 1655 Dr. Martinez at bedside. Orders to turn FUNMI drip off. Plan to order beta devonte to control heart rate if MAP can maintain above 75 without vasopressors.
[2021-05-08 19:37] LABS: Phosphorus 7.8 mg/dL (2.5-4.5)
[2021-05-08] MEDS: levofloxacin-dextrose 5 % 500 MG/100 ML PREMIX 100 MG IV (19:54)
[2021-05-08] MEDS: metoprolol tartrate 25 mg Tablet PO (20:39)
--- NOTE | 2021-05-08 21:15 | PC.NURSE ---
CRRT: Called Dr. Arechiga to update phosphorus lab levels on patient. Increased fluid removal status to 100mL/hr.
[2021-05-08 22:01] LABS: Albumin Level 2.5 g/dL (3.5-5.2); Anion Gap 21.6 (5-19); Blood Urea Nitrogen 73 mg/dL (8-23); Calcium 8.7 mg/dL (8.5-10.5); Carbon Dioxide 21 mmol/L (22-29); Chloride 101 mmol/L (98-107); Glucose 126 mg/dL (65-115); Magnesium 2.5 mg/dL (1.7-2.3); Phosphorus 7.2 mg/dL (2.5-4.5); Potassium 4.6 mmol/L (3.5-5.1); Sodium 139 mmol/L (136-145)
[2021-05-08 22:42] LABS: Partial Thromboplastin Time 39.4 SECONDS (23.9-36.7)
[2021-05-09] VITALS (64 sets, daily range): BP systolic 71–177; BP diastolic 49–127; PULSE 75–159; RESP 21–27; TEMP 36.5–36.9; O2SAT 87–96
[2021-05-09] MEDS: propofol 1,000 MG/100 ML INJ 27.22 MG IV ×7 (00:41→21:47)
[2021-05-09] MEDS: PrismaSol BGK 2/3.5 - 5,000 ML BAG 5000 ML CRRT ×8 (01:53→22:30)
[2021-05-09 03:44] LABS: Basophils # 0.1 10^3/uL (0.0-0.1); Basophils % 0.2 %; Eosinophils # 0.1 10^3/uL (0.0-0.8); Eosinophils % 0.2 %; Hematocrit 29.5 % (42.0-52.0); Hemoglobin 9.8 g/dL (11.7-16.6); Lymphocytes # 0.1 10^3/uL (0.8-4.8); Lymphocytes % 0.5 %; Mean Corpuscular HGB Conc 33.2 g/dL (30.0-36.0); Mean Corpuscular Hemoglobin 30.1 pg (28.0-34.0); Mean Corpuscular Volume 90.5 fl (80-94); Mean Platelet Volume 10.9 fL (7.4-10.4); Monocytes # 0.5 10^3/uL (0.2-0.9); Monocytes % 2.4 %; Neutrophils # 20.06 10^3/uL (1.8-7.7); Nucleated Red Blood Cells % 0 %; Platelet Count 153 10^3/cmm (130-400); Red Blood Count 3.26 10^6/uL (4.1-5.3); Red Cell Distribution Width 14.8 % (12.1-15.1); White Blood Count 21.1 10^3/uL (4.0-10.0)
[2021-05-09] MEDS: ipratropium-albuterol 3 mL Neb INHALATION ×6 (03:45→23:29)
[2021-05-09 04:04] LABS: Partial Thromboplastin Time 107.4 SECONDS (23.9-36.7)
[2021-05-09 04:08] LABS: NT Pro B Type Natriuretic Pept 2892 pg/mL (0-450); Phosphorus 4.9 mg/dL (2.5-4.5)
[2021-05-09] MEDS: pantoprazole 40 mg SDV IVP ×2 (05:03→17:15)
[2021-05-09 05:11] LABS: ABG PCO2 38.3 mmHg (35-45); Arterial Blood Gas Hematocrit 41.8 % (42-52); Base Excess ABG -1.1 mmol/L (-2.0-2.0); Blood Gas Allen Test Pos; Blood Gas Operator Identificat JB; Blood Gas Sample Site Radial, left; Blood Gas Sample Type Arterial; Carboxyhemoglobin 1.3 %THgb (0.4-20.1); HCO3 ABG 23.5 mmol/L (22-26); HGB O2 Sat 88.6 % (95-100); Ionized Calcium Level - ABG 1.1 mmol/L (1.1-1.4); Methemoglobin 0.6 % (0.4-1.5); Oxygen Device VENT; Oxygen Saturation ABG 90.3; PO2 ABG 58.8 mmHg (80.0-100.0); Potassium Level - ABG 4.5 mmol/L (3.5-5.0); Total Hemoglobin 13.6 g/dL (14-18)
[2021-05-09 05:13] LABS: Alveolar-Arterial Oxygen Gradi 41.5 mmHg (5-10); Blood Gas Tidal Volume 0.45
--- NOTE | 2021-05-09 05:18 | PC.NURSE ---
Shift Note Frequent safety and comfort rounds continue. Orders and/or nursing care completed as indicated. Patient monitored for response to intervention and treatment(s). Education provided includes pain management. Patient and/or customer success representative reinforcement needed. Will continue to monitor. Patient continues on CRRT. Patient has episodes of sinus tach periodically, Providers aware. Patient is still off of all pressors. Kidneys are making small amounts of urine. Central line dressing changed. No acute changes overnight. V/S stable
[2021-05-09] MEDS: PrismaSol BGK 4/2.5 - 5,000 mL Bag 5000 ML CRRT ×4 (05:30→22:30)
[2021-05-09] MEDS: sodium chloride 0.9% 1,000 mL Bag CRRT (05:36)
[2021-05-09 06:24] LABS: Albumin Level 2.4 g/dL (3.5-5.2); Anion Gap 18.8 (5-19); Blood Urea Nitrogen 63 mg/dL (8-23); Calcium 7.2 mg/dL (8.5-10.5); Carbon Dioxide 21 mmol/L (22-29); Chloride 102 mmol/L (98-107); Glucose 105 mg/dL (65-115); Magnesium 2.5 mg/dL (1.7-2.3); Phosphorus 5.1 mg/dL (2.5-4.5); Potassium 4.8 mmol/L (3.5-5.1); Sodium 137 mmol/L (136-145)
[2021-05-09 07:25] LABS: Glucose Point of Care 88 mg/dL (70-110)
[2021-05-09] MEDS: zinc gluconate 50 mg Tablet PO (08:06)
[2021-05-09] MEDS: sucralfate 1 gm/10 mL Oral Liq UDC PO ×2 (08:06→21:46)
[2021-05-09] MEDS: calcium acetate 667 mg Capsule 1334 MG PO ×3 (08:06→20:05)
[2021-05-09] MEDS: ascorbic acid 500 mg Tablet PO (08:06)
[2021-05-09] MEDS: cholecalciferol (vitamin D3) 1,000 unit Tablet 1000 UNIT PO (08:07)
[2021-05-09] MEDS: metoprolol tartrate 25 mg Tablet 12.5 MG PO ×2 (08:10→21:46)
--- NOTE | 2021-05-09 08:34 | XR_ITS ---
WS: [id number] Portable AP supine chest, 05/09/2021 Clinical Data: pneumonia Comparison: Portable chest, 05/07/2021. Findings: The patchy bilateral pulmonary opacities have not changed. The endotracheal tube, nasogastr ic tube and left internal jugular venous catheter remain the same. There are monitor leads on the [address] st wall. The heart size remains the same. XR/XR chest 1V portable [id number] Impression: 1. No change in multiple tubes. 2. No change in patchy bilateral pulmonary opacities.
--- NOTE | 2021-05-09 09:30 | PC.CHAP ---
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 [] Patient/Family/Request visit [] Outpatient visit [] Follow-up visit [] Physician referral [] Code/Alert [x] Routine visit [] Staff referral [] Actively dying [] Patient sleeping [] Family support [] [] Out of room [] Palliative care [] [] Receiving care in room [] Pre-surgical visit [] Trauma [] Long length of stay [x] ICU visit [] Other: Relational/Emotional Strength [] Patient feels connected with others/family/visitors/staff [] Distress [] Loneliness/isolation [] Abandonment Spirituality of Patient [] Person of [place] [] Attends Scientology of their [place] [] Believes in Prayer [] Reads Bible or Confucianism materials [] There are Spiritual issues to be addressed [employer] 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 [x] Prayer [] Active listening [] Non-anxious presence [] Spiritual/emotional support [] Crisis/trauma care [] Spiritual counseling [] Bereavement support [] Provided bereavement packet [] Provided Bible/devotional materials [] Provided toy/stuffed animal, coloring book to patient or family member [] Provided Communion [] Anointing/[place] [] Salvation [x] Completed spiritual assessment [] Other: Impact on Illness or Injury [] Angry [] Fearful [] Anxious [] Often cries [] Exhaustion [] Unable to work [] Unable to attend mormon [] Unable to walk/stand [] Unable to read [] Unable to drive [] Unable to eat/drink [] Unable to sleep [] Unable to be with family [] Patient intubated [] Other: Summary Time spent with patient
--- NOTE | 2021-05-09 09:43 | PC.NURSE ---
[address] Martinez to report patient's elevated heart rate and blood pressure, and low O2 sat. [address] Arechiga. Reported vital signs. Reviewed CRRT orders. Orders to increase fluid removal to 200 ml/hr and hold off on antihypertensive medications at this time. [address] Martinez. Reported vital signs. Orders for metoporolol. 0750 Clarified metoprolol order with Dr. Arechiga. OK from his stand point. 0845 Dr. Martinez at bedside. Ok to hold x ray until CRRT filter change. Orders for pulmonology consult for possible broch today. Hold tube feedings. Will continue to monitor BP. May need to add clonidine patch, will discuss at 1400. [address]15 Dr[address] Martinez at bedside. Orders for one time dose of Miralax. Orders to keep MAP greater than [address] Bullard at bedside. Detailed patient assessment completed. Mottling observed. Plan to obtain chest x ray at next CRRT filter change. Hold tube feedings for possible bronch later today depending on x ray results.
--- NOTE | 2021-05-09 10:09 | P.CONIM_ITS ---
Providers/Reason For Consult Consulting Physician/Specialty*: Woody Bullard MD/ Pulmonary Critical Care consult Reason for Consult*: Acute hypoxic respiratory failure secondary to COVID-19 pneumonia and patient currently requiring CRRT and possible underlying sepsis a [facility] Requesting Physician: Matt Martinez MD Attending Physician: Matt Martinez MD Primary Care Provider: Sandra Partida MD History of Present Illness History of Present Illness Taran Carrera is a 75 year old male with a past medical history of hypertension presented to [facility] on 04/28/2021 due to concerns for shortness of breath and hypoxia and was intubated, sedated, in the emergency room history was obtained from . According to , patient started to develop headaches, fatigue, malaise starting on April 20, over the week he started to develop intermittent fevers, cough, fatigue, malaise, shortness of breath. He showed up to the emergency room on April 25, was diagnosed with COVID-19 pneumonia, was sent home on 2 L home oxygen., he was given Decadron, antibiotics. On 04/28/2021 morning he had sudden worsening of shortness of breath, he was confused, his O2 sats were in the low 40s, so they brought him over to the emergency room. He was brought in by EMS he was saturating in the 40s on room air, was placed on CPAP with a PEEP of 10, O2 sats remained in the 70s, remained confused and so was intubated. Later patient lost pulse and CODE BLUE was called, no CPR initiated but was returned after patient was given phenylephrine. Patient was admitted to ICU for acute hypoxic respiratory failure secondary to ARDS due to COVID-19 pneumonia. Clinical course complicated by GUMARO over CKD- thought to be secondary to Covid pneumonitis, bleeding per ET tube, NSTEMI, persistent low-grade fevers with leukocytosis. Pulmonary critical care consulted for bleeding through ET tube and worsening infiltrates on chest x-ray-for possible bronchoscopy. Patient seen at bedside today He is currently intubated and sedated-connected to ventilator currently FiO2 down to 60% Labs and imaging reviewed Review of Systems General: Reports: ROS unobtainable due to endotracheal tube, ROS unobtainable due to medical condition and ROS unobtainable due to mental status Meds/Allergies Home Medications and Allergies Home Medications Medication Instructions Recorded Confirmed Last Taken Type dexamethasone 6 mg PO DAILY #6 tab MDD see 04/25/21 04/28/21 Unknown Rx pharmacy comment Allergies Allergy/AdvReac Type Severity Reaction Status Date / Time No Known Allergies Allergy Verified 04/25/21 10:07 Current Medications Current Medications Generic Name Dose Route Start Last Admin Trade Name Freq PRN Reason Stop Dose Admin Acetaminophen 650 mg 04/28/21 17:42 05/05/21 17:19 Acetaminophen 325 Mg Tablet PO 650 mg Q6H PRN Administration Mild/Mod Pain Or Temp >/= 101 Albuterol/Ipratropium 3 ml 05/01/21 20:00 05/09/21 08:20 Ipratropium-Albuterol 3 Ml Neb INHALATION 3 ml Q4H.RESPIRATORY HIWOT Administration Ascorbic Acid 500 mg 05/08/21 09:00 05/09/21 08:06 Ascorbic Acid 500 Mg Tablet PO 500 mg DAILY HIWOT Administration Calcium Acetate 1,334 mg 05/07/21 12:00 05/09/21 08:06 Calcium Acetate 667 Mg Capsule PO 1,334 mg TIDWM HIWOT Administration Dexamethasone 6 mg 04/30/21 16:30 05/08/21 16:22 Dexamethasone 10 Mg/Ml Inj IVP 6 mg Q24H HIWOT Administration Heparin Sodium (Beef Lung) 5,000 unit 05/05/21 12:00 05/06/21 21:04 Heparin 5,000 Unit/Ml Inj 1 Ml SUBCUT 5,000 unit Q8H HIWOT Administration Heparin Sodium (Beef Lung) 500 unit 05/08/21 09:41 05/08/21 10:53 Heparin Lock Flush 500 Unit/5 Ml Syringe IV 500 unit PRN PRN Administration At CRRT disconnect Propofol 1,000 mg in 100 mls @ 0 mls/hr 04/28/21 15:15 05/09/21 03:39 Diprivan IV 50 mcg/kg/min .Q0M HIWOT 27.22 mls/hr Administration Protocol Per Protocol Cisatracurium Besylate 100 mg/ 100 mls @ 0 mls/hr 04/28/21 17:45 05/02/21 09:59 Sodium Chloride IV 0 mcg/kg/min .Q0M HIWOT 0 mls/hr Titration Protocol Per Protocol Norepinephrine Bitartrate 4 mg 254 mls @ 0 mls/hr 04/28/21 17:45 05/07/21 13:53 / Dextrose IV Infused .Q0M HIWOT Titration Protocol Per Protocol Vancomycin/PEG/NADA/Lysine/Water 1,250 mg in 250 mls @ 250 mls/hr 04/29/21 20:00 05/04/21 20:49 Vancocin IV 250 mls/hr Q24H HIWOT Administration dexmedeTOMIDine 0.9 % NaCL 400 mcg in 100 mls @ 0 mls/hr 05/04/21 09:30 05/04/21 10:08 Dexmedetomidine-Ns IV 0 mcg/kg/hr .Q0M HIWOT 0 mls/hr Titration Protocol Per Protocol Phenylephrine HCl 25 mg/ 252.5 mls @ 0 mls/hr 05/04/21 13:15 05/08/21 16:56 Sodium Chloride IV 0 mcg/min .Q0M HIWOT 0 mls/hr Titration Protocol Per Protocol Fluconazole 100 mg/ N/A 50 mls @ 50 mls/hr 05/05/21 14:00 05/08/21 15:46 IV Infused Q24H HIWOT Infusion Fentanyl 1,000 mcg/ Sodium 100 mls @ 0 mls/hr 05/07/21 07:45 05/09/21 05:17 Chloride IV 100 mcg/hr .Q0M HIWOT 10 mls/hr Administration Protocol Per Protocol Levofloxacin/Dextrose 500 mg in 100 mls @ 100 mls/hr 05/08/21 20:00 05/08/21 22:12 Levaquin-D5w IV Infused Q48H HIWOT Infusion Protocol Heparin Sodium (Porcine) 20, 20 mls @ 0 mls/hr 05/08/21 09:45 05/08/21 12:54 000 unit/ N/A CRRT 10 unit/kg/hr .Q0M HIWOT 0.9 mls/hr Administration Protocol Per Protocol Imipenem/Cilastatin Sodium 250 100 mls @ 200 mls/hr 05/08/21 12:00 05/09/21 01:31 mg/ Sodium Chloride IV Infused Q12H HIWOT Infusion Protocol Metoprolol Tartrate 12.5 mg 05/09/21 09:00 05/09/21 08:10 Metoprolol Tartrate 25 Mg Tablet PO 12.5 mg BID@0900,2100 HIWOT Administration Pantoprazole Sodium 40 mg 04/28/21 17:45 05/09/21 05:03 Pantoprazole 40 Mg Sdv IVP 40 mg Q12H HIWOT Administration Sodium Chloride 1,000 - 7,000 ml 05/08/21 09:41 05/09/21 05:36 Sodium Chloride 0.9% 1,000 Ml Bag CRRT 2,000 ml PRN PRN Administration For priming CRRT Machine Sucralfate 1 gm 04/28/21 21:00 05/09/21 08:06 Sucralfate 1 Gm/10 Ml Oral Liq Udc PO 1 gm Q12H HIWOT Administration Vitamin D 1,000 unit 04/29/21 09:00 05/09/21 08:07 Cholecalciferol (Vitamin D3) 1,000 Unit Tablet PO 1,000 unit DAILY HIWOT Administration Zinc Gluconate 50 mg 04/29/21 09:00 05/09/21 08:06 Zinc Gluconate 50 Mg Tablet PO 50 mg DAILY HIWOT Administration PFSH Acute PFSH: Medical History HTN (hypertension) with goal to be determined Surgical History No pertinent past surgical history Family History Mother Cancer Social History Smoking and tobacco status: never smoked Alcohol intake: current Alcohol intake frequency: holidays/special occasions only Substance/Drug Use: never Vitals/I&O/Wt Last Vital Signs Temp 98.0 F 05/09/21 07:00 Pulse 94 05/09/21 09:00 Resp 21 H 05/09/21 10:08 BP 147/104 05/09/21 09:00 Pulse Ox 93 05/09/21 10:08 05/08/21 05/09/21 05/09/21 22:59 06:59 14:59 Intake Total 830.337 / 1171.090 470.753 / 1641.843 Output Total 101 / 301 475 / 776 Balance 729.337 / 870.090 -4.247 / 865.843 Weight last 48 hrs Weight 205 lb Physical Exam Narrative: EXAM NARRATIVE: PHYSICAL EXAM: General: lying in bed, sedated and intubated. HEENT:NCAT, PERRLA, EOMI Neck: Supple Lungs: Bilateral diffuse coarse crackles Heart: s1/s2, RRR Abd: soft, NT, ND, BS + Normoactive Extremities: No edema ENGINEERING TECHNOLOGY INSTRUCTOR: sedated and limited ENGINEERING TECHNOLOGY INSTRUCTOR exam possible. SKIN: no rash LDA: # HD Cath : Right internal jugular Urinary Catheter Management^: William: Cath Placed During This Visit: yes Reason for Continuing Indwelling Catheter: Accurate Measurement of Urinary Output in Critically Ill Patients Urinary Catheter Date of Insertion: 04/28/21 Urinary Catheter Time of Insertion: 16:00 Data Labs: Other Labs: Laboratory Results WBC 21.1 10^3/uL (4.0 -10.0) H 05/09/21 03:25 RBC 3.26 10^6/uL (4.1 -5.3) L 05/09/21 03:25 Hgb 9.8 g/dL (11.7-16 .6) L 05/09/21 03:25 Hct 29.5 % (42.0-52.0 ) L 05/09/21 03:25 MCV 90.5 fl (80-94) 05/09/21 03:25 MCH 30.1 pg (28.0-34. 0) 05/09/21 03:25 MCHC 33.2 g/dL (30.0-3 6.0) 05/09/21 03:25 RDW 14.8 % (12.1-15.1 ) 05/09/21 03:25 Plt Count 153 10^3/cmm (130 -400) 05/09/21 03:25 MPV 10.9 fL (7.4-10.4 ) H 05/09/21 03:25 Neut % (Auto) 95.0 % 05/09/21 03:25 Lymph % (Auto) 0.5 % 05/09/21 03:25 [place] % (Auto) 2.4 % 05/09/21 03:25 Eos % (Auto) 0.2 % 05/09/21 03:25 Baso % (Auto) 0.2 % 05/09/21 03:25 Neut # (Auto) 20.06 10^3/uL (1. 8-7.7) H 05/09/21 03:25 Lymph # (Auto) 0.1 10^3/uL (0.8- 4.8) L 05/09/21 03:25 [place] # (Auto) 0.5 10^3/uL (0.2- 0.9) 05/09/21 03:25 Eos # (Auto) 0.1 10^3/uL (0.0- 0.8) 05/09/21 03:25 Baso # (Auto) 0.1 10^3/uL (0.0- 0.1) 05/09/21 03:25 Nucleated RBC % (a uto) 0 % 05/09/21 03:25 Total Counted 100 (0-100) 05/01/21 05:27 Atypical Lymphs % 1.0 % (0-5) 05/01/21 05:27 Absolute Neutrophi ls 18.6 10^3/cmm (1. 4-6.5) H 05/01/21 05:27 Segmented Neutroph ils 69 % 05/01/21 05:27 Abs Segm Neuts (Ma n) 15.3 10/cmm (1.6- 7.1) H 05/01/21 05:27 Band Neutrophils 15.0 % 05/01/21 05:27 Abs Band Neuts (Ma n) 3.3 10^3/cmm (0.0 -1.2) H 05/01/21 05:27 Absolute Lymphocyt es 1.3 10^3/cmm (1.2 -3.4) 05/01/21 05:27 Lymphocytes (Manua l) 5 % 05/01/21 05:27 Monocytes (Manual) 6.0 % 05/01/21 05:27 Absolute Monocytes 1.3 10^3/cmm (0.1 -0.6) H 05/01/21 05:27 Eosinophils (Manua l) 0 % 05/01/21 05:27 Absolute Eosinophi ls 0.0 10^3/cmm (0.0 -0.7) 05/01/21 05:27 Basophils (Manual) 0.0 % 05/01/21 05:27 Absolute Basophils 0.0 10^3/cmm (0.0 -0.2) 05/01/21 05:27 Metamyelocytes 1.0 % 05/01/21 05:27 Myelocytes 3.0 % 05/01/21 05:27 Nucleated RBCs 1.0 /100WBC (0-1) 05/01/21 05:27 Nucleated RBCs # 0.0 /100WBC 05/09/21 03:25 Platelet Estimate Normal (Normal) 05/01/21 05:27 ESR 87 mm/hr (0-10) H 05/08/21 05:15 PT 16.20 SECONDS (12 .1-14.9) H 05/06/21 04:00 PT Cancelled 05/06/21 04:00 INR 1.27 (0.8-1.2) H 05/06/21 04:00 INR Cancelled 05/06/21 04:00 APTT 38.1 SECONDS (23. 9-36.7) H 05/09/21 15:46 Fibrinogen 713 mg/dL (174-49 8) H 05/05/21 04:00 Fibrin Degrad Prod ucts Pos, 10-40 ug/mL (NEG) H 05/01/21 05:27 D-Dimer 2.11 ug/mIFEU (0- 0.59) H 05/08/21 05:15 Specimen Type Arterial 05/09/21 12:20 Sample Site Brachial, left 05/09/21 12:20 ABG pH 7.47 (7.35-7.45) H 05/09/21 12:20 ABG pCO2 36.7 mmHg (35-45) 05/09/21 12:20 ABG pO2 53.5 mmHg (80.0-1 00.0) L 05/09/21 12:20 ABG HCO3 26.4 mmol/L (22-2 6) H 05/09/21 12:20 ABG O2 Saturation 88.6 05/09/21 12:20 ABG Base Excess 2.6 mmol/L (-2.0- 2.0) H 05/09/21 12:20 Germain Test Pos 05/09/21 12:20 A-a O2 Gradient 47.2 mmHg (5-10) H 05/09/21 12:20 Hematocrit 36.4 % (42-52) L 05/09/21 12:20 Hgb O2 Saturation 86.7 % (95-100) L 05/09/21 12:20 Carboxyhemoglobin 1.3 %THgb (0.4-20 .1) 05/09/21 12:20 Methemoglobin 0.8 % (0.4-1.5) 05/09/21 12:20 Total Hemoglobin 11.9 g/dL (14-18) L 05/09/21 12:20 Sodium 138.0 mmol/L (131 -143) 05/09/21 12:20 Potassium 4.0 mmol/L (3.5-5 .0) 05/09/21 12:20 Glucose 105.0 mg/dL (70-1 15) 05/09/21 12:20 Ionized Calcium 1.2 mmol/L (1.1-1 .4) 05/09/21 12:20 O2 Delivery Device Vent 05/09/21 12:20 FiO2 65.0 % 05/09/21 12:20 Tidal Volume 0.45 05/09/21 12:20 PEEP 12.0 cmH20 05/09/21 12:20 Faculty Neuropsychologist ID Bd 05/09/21 12:20 Sodium 138 mmol/L (136-1 45) 05/09/21 15:46 Potassium 3.9 mmol/L (3.5-5 .1) 05/09/21 15:46 Chloride 101 mmol/L (98-10 7) 05/09/21 15:46 Carbon Dioxide 24 mmol/L (22-29) 05/09/21 15:46 Anion Gap 16.9 (5-19) 05/09/21 15:46 BUN 37 mg/dL (8-23) H 05/09/21 15:46 Creatinine 1.5 mg/dL (0.7-1. 2) H 05/09/21 15:46 GFR Calculation Not Reportable 05/09/21 15:46 Glucose 71 mg/dL (65-115) 05/09/21 15:46 POC Glucose 113 mg/dL (70-110 ) H 05/09/21 20:26 Estimat Average Gl ucose 117 04/28/21 18:08 Hemoglobin A1c 5.7 % (4.0-6.0) 04/28/21 18:08 Calculated Osmolal ity 324 mOsm/kg (285- 295) H 05/08/21 05:15 Lactic Acid 5.5 mmol/L (0.5-2 .2) H* 04/28/21 15:50 Lactic Acid (Sepsi s) 3.5 mmol/L (0.5-2 .2) H 04/28/21 18:08 Lactate 1.4 mmol/L (0.5-2 .2) 05/01/21 05:27 Calcium 8.9 mg/dL (8.5-10 .5) 05/09/21 15:46 Phosphorus 3.2 mg/dL (2.5-4. 5) 05/09/21 15:46 Magnesium 2.2 mg/dL (1.7-2. 3) 05/09/21 15:46 Iron 70 ug/dL (59-158) 05/07/21 05:10 TIBC 120 mcg/dl 05/07/21 05:10 % Saturation 58.3 % (20-50) H 05/07/21 05:10 Unsat Iron Binding 50 ug/dL (112-347 ) L 05/07/21 05:10 Ferritin 1672 ng/mL (30-40 0) H 05/04/21 06:38 Total Bilirubin 1.7 mg/dL (0.15-1 .2) H 05/08/21 05:15 AST 30 U/L (0-40) 05/08/21 05:15 ALT 25 U/L (0-41) 05/08/21 05:15 Alkaline Phosphata se 49 IU/L (40-130) 05/08/21 05:15 Lactate Dehydrogen ase 482 U/L (135-225) H 05/08/21 11:50 Creatine Kinase 209 U/L (39-308) 05/01/21 05:27 Troponin T Baselin e 162 ng/L (0-15) H* 04/28/21 15:50 Troponin T 120 Min [place] 179.5 ng/L (0-15) H 04/28/21 18:08 Delta Troponin T 17.5 ABS# (0-10) H* 04/28/21 18:08 Troponin T Hi Sens 6Hr 139.6 ng/L (0-15) H 04/28/21 21:45 Troponin T Hi Sens 6Hr Delta -22.4 ng/L (0-12) L 04/28/21 21:45 C-Reactive Protein 248.3 mg/L (0.0-4 .9) H 05/08/21 05:15 NT-Pro-B Natriuret Pep 2892 pg/mL (0-450 ) H 05/09/21 03:25 Total Protein 5.4 g/dL (6.6-8.7 ) L 05/08/21 05:15 Albumin 2.5 g/dL (3.5-5.2 ) L 05/09/21 15:46 Globulin 3.1 g/dL (1.3-4.6 ) 05/08/21 05:15 Triglycerides 178 mg/dL (0-150) H 04/28/21 18:08 Cholesterol 98 mg/dL (0-200) 04/28/21 18:08 LDL Cholesterol, C alc 32 mg/dL (50-129) L 04/28/21 18:08 HDL Cholesterol 30 mg/dL (60-100) L 04/28/21 18:08 LDL/HDL Ratio 1.07 RATIO (0.00- 3.22) 04/28/21 18:08 Cholesterol/HDL Ra chay 3.27 mg/dL (1.0-5 .00) 04/28/21 18:08 Lipase 89 U/L (13-60) H 04/28/21 15:50 Interleukin 6 145.00 pg/mL (<5. 00) H 04/28/21 15:50 Procalcitonin 7.89 ng/mL (0-0.5 ) H 05/08/21 05:15 TSH 0.16 uIU/mL (0.27 -4.20) L 04/28/21 18:08 Random Cortisol 12.24 ug/dL (2.47 -19.5) 04/29/21 04:00 Urine Color Straw (Yellow) 05/07/21 16:00 Urine Appearance Clear (CLEAR) 05/07/21 16:00 Urine pH 5 (5-7) 05/07/21 16:00 Ur Specific Gravit y 1.015 (1.005-1.0 30) 05/07/21 16:00 Urine Protein Trace (Negative) 05/07/21 16:00 Urine Glucose (UA) Norm (Normal) 05/07/21 16:00 Urine Ketones Negative (Negati ve) 05/07/21 16:00 Urine Blood 3+ (Negative) H 05/07/21 16:00 Urine Nitrate Negative (Negati ve) 05/07/21 16:00 Urine Bilirubin Neg (Negative) 05/07/21 16:00 Prot Sulfosalicyli c Acd Cancelled 05/07/21 14:30 Urine Urobilinogen Norm mg/dL (Negat lorenzo) 05/07/21 16:00 Ur Leukocyte Katia ase Negative (Negati ve) 05/07/21 16:00 Urine RBC 5-10 /hpf (0-2) H 05/07/21 16:00 Urine WBC Rare /hpf (0-5) 05/07/21 16:00 Ur Eosinophil Smea r 0 (0-0) 04/28/21 16:15 Ur Squamous Epith Cells None /hpf (0-5) 05/07/21 16:00 Ur Transition Epit h Cell Cancelled 05/07/21 14:30 Ur Renal Epithelia l Cell Cancelled 05/07/21 14:30 Calcium Oxalate Cr ystal Cancelled 05/07/21 14:30 Uric Acid Crystals Cancelled 05/07/21 14:30 Triple Phos Alycia ls Cancelled 05/07/21 14:30 Other Crystals Cancelled 05/07/21 14:30 Amorphous Sediment 1+ /hpf 05/07/21 16:00 Urine Bacteria Trace /hpf (NONE) 05/07/21 16:00 Hyaline Casts Cancelled 05/07/21 14:30 Fine Granular Cast s Cancelled 05/07/21 14:30 Coarse Granular Ca sts Cancelled 05/07/21 14:30 RBC Casts Cancelled 05/07/21 14:30 Other Casts Cancelled 05/07/21 14:30 Urine Mucus Cancelled 05/07/21 14:30 Urine Trichomonas Cancelled 05/07/21 14:30 Urine Yeast Cancelled 05/07/21 14:30 Urine Sperm Cancelled 05/07/21 14:30 Ur Oval Fat Bodies Cancelled 05/07/21 14:30 Urine Eosinophils No eosinophils se en 04/28/21 16:15 Urine Osmolality 465 mOsm/kg (50-1 200) 04/28/21 16:15 Ur Random Sodium 23 mmol/L 05/04/21 15:50 Ur Random Potassiu m 30 mmol/L 04/28/21 16:15 Ur Random Chloride < 10 mmol/L 04/28/21 16:15 Urine Creatinine 73 mg/dL (39-259) 05/04/21 15:50 Vancomycin Trough 22.0 ug/mL (10-15 ) H 05/04/21 19:25 Random Vancomycin 19.5 ug/mL (20.0- 40.0) L 05/08/21 05:15 Hep Bs Antigen Non-reactive (No nreactive) 05/06/21 04:00 Hep Bs Antibody < 3.5 (11.5-1000 ) L 05/06/21 04:00 Hep B Core Total A b Non-reactive (No nreactive) 05/06/21 04:00 Hepatitis C Antibo dy Non-reactive (No nreactive) 05/06/21 04:00 A. galactomannan A g EIA Not detected 04/28/21 18:08 A. galactomannan A g Idx <0.50 04/28/21 18:[address] 04/28/21 16:37 IMPRESSION: No acute intracranial abnormality. Radiation Dose CTDIVOL = (mGy): DLP = 916.02 (mGy-cm) Renal Ultrasound 04/29/21 17:34 IMPRESSION: Unremarkable kidneys Venous Duplex 04/29/21 17:34 IMPRESSION: No evidence of deep vein thrombosis. Chest X-Ray 05/09/21 08:34 Impression: 1. No change in multiple tubes. 2. No change in patchy bilateral pulmonary opacities. Micro: Micro: Microbiology 05/07/21 14:40 Gram Stain - Final Sputum - Endotrac heal Tube Aspirate Sputum Culture - P reliminary 05/07/21 16:02 Blood Culture - Pr eliminary Blood NEGATIVE TO SELVIN E 05/07/21 15:50 Blood Culture - Pr eliminary Blood NEGATIVE TO SELVIN E 05/07/21 14:30 MRSA Culture - Fin al Nose A&P Assessment and plan (1) Acute respiratory distress syndrome: Status: Acute (2) Acute hypoxemic respiratory failure: Status: Acute (3) Acute kidney injury superimposed on CKD: Status: Acute (4) NSTEMI (non-ST elevated myocardial infarction): Status: Acute (5) Septic shock: Status: Acute (6) Pneumonia due to 2019-nCoV: Status: Acute (7) Hemoptysis: Status: Acute (8) Myocarditis due to 2019 novel coronavirus: Status: Acute (9) Atrial fibrillation: Status: Acute Qualifiers: Atrial fibrillation type: unspecified chronic Qualified Code(s): I48.20 - Chronic atrial fibrillation, unspecified #Acute hypoxic respiratory failure secondary to ARDS due to COVID-19 pneumonia-intubated and connected to ventilator #Shock requiring pressor-likely secondary to cardiogenic due to endocarditis and acute CHF versus septic shock #Metabolic acidosis-secondary to GUMARO over stage III CKD-currently on CRRT #Atrial fibrillation on amiodarone #Hemoptysis/bleeding through ET tube-etiology unclear-resolved -Sedated with propofol and fentanyl -Currently intubated currently to ventilator-on CMV mode 450/20/10/FiO2 70% -ABG today 7.4 7/36/53/20/88% on 450/12/65% -Chest x-ray today no change in patchy bilateral pulmonary opacities -Hemoptysis/bleeding through ET [id number]-T&H remained stable-etiology unclear -S/p bronchoscopy 05/09/2021-significant mucosal erythema on left bronchial tree a nd mucosal edema on right bronchial tree. Blackish discoloration seen on mucosa of left lower lobe. No active bleeding or clot seen. - urine Legionella, bacterial antigen, MRSA swab remain negative. -Patient had episodes of low-grade fever on 05/06/2021 and significant leukocytosis; blood cultures from 05/07/2021, sputum cultures-pending, Pro-Luis elevated-can be due to renal failure. -Completed remdesivir and currently on Decadron 6 mg IV daily -Currently on vancomycin, Levaquin, Diflucan for now and recently switched cefepime to imipenem; I will discontinue Diflucan as we do not have any evidence of fungal infection so far -Bronchoalveolar lavage bacterial stain and cultures, fungal stain and cultures, PCP, AFB stain and cultures-sent 05/09/2021-are pending Levophed as needed keeping mean arterial pressure over 65. -CRRT as tolerated-nephrology on board, goal is to keep net negative balance provided if blood pressure allows - Myocarditis/Acute Systolic HF: Most likely secondary to sepsis versus possible myocarditis secondary to COVID-19. Echo showed ejection fraction 40 to 45% -Atrial fibrillation with RVR-started on amiodarone drip today -ASA 81 mg PO QD. -Tube feeding at 15 mls/hr -Received MiraLAX today -GI prophylaxis Protonix 40mg IV BID DVT ppx:HELD - Heparin 5000 units Q8hr ( Bleeding) Clinical condition: Critical Prognosis: Guarded. Hospitalist discussed patient's care in detail with his over the phone regarding severe COVID-19 pneumonia, ARDS along with multiple organ dysfunction including GUMARO on CKD, new congestive heart failure secondary to possible myocar ditis and possible anoxic brain injury and mentioned about severely guarded prognosis. We also discussed it is quite possible that patient can have cardiac arrest. to discuss further goals of care with his family. Consult Attestations Medical Necessity Statement: Acute hypoxic respiratory failure secondary to ARDS due to COVID-19 pneumonia, new onset LV systolic dysfunction 40 to 45%- secondary to myocarditis due to COVID-19 pneumonia, GUMARO on CKD requiring CRRT, currently in shock likely secondary to cardiogenic/sepsis with significantly elevated white count-on broad-spectrum antibiotic coverage-cultures and sensitivity pending-requires close ICU monitoring Time Spent in Patient Care: Greater than 35 minutes (>than 50% of time spent in counselling and/or direct pt care on unit) . Critical Care Time: The high probability of a clinically significant, sudden or life threatening deterioration of the patient's [pulmonary, renal, cardiac] system(s) required my full and direct attention, intervention and personal management. The critical care time is as shown. This time is in addition to time spent performing any reported procedures but includes the following: [x] Data and vital sign review and interpretation [x] Patient assessment, examination and intervention [x] Documentation [x] Medication orders and management Critical Care Time (min): 90 Coding Level of Care Code New Pt Acute [employer] for [facility] Fwd Patient Type New History Comprehensive Exam Comprehensive Medical Decision Making High Complexity Diagnoses Acute respiratory distress syndrome J80 Acute hypoxemic respiratory failure J96.01 Acute kidney injury superimposed on CKD N17.9; N18.9 NSTEMI (non-ST elevated myocardial infarction) I21.4 Septic shock A41.9; R65.21 Pneumonia due to 2019-nCoV U07.1; J12.82 Hemoptysis R04.2 Myocarditis due to 2019 novel coronavirus U07.1; I40.0 Atrial fibrillation I48.20 Atrial fibrillation type: unspecified chronic Time Spent (min) 90
[2021-05-09 10:12] LABS: Albumin Level 2.5 g/dL (3.5-5.2); Anion Gap 18.5 (5-19); Blood Urea Nitrogen 48 mg/dL (8-23); Calcium 8.5 mg/dL (8.5-10.5); Carbon Dioxide 24 mmol/L (22-29); Chloride 100 mmol/L (98-107); Glucose 85 mg/dL (65-115); Magnesium 2.4 mg/dL (1.7-2.3); Phosphorus 4.6 mg/dL (2.5-4.5); Potassium 4.5 mmol/L (3.5-5.1); Sodium 138 mmol/L (136-145)
[2021-05-09] MEDS: dextrose 50% syringe 50 mL IVP ×2 (11:12→16:07)
[2021-05-09] MEDS: polyethylene glycol 3350 Pkt 17 gm PO (11:17)
--- NOTE | 2021-05-09 11:21 | PM.PN ---
Subjective Subjective: Interval history: Mr. Carrera is seen and examined on CRRT today. Parameters reviewed with the nurse in detail, prescription clarified as well. Overnight he did start to produce urine to the tune of 567 mL. He remains an overall negative balance of just 267 mL. CRRT is running well. He was on 4K bath overnight, this has been transition to combination 2 K/4K this morning. He remains on heparin protocol as well with therapeutic PTT levels. Blood pressure and hemodynamics have rallied and the blood pressure is now slightly on the elevated side. His pulse was also elevated and he did receive metoprolol. His FiO2 is also slightly improved down to 60%. Medications: Reviewed: Yes Medication Review Details: Current Medications Acetaminophen (Acetaminophen 325 Mg Tablet) 650 mg PO Q6H PRN PRN Reason: Mild/Mod Pain Or Temp >/= 101 Artificial Tears (Artificial Tears Op Oint 3.5 Gm) 1 applic EYE-BOTH PRN PRN PRN Reason: DRY EYE(S) Ascorbic Acid (Ascorbic Acid 500 Mg Tablet) 500 mg PO BID [facility] Last Admin: 04/30/21 16:25 Dose: Not Given Documented by: Aspirin (Aspirin 81 Mg Ec Tablet) 81 mg PO DAILY [facility] Last Admin: 04/30/21 08:39 Dose: 81 mg Documented by: Bisacodyl (Bisacodyl 5 Mg Tablet) 10 mg PO DAILY PRN; Protocol PRN Reason: Constipation (see protocol) Dexamethasone (Dexamethasone 10 Mg/Ml Inj) 6 mg IVP Q24H [facility] Last Admin: 04/30/21 16:36 Dose: 6 mg Documented by: Dextrose (Dextrose 50% Syringe 50 Ml) 25 ml IVP ONCE PRN; Protocol PRN Reason: hypoglycemia protocol Dextrose (Dextrose 50% Syringe 50 Ml) 50 ml IVP PRN PRN; Protocol PRN Reason: hypoglycemia protocol Enoxaparin Sodium (Enoxaparin 100 Mg/Ml Syringe) 90 mg 1 mg/kg (90 mg) SUBCUT Q12H [facility] Last Admin: 04/30/21 21:27 Dose: 90 mg Documented by: Glucagon (Glucagon 1 Mg/Ml Inj 1 Ml) 1 mg IM ONCE PRN; Protocol PRN Reason: Adult Acute Hypoglycemia Prot. Fentanyl 1,000 mcg/ Sodium (Chloride) 100 mls @ 0 mls/hr IV .Q0M [facility]; Protocol Last Admin: 05/01/21 05:43 Dose: 50 mcg/hr, 5 mls/hr Documented by: Propofol (Diprivan) 1,000 mg in 100 mls @ 0 mls/hr IV .Q0M [facility]; Protocol Last Admin: 05/01/21 04:36 Dose: 50 mcg/kg/min, 27.22 mls/hr Documented by: Remdesivir 100 mg/ Sodium (Chloride) 100 mls @ 100 mls/hr IV Q24H [facility] Stop: 05/02/21 18:59 Last Infusion: 04/30/21 19:16 Dose: Infused Documented by: Cisatracurium Besylate 100 mg/ (Sodium Chloride) 100 mls @ 0 mls/hr IV .Q0M [facility]; Protocol Last Admin: 04/30/21 16:51 Dose: 1.2 mcg/kg/min, 6.53 mls/hr Documented by: Midazolam HCl 100 mg/ Sodium (Chloride) 100 mls @ 0 mls/hr IV .Q0M [facility]; Protocol Last Titration: 04/29/21 08:35 Dose: 0 mg/hr, 0 mls/hr Documented by: Norepinephrine Bitartrate 4 mg (/ Dextrose) 254 mls @ 0 mls/hr IV .Q0M [facility]; Protocol Last Titration: 04/29/21 23:01 Dose: 2 mcg/min, 7.62 mls/hr Documented by: Dextrose (D5w) 500 mls @ 100 mls/hr IV ONCE PRN; Protocol PRN Reason: Adult Acute Hypoglycemia Prot Vancomycin/PEG/NADA/Lysine/Water (Vancocin) 1,250 mg in 250 mls @ 250 mls/hr IV Q24H [facility] Last Infusion: 04/30/21 21:38 Dose: Infused Documented by: Cefepime HCl 2,000 mg/ Sodium (Chloride) 100 mls @ 200 mls/hr IV Q24H [facility]; Protocol Last Infusion: 04/30/21 17:05 Dose: Infused Documented by: Levofloxacin/Dextrose (Levaquin-D5w) 750 mg in 150 mls @ 100 mls/hr IV Q24H [facility]; Protocol Last Infusion: 04/30/21 22:10 Dose: Infused Documented by: Lactulose (Lactulose Oral Liq 20 Gm/30 Ml Udc) 10 gm PO DAILY PRN; Protocol PRN Reason: Constipation (see protocol) Lorazepam (Lorazepam 2 Mg/Ml Inj 1 Ml) 1 mg IVP Q1H PRN PRN Reason: for breakthrough agitation Non-Formulary Route - Milrinone 200 Mcg/Ml 0 each INHALATION Q4H PRN PRN Reason: RESP DILATION Last Admin: 04/29/21 23:57 Dose: 1 each Documented by: Ondansetron HCl (Ondansetron 2 Mg/Ml Sdv 2 Ml) 4 mg IVP Q8H PRN PRN Reason: vomiting, or N/V if npo Pantoprazole Sodium (Pantoprazole 40 Mg Sdv) 40 mg IVP Q12H [facility] Last Admin: 05/01/21 05:14 Dose: 40 mg Documented by: Sucralfate (Sucralfate 1 Gm/10 Ml Oral Liq Udc) 1 gm PO Q12H [facility] Last Admin: 04/30/21 20:40 Dose: 1 gm Documented by: Vitamin D (Cholecalciferol (Vitamin D3) 1,000 Unit Tablet) 1,000 unit PO DAILY [facility] Last Admin: 04/30/21 08:39 Dose: 1,000 unit Documented by: Zinc Gluconate (Zinc Gluconate 50 Mg Tablet) 50 mg PO DAILY [facility] Last Admin: 04/30/21 08:39 Dose: 50 mg Documented by: Vitals/I&O/Wt Last Vital Signs Temp 98.0 F 05/09/21 07:00 Pulse 94 05/09/21 09:00 Resp 21 H 05/09/21 10:08 BP 147/104 05/09/21 09:00 Pulse Ox 93 05/09/21 10:08 05/08/21 05/09/21 05/09/21 22:59 06:59 14:59 Intake Total 830.337 / 1171.090 470.753 / 1641.843 200 / 200 Output Total 101 / 301 475 / 776 Balance 729.337 / 870.090 -4.247 / 865.843 200 / 200 Weight last 48 hrs Weight 92.986 kg Physical Exam Narrative: EXAM NARRATIVE: Constitutional: Sedated and vented HEENT: Wet mucosa, no jvp, non icteric Lungs: Bilaterally diminshed, without discernible wheeze, rales in all lung zones CVS: S1 S2, no murmurs Abdo: Soft, BS ok Ext 4: global edema, peripheral perfusion with no cyanosis Neurological: Grossly non-focal Urinary Catheter Management^: William: Cath Placed During This Visit: yes Reason for Continuing Indwelling Catheter: Accurate Measurement of Urinary Output in Critically Ill Patients Urinary Catheter Date of Insertion: 04/28/21 Urinary Catheter Time of Insertion: 16:00 Data : 05/09/21 03:25 05/09/21 09:22 Micro: Microbiology 05/07/21 14:40 Gram Stain - Final Sputum - Endotracheal Tube Aspirate Sputum Culture - Preliminary 05/07/21 16:02 Blood Culture - Preliminary Blood NEGATIVE TO DATE 05/07/21 15:50 Blood Culture - Preliminary Blood NEGATIVE TO DATE 05/07/21 14:30 MRSA Culture - Final Nose A&P Additional A&P Information 1. Acute on chronic kidney disease We commonly see this in Covid pneumonitis, it is a multifactorial process. ? Vanco assoc ATN/AIN At this time given peripheral edema and high ventilator settings with hemodynamic lability and need for ultrafiltration will start CRRT. Cobination 2K/4K PrismaSol bath. pre/intra/post 1000/1000/1000 UF goal 200 mL/h, roughly 4 L/day. Daily evaluation for need for renal replacement therapy Heparin protocol started Close monitoring of serum chemistry Daily renal panel Close monitoring of I's and O's Dose medications for GFR less than 30 Avoid usual nephrotoxic agents 2. Covid pneumonitis Unfortunately was not vaccinated Receiving combination medication including remdesivir, Vanco, levaquin, cefepime, has received steroids. Dose Vanco to keep level < 20 Vent settings per ICU 3. Lytes Perfectly balanced on CRRT. Close monitoring of serum chemistry every 8 hours while on CRRT. 4. Hemodynamics Robust today Currently family wish to continue aggressive care. As he continues to develop multisystem organ failure including renal failure requiring CRRT the prognosis becomes ever more poor. Ongoing discussions with family members regarding goals of care. Mirza Arechiga MD Nephrology [phone] Patient seen and examined via telemedicine, with the assistance of the bedside RN > 25 min spent in evaluation and mgmt of patient Attestations Medical Necessity Statement*: eval for renal failure Coding Level of Care Code Acute Baling Press Operator for Chg Saji
[2021-05-09 11:40] LABS: Glucose Point of Care 108 mg/dL (70-110)
[2021-05-09 11:56] LABS: Glucose Point of Care 65 mg/dL (70-110)
[2021-05-09 12:34] LABS: ABG PCO2 36.7 mmHg (35-45); ABG PH Result 7.47 (7.35-7.45); Alveolar-Arterial Oxygen Gradi 47.2 mmHg (5-10); Arterial Blood Gas Hematocrit 36.4 % (42-52); Base Excess ABG 2.6 mmol/L (-2.0-2.0); Blood Gas Allen Test Pos; Blood Gas Operator Identificat BD; Blood Gas Sample Site Brachial, left; Blood Gas Sample Type Arterial; Blood Gas Tidal Volume 0.45; Carboxyhemoglobin 1.3 %THgb (0.4-20.1); HCO3 ABG 26.4 mmol/L (22-26); HGB O2 Sat 86.7 % (95-100); Ionized Calcium Level - ABG 1.2 mmol/L (1.1-1.4); Methemoglobin 0.8 % (0.4-1.5); Oxygen Device VENT; Oxygen Saturation ABG 88.6; PO2 ABG 53.5 mmHg (80.0-100.0); Total Hemoglobin 11.9 g/dL (14-18)
[2021-05-09 12:40] LABS: Glucose Point of Care 98 mg/dL (70-110)
--- NOTE | 2021-05-09 12:43 | PC.SOCIAL ---
IMM not Given IMM not updated. Pt is intubated & is not expected to discharge within the next 24-48hrs.
[2021-05-09] MEDS: albumin 12.5 GM/250 ML VIAL IV ×2 (12:52→19:38)
[2021-05-09] MEDS: fluconazole premix 100 MG in empty flexible container 1 EACH 50 MG IV (13:25)
--- NOTE | 2021-05-09 13:44 | PC.NURSE ---
This nurse and RADHA Field wasted 55 mL or Midazolam.
[2021-05-09] MEDS: metoprolol tartrate 1 mg/1 mL SDV 5 mL 2.5 MG IVP (15:11)
[2021-05-09 16:03] LABS: Glucose Point of Care 68 mg/dL (70-110)
[2021-05-09] MEDS: dexamethasone 10 mg/mL INJ 6 MG IVP (16:06)
[2021-05-09 16:30] LABS: Glucose Point of Care 113 mg/dL (70-110)
--- NOTE | 2021-05-09 16:38 | P.PN_ITS ---
Subjective Subjective: Interval history: Seen multiple times during the day. Overnight has remained hemodynamically stable. Continued on CRRT and 567 of fluid was withdrawn. Today morning on examination patient's blood pressures are a lot better with heart rate in 90s. He underwent continuous CRRT and was net 1400 cc negative today but by evening he started having episode of tachycardia and hypotension again for which he was given bolus of amiodarone and started on amiodarone drip. He is on ventilator support with FiO2 of 65%, tidal volume 450, PEEP of 12 saturating between 88 to 92%. In evening had bronch, concerning for fragile mucosa and black pigmentation in left LL Vitals/I&O/Wt Last Vital Signs Temp 98.2 F 05/09/21 16:00 Pulse 150 H 05/09/21 16:00 Resp 21 H 05/09/21 16:00 BP 131/81 05/09/21 16:00 Pulse Ox 89 L 05/09/21 16:00 05/09/21 05/09/21 05/09/21 06:59 14:59 22:59 Intake Total 470.753 / 1641.843 720 / 720 100 / 820 Output Total 475 / 776 Balance -4.247 / 865.843 720 / 720 100 / 820 Weight last 48 hrs Weight 92.986 kg Physical Exam Narrative: EXAM NARRATIVE: Intubated, sedated, on the ventilator Const: COMMON NORMALS: no acute distress OTHER: intubated and sedated HENMT: COMMON NORMALS: normocephalic HEAD & SCALP: normocephalic Eye: OTHER: Pupils Neck/C-Spine: OTHER: Bloody discharge from OG tube Lymph: LYMPHATIC: no lymphadenopathy noted Chest: COMMONS NORMALS: normal inspection of the chest Resp: COMMON NORMALS: normal respiratory effort, No retractions, No use of accessory muscles and clear to auscultation bilaterally EFFORT & INSPECTION: Yes symmetric chest movement AUSCULTATION: clear to auscultation bilaterally and diminished lung sounds diffuse OTHER: Vented sounds b/l Cardio: COMMON NORMALS: regular rate, regular rhythm, S1 normal heart sound present and S2 normal heart sound present RATE: regular rate RHYTHM: regular rhythm HEART SOUNDS: S1 normal heart sound present and S2 normal heart sound present GI: COMMON NORMALS: Normal to inspection, nondistended, normoactive bowel sounds present, Soft to palpation, non-tender and no bruits PALPATION: Yes Soft to palpation : OTHER: William catheter in place, William bag blood within the urine Extremity: COMMON NORMALS: no pedal edema NARRATIVE EXTREMITY EXAM: Right art line in place, left femoral line in place GENERAL: No edema OTHER: DP PT pulses palpable Neuro: OTHER: on vent Skin: COMMON NORMALS: no rashes or lesions noted, turgor normal and no mottling GENERAL SKIN EXAM: no rashes or lesions noted and turgor normal Urinary Catheter Management^: William: Cath Placed During This Visit: yes Reason for Continuing Indwelling Catheter: Accurate Measurement of Urinary Output in Critically Ill Patients Urinary Catheter Date of Insertion: 04/28/21 Urinary Catheter Time of Insertion: 16:00 Data : 05/09/21 03:25 05/09/21 15:46 Micro: Microbiology 05/07/21 14:40 Gram Stain - Final Sputum - Endotracheal Tube Aspirate Sputum Culture - Preliminary 05/07/21 16:02 Blood Culture - Preliminary Blood NEGATIVE TO DATE 05/07/21 15:50 Blood Culture - Preliminary Blood NEGATIVE TO DATE 05/07/21 14:30 MRSA Culture - Final Nose A&P Assessment and plan (1) COVID-19: Status: Acute (2) Acute respiratory distress syndrome: Status: Acute (3) Acute kidney injury superimposed on CKD: Status: Acute (4) Metabolic acidosis: Status: Acute (5) Hemoptysis: Status: Acute (6) Myocarditis due to 2019 novel coronavirus: Status: Acute (7) Afib: Status: Acute (8) Septic shock: Status: Acute (9) Encounter for continuous renal replacement therapy (CRRT) for acute renal failure: Status: Acute Additional A&P Information ARDS secondary to COVID-19 pneumonia along with possible superadded bacterial pneumonia: Ventilator dependent. Continue sedation with propofol fentanyl. Completed remdesivir. Currently on dexamethasone. Continue with DuoNeb, budesonide. D-dimer - 13 on arrival -> 2.5, can not rule out PE, Lovenox stopped due to increasing hemoptysis, Hgb decreased 13-11 - started on DVT ppx dose of heparin however d/c again due to bleeding. Continue to monitor inflammatory markers including ESR, CRP, D-dimer every 48 hourly. Given ARDS we will try to keep patient as negative as possible through CRRT. Daily weights, strict input output charting. Severe sepsis: Patient has been having intermittent fevers. Repeat urine Legionella, bacterial antigen, MRSA swab remain negative. Sputum culture awaited. Blood cultures so far negative. Pro-Luis elevated. Vanco random level appropriate. Continue to hold off on vancomycin for now. We will continue repeat Vanco random level daily. Continue with Levaquin, Diflucan for now. We will switch cefepime to imipenem as patient is on CRRT now for better drug level m aintenance. Levophed as needed keeping mean arterial pressure over 65. Hemoptysis: Recheck chest x-ray ruled out pneumothorax. Can be ventilator associated lung injury versus pulmonary hemorrhage. Pulmonology not global marketing operations manager today. Will consult tomorrow for possible bronchoscopy. Bronch findings appreciated. Sample send for LUIS mount, fungal Cx, bacterial Cx, MTB PCR, PJP PCR. Acute on stage 3 CKD/ Metabolic acidosis: Post 1 session of HD. Continues to have metabolic acidosis and possible fluid over load. Most likely will benefit with CRRT. Medical reconciliation done for nephrotoxic drugs. Nephrology on board. Myocarditis/Acute Systolic HF: Most likely secondary to sepsis versus possible myocarditis secondary to COVID-19. Tachycardia: Occasional. Will start on low dose lopressor. Start on ASA 81 mg PO QD. Afib: Intermittent: C/w Lopressor 25 mg BID. Unable to titrate as per BP. C/w Amio load. GI PPx Protonix 40mg IV BID DVT ppx- Heparin 5000 units Q8hr Prognosis: Severely Guarded. Discussed patient's care in detail with his over the phone. We discussed unfortunately patient has severe COVID-19 pneumonia, ARDS along with multiple organ dysfunction including GUMARO on CKD, new congestive heart failure secondary to possible myocarditis and possible anoxic brain injury. We discussed patient has a severely guarded prognosis. We also discussed it is quite possible that patient can have cardiac arrest. states for now if she would want the patient to remain full code as she would discuss further goals of care with his family. Attestations Medical Necessity Statement*: septic shock, ARDS, GUMARO on CRRT, Critical Care Time: The high probability of a clinically significant, sudden or life threatening deterioration of the patient's [cardiac, pulm, renal] system(s) required my full and direct attention, intervention and personal management. The critical care time is as shown. This time is in addition to time spent performing any reported procedures but includes the following: [x] Data and vital sign review and interpretation [x] Patient assessment, examination and intervention [x] Documentation [x] Medication orders and management Critical Care Time (min): 90 Coding Level of Care Code Acute Transformer Assembler for g Fwd Exam Comprehensive Diagnoses COVID-19 U07.1 Acute respiratory distress syndrome J80 Acute kidney injury superimposed on CKD N17.9; N18.9 Metabolic acidosis E87.2 Hemoptysis R04.2 Myocarditis due to 2019 novel coronavirus U07.1; I40.0 Afib I48.91 Septic shock A41.9; R65.21 Encounter for continuous renal replacement therapy (CRRT) for acute renal failure N17.9
[2021-05-09 16:46] LABS: Albumin Level 2.5 g/dL (3.5-5.2); Anion Gap 16.9 (5-19); Blood Urea Nitrogen 37 mg/dL (8-23); Calcium 8.9 mg/dL (8.5-10.5); Carbon Dioxide 24 mmol/L (22-29); Chloride 101 mmol/L (98-107); Glucose 71 mg/dL (65-115); Magnesium 2.2 mg/dL (1.7-2.3); Phosphorus 3.2 mg/dL (2.5-4.5); Potassium 3.9 mmol/L (3.5-5.1); Sodium 138 mmol/L (136-145)
[2021-05-09 17:04] LABS: Partial Thromboplastin Time 38.1 SECONDS (23.9-36.7)
--- NOTE | 2021-05-09 18:56 | P.PCN_ITS ---
Procedure/Consent Time out: Time Out Performed: Yes Consent: Consent for Procedure: Consent obtained from other (indicate) (), Risks & Benefits reviewed and Agrees to proceed with procedure Procedure Narrative: Procedure: Bronchoscopy for airway inspection and obtaining samples for bronchoalveolar lavage Pre-Operative Diagnosis: Pneumonia Post-Operative Diagnosis: Same Indication: Worsening leukocytosis and infiltrates on chest x-ray in patient with bleeding per ET tube 2 days ago Anesthesia: Patient is intubated and sedated-medications fentanyl and propofol drip titrated to achieve adequate sedation Pre-procedure Evaluation: Patient was evaluated clinically and ancillary testing reviewed. The risk of having active MTB infection is very low in my clinical judgement. ASA: 4 Malampati score: unable to evaluate due to presence of endotracheal tube Consent: Consents were obtained from [facility] [place] and placed in the chart Procedure Details: Time out was performed by the procedure team and nursing staff. Vent support maintained on Fio2 100. The bronchoscope was introduced through the ETT. A bronchoscopic airway exam was performed to evaluate the visible tracheobronchial tree to the segmental level. Summary of Significant Findings: -Bronchoscope passed through ET tube to visualize distal trachea which was noted to be normal. Main lauren visualized which was sharp and normal.-1% lidocaine 2 mL was instilled at the level of main lauren and 2 mL in the right main bronchus and 2 mL in left main bronchus. Then the scope was passed through the right bronchial tree was assessed to include the right mainstem bronchus, RBI, and RUL/RML/RLL bronchi to the segmental and subsegmental levels. No active bleeding noted. Mucosa appeared slightly erythematous. Thin clear secretions noted from right lower lobe and right middle lobe. Then the scope was left bronchial tree was assessed to include the left mainstem bronchus, NEY, Lingula, and LLL bronchi to the segmental and subsegmental level. No active bleeding noted. Mucosa appeared significantly erythematous when compared to right bronchial tree mucosa. Also noted black pigmented areas of mucosa in left lower lobe. Majority of secretions were clear with some mucoid secretions seen in left lower lobe. The bronchoscope was then removed and the procedure terminated. Estimated Blood Loss: None Specimens: Bronchoalveolar lavage was taken from left lower lobe and sent for Gram stain and microbiology cultures, LUIS preparation and fungal cultures, AFB smear and cultures and PCP. Complications:None; patient tolerated the procedure well. Disposition: Patient remains critically ill, intubated and stays in ICU Patient tolerated the procedure well. Woody Bullard MD Pulmonary critical Care Medicine [facility] Acute Procedures Epistaxis Control: Time out performed: Yes
--- NOTE | 2021-05-09 19:05 | PC.NURSE ---
[address] Arechiga. Reviewed labs, vital signs, UOP, I&O, lung sounds. Orders to increase fluid removal to 250. 1137 Reported low blood sugat to Dr. Martinez, gave D50 per protocol. 1205 Reported vent alarming for high TV and asynchronous, and sats to Dr. Martinez. Orders for blood gas. 1240 Reported elevated heart rate and low blood presser to Dr. Martinez. Stopped removing fluid per CRRT, obtained order for albumin. [address] Arechiga on patients status 1310 Dr. Martinez at bedside. Reviewed I&O, CRRT settings, vital signs, and medis. 1357 Dr. Martinez notified of patients elevated heart rate and low bp. Orders for IV lopressor. 1550 Dr. Martinez notified of patients elevated heart rate and low bp. 25 mcg if fentaly given 1620 Dr. Martinez notified of patient's elevated heart rate. Orders for amio [address] Arechiga. Orders to hold CRRT.
--- NOTE | 2021-05-09 19:12 | PC.NUTR ---
Tube feeding recommendation: Minimal TF provision X 9 days, with max kcal of 714 on 05/02, all other days lower or none). In past 5 days, received total of 150 ml, providing an average of 45 calories per day. Nurse states will clarify with MD whether feeding can be resumed tonight. Recommend consideration of change to Nepro, given HD and CRRT. Recommend Nepro @ 30 ml/hr, to provide 1296 kcal, 58 g protein, and 522 ml H2O. Additional H2O flushes per MD discretion.Noted:408 kcal/day from levaquin-D5W @ 100 ml/hr, and 719 kcal/day from propofol @ 27.22 ml/hr. See full RD assessment for further details.
[2021-05-09 20:59] LABS: Glucose Point of Care 113 mg/dL (70-110)
[2021-05-09] MEDS: albumin 12.5 GM/50 ML VIAL IV (21:46)
[2021-05-09 22:28] LABS: Partial Thromboplastin Time 46.1 SECONDS (23.9-36.7)
[2021-05-09 22:35] LABS: Albumin Level 2.6 g/dL (3.5-5.2); Anion Gap 16.9 (5-19); Blood Urea Nitrogen 49 mg/dL (8-23); Calcium 8.4 mg/dL (8.5-10.5); Carbon Dioxide 24 mmol/L (22-29); Chloride 99 mmol/L (98-107); Glucose 135 mg/dL (65-115); Magnesium 2.5 mg/dL (1.7-2.3); Phosphorus 4.2 mg/dL (2.5-4.5); Potassium 4.9 mmol/L (3.5-5.1); Sodium 135 mmol/L (136-145)
[2021-05-10] VITALS (62 sets, daily range): BP systolic 65–170; BP diastolic 47–108; PULSE 60–148; RESP 21–24; TEMP 36–38.5; O2SAT 85–97; BMI 30.2
[2021-05-10] MEDS: propofol 1,000 MG/100 ML INJ 27.22 MG IV ×6 (01:19→21:00)
[2021-05-10] MEDS: albumin 12.5 GM/50 ML VIAL IV ×3 (02:07→16:02)
[2021-05-10 02:57] LABS: Glucose Point of Care 112 mg/dL (70-110)
[2021-05-10] MEDS: PrismaSol BGK 2/3.5 - 5,000 ML BAG 5000 ML CRRT ×2 (03:00)
[2021-05-10] MEDS: PrismaSol BGK 4/2.5 - 5,000 mL Bag 5000 ML CRRT ×4 (03:00→08:17)
[2021-05-10] MEDS: ipratropium-albuterol 3 mL Neb INHALATION ×6 (03:16→23:37)
[2021-05-10 03:48] LABS: Basophils % 0.2 %; Eosinophils # 0.1 10^3/uL (0.0-0.8); Eosinophils % 0.7 %; Hematocrit 26.4 % (42.0-52.0); Hemoglobin 8.6 g/dL (11.7-16.6); Lymphocytes # 0.2 10^3/uL (0.8-4.8); Mean Corpuscular HGB Conc 32.6 g/dL (30.0-36.0); Mean Corpuscular Hemoglobin 30.2 pg (28.0-34.0); Mean Corpuscular Volume 92.6 fl (80-94); Mean Platelet Volume 11.4 fL (7.4-10.4); Monocytes # 0.5 10^3/uL (0.2-0.9); Monocytes % 2.8 %; Neutrophils # 15.17 10^3/uL (1.8-7.7); Neutrophils % 93.4 %; Nucleated Red Blood Cells % 0 %; Platelet Count 135 10^3/cmm (130-400); Red Blood Count 2.85 10^6/uL (4.1-5.3); Red Cell Distribution Width 14.7 % (12.1-15.1); White Blood Count 16.3 10^3/uL (4.0-10.0)
[2021-05-10 04:08] LABS: Albumin Level 2.5 g/dL (3.5-5.2); Anion Gap 12.1 (5-19); Blood Urea Nitrogen 37 mg/dL (8-23); Calcium 8.3 mg/dL (8.5-10.5); Carbon Dioxide 26 mmol/L (22-29); Chloride 101 mmol/L (98-107); Glucose 111 mg/dL (65-115); Magnesium 2.3 mg/dL (1.7-2.3); Phosphorus 3.3 mg/dL (2.5-4.5); Potassium 4.1 mmol/L (3.5-5.1); Sodium 135 mmol/L (136-145); Vancomycin Random 7.5 ug/mL (20.0-40.0)
[2021-05-10] MEDS: heparin 5,000 unit/mL INJ 1 mL 5000 UNIT SUBCUT ×3 (04:08→21:02)
[2021-05-10 04:17] LABS: C Reactive Protein 220.7 mg/L (0.0-4.9); NT Pro B Type Natriuretic Pept 4975 pg/mL (0-450)
[2021-05-10 04:48] LABS: Partial Thromboplastin Time 17.2 SECONDS (23.9-36.7)
[2021-05-10 04:51] LABS: D Dimer 2.91 ug/mIFEU (0-0.59)
[2021-05-10 05:04] LABS: ABG PCO2 40.6 mmHg (35-45); ABG PH Result 7.42 (7.35-7.45); Alveolar-Arterial Oxygen Gradi 54.7 mmHg (5-10); Arterial Blood Gas Hematocrit 29.2 % (42-52); Base Excess ABG 1.6 mmol/L (-2.0-2.0); Blood Gas Allen Test Pos; Blood Gas Sample Site Radial, right; Blood Gas Sample Type Arterial; Blood Gas Tidal Volume 0.45; Carboxyhemoglobin 1.4 %THgb (0.4-20.1); HCO3 ABG 26.2 mmol/L (22-26); HGB O2 Sat 90.9 % (95-100); Ionized Calcium Level - ABG 1.3 mmol/L (1.1-1.4); Methemoglobin 0.3 % (0.4-1.5); Oxygen Device VENT; Oxygen Saturation ABG 92.5; PO2 ABG 63.4 mmHg (80.0-100.0); Potassium Level - ABG 3.7 mmol/L (3.5-5.0); Total Hemoglobin 9.5 g/dL (14-18)
[2021-05-10] MEDS: pantoprazole 40 mg SDV IVP ×2 (05:20→18:20)
[2021-05-10 05:51] LABS: Erythrocyte Sedimentation Rate 76 mm/hr (0-10)
--- NOTE | 2021-05-10 06:38 | P.PN_ITS ---
Subjective Subjective: Interval history: seen on CRRT- tolerating well- removing fluids, bp improved. sedated on vent Medications: Reviewed: Yes Medication Review Details: Current Medications Acetaminophen (Acetaminophen 325 Mg Tablet) 650 mg PO Q6H PRN PRN Reason: Mild/Mod Pain Or Temp >/= 101 Last Admin: 05/05/21 17:19 Dose: 650 mg Documented by: Albuterol/Ipratropium (Ipratropium-Albuterol 3 Ml Neb) 3 ml INHALATION Q4H.RESPIRATORY HIWOT Last Admin: 05/10/21 03:16 Dose: 3 ml Documented by: Alteplase, Recombinant (Alteplase 1 Mg/Ml Sdv 2 Ml) 0 mg INTRACATH Q2H PRN; Protocol PRN Reason: Poor Catheter Flow/ Clotted Catheter Artificial Tears (Artificial Tears Op Oint 3.5 Gm) 1 applic EYE-BOTH PRN PRN PRN Reason: DRY EYE(S) Ascorbic Acid (Ascorbic Acid 500 Mg Tablet) 500 mg PO DAILY [facility] Last Admin: 05/09/21 08:06 Dose: 500 mg Documented by: Bisacodyl (Bisacodyl 5 Mg Tablet) 10 mg PO DAILY HIWOT; Protocol Calcium Acetate (Calcium Acetate 667 Mg Capsule) 1,334 mg PO TIDWM HIWOT Last Admin: 05/09/21 20:05 Dose: 1,334 mg Documented by: Dexamethasone (Dexamethasone 10 Mg/Ml Inj) 6 mg IVP Q24H HIWOT Last Admin: 05/09/21 16:06 Dose: 6 mg Documented by: Dextrose (Dextrose 50% Syringe 50 Ml) 25 ml IVP ONCE PRN; Protocol PRN Reason: hypoglycemia protocol Glucagon (Glucagon 1 Mg/Ml Inj 1 Ml) 1 mg IM ONCE PRN; Protocol PRN Reason: Adult Acute Hypoglycemia Prot. Heparin Sodium (Beef Lung) (Heparin 5,000 Unit/Ml Inj 1 Ml) 5,000 unit SUBCUT Q8H HIWOT Last Admin: 05/10/21 04:08 Dose: 5,000 unit Documented by: Heparin Sodium (Beef Lung) (Heparin Lock Flush 500 Unit/5 Ml Syringe) 500 unit IV PRN PRN PRN Reason: At CRRT disconnect Last Admin: 05/09/21 18:24 Dose: 500 unit Documented by: Heparin Sodium (Porcine) (Heparin, Porcine 1,000 Unit/Ml Inj 10 Ml) 1,000 unit CRRT PROTOCOL PRN; Protocol PRN Reason: Heparin CRRT subsequent bolus Protocol Propofol (Diprivan) 1,000 mg in 100 mls @ 0 mls/hr IV .Q0M HIWOT; Protocol Last Admin: 05/10/21 05:21 Dose: 50 mcg/kg/min, 27.22 mls/hr Documented by: Cisatracurium Besylate 100 mg/ (Sodium Chloride) 100 mls @ 0 mls/hr IV .Q0M HIWOT; Protocol Last Titration: 05/02/21 09:59 Dose: 0 mcg/kg/min, 0 mls/hr Documented by: Norepinephrine Bitartrate 4 mg (/ Dextrose) 254 mls @ 0 mls/hr IV .Q0M HIWOT; Protocol Last Admin: 05/09/21 19:25 Dose: 2 mcg/min, 7.62 mls/hr Documented by: Dextrose (D5w) 500 mls @ 100 mls/hr IV ONCE PRN; Protocol PRN Reason: Adult Acute Hypoglycemia Prot Vancomycin/PEG/NADA/Lysine/Water (Vancocin) 1,250 mg in 250 mls @ 250 mls/hr IV Q24H [facility]WOT Last Admin: 05/04/21 20:49 Dose: 250 mls/hr Documented by: dexmedeTOMIDine 0.9 % NaCL (Dexmedetomidine-Ns) 400 mcg in 100 mls @ 0 mls/hr IV .Q0M HIWOT; Protocol Last Titration: 05/04/21 10:08 Dose: 0 mcg/kg/hr, 0 mls/hr Documented by: Phenylephrine HCl 25 mg/ (Sodium Chloride) 252.5 mls @ 0 mls/hr IV .Q0M HIWOT; Protocol Last Titration: 05/08/21 16:56 Dose: 0 mcg/min, 0 mls/hr Documented by: Fentanyl 1,000 mcg/ Sodium (Chloride) 100 mls @ 0 mls/hr IV .Q0M HIWOT; Protocol Last Admin: 05/10/21 02:33 Dose: 100 mcg/hr, 10 mls/hr Documented by: Levofloxacin/Dextrose (Levaquin-D5w) 500 mg in 100 mls @ 100 mls/hr IV Q48H [facility]OT; Protocol Last Infusion: 05/08/21 22:12 Dose: Infused Documented by: Heparin Sodium (Porcine) 20, (000 unit/ N/A) 20 mls @ 0 mls/hr CRRT .Q0M HIWOT; Protocol Last Admin: 05/09/21 13:27 Dose: 10 unit/kg/hr, 0.9 mls/hr Documented by: Imipenem/Cilastatin Sodium 250 (mg/ Sodium Chloride) 100 mls @ 200 mls/hr IV Q12H [facility]WOT; Protocol Last Infusion: 05/10/21 01:35 Dose: Infused Documented by: Amiodarone HCl 900 mg/Dextrose/ IV Miscellaneous Supplies 518 mls @ 0 mls/hr IV .Q0M HIWOT; Protocol Last Admin: 05/09/21 17:17 Dose: 1 mg/min, 34.53 mls/hr Documented by: Albumin Human (Albumin) 12.5 gm in 50 mls @ 60 mls/hr IV Q8H [facility] Last Admin: 05/10/21 02:07 Dose: 60 mls/hr Documented by: Lactulose (Lactulose Oral Liq 20 Gm/30 Ml Udc) 10 gm PO DAILY [facility]; Protocol Metoprolol Tartrate (Metoprolol Tartrate 25 Mg Tablet) 12.5 mg PO BID@0900,2100 [facility] Last Admin: 05/09/21 21:46 Dose: 12.5 mg Documented by: Ondansetron HCl (Ondansetron 2 Mg/Ml Sdv 2 Ml) 4 mg IVP Q8H PRN PRN Reason: vomiting, or N/V if npo Pantoprazole Sodium (Pantoprazole 40 Mg Sdv) 40 mg IVP Q12H [facility] Last Admin: 05/10/21 05:20 Dose: 40 mg Documented by: Sodium Chloride (Sodium Chloride 0.9% 1,000 Ml Bag) 1,000 - 7,000 ml CRRT PRN PRN PRN Reason: For priming CRRT Machine Last Admin: 05/09/21 05:36 Dose: 2,000 ml Documented by: Sucralfate (Sucralfate 1 Gm/10 Ml Oral Liq Udc) 1 gm PO Q12H [facility]WOT Last Admin: 05/09/21 21:46 Dose: 1 gm Documented by: Vitamin D (Cholecalciferol (Vitamin D3) 1,000 Unit Tablet) 1,000 unit PO DAILY [facility] Last Admin: 05/09/21 08:07 Dose: 1,000 unit Documented by: Zinc Gluconate (Zinc Gluconate 50 Mg Tablet) 50 mg PO DAILY [facility] Last Admin: 05/09/21 08:06 Dose: 50 mg Documented by: Vitals/I&O/Wt Last Vital Signs Temp 98.2 F 05/09/21 16:00 Pulse 67 05/10/21 06:00 Resp 22 H 05/10/21 05:33 BP 170/108 05/10/21 05:30 Pulse Ox 92 05/10/21 05:33 05/09/21 05/09/21 05/10/21 14:59 22:59 06:59 Intake Total 720 / 720 703 / 1423 400 / 1823 Output Total 300 / 300 Balance 720 / 720 703 / 1423 100 / 1523 Weight last 48 hrs Weight 92.986 kg Weight 92.986 kg Physical Exam Narrative: EXAM NARRATIVE: sedated- off pressers. bp excellent heent- nc/at, eomi, anicteric neck supple lungs crackles b/l heart reg abd soft, nt, nd, + bs ext edema neuro-sedated Urinary Catheter Management^: William: Cath Placed During This Visit: yes Reason for Continuing Indwelling Catheter: Accurate Measurement of Urinary Output in Critically Ill Patients Urinary Catheter Date of Insertion: 04/28/21 Urinary Catheter Time of Insertion: 16:00 Data : 05/10/21 03:33 05/10/21 03:33 Micro: Microbiology 05/07/21 15:50 Blood Culture - Preliminary Blood 05/07/21 14:40 Gram Stain - Final Sputum - Endotracheal Tube Aspirate Sputum Culture - Preliminary A&P Additional A&P Information 1. Acute on chronic kidney disease ATN vs covid-nephritis vs Vanco assoc ATN/AIN -he is doing very well w/ CRRT -aim for 15r0 ml /hr fluid removal- with bp this well controlled - if BP remains this good, will transition to IHD -current CRRT4K PrismaSol bath. pre/intra/post 1000/1000/1000 UF goal 150 mL/h, roughly 3-3.6 L/day. Heparin protocol started Close monitoring of serum chemistry Daily renal panel Close monitoring of I's and O's Dose medications for GFR less than 30 Avoid usual nephrotoxic agents 2. Covid pneumonitis- Receiving combination medication including remdesivir, Vanco, levaquin, cefepime, has received steroids. Dose Vanco to keep level < 20 Vent settings per ICU 3. Lytes Perfectly balanced on CRRT. Close monitoring of serum chemistry every 8 hours while on CRRT. 4.anemia- hgb trending down -may need FREDDIE- however. there is a hypercoaguable state w/ COVID 5. wbc improving slowly 6. acid/ base status- 7.42/40/63- balanced Currently family wish to continue aggressive care. Patient seen and examined via telemedicine, with the assistance of the bedside RN > 25 min spent in evaluation and mgmt of patient Attestations Medical Necessity Statement*: cheryl, vdrf, covid-19 pna Time Spent in Patient Care: 16 - 35 minutes Coding Level of Care Code Acute Instrumentation Designer for [facility]
--- NOTE | 2021-05-10 06:55 | PC.NURSE ---
Morning check with Dr. Andrews resulted in orders repeated back over telephone. Switch to all 4k bags for CRRT, increase fluid removal from 100ml/hr to 150ml/hr, and call back in 2hrs if the patient is still hypertensive w/o pressors.
--- NOTE | 2021-05-10 07:07 | PC.PHAR ---
VANCOMYCIN LEVEL BELOW THERAPEUTIC THIS AM. RESUME AT 1500 MG (~16 MG/KG ) Q 48 H PATIENT HAS HAD NOTICEABLE CLEARANCE ISSUES WITH PREVIOUS DOSING, WILL DRAW RANDOM BEFORE .
[2021-05-10] MEDS: sucralfate 1 gm/10 mL Oral Liq UDC PO ×2 (08:13→21:02)
[2021-05-10] MEDS: lactulose oral liq 20 gm/30 mL UDC 10 GM PO (08:13)
[2021-05-10] MEDS: cholecalciferol (vitamin D3) 1,000 unit Tablet 1000 UNIT PO (08:16)
[2021-05-10] MEDS: bisacodyl 5 mg Tablet 10 MG PO (08:21)
[2021-05-10] MEDS: metoprolol tartrate 25 mg Tablet 12.5 MG PO (08:22)
[2021-05-10] MEDS: calcium acetate 667 mg Capsule 1334 MG PO ×3 (08:22→18:20)
[2021-05-10] MEDS: zinc gluconate 50 mg Tablet PO (08:22)
[2021-05-10] MEDS: ascorbic acid 500 mg Tablet PO (08:22)
[2021-05-10] MEDS: vancomycin 1,500 MG/300 ML PIGGYBACK 200 MG IV (08:23)
[2021-05-10 10:03] LABS: Partial Thromboplastin Time 31.6 SECONDS (23.9-36.7)
[2021-05-10 10:06] LABS: Alanine Aminotransferase 19 U/L (0-41); Alkaline Phosphatase 68 IU/L (40-130); Anion Gap 12.8 (5-19); Aspartate Amino Transferase 41 U/L (0-40); Blood Urea Nitrogen 29 mg/dL (8-23); Calcium 9.1 mg/dL (8.5-10.5); Carbon Dioxide 25 mmol/L (22-29); Chloride 96 mmol/L (98-107); Globulin 3.2 g/dL (1.3-4.6); Glucose 87 mg/dL (65-115); Magnesium 2.3 mg/dL (1.7-2.3); Osmolality Calculated 275 mOsm/kg (285-295); Phosphorus 3.5 mg/dL (2.5-4.5); Potassium 3.8 mmol/L (3.5-5.1); Sodium 130 mmol/L (136-145); Total Bilirubin 2.3 mg/dL (0.15-1.2); Total Protein 6.2 g/dL (6.6-8.7)
--- NOTE | 2021-05-10 11:20 | PM.PN ---
Subjective Subjective: Interval history: Seen multiple times during the day. Overnight patient was continued on CRRT. Overall 1100 cc negative overnight, 1500 cc negative yesterday. Switched over to hemodialysis today morning. Finished the session completely with requiring minimal Levophed at the end of the session. 2300 - during hemodialysis. T-max in last 24-hour 101 Fahrenheit. Currently on mechanical ventilator with FiO2 75%, tidal volume 450, PEEP of 12 saturating 88 to 92%. Currently on sedation with fentanyl, propofol. Has an new drip running. Medications: Reviewed: Yes Vitals/I&O/Wt Last Vital Signs Temp 96.8 F L 05/10/21 08:00 Pulse 67 05/10/21 09:00 Resp 22 H 05/10/21 09:35 BP 154/99 05/10/21 09:00 Pulse Ox 95 05/10/21 09:35 05/09/21 05/10/21 05/10/21 22:59 06:59 14:59 Intake Total 703 / 1423 450 / 1873 772.621 / 772.621 Output Total 300 / 300 Balance 703 / 1423 150 / 1573 772.621 / 772.621 Weight last 48 hrs Weight 92.986 kg Weight 92.986 kg Physical Exam Narrative: EXAM NARRATIVE: Intubated, sedated, on the ventilator Const: COMMON NORMALS: no acute distress OTHER: intubated and sedated HENMT: COMMON NORMALS: normocephalic HEAD & SCALP: normocephalic Eye: OTHER: Pupils Neck/C-Spine: OTHER: Bloody discharge from OG tube Lymph: LYMPHATIC: no lymphadenopathy noted Chest: COMMONS NORMALS: normal inspection of the chest Resp: COMMON NORMALS: normal respiratory effort, No retractions, No use of accessory muscles and clear to auscultation bilaterally EFFORT & INSPECTION: Yes symmetric chest movement AUSCULTATION: clear to auscultation bilaterally and diminished lung sounds diffuse OTHER: Vented sounds b/l Cardio: COMMON NORMALS: regular rate, regular rhythm, S1 normal heart sound present and S2 normal heart sound present RATE: regular rate RHYTHM: regular rhythm HEART SOUNDS: S1 normal heart sound present and S2 normal heart sound present GI: COMMON NORMALS: Normal to inspection, nondistended, normoactive bowel sounds present, Soft to palpation, non-tender and no bruits PALPATION: Yes Soft to palpation : OTHER: William catheter in place, William bag blood within the urine Extremity: COMMON NORMALS: no pedal edema NARRATIVE EXTREMITY EXAM: Right art line in place, left femoral line in place GENERAL: No edema OTHER: DP PT pulses palpable Neuro: OTHER: on vent Skin: COMMON NORMALS: no rashes or lesions noted, turgor normal and no mottling GENERAL SKIN EXAM: no rashes or lesions noted and turgor normal Urinary Catheter Management^: William: Cath Placed During This Visit: yes Reason for Continuing Indwelling Catheter: Accurate Measurement of Urinary Output in Critically Ill Patients Urinary Catheter Date of Insertion: 04/28/21 Urinary Catheter Time of Insertion: 16:00 Data : 05/10/21 03:33 05/10/21 09:27 Micro: Microbiology 05/07/21 14:40 Gram Stain - Final Sputum - Endotracheal Tube Aspirate Sputum Culture - Final Escherichia coli 05/09/21 19:00 Gram Stain - Final Lung Left Lower Lobe 05/09/21 19:00 LUIS Preparation - Final Other Source 05/07/21 15:50 Blood Culture - Preliminary Blood A&P Assessment and plan (1) COVID-19: Status: Acute (2) Acute respiratory distress syndrome: Status: Acute (3) Acute kidney injury superimposed on CKD: Status: Acute (4) Metabolic acidosis: Status: Acute (5) Hemoptysis: Status: Acute (6) Myocarditis due to 2019 novel coronavirus: Status: Acute (7) Afib: Status: Acute (8) Septic shock: Status: Acute (9) Encounter for continuous renal replacement therapy (CRRT) for acute renal failure: Status: Acute Additional A&P Information ARDS secondary to COVID-19 pneumonia along with possible superadded bacterial pneumonia: Ventilator dependent. Continue sedation with propofol fentanyl. Add Precedex. Sedation vacation and weaning trial to check for brain activity/mentation. If patient does not wakes up appropriately will do CT head. Completed remdesivir. Currently on dexamethasone. Continue with DuoNeb, budesonide. D-dimer elevated on admission. Anticoagulation stopped because of occasional hemoptysis. Hemoglobin has trended down. Continue to monitor inflammatory markers including ESR, CRP, D-dimer every 48 hourly. Given ARDS we will try to keep patient as negative for dialysis. Daily weights, strict input output charting. Severe sepsis: Patient has been having intermittent fevers. Repeat urine Legionella, bacterial antigen, MRSA swab remain negative. Blood cultures so far negative. Repeat blood culture for a fever of more than 101. Sputum culture growing E. coli. Sensitivities appreciated. Vanco random level low today. Redose vancomycin and imipenem as per dialysis sessions. Stop Levaquin as per E. coli sensitivities. LUIS mount negative. Has finished a 5-day course of Diflucan on May 09. Levophed as needed keeping mean arterial pressure over 65. Hemoptysis: Recheck chest x-ray ruled out pneumothorax. Can be ventilator associated lung injury versus pulmonary hemorrhage. 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 Will consult tomorrow for possible bronchoscopy. Bronch findings appreciated. Sample send for LUIS mount, fungal Cx, bacterial Cx, MTB PCR, PJP PCR. Acute on stage 3 CKD/ Metabolic acidosis: Resolved. CRRT stopped and switched over to hemodialysis today. Most likely will not require any further sessions tomorrow. Will repeat labs and decide. Medical reconciliation done for nephrotoxic drugs. Nephrology on board. Appreciate nephrology and pulmonology recommendations. Myocarditis/Acute Systolic HF: Most likely secondary to sepsis versus possible myocarditis secondary to COVID-19. Tachycardia: Occasional. Will start on low dose lopressor. Start on ASA 81 mg PO QD. Afib: Intermittent. C/w Amio load. We will switch over to amiodarone milligrams twice daily. GI PPx Protonix 40mg IV BID DVT ppx- Heparin 5000 units Q8hr Prognosis: Severely Guarded. Discussed patient's care in detail with his over the phone. We discussed unfortunately patient has severe COVID-19 pneumonia, ARDS along with multiple organ dysfunction including GUMARO on CKD, new congestive heart failure secondary to possible myocarditis and possible anoxic brain injury. We discussed patient has a severely guarded prognosis. We also discussed it is quite possible that patient can have cardiac arrest. states for now if she would want the patient to remain full code as she would discuss further goals of care with his family. May 10 Again discussed severe guarded prognosis with patient's Ms. Duong over the phone. She states for now she would want to see how patient's mentation is post sedation vacation and decide the dose accordingly. Requesting if she can come in. We did discuss that she can come in and visit with the patient for a short while while making sure safe and social distancing is maintained. states she would like to think before coming in. Attestations Medical Necessity Statement*: Requires further hospitalization for management of severe sepsis, ventilator dependent ARDS secondary to COVID-19 and superadded E. coli pneumonia, metabolic acidosis GUMARO requiring CRRT/hemodialysis. Critical Care Time: The high probability of a clinically significant, sudden or life threatening deterioration of the patient's [pulmonary, cardiac, renal, neurological, social] system(s) required my full and direct attention, intervention and personal management. The critical care time is as shown. 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
--- NOTE | 2021-05-10 11:47 | P.PN_ITS ---
Subjective Subjective: Interval history: - pt seen at bedside today - still sedated and intubated - Plan is to taper off sedation and do awakening trial -Taper down amiodarone drip and plan is to switch to oral amiodarone in the evening -Currently off pressors and renal planning to do 1 session of hemodialysis -Labs and imaging reviewed Medications: Reviewed: Yes Vitals/I&O/Wt Last Vital Signs Temp 96.8 F L 05/10/21 08:00 Pulse 75 05/10/21 11:24 Resp 24 H 05/10/21 11:24 BP 154/99 05/10/21 09:00 Pulse Ox 90 05/10/21 11:24 05/09/21 05/10/21 05/10/21 22:59 06:59 14:59 Intake Total 703 / 1423 450 / 1873 772.621 / 772.621 Output Total 300 / 300 Balance 703 / 1423 150 / 1573 772.621 / 772.621 Weight last 48 hrs Weight 205 lb Weight 205 lb Physical Exam Narrative: EXAM NARRATIVE: General: lying in bed, sedated and intubated. HEENT:NCAT, PERRLA, EOMI Neck: Supple Lungs: Bilateral diffuse coarse crackles Heart: s1/s2, RRR Abd: soft, NT, ND, BS + Normoactive Extremities: No edema COUNTER HOP: sedated and limited COUNTER HOP exam possible. SKIN: no rash LDA: # HD Cath : Right internal jugular Urinary Catheter Management^: William: Cath Placed During This Visit: yes Reason for Continuing Indwelling Catheter: Accurate Measurement of Urinary Output in Critically Ill Patients Urinary Catheter Date of Insertion: 04/28/21 Urinary Catheter Time of Insertion: 16:00 Data : 05/10/21 03:33 05/10/21 09:27 Micro: Microbiology 05/07/21 14:40 Gram Stain - Final Sputum - Endotracheal Tube Aspirate Sputum Culture - Final Escherichia coli 05/09/21 19:00 Gram Stain - Final Lung Left Lower Lobe 05/09/21 19:00 LUIS Preparation - Final Other Source 05/07/21 15:50 Blood Culture - Preliminary Blood A&P Assessment and plan (1) Acute respiratory distress syndrome: Status: Acute (2) Acute hypoxemic respiratory failure: Status: Acute (3) Acute kidney injury superimposed on CKD: Status: Acute (4) NSTEMI (non-ST elevated myocardial infarction): Status: Acute (5) Septic shock: Status: Acute (6) Pneumonia due to 2019-nCoV: Status: Acute (7) Hemoptysis: Status: Acute (8) Myocarditis due to 2019 novel coronavirus: Status: Acute (9) Atrial fibrillation: Status: Acute Qualifiers: Atrial fibrillation type: unspecified chronic Qualified Code(s): I48.20 - Chronic atrial fibrillation, unspecified (10) E. coli pneumonia: Status: Acute #Acute hypoxic respiratory failure secondary to ARDS due to COVID-19 pneumonia-intubated and connected to ventilator #Shock requiring pressor-likely secondary to cardiogenic due to endocarditis and acute CHF versus septic shock #Metabolic acidosis-secondary to GUMARO over stage III CKD-currently on CRRT #Atrial fibrillation on amiodarone #Hemoptysis/bleeding through ET tube-etiology unclear-resolved -Sedated with propofol and fentanyl -plan is to taper down sedation and do awakening trial assessment patient-if patient does not have any meaningful -We will obtain a CT head -Currently intubated currently to ventilator; ABG today 7.4 2/40/63/20 6/92% on 450/12/75% CMV -Chest x-ray today no change in patchy bilateral pulmonary opacities -Hemoptysis/bleeding through ET firw-[id number]-K&H gradual decline-etiology unclear; monitor H&H and transfuse to keep> 7/21 -S/p bronchoscopy 05/09/2021-significant mucosal erythema on left bronchial tree and mucosal edema on right bronchial tree. Blackish discoloration seen on mucosa of left lower lobe. No active bleeding or clot seen. - urine Legionella, bacterial antigen, MRSA swab remain negative. -Patient had episodes of low-grade fever on 05/06/2021 and significant leukocytosis; blood cultures from 05/07/2021-preliminary 09/02 bottles positive for GPC in clusters, sputum cultures-E. coli sensitive to imipenem, Pro-Luis elevated-can be due to renal failure. -Completed remdesivir and currently on Decadron 6 mg IV daily -Currently on vancomycin,imipenem; discontinue Levaquin -Bronchoalveolar lavage bacterial stain and cultures, fungal stain and cultures, PCP, AFB stain and cultures-sent 05/09/2021-are pending - Levophed as needed keeping mean arterial pressure over 65. -Renal functions improving-nephrology below 1 session hemodialysis - Myocarditis/Acute Systolic HF: Most likely secondary to sepsis versus possible myocarditis secondary to COVID-19. Echo showed ejection fraction 40 to 45% -Atrial fibrillation with RVR-on amnio drip-plan is to change to p.o. amiodarone -ASA 81 mg PO QD. -Tube feeding at 15 mls/hr -Received MiraLAX today -GI prophylaxis Protonix 40mg IV BID DVT ppx:HELD - Heparin 5000 units Q8hr ( Bleeding) Clinical condition: Critical Prognosis: Guarded. Hospitalist discussed patient's care in detail with his over the phone regarding severe COVID-19 pneumonia, ARDS along with multiple organ dysfunction including GUMARO on CKD, new congestive heart failure secondary to possible myoca rditis and possible anoxic brain injury and mentioned about severely guarded prognosis. We also discussed it is quite possible that patient can have cardiac arrest. to discuss further goals of care with his family. Attestations Medical Necessity Statement*: Acute hypoxic respiratory failure secondary to ARDS due to COVID-19 pneumonia, new onset LV systolic dysfunction 40 to 45%- secondary to myocarditis due to COVID-19 pneumonia, GUMARO on CKD , E. coli pneumonia on imipenem-other cultures and sensitivity pending-requires close ICU monitoring Critical Care Time: The high probability of a clinically significant, sudden or life threatening deterioration of the patient's [neurological, cardiac, pulm, renal] system(s) required my full and direct attention, intervention and personal management. The critical care time is as shown. This time is in addition to time spent performing any reported procedures but includes the following: [x] Data and vital sign review and interpretation [x] Patient assessment, examination and intervention [x] Documentation [x] Medication orders and management Critical Care Time (min): 45 Coding Level of Care Code Acute Filling Machine Operator for [facility] Fwd Diagnoses Acute respiratory distress syndrome J80 Acute hypoxemic respiratory failure J96.01 Acute kidney injury superimposed on CKD N17.9; N18.9 NSTEMI (non-ST elevated myocardial infarction) I21.4 Septic shock A41.9; R65.21 Pneumonia due to 2019-nCoV U07.1; J12.82 Hemoptysis R04.2 Myocarditis due to 2019 novel coronavirus U07.1; I40.0 Atrial fibrillation I48.20 Atrial fibrillation type: unspecified chronic E. coli pneumonia J15.5
[2021-05-10 12:47] LABS: Glucose Point of Care 65 mg/dL (70-110)
[2021-05-10] MEDS: acetaminophen 325 mg Tablet 650 MG PO (14:40)
[2021-05-10 14:43] LABS: Glucose Point of Care 72 mg/dL (70-110)
[2021-05-10] MEDS: phenylephrine inj 25 MG in sodium chloride 0.9% 250 ML 24.24 MG IV (15:48)
[2021-05-10] MEDS: acetaminophen 1,000 MG/100 ML PIGGYBACK 400 MG IV (15:54)
--- NOTE | 2021-05-10 16:00 | PC.HD ---
Levophed required and output short of UF goal d/t hypotension, and temperature noted to be elevated at end of treatment, Dr Andrews notified with order recieved for blood cultures.
[2021-05-10 16:07] LABS: Hematocrit 26.5 % (42.0-52.0); Retic Production Index 0.46; Reticulocyte % 0.7 % (0.5-2.0)
[2021-05-10] MEDS: dexamethasone 10 mg/mL INJ 6 MG IVP (16:07)
--- NOTE | 2021-05-10 16:23 | PC.NURSE ---
Hemodialysis nurse was able to remove 2342 mL. SHortly after hemodialysis was ended, patient became hypotensive. systolic in the 70's, and heart rate increased to 150. Nurse started levophed and alerted Dr reilly. REceived orders to give albumin, and stop the levophed and switch to neosynephrine. During dialysis the patient's temperature climbed to 101.9 for which PO tylenol was given. Temperature continued to climb and was 102.2 after hemodialysis, nurse also received an order for IV tylenol.
--- NOTE | 2021-05-10 16:26 | PC.NURSE ---
upon assessment, nurse noted abdomen to be warmer on the right side than the left, and firmer to the touch, nurse alerted Dr reilly. received order for miralax.
[2021-05-10 16:28] LABS: Procalcitonin 2.37 ng/mL (0-0.5)
[2021-05-10] MEDS: polyethylene glycol 3350 Pkt 17 gm PO (16:41)
[2021-05-10 18:20] LABS: Glucose Point of Care 88 mg/dL (70-110)
--- NOTE | 2021-05-10 19:37 | PC.NURSE ---
SHift summary: Patient started out getting CRRT, removed 1075 mL. After maintaining a systolic pressure in the 140's for many hours, patient was changed to hemodialysis. Hemodialysis went well with 2342 mL removed. After Dialysis, patient spike a temperature of 102.2, developed tachycardia, and hyotension. Tachycardia and hypotension resolved after albumin was started and levophed was changed to neosynephrine. IV tylenol given for temperature. William replaced today. Total I/O for 05/10/2021 CRRT: -1075 Hemodialysis: -2342 Medication input: Approximately +1415 Total for shift:
[2021-05-10] MEDS: phenylephrine inj 25 MG in sodium chloride 0.9% 250 ML 60.6 MG IV (20:59)
[2021-05-10 21:17] LABS: Glucose Point of Care 100 mg/dL (70-110)
[2021-05-11] VITALS (57 sets, daily range): BP systolic 65–209; BP diastolic 47–136; PULSE 77–178; RESP 23–33; TEMP 36.8–37.9; O2SAT 85–97
[2021-05-11] MEDS: propofol 1,000 MG/100 ML INJ 16.33 MG IV ×2 (02:44→23:42)
[2021-05-11] MEDS: ipratropium-albuterol 3 mL Neb INHALATION ×5 (03:53→21:52)
[2021-05-11 04:09] LABS: Basophils % 0.2 %; Eosinophils # 0.1 10^3/uL (0.0-0.8); Eosinophils % 0.5 %; Hematocrit 28.3 % (42.0-52.0); Hemoglobin 9.6 g/dL (11.7-16.6); Lymphocytes # 0.3 10^3/uL (0.8-4.8); Lymphocytes % 1.5 %; Mean Corpuscular HGB Conc 33.9 g/dL (30.0-36.0); Mean Corpuscular Hemoglobin 30.8 pg (28.0-34.0); Mean Corpuscular Volume 90.7 fl (80-94); Monocytes # 0.4 10^3/uL (0.2-0.9); Monocytes % 2.3 %; Neutrophils # 18.22 10^3/uL (1.8-7.7); Neutrophils % 93.5 %; Nucleated Red Blood Cells % 0 %; Platelet Count 150 10^3/cmm (130-400); Red Blood Count 3.12 10^6/uL (4.1-5.3); Red Cell Distribution Width 14.3 % (12.1-15.1); White Blood Count 19.5 10^3/uL (4.0-10.0)
[2021-05-11 04:39] LABS: D Dimer 4.51 ug/mIFEU (0-0.59)
[2021-05-11 04:43] LABS: Alanine Aminotransferase 31 U/L (0-41); Potassium 4.5 mmol/L (3.5-5.1)
[2021-05-11] MEDS: heparin 5,000 unit/mL INJ 1 mL 5000 UNIT SUBCUT ×3 (05:13→19:49)
[2021-05-11] MEDS: pantoprazole 40 mg SDV IVP ×2 (05:13→16:27)
[2021-05-11 05:34] LABS: Erythrocyte Sedimentation Rate 80 mm/hr (0-10)
[2021-05-11 05:38] LABS: Albumin Level 2.9 g/dL (3.5-5.2); Alkaline Phosphatase 80 IU/L (40-130); Anion Gap 19.5 (5-19); Aspartate Amino Transferase 50 U/L (0-40); Blood Urea Nitrogen 52 mg/dL (8-23); C Reactive Protein 226.3 mg/L (0.0-4.9); Calcium 8.6 mg/dL (8.5-10.5); Carbon Dioxide 20 mmol/L (22-29); Chloride 94 mmol/L (98-107); Globulin 2.2 g/dL (1.3-4.6); Glucose 102 mg/dL (65-115); Magnesium 2.4 mg/dL (1.7-2.3); Osmolality Calculated 282 mOsm/kg (285-295); Phosphorus 5.7 mg/dL (2.5-4.5); Sodium 129 mmol/L (136-145); Total Bilirubin 2.7 mg/dL (0.15-1.2); Total Protein 5.1 g/dL (6.6-8.7)
[2021-05-11 07:28] LABS: Glucose Point of Care 99 mg/dL (70-110)
[2021-05-11] MEDS: lactulose oral liq 20 gm/30 mL UDC 10 GM PO (08:38)
[2021-05-11] MEDS: ascorbic acid 500 mg Tablet PO (08:38)
[2021-05-11] MEDS: zinc gluconate 50 mg Tablet PO (08:38)
[2021-05-11] MEDS: amiodarone 200 mg Tablet PO ×2 (08:38→17:19)
[2021-05-11] MEDS: sucralfate 1 gm/10 mL Oral Liq UDC PO ×2 (08:38→19:48)
[2021-05-11] MEDS: cholecalciferol (vitamin D3) 1,000 unit Tablet 1000 UNIT PO (08:39)
[2021-05-11] MEDS: bisacodyl 5 mg Tablet 10 MG PO (08:39)
[2021-05-11] MEDS: calcium acetate 667 mg Capsule 1334 MG PO ×3 (08:40→17:19)
[2021-05-11] MEDS: hyDRALAzine 20 mg/mL INJ 1 mL 10 MG IVP (10:50)
--- NOTE | 2021-05-11 11:36 | PC.NUTR ---
Nutrition Note: Current goal rate of Nepro @ 35 ml/hr, if run continuously, would provide 1512 kcals (56% est kcal needs) and 68 g protein (103% est. prot needs) and 609 ml H2O. Recommend consideration of goal rate of Nepro@ 40 ml/hr as goal rate, to provide 1728 kcals (64% est. kcal needs), 78g protein (118% est prot needs), and 696 ml H2O. Additional H2O flushes per MD discretion.
--- NOTE | 2021-05-11 11:52 | PC.NURSE ---
sedation decreased as ordered respritory rate increased 30s and blood pressure increased noted when sedation down. aware at this time iv hydralazine given at this time
--- NOTE | 2021-05-11 12:04 | CT_ITS ---
WS: [id number] CTA CHEST ABDOMEN AND PELVIS TECHNIQUE: Contrast enhanced CTA of the chest and abdomen pelvis with coronal and sagittal reformatte d images and additional MIP Images. CLINICAL INFORMATION: covid, possible collection COMPARISON: None. DLP: 2033.[address] scans at [facility] use at least one of these dose optimization techniques: automated e xposure control; mA and/or kV adjustment per patient size (includes targeted exams where dose is matc hed to clinical indication); or iterative reconstruction. FINDINGS: Proximal main pulmonary arteries are normal. Segmental pulmonary arteries appear patent. Distal subse gmental pulmonary arteries not well evaluated due to motion and breathing artifact. No evidence of pu lmonary embolus. Slightly ectatic ascending thoracic aorta measuring 4.3 cm is unchanged. Diffuse hazy bilateral pulmo nary infiltrates compatible with COVID 19 pneumonia. Compressive atelectasis in the lung bases with d eveloping consolidation. Endotracheal tube with tip above the lauren. Enteric tube with tip in the st omach. Enlarged anterior mediastinal, paratracheal, hilar and subcarinal lymph nodes likely reactive. No axillary lymphadenopathy. 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 This appears new from the CTA chest October 08, 2019. True and false lumen are both opacified with slightly delayed enhancement of the false lumen. Celiac and SMA are patent. Proximal renal mandeep iris are patent. Normal renal parenchymal enhancement. Diffuse fatty infiltration of the liver. Sailaja l spleen. Fatty atrophy of the pancreas. William catheter. Rectal distention with sigmoid constipation. Sigmoid diverticulosis. No evidence of h igh-grade small or large bowel obstruction. No abdominal or pelvic lymphadenopathy. CT/CT angio chest w abd pel w con IMPRESSION: Some images degraded due to motion. 1. No evidence for pulmonary embolus. Distal pulmonary arteries not well evalu ated due to artifact and motion. 2. Diffuse bilateral groundglass infiltrates with developing partial consolida tion of the lung bases. Findings compatible with COVID 19 pneumonia. 3. Reactive anterior mediastinal, paratracheal, hilar and subcarinal lymph nod es. 4. Type B Aortic dissection involving the descending thoracic aorta extending into the abdominal aorta. True and false lumen are both opacified. Mesenteric a nd renal arteries are patent. Dissection extends to level of the renal arteries . 5. Rectosigmoid constipation. 6. Normal renal parenchymal enhancement. 7. No other acute findings. Message left for Matt Martinez MD at 05/11/2021 2:29 PM.
--- NOTE | 2021-05-11 12:04 | CT_ITS ---
WS: [id number] CT HEAD TECHNIQUE: Noncontrast CT of the head obtained from the skullbase to the vertex. CLINICAL INFORMATION: anoxic brain injury COMPARISON: April 28, 2021 DLP: 1713.[address] scans at [facility] use at least one of these dose optimization techniques: automated e xposure control; mA and/or kV adjustment per patient size (includes targeted exams where dose is matc hed to clinical indication); or iterative reconstruction. FINDINGS: Images somewhat degraded by patient motion. No evidence of intracranial hemorrhage or mass effect. Ventricular system and basal cisterns are ramos nt. Moderate small vessel changes with moderate parenchymal volume loss. No extra-axial fluid collect ions. No evidence of mass or mass effect. Normal dickey-white differentiation. Fluid within the paranasal sinuses consistent with sinusitis. Air-fluid levels in the left greater th an right maxillary sinus. Fluid within the ethmoid air cells posterior nasopharynx. Fluid within the mastoid air cells bilaterally. CT/CT head wo con* [id number] IMPRESSION: 1. No evidence of intracranial hemorrhage or mass effect. 2. Moderate small vessel changes with moderate parenchymal volume loss. 3. Dickey-white differentiation appears preserved. 4. Paranasal sinusitis worse in the left maxillary sinus. Fluid in the mastoid air cells.
[2021-05-11 12:13] LABS: Glucose Point of Care 98 mg/dL (70-110)
--- NOTE | 2021-05-11 12:28 | PC.SOCIAL ---
IMM Update Unable to speak to patient at this time. Patient is not anticipated to discharge within the next 24-48 hours.
--- NOTE | 2021-05-11 12:35 | PM.PN ---
Subjective Subjective: Interval history: No new issues today. Remains off vasopressor agents. FiO2 remained stable. Mild global anasarca. Medications: Reviewed: Yes Medication Review Details: Current Medications Acetaminophen (Acetaminophen 325 Mg Tablet) 650 mg PO Q6H PRN PRN Reason: Mild/Mod Pain Or Temp >/= 101 Last Admin: 05/05/21 17:19 Dose: 650 mg Documented by: Albuterol/Ipratropium (Ipratropium-Albuterol 3 Ml Neb) 3 ml INHALATION Q4H.RESPIRATORY HIWOT Last Admin: 05/10/21 03:16 Dose: 3 ml Documented by: Alteplase, Recombinant (Alteplase 1 Mg/Ml Sdv 2 Ml) 0 mg INTRACATH Q2H PRN; Protocol PRN Reason: Poor Catheter Flow/ Clotted Catheter Artificial Tears (Artificial Tears Op Oint 3.5 Gm) 1 applic EYE-BOTH PRN PRN PRN Reason: DRY EYE(S) Ascorbic Acid (Ascorbic Acid 500 Mg Tablet) 500 mg PO DAILY [facility] Last Admin: 05/09/21 08:06 Dose: 500 mg Documented by: Bisacodyl (Bisacodyl 5 Mg Tablet) 10 mg PO DAILY HIWOT; Protocol Calcium Acetate (Calcium Acetate 667 Mg Capsule) 1,334 mg PO TIDWM HIWOT Last Admin: 05/09/21 20:05 Dose: 1,334 mg Documented by: Dexamethasone (Dexamethasone 10 Mg/Ml Inj) 6 mg IVP Q24H HIWOT Last Admin: 05/09/21 16:06 Dose: 6 mg Documented by: Dextrose (Dextrose 50% Syringe 50 Ml) 25 ml IVP ONCE PRN; Protocol PRN Reason: hypoglycemia protocol Glucagon (Glucagon 1 Mg/Ml Inj 1 Ml) 1 mg IM ONCE PRN; Protocol PRN Reason: Adult Acute Hypoglycemia Prot. Heparin Sodium (Beef Lung) (Heparin 5,000 Unit/Ml Inj 1 Ml) 5,000 unit SUBCUT Q8H HIWOT Last Admin: 05/10/21 04:08 Dose: 5,000 unit Documented by: Heparin Sodium (Beef Lung) (Heparin Lock Flush 500 Unit/5 Ml Syringe) 500 unit IV PRN PRN PRN Reason: At CRRT disconnect Last Admin: 05/09/21 18:24 Dose: 500 unit Documented by: Heparin Sodium (Porcine) (Heparin, Porcine 1,000 Unit/Ml Inj 10 Ml) 1,000 unit CRRT PROTOCOL PRN; Protocol PRN Reason: Heparin CRRT subsequent bolus Protocol Propofol (Diprivan) 1,000 mg in 100 mls @ 0 mls/hr IV .Q0M HIWOT; Protocol Last Admin: 05/10/21 05:21 Dose: 50 mcg/kg/min, 27.22 mls/hr Documented by: Cisatracurium Besylate 100 mg/ (Sodium Chloride) 100 mls @ 0 mls/hr IV .Q0M HIWOT; Protocol Last Titration: 05/02/21 09:59 Dose: 0 mcg/kg/min, 0 mls/hr Documented by: Norepinephrine Bitartrate 4 mg (/ Dextrose) 254 mls @ 0 mls/hr IV .Q0M HIWOT; Protocol Last Admin: 05/09/21 19:25 Dose: 2 mcg/min, 7.62 mls/hr Documented by: Dextrose (D5w) 500 mls @ 100 mls/hr IV ONCE PRN; Protocol PRN Reason: Adult Acute Hypoglycemia Prot Vancomycin/PEG/NADA/Lysine/Water (Vancocin) 1,250 mg in 250 mls @ 250 mls/hr IV Q24H HIWOT Last Admin: 05/04/21 20:49 Dose: 250 mls/hr Documented by: dexmedeTOMIDine 0.9 % NaCL (Dexmedetomidine-Ns) 400 mcg in 100 mls @ 0 mls/hr IV .Q0M HIWOT; Protocol Last Titration: 05/04/21 10:08 Dose: 0 mcg/kg/hr, 0 mls/hr Documented by: Phenylephrine HCl 25 mg/ (Sodium Chloride) 252.5 mls @ 0 mls/hr IV .Q0M HIWOT; Protocol Last Titration: 05/08/21 16:56 Dose: 0 mcg/min, 0 mls/hr Documented by: Fentanyl 1,000 mcg/ Sodium (Chloride) 100 mls @ 0 mls/hr IV .Q0M HIWOT; Protocol Last Admin: 05/10/21 02:33 Dose: 100 mcg/hr, 10 mls/hr Documented by: Levofloxacin/Dextrose (Levaquin-D5w) 500 mg in 100 mls @ 100 mls/hr IV Q48H HIWOT; Protocol Last Infusion: 05/08/21 22:12 Dose: Infused Documented by: Heparin Sodium (Porcine) 20, (000 unit/ N/A) 20 mls @ 0 mls/hr CRRT .Q0M HIWOT; Protocol Last Admin: 05/09/21 13:27 Dose: 10 unit/kg/hr, 0.9 mls/hr Documented by: Imipenem/Cilastatin Sodium 250 (mg/ Sodium Chloride) 100 mls @ 200 mls/hr IV Q12H HIWOT; Protocol Last Infusion: 05/10/21 01:35 Dose: Infused Documented by: Amiodarone HCl 900 mg/Dextrose/ IV Miscellaneous Supplies 518 mls @ 0 mls/hr IV .Q0M HIWOT; Protocol Last Admin: 05/09/21 17:17 Dose: 1 mg/min, 34.53 mls/hr Documented by: Albumin Human (Albumin) 12.5 gm in 50 mls @ 60 mls/hr IV Q8H HIWOT Last Admin: 05/10/21 02:07 Dose: 60 mls/hr Documented by: Lactulose (Lactulose Oral Liq 20 Gm/30 Ml Udc) 10 gm PO DAILY [facility]; Protocol Metoprolol Tartrate (Metoprolol Tartrate 25 Mg Tablet) 12.5 mg PO BID@0900,2100 [facility] Last Admin: 05/09/21 21:46 Dose: 12.5 mg Documented by: Ondansetron HCl (Ondansetron 2 Mg/Ml Sdv 2 Ml) 4 mg IVP Q8H PRN PRN Reason: vomiting, or N/V if npo Pantoprazole Sodium (Pantoprazole 40 Mg Sdv) 40 mg IVP Q12H HIWOT Last Admin: 05/10/21 05:20 Dose: 40 mg Documented by: Sodium Chloride (Sodium Chloride 0.9% 1,000 Ml Bag) 1,000 - 7,000 ml CRRT PRN PRN PRN Reason: For priming CRRT Machine Last Admin: 05/09/21 05:36 Dose: 2,000 ml Documented by: Sucralfate (Sucralfate 1 Gm/10 Ml Oral Liq Udc) 1 gm PO Q12H HIWOT Last Admin: 05/09/21 21:46 Dose: 1 gm Documented by: Vitamin D (Cholecalciferol (Vitamin D3) 1,000 Unit Tablet) 1,000 unit PO DAILY HIWOT Last Admin: 05/09/21 08:07 Dose: 1,000 unit Documented by: Zinc Gluconate (Zinc Gluconate 50 Mg Tablet) 50 mg PO DAILY HIWOT Last Admin: 05/09/21 08:06 Dose: 50 mg Documented by: Vitals/I&O/Wt Last Vital Signs Temp 98.2 F 05/11/21 04:00 Pulse 126 H 05/11/21 12:00 Resp 32 H 05/11/21 11:44 BP 201/124 05/11/21 12:00 Pulse Ox 91 05/11/21 12:00 05/10/21 05/11/21 05/11/21 22:59 06:59 14:59 Intake Total 1464.683 / 2437.304 821.105 / 3258.409 194.25 / 194.25 Output Total 2435 / 5852 200 / 6052 Balance -970.317 / -3414.696 621.105 / -2793.591 194.25 / 194.25 Weight last 48 hrs Weight 90.8 kg Weight 92.986 kg Physical Exam Narrative: EXAM NARRATIVE: Constitutional: Sedated and vented HEENT: Wet mucosa, no jvp, non icteric Lungs: Bilaterally diminshed, without discernible wheeze, rales in all lung zones CVS: S1 S2, no murmurs Abdo: Soft, BS ok Ext 4: global edema, peripheral perfusion with no cyanosis Neurological: Grossly non-focal Urinary Catheter Management^: William: Cath Placed During This Visit: yes Reason for Continuing Indwelling Catheter: Accurate Measurement of Urinary Output in Critically Ill Patients Urinary Catheter Date of Insertion: 05/10/21 Urinary Catheter Time of Insertion: 19:15 Data : 05/11/21 03:55 05/11/21 03:55 Micro: Microbiology 05/10/21 18:30 Blood Culture - Preliminary Blood SPECIMEN COLLECTED 05/10/21 18:15 Blood Culture - Preliminary Blood SPECIMEN COLLECTED 05/09/21 19:00 Gram Stain - Final Lung Left Lower Lobe Bronchoalveolar Lavage Culture - Preliminary 05/07/21 14:40 Gram Stain - Final Sputum - Endotracheal Tube Aspirate Sputum Culture - Final Escherichia coli 05/09/21 19:00 LUIS Preparation - Final Other Source A&P Additional A&P Information 1. Acute on chronic kidney disease We commonly see this in Covid pneumonitis, it is a multifactorial process. ? Vanco assoc ATN/AIN Plan for dialysis today, 3K, UF 3-4L as tolerated Daily evaluation for need for renal replacement therapy Close monitoring of serum chemistry Daily renal panel Close monitoring of I's and O's Dose medications for GFR less than 30 Avoid usual nephrotoxic agents 2. Covid pneumonitis Unfortunately was not vaccinated Receiving combination medication including remdesivir, Vanco, levaquin, cefepime, has received steroids. Dose Vanco to keep level < 20 Vent settings per ICU 3. Lytes Well balanced 4. Hemodynamics Robust today Currently family wish to continue aggressive care. As he continues to develop multisystem organ failure including renal failure requiring CRRT the prognosis becomes ever more poor. Ongoing discussions with family members regarding goals of care. Mirza Arechiga MD Nephrology [phone] Patient seen and examined via telemedicine, with the assistance of the bedside RN > 25 min spent in evaluation and mgmt of patient Attestations Medical Necessity Statement*: eVal for GUMARO Coding Level of Care Code Acute Frit Mixer And Burner for Silvana Lennon
[2021-05-11 13:16] LABS: Vit D 1,25 (Oh)2, Total 66 pg/mL (18-72); Vit D2 1,25 (Oh)2 <8 pg/mL; Vit D3 1,25 (Oh)2 66 pg/mL
--- NOTE | 2021-05-11 13:45 | PM.PN ---
Subjective Subjective: Interval history: Patient seen at bedside today -Yesterday had some fever spikes and white count up to 19 K -So far sputum cultures positive for E. coli sensitive to imipenem and also patient is on vancomycin -Yesterday postdialysis 2.8 L fluid was removed FiO2 down to 70% on ventilator -Off propofol and on fentanyl 50 but patient barely opens eyes -Patient had CT head, chest abdomen pelvis-which revealed type B artery dissection -Family updated in detail contemplating comfort care tomorrow Medications: Reviewed: Yes Vitals/I&O/Wt Last Vital Signs Temp 98.2 F 05/11/21 04:00 Pulse 126 H 05/11/21 12:00 Resp 32 H 05/11/21 11:44 BP 201/124 05/11/21 12:00 Pulse Ox 91 05/11/21 12:00 05/10/21 05/11/21 05/11/21 22:59 06:59 14:59 Intake Total 1464.683 / 2437.304 821.105 / 3258.409 194.25 / 194.25 Output Total 2435 / 5852 200 / 6052 Balance -970.317 / -3414.696 621.105 / -2793.591 194.25 / 194.25 Weight last 48 hrs Weight 200 lb 2.876 oz Weight 205 lb Physical Exam Narrative: EXAM NARRATIVE: General: lying in bed, sedated and intubated. HEENT:NCAT, PERRLA, EOMI Neck: Supple Lungs: Bilateral diffuse coarse crackles Heart: s1/s2, RRR Abd: soft, NT, ND, BS + Normoactive Extremities: No edema EMERGENCY ROOM REGISTERED NURSE: sedated and limited EMERGENCY ROOM REGISTERED NURSE exam possible. SKIN: no rash LDA: # HD Cath : Right internal jugular Urinary Catheter Management^: William: Cath Placed During This Visit: yes Reason for Continuing Indwelling Catheter: Accurate Measurement of Urinary Output in Critically Ill Patients Urinary Catheter Date of Insertion: 05/10/21 Urinary Catheter Time of Insertion: 19:15 Data : 05/11/21 03:55 05/11/21 03:55 Other Labs: Laboratory Results WBC 19.5 10^3/uL (4.0-10.0) H 05/11/21 03:55 RBC 3.12 10^6/uL (4.1-5.3) L 05/11/21 03:55 Hgb 9.6 g/dL (11.7-16.6) L 05/11/21 03:55 Hct 28.3 % (42.0-52.0) L 05/11/21 03:55 MCV 90.7 fl (80-94) 05/11/21 03:55 MCH 30.8 pg (28.0-34.0) 05/11/21 03:55 MCHC 33.9 g/dL (30.0-36.0) 05/11/21 03:55 RDW 14.3 % (12.1-15.1) 05/11/21 03:55 Plt Count 150 10^3/cmm (130-400) 05/11/21 03:55 MPV 11.0 fL (7.4-10.4) H 05/11/21 03:55 Neut % (Auto) 93.5 % 05/11/21 03:55 Lymph % (Auto) 1.5 % 05/11/21 03:55 [place] % (Auto) 2.3 % 05/11/21 03:55 Eos % (Auto) 0.5 % 05/11/21 03:55 Baso % (Auto) 0.2 % 05/11/21 03:55 Reticulocyte % (Auto) 0.7 % (0.5-2.0) 05/10/21 03:33 Neut # (Auto) 18.22 10^3/uL (1.8-7.7) H 05/11/21 03:55 Lymph # (Auto) 0.3 10^3/uL (0.8-4.8) L 05/11/21 03:55 [place] # (Auto) 0.4 10^3/uL (0.2-0.9) 05/11/21 03:55 Eos # (Auto) 0.1 10^3/uL (0.0-0.8) 05/11/21 03:55 Baso # (Auto) 0.0 10^3/uL (0.0-0.1) 05/11/21 03:55 Nucleated RBC % (auto) 0 % 05/11/21 03:55 Total Counted 100 (0-100) 05/01/21 05:27 Atypical Lymphs % 1.0 % (0-5) 05/01/21 05:27 Absolute Neutrophils 18.6 10^3/cmm (1.4-6.5) H 05/01/21 05:27 Segmented Neutrophils 69 % 05/01/21 05:27 Abs Segm Neuts (Man) 15.3 10/cmm (1.6-7.1) H 05/01/21 05:27 Band Neutrophils 15.0 % 05/01/21 05:27 Abs Band Neuts (Man) 3.3 10^3/cmm (0.0-1.2) H 05/01/21 05:27 Absolute Lymphocytes 1.3 10^3/cmm (1.2-3.4) 05/01/21 05:27 Lymphocytes (Manual) 5 % 05/01/21 05:27 Monocytes (Manual) 6.0 % 05/01/21 05:27 Absolute Monocytes 1.3 10^3/cmm (0.1-0.6) H 05/01/21 05:27 Eosinophils (Manual) 0 % 05/01/21 05:27 Absolute Eosinophils 0.0 10^3/cmm (0.0-0.7) 05/01/21 05:27 Basophils (Manual) 0.0 % 05/01/21 05:27 Absolute Basophils 0.0 10^3/cmm (0.0-0.2) 05/01/21 05:27 Metamyelocytes 1.0 % 05/01/21 05:27 Myelocytes 3.0 % 05/01/21 05:27 Nucleated RBCs 1.0 /100WBC (0-1) 05/01/21 05:27 Nucleated RBCs # 0.0 /100WBC 05/11/21 03:55 Platelet Estimate Normal (Normal) 05/01/21 05:27 ESR 80 mm/hr (0-10) H 05/11/21 03:55 Retic Production Index 0.46 05/10/21 03:33 PT 16.20 SECONDS (12.1-14.9) H 05/06/21 04:00 PT Cancelled 05/06/21 04:00 INR 1.27 (0.8-1.2) H 05/06/21 04:00 INR Cancelled 05/06/21 04:00 APTT 31.6 SECONDS (23.9-36.7) D 05/10/21 09:27 Fibrinogen 713 mg/dL (174-498) H 05/05/21 04:00 Fibrin Degrad Products Pos, 10-40 ug/mL (NEG) H 05/01/21 05:27 D-Dimer 4.51 ug/mIFEU (0-0.59) H 05/11/21 03:55 Specimen Type Arterial 05/10/21 04:55 Sample Site Radial, right 05/10/21 04:55 ABG pH 7.42 (7.35-7.45) 05/10/21 04:55 ABG pCO2 40.6 mmHg (35-45) 05/10/21 04:55 ABG pO2 63.4 mmHg (80.0-100.0) L 05/10/21 04:55 ABG HCO3 26.2 mmol/L (22-26) H 05/10/21 04:55 ABG O2 Saturation 92.5 05/10/21 04:55 ABG Base Excess 1.6 mmol/L (-2.0-2.0) 05/10/21 04:55 [place] Test Pos 05/10/21 04:55 A-a O2 Gradient 54.7 mmHg (5-10) H 05/10/21 04:55 Hematocrit 29.2 % (42-52) L 05/10/21 04:55 Hgb O2 Saturation 90.9 % (95-100) L 05/10/21 04:55 Carboxyhemoglobin 1.4 %THgb (0.4-20.1) 05/10/21 04:55 Methemoglobin 0.3 % (0.4-1.5) L 05/10/21 04:55 Total Hemoglobin 9.5 g/dL (14-18) L 05/10/21 04:55 Sodium 136.0 mmol/L (131-143) 05/10/21 04:55 Potassium 3.7 mmol/L (3.5-5.0) 05/10/21 04:55 Glucose 120.0 mg/dL (70-115) H 05/10/21 04:55 Ionized Calcium 1.3 mmol/L (1.1-1.4) 05/10/21 04:55 O2 Delivery Device Vent 05/10/21 04:55 FiO2 75.0 % 05/10/21 04:55 Tidal Volume 0.45 05/10/21 04:55 PEEP 12.0 cmH20 05/10/21 04:55 Clinical Laboratory Aides Teacher ID [place] 05/10/21 04:55 Sodium 129 mmol/L (136-145) L 05/11/21 03:55 Potassium 4.5 mmol/L (3.5-5.1) 05/11/21 03:55 Chloride 94 mmol/L (98-107) L 05/11/21 03:55 Carbon Dioxide 20 mmol/L (22-29) L 05/11/21 03:55 Anion Gap 19.5 (5-19) H 05/11/21 03:55 BUN 52 mg/dL (8-23) H 05/11/21 03:55 Creatinine 2.4 mg/dL (0.7-1.2) H 05/11/21 03:55 GFR Calculation Not Reportable 05/11/21 03:55 Glucose 102 mg/dL (65-115) 05/11/21 03:55 POC Glucose 98 mg/dL (70-110) 05/11/21 11:36 Estimat Average Glucose 117 04/28/21 18:08 Hemoglobin A1c 5.7 % (4.0-6.0) 04/28/21 18:08 Calculated Osmolality 282 mOsm/kg (285-295) L 05/11/21 03:55 Lactic Acid 5.5 mmol/L (0.5-2.2) H* 04/28/21 15:50 Lactic Acid (Sepsis) 3.5 mmol/L (0.5-2.2) H 04/28/21 18:08 Lactate 1.4 mmol/L (0.5-2.2) 05/01/21 05:27 Calcium 8.6 mg/dL (8.5-10.5) 05/11/21 03:55 Phosphorus 5.7 mg/dL (2.5-4.5) H D 05/11/21 03:55 Magnesium 2.4 mg/dL (1.7-2.3) H 05/11/21 03:55 Iron 70 ug/dL (59-158) 05/07/21 05:10 TIBC 120 mcg/dl 05/07/21 05:10 % Saturation 58.3 % (20-50) H 05/07/21 05:10 Unsat Iron Binding 50 ug/dL (112-347) L 05/07/21 05:10 Ferritin 1672 ng/mL (30-400) H 05/04/21 06:38 Total Bilirubin 2.7 mg/dL (0.15-1.2) H 05/11/21 03:55 AST 50 U/L (0-40) H 05/11/21 03:55 ALT 31 U/L (0-41) 05/11/21 03:55 Alkaline Phosphatase 80 IU/L (40-130) 05/11/21 03:55 Lactate Dehydrogenase 482 U/L (135-225) H 05/08/21 11:50 Creatine Kinase 209 U/L (39-308) 05/01/21 05:27 Troponin T Baseline 162 ng/L (0-15) H* 04/28/21 15:50 Troponin T 120 Minute 179.5 ng/L (0-15) H 04/28/21 18:08 Delta Troponin T 17.5 ABS# (0-10) H* 04/28/21 18:08 Troponin T Hi Sens 6Hr 139.6 ng/L (0-15) H 04/28/21 21:45 Troponin T Hi Sens 6Hr Delta -22.4 ng/L (0-12) L 04/28/21 21:45 C-Reactive Protein 226.3 mg/L (0.0-4.9) H 05/11/21 03:55 NT-Pro-B Natriuret Pep 4975 pg/mL (0-450) H 05/10/21 03:33 Total Protein 5.1 g/dL (6.6-8.7) L 05/11/21 03:55 Albumin 2.9 g/dL (3.5-5.2) L 05/11/21 03:55 Globulin 2.2 g/dL (1.3-4.6) 05/11/21 03:55 Triglycerides 178 mg/dL (0-150) H 04/28/21 18:08 Cholesterol 98 mg/dL (0-200) 04/28/21 18:08 LDL Cholesterol, Calc 32 mg/dL (50-129) L 04/28/21 18:08 HDL Cholesterol 30 mg/dL (60-100) L 04/28/21 18:08 LDL/HDL Ratio 1.07 RATIO (0.00-3.22) 04/28/21 18:08 Cholesterol/HDL Ratio 3.27 mg/dL (1.0-5.00) 04/28/21 18:08 Lipase 89 U/L (13-60) H 04/28/21 15:50 Interleukin 6 145.00 pg/mL (<5.00) H 04/28/21 15:50 25-OH Vitamin D Total 66 pg/mL (18-72) 05/06/21 04:00 1,25 Dihydroxy Vit D2 <8 pg/mL 05/06/21 04:00 1,25 Dihydroxy Vit D3 66 pg/mL 05/06/21 04:00 Procalcitonin 2.37 ng/mL (0-0.5) H 05/10/21 03:33 TSH 0.16 uIU/mL (0.27-4.20) L 04/28/21 18:08 Random Cortisol 12.24 ug/dL (2.47-19.5) 04/29/21 04:00 Urine Color Straw (Yellow) 05/07/21 16:00 Urine Appearance Clear (CLEAR) 05/07/21 16:00 Urine pH 5 (5-7) 05/07/21 16:00 Ur Specific [place] 1.015 (1.005-1.030) 05/07/21 16:00 Urine Protein Trace (Negative) 05/07/21 16:00 Urine Glucose (UA) Norm (Normal) 05/07/21 16:00 Urine Ketones Negative (Negative) 05/07/21 16:00 Urine Blood 3+ (Negative) H 05/07/21 16:00 Urine Nitrate Negative (Negative) 05/07/21 16:00 Urine Bilirubin Neg (Negative) 05/07/21 16:00 Prot Sulfosalicylic Acd Cancelled 05/07/21 14:30 Urine Urobilinogen Norm mg/dL (Negative) 05/07/21 16:00 Ur Leukocyte Esterase Negative (Negative) 05/07/21 16:00 Urine RBC 5-10 /hpf (0-2) H 05/07/21 16:00 Urine WBC Rare /hpf (0-5) 05/07/21 16:00 Ur Eosinophil Smear 0 (0-0) 04/28/21 16:15 Ur Squamous Epith Cells None /hpf (0-5) 05/07/21 16:00 Ur Transition Epith Cell Cancelled 05/07/21 14:30 Ur Renal Epithelial Cell Cancelled 05/07/21 14:30 Calcium Oxalate Crystal Cancelled 05/07/21 14:30 Uric Acid Crystals Cancelled 05/07/21 14:30 Triple Phos Crystals Cancelled 05/07/21 14:30 Other Crystals Cancelled 05/07/21 14:30 Amorphous Sediment 1+ /hpf 05/07/21 16:00 Urine Bacteria Trace /hpf (NONE) 05/07/21 16:00 Hyaline Casts Cancelled 05/07/21 14:30 Fine Granular Casts Cancelled 05/07/21 14:30 Coarse Granular Casts Cancelled 05/07/21 14:30 RBC Casts Cancelled 05/07/21 14:30 Other Casts Cancelled 05/07/21 14:30 Urine Mucus Cancelled 05/07/21 14:30 Urine Trichomonas Cancelled 05/07/21 14:30 Urine Yeast Cancelled 05/07/21 14:30 Urine Sperm Cancelled 05/07/21 14:30 Ur Oval Fat Bodies Cancelled 05/07/21 14:30 Urine Eosinophils No eosinophils seen 04/28/21 16:15 Urine Osmolality 465 mOsm/kg (50-1200) 04/28/21 16:15 Ur Random Sodium 23 mmol/L 05/04/21 15:50 Ur Random Potassium 30 mmol/L 04/28/21 16:15 Ur Random Chloride < 10 mmol/L 04/28/21 16:15 Urine Creatinine 73 mg/dL (39-259) 05/04/21 15:50 Vancomycin Trough 22.0 ug/mL (10-15) H 05/04/21 19:25 Random Vancomycin 7.5 ug/mL (20.0-40.0) L 05/10/21 03:33 Hep Bs Antigen Non-reactive (Nonreactive) 05/06/21 04:00 Hep Bs Antibody < 3.5 (11.5-1000) L 05/06/21 04:00 Hep B Core Total Ab Non-reactive (Nonreactive) 05/06/21 04:00 Hepatitis C Antibody Non-reactive (Nonreactive) 05/06/21 04:00 A. galactomannan Ag EIA Not detected 04/28/21 18:08 A. galactomannan Ag Idx <0.50 04/28/21 18:[address] 04/28/21 16:37 IMPRESSION: No acute intracranial abnormality. Radiation Dose CTDIVOL = (mGy): DLP = 916.02 (mGy-cm) Renal Ultrasound 04/29/21 17:34 IMPRESSION: Unremarkable kidneys Venous Duplex 04/29/21 17:34 IMPRESSION: No evidence of deep vein thrombosis. Chest X-Ray 05/09/21 08:34 Impression: 1. No change in multiple tubes. 2. No change in patchy bilateral pulmonary opacities. Micro: Microbiology 05/09/21 19:00 Gram Stain - Final Lung Left Lower Lobe Bronchoalveolar Lavage Culture - Preliminary Yeast 05/10/21 18:30 Blood Culture - Preliminary Blood SPECIMEN COLLECTED 05/10/21 18:15 Blood Culture - Preliminary Blood SPECIMEN COLLECTED 05/07/21 14:40 Gram Stain - Final Sputum - Endotracheal Tube Aspirate Sputum Culture - Final Escherichia coli A&P Assessment and plan (1) Acute respiratory distress syndrome: Status: Acute (2) Acute hypoxemic respiratory failure: Status: Acute (3) Acute kidney injury superimposed on CKD: Status: Acute (4) NSTEMI (non-ST elevated myocardial infarction): Status: Acute (5) Septic shock: Status: Acute (6) Pneumonia due to 2019-nCoV: Status: Acute (7) Hemoptysis: Status: Acute (8) Myocarditis due to 2019 novel coronavirus: Status: Acute (9) Atrial fibrillation: Status: Acute Qualifiers: Atrial fibrillation type: unspecified chronic Qualified Code(s): I48.20 - Chronic atrial fibrillation, unspecified (10) E. coli pneumonia: Status: Acute (11) Descending thoracic aortic dissection: Status: Acute #Acute hypoxic respiratory failure secondary to ARDS due to COVID-19 pneumonia-intubated and connected to ventilator #Shock requiring pressor-likely secondary to cardiogenic due to endocarditis and acute CHF versus septic shock #Metabolic acidosis-secondary to GUMARO over stage III CKD-currently on CRRT #Atrial fibrillation on amiodarone #Hemoptysis/bleeding through ET tube-etiology unclear-resolved #Type B aortic dissection -Sedated with propofol and fentanyl -plan is to taper down sedation and do awakening trial -Head CT today no acute events -Currently intubated currently to ventilator; currently 450/12/70% CMV -Chest x-ray today no change in patchy bilateral pulmonary opacities -Hemoptysis/bleeding through ET [id number]-L&H gradual decline-etiology unclear; monitor H&H and transfuse to keep> 7/21 -S/p bronchoscopy 05/09/2021-significant mucosal erythema on left bronchial tree and mucosal edema on right bronchial tree. Blackish discoloration seen on mucosa of left lower lobe. No active bleeding or clot seen. - urine Legionella, bacterial antigen, MRSA swab remain negative. -Patient had episodes of low-grade fever on 05/06/2021 and significant leukocytosis; blood cultures from 05/07/2021-preliminary 09/02 bottles positive for GPC in clusters, sputum cultures-E. coli sensitive to imipenem, Pro-Luis elevated-can be due to renal failure. -Completed remdesivir and currently on Decadron 6 mg IV daily -Currently on vancomycin,imipenem; discontinue Levaquin -Bronchoalveolar lavage bacterial stain and cultures, fungal stain and cultures, PCP, AFB stain and cultures-sent 05/09/2021-are pending - Levophed as needed keeping mean arterial pressure over 65.- -CT chest today showed type B aortic dissection extending up to the origin of renal arteries-closely monitor blood pressure and keep SBP less than 140 -Definitely patient is not a surgical candidate -Metabolic acidosis and Renal functions worsening-nephrology to continue hemodialysis - Myocarditis/Acute Systolic HF: Most likely secondary to sepsis versus possible myocarditis secondary to COVID-19. Echo showed ejection fraction 40 to 45% -Atrial fibrillation with RVR-on amnio drip-plan is to change to p.o. amiodarone -ASA 81 mg PO QD. -Tube feeding at 15 mls/hr -Received MiraLAX today -GI prophylaxis Protonix 40mg IV BID DVT ppx:HELD - Heparin 5000 units Q8hr ( Bleeding) Clinical condition: Critical Prognosis: Guarded. -CODE STATUS: DNR, no escalation of care and possible terminal extubation tomorrow Hospitalist discussed patient's care in detail with his over the phone regarding severe COVID-19 pneumonia, ARDS along with multiple organ dysfunction including GUMARO on CKD, new congestive heart failure secondary to possible myocarditis and possible anoxic brain injury and mentioned about severely guarded prognosis. We also discussed it is quite possible that patient can have cardiac arrest. With this new onset type B aortic dissection and there is severe ARDS-family decided to not to escalate care and possible terminal extubation tomorrow Attestations Medical Necessity Statement*: Acute hypoxic respiratory failure secondary to ARDS due to COVID-19 pneumonia, new onset LV systolic dysfunction 40 to 45%-secondary to myocarditis due to COVID-19 pneumonia, GUMARO on CKD , E. coli pneumonia on imipenem-other cultures and sensitivity pending-requires close ICU monitoring Critical Care Time: The high probability of a clinically significant, sudden or life threatening deterioration of the patient's [neurological, cardiac, pulm, renal, vascular] system(s) required my full and direct attention, intervention and personal management. The critical care time is as shown. This time is in addition to time spent performing any reported procedures but includes the following: [x] Data and vital sign review and interpretation [x] Patient assessment, examination and intervention [x] Documentation [x] Medication orders and management Critical Care Time (min): 45 Coding Level of Care Code Established Pt Acute [employer] for [facility] Fwd Patient Type Established History Comprehensive Exam Comprehensive Medical Decision Making High Complexity Diagnoses Acute respiratory distress syndrome J80 Acute hypoxemic respiratory failure J96.01 Acute kidney injury superimposed on CKD N17.9; N18.9 NSTEMI (non-ST elevated myocardial infarction) I21.4 Septic shock A41.9; R65.21 Pneumonia due to 2019-nCoV U07.1; J12.82 Hemoptysis R04.2 Myocarditis due to 2019 novel coronavirus U07.1; I40.0 Atrial fibrillation I48.20 Atrial fibrillation type: unspecified chronic E. coli pneumonia J15.5 Descending thoracic aortic dissection I71.01 Time Spent (min) 45
[2021-05-11] MEDS: iodixanol 320 mg/mL 100mL Btl IV (13:58)
[2021-05-11] MEDS: hyDRALAzine 20 mg/mL INJ 1 mL 5 MG IVP (14:05)
--- NOTE | 2021-05-11 14:07 | PC.NURSE ---
blood pressure remains elevated one time med noted given to go to ct noted large amts of emesis of tube feeding ... flushed ect stopped at this time
[2021-05-11] MEDS: albumin 12.5 GM/50 ML VIAL IV ×2 (14:57→19:08)
--- NOTE | 2021-05-11 15:04 | PC.NURSE ---
dialysis in progresss noted lower bloodpressure and increased heart rate less fluid removal and infused albumin at this time
--- NOTE | 2021-05-11 15:18 | P.PN_ITS ---
Subjective Subjective: Interval history: Seen multiple times during the day. Today morning on examination was being turned down on sedation with switching off of propofol and fentanyl been turned down to 25 mics with blood pressure going up with mean of around 100 which was treated with IV hydralazine. Patient did not have any meaningful waking up, not following simple commands. Given the same and critical illness CT scan head and CT a chest and abdomen pelvis was done which showed severe ARDS, descending thoracic aortic dissection with true and false lumen up to the level of the renal arteries. Given the above new findings on the CT scan and patient not waking up appropriately further goals of care discussion were done with his over the phone. We discussed that unfortunately Mr. Chirinos has been on a ventilator for 13 days complicated by E. coli pneumonia and now yeast growing in the sputum with severe ARDS and new thoracic abdominal aortic dissection and given the above he is severely critically ill and has a very very high chance of poor adverse outcome along with a very high chance of not returning back to his baseline health even if he survives the hospitalization. Ms. Duong states that at this point it would be best if we make Mr. Chirinos comfortable. She is requesting for terminal extubation tomorrow and holding off on today. She is okay on holding off on dialysis for today as dialysis can cause hemodynamic instability and cardiac arrest. She is requesting to find out if her family members can visit with Mr. Chirinos before the same. Patient has 12 children. CODE STATUS changed to DNR/DNI in the system. Medications: Reviewed: Yes Vitals/I&O/Wt Last Vital Signs Temp 98.2 F 05/11/21 04:00 Pulse 126 H 05/11/21 14:00 Resp 32 H 05/11/21 11:44 BP 201/124 05/11/21 12:00 Pulse Ox 91 05/11/21 12:00 05/11/21 05/11/21 05/11/21 06:59 14:59 22:59 Intake Total 821.105 / 3258.409 194.25 / 194.25 Output Total 200 / 6052 Balance 621.105 / -2793.591 194.25 / 194.25 Weight last 48 hrs Weight 90.8 kg Weight 92.986 kg Physical Exam Narrative: EXAM NARRATIVE: Intubated, sedated, on the ventilator Const: COMMON NORMALS: no acute distress OTHER: intubated and sedated HENMT: COMMON NORMALS: normocephalic HEAD & SCALP: normocephalic Eye: OTHER: Pupils Lymph: LYMPHATIC: no lymphadenopathy noted Chest: COMMONS NORMALS: normal inspection of the chest Resp: COMMON NORMALS: normal respiratory effort, No retractions, No use of accessory muscles and clear to auscultation bilaterally EFFORT & INSPECTION: Yes symmetric chest movement AUSCULTATION: clear to auscultation bilaterally and diminished lung sounds diffuse OTHER: Vented sounds b/l Cardio: COMMON NORMALS: regular rate, regular rhythm, S1 normal heart sound p resent and S2 normal heart sound present RATE: regular rate RHYTHM: regular rhythm HEART SOUNDS: S1 normal heart sound present and S2 normal heart sound present GI: COMMON NORMALS: Normal to inspection, nondistended, normoactive bowel sounds present, Soft to palpation, non-tender and no bruits PALPATION: Yes Soft to palpation : OTHER: William catheter in place, William bag blood within the urine Extremity: COMMON NORMALS: no pedal edema NARRATIVE EXTREMITY EXAM: Right art line in place, left femoral line in place GENERAL: No edema OTHER: DP PT pulses palpable Neuro: OTHER: on vent Skin: COMMON NORMALS: no rashes or lesions noted, turgor normal and no mottling GENERAL SKIN EXAM: no rashes or lesions noted and turgor normal Urinary Catheter Management^: William: Cath Placed During This Visit: yes Reason for Continuing Indwelling Catheter: Accurate Measurement of Urinary Output in Critically Ill Patients Urinary Catheter Date of Insertion: 05/10/21 Urinary Catheter Time of Insertion: 19:15 Data : 05/11/21 03:55 05/11/21 03:55 Micro: Microbiology 05/09/21 19:00 Gram Stain - Final Lung Left Lower Lobe Bronchoalveolar Lavage Culture - Preliminary Yeast 05/10/21 18:30 Blood Culture - Preliminary Blood SPECIMEN COLLECTED 05/10/21 18:15 Blood Culture - Preliminary Blood SPECIMEN COLLECTED 05/07/21 14:40 Gram Stain - Final Sputum - Endotracheal Tube Aspirate Sputum Culture - Final Escherichia coli A&P Assessment and plan (1) COVID-19: Status: Acute (2) Acute respiratory distress syndrome: Status: Acute (3) Acute kidney injury superimposed on CKD: Status: Acute (4) Metabolic acidosis: Status: Acute (5) Hemoptysis: Status: Acute (6) Myocarditis due to 2019 novel coronavirus: Status: Acute (7) Afib: Status: Acute (8) Septic shock: Status: Acute (9) Encounter for continuous renal replacement therapy (CRRT) for acute renal fa ilure: Status: Acute (10) E. coli pneumonia: Status: Acute (11) Atrial fibrillation: Status: Acute Qualifiers: Atrial fibrillation type: unspecified chronic Qualified Code(s): I48.20 - Chronic atrial fibrillation, unspecified (12) Descending thoracic aortic dissection: Status: Acute Additional A&P Information ARDS secondary to COVID-19 pneumonia along with possible superadded bacterial pneumonia: Ventilator dependent. Continue sedation with propofol fentanyl. Add Precedex. Sedation vacation and weaning trial to check for brain activity/mentation. If patient does not wakes up appropriately will do CT head. Completed remdesivir. Currently on dexamethasone. Continue with DuoNeb, budesonide. D-dimer elevated on admission. Anticoagulation stopped because of occasional hemoptysis. Hemoglobin has trended down. Continue to monitor inflammatory markers including ESR, CRP, D-dimer every 48 hourly. Given ARDS we will try to keep patient as negative for dialysis. Daily weights, strict input output charting. Severe sepsis: Patient has been having intermittent fevers. Repeat urine Legionella, bacterial antigen, MRSA swab remain negative. Blood cultures so far negative. Repeat blood culture for a fever of more than 101. Sputum culture growing E. coli. Sensitivities appreciated. Vanco random level low today. Redose vancomycin and imipenem as per dialysis sessions. Stop Levaquin as per E. coli sensitivities. LUIS mount negative. Has finished a 5-day course of Diflucan on May 09. Levophed as needed keeping mean arterial pressure over 65. Hemoptysis: Recheck chest x-ray ruled out pneumothorax. Can be ventilator associated lung injury versus pulmonary hemorrhage. Pulmonology not cab station attendant today. Will consult tomorrow for possible bronchoscopy. Bronch findings appreciated. Sample send for LUIS mount, fungal Cx, bacterial Cx, MTB PCR, PJP PCR. Acute on stage 3 CKD/ Metabolic acidosis: Resolved. CRRT stopped and switched over to hemodialysis today. Most likely will not require any further sessions tomorrow. Will repeat labs and decide. Medical reconciliation done for nephrotoxic drugs. Nephrology on board. Appreciate nephrology and pulmonology recommendations. Myocarditis/Acute Systolic HF: Most likely secondary to sepsis versus possible myocarditis secondary to COVID-19. Tachycardia: Occasional. Will start on low dose lopressor. Start on ASA 81 mg PO QD. Afib: Intermittent. C/w Amio load. We will switch over to amiodarone milligrams twice daily. GI PPx Protonix 40mg IV BID DVT ppx- Heparin 5000 units Q8hr Prognosis: Severely Guarded. Discussed patient's care in detail with his over the phone. We discussed unfortunately patient has severe COVID-19 pneumonia, ARDS along with multiple organ dysfunction including GUMARO on CKD, new congestive heart failure secondary to possible myocarditis and possible anoxic brain injury. We discussed patient has a severely guarded prognosis. We also discussed it is quite possible that patient can have cardiac arrest. states for now if she would want the patient to remain full code as she would discuss further goals of care with his family. May 10 Again discussed severe guarded prognosis with patient's Ms. Duong over the phone. She states for now she would want to see how patient's mentation is post sedation vacation and decide the dose accordingly. Requesting if she can come in. We did discuss that she can come in and visit with the patient for a short while while making sure safe and social distancing is maintained. states she would like to think before coming in. Plan for today: Given the above discussion and new finding of descending thoracic aorta dissection along with severe ARDS on CT scan family have decided for no aggressive care and possible terminal extubation tomorrow after family has been to patient's bedside. Dialysis has been stopped. For now continue the sedation, current medical management without escalation of care. If needed can use low-dose Levophed. CODE STATUS DNR/DNI. Attestations Medical Necessity Statement*: Requires further hospitalization of management of ARDS secondary COVID-19 pneumonia, superadded E. coli pneumonia, possible fungal pneumonia, myocarditis, GUMARO requiring hemodialysis and new diagnosis of descending thoracic aortic dissection while further goals of care discussions with comfort measures status. Critical Care Time: The high probability of a clinically significant, sudden or life threatening deterioration of the patient's [pulmonary, cardiac, renal, neurological, hematological] system(s) required my full and direct attention, intervention and personal management. The critical care time is as shown. 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 coli pneumonia J15.5 Atrial fibrillation I48.20 Atrial fibrillation type: unspecified chronic Descending thoracic aortic dissection I71.01
--- NOTE | 2021-05-11 15:53 | PC.NURSE ---
repositioned at this time dialysis stopped at request no further heroic measures . after family here tomorrow will progress to comfort care
[2021-05-11] MEDS: dexamethasone 10 mg/mL INJ 6 MG IVP (16:26)
--- NOTE | 2021-05-11 16:35 | PC.HD ---
Arrived in ICU at 1215 but patient not ready to dialyze as he had to go to CT prior to dialysis. Pt started immediatly upon arrival back to ICU at 1405.
--- NOTE | 2021-05-11 16:53 | PC.HD ---
Patient's BP trending down from beginning of treatment. Machine temp decreased, UF stopped/decreased, legs elevated, but SBP went as low as 44, responded well to 100ml NS and albumin though UF was not turned back on per instructions from Dr Martinez. Treatment was terminated early per Dr. Martinez's instructions after CT scan results reviewed
--- NOTE | 2021-05-11 18:45 | NUR.SHIFT ---
Shift Note Frequent safety and comfort rounds continue. Orders and/or nursing care completed as indicated. Patient monitored for response to intervention and treatment(s). Education provided includes[]. Patient and/or market survey representative [ResponseToTeaching]. Will continue to monitor. talked with about making plans for comfort per family wishes for tommorow
[2021-05-11] MEDS: sodium chloride 0.9% 500 ML 999 ML IV (20:04)
[2021-05-12] VITALS (47 sets, daily range): BP systolic 90–166; BP diastolic 54–122; PULSE 90–156; RESP 20–31; TEMP 37.3–38.7; O2SAT 89–100
[2021-05-12] MEDS: ipratropium-albuterol 3 mL Neb INHALATION ×5 (00:59→15:49)
[2021-05-12] MEDS: propofol 1,000 MG/100 ML INJ 27.22 MG IV ×4 (04:30→14:55)
[2021-05-12] MEDS: heparin 5,000 unit/mL INJ 1 mL 5000 UNIT SUBCUT ×2 (04:30→11:45)
[2021-05-12] MEDS: pantoprazole 40 mg SDV IVP (04:30)
[2021-05-12 05:24] LABS: Basophils % 0.1 %; Eosinophils % 0.2 %; Hematocrit 26.3 % (42.0-52.0); Hemoglobin 8.7 g/dL (11.7-16.6); Lymphocytes # 0.3 10^3/uL (0.8-4.8); Lymphocytes % 1.4 %; Mean Corpuscular HGB Conc 33.1 g/dL (30.0-36.0); Mean Corpuscular Hemoglobin 30.2 pg (28.0-34.0); Mean Corpuscular Volume 91.3 fl (80-94); Monocytes # 0.6 10^3/uL (0.2-0.9); Monocytes % 3.3 %; Neutrophils # 16.82 10^3/uL (1.8-7.7); Neutrophils % 93.1 %; Nucleated Red Blood Cells % 0 %; Platelet Count 152 10^3/cmm (130-400); Red Blood Count 2.88 10^6/uL (4.1-5.3); Red Cell Distribution Width 14.6 % (12.1-15.1); White Blood Count 18.1 10^3/uL (4.0-10.0)
[2021-05-12 05:53] LABS: Alanine Aminotransferase 28 U/L (0-41); Albumin Level 2.8 g/dL (3.5-5.2); Alkaline Phosphatase 84 IU/L (40-130); Anion Gap 19.5 (5-19); Aspartate Amino Transferase 36 U/L (0-40); Blood Urea Nitrogen 61 mg/dL (8-23); Calcium 8.4 mg/dL (8.5-10.5); Carbon Dioxide 22 mmol/L (22-29); Chloride 99 mmol/L (98-107); Globulin 2.8 g/dL (1.3-4.6); Glucose 92 mg/dL (65-115); Magnesium 2.3 mg/dL (1.7-2.3); Osmolality Calculated 299 mOsm/kg (285-295); Phosphorus 5.9 mg/dL (2.5-4.5); Potassium 4.5 mmol/L (3.5-5.1); Sodium 136 mmol/L (136-145); Total Protein 5.6 g/dL (6.6-8.7)
[2021-05-12 07:27] LABS: Glucose Point of Care 95 mg/dL (70-110)
--- NOTE | 2021-05-12 08:12 | PM.PN ---
Subjective Subjective: Interval history: Events of the last 24 hours are noted. Type B dissection identified on CT imaging. Dialysis terminated early yesterday. Family meeting appreciated, for comfort measures today. Medications: Reviewed: Yes Medication Review Details: Current Medications Acetaminophen (Acetaminophen 325 Mg Tablet) 650 mg PO Q6H PRN PRN Reason: Mild/Mod Pain Or Temp >/= 101 Last Admin: 05/05/21 17:19 Dose: 650 mg Documented by: Albuterol/Ipratropium (Ipratropium-Albuterol 3 Ml Neb) 3 ml INHALATION Q4H.RESPIRATORY HIWOT Last Admin: 05/10/21 03:16 Dose: 3 ml Documented by: Alteplase, Recombinant (Alteplase 1 Mg/Ml Sdv 2 Ml) 0 mg INTRACATH Q2H PRN; Protocol PRN Reason: Poor Catheter Flow/ Clotted Catheter Artificial Tears (Artificial Tears Op Oint 3.5 Gm) 1 applic EYE-BOTH PRN PRN PRN Reason: DRY EYE(S) Ascorbic Acid (Ascorbic Acid 500 Mg Tablet) 500 mg PO DAILY [facility] Last Admin: 05/09/21 08:06 Dose: 500 mg Documented by: Bisacodyl (Bisacodyl 5 Mg Tablet) 10 mg PO DAILY HIWOT; Protocol Calcium Acetate (Calcium Acetate 667 Mg Capsule) 1,334 mg PO TIDWM HIWOT Last Admin: 05/09/21 20:05 Dose: 1,334 mg Documented by: Dexamethasone (Dexamethasone 10 Mg/Ml Inj) 6 mg IVP Q24H HIWOT Last Admin: 05/09/21 16:06 Dose: 6 mg Documented by: Dextrose (Dextrose 50% Syringe 50 Ml) 25 ml IVP ONCE PRN; Protocol PRN Reason: hypoglycemia protocol Glucagon (Glucagon 1 Mg/Ml Inj 1 Ml) 1 mg IM ONCE PRN; Protocol PRN Reason: Adult Acute Hypoglycemia Prot. Heparin Sodium (Beef Lung) (Heparin 5,000 Unit/Ml Inj 1 Ml) 5,000 unit SUBCUT Q8H HIWOT Last Admin: 05/10/21 04:08 Dose: 5,000 unit Documented by: Heparin Sodium (Beef Lung) (Heparin Lock Flush 500 Unit/5 Ml Syringe) 500 unit IV PRN PRN PRN Reason: At CRRT disconnect Last Admin: 05/09/21 18:24 Dose: 500 unit Documented by: Heparin Sodium (Porcine) (Heparin, Porcine 1,000 Unit/Ml Inj 10 Ml) 1,000 unit CRRT PROTOCOL PRN; Protocol PRN Reason: Heparin CRRT subsequent bolus Protocol Propofol (Diprivan) 1,000 mg in 100 mls @ 0 mls/hr IV .Q0M HIWOT; Protocol Last Admin: 05/10/21 05:21 Dose: 50 mcg/kg/min, 27.22 mls/hr Documented by: Cisatracurium Besylate 100 mg/ (Sodium Chloride) 100 mls @ 0 mls/hr IV .Q0M HIWOT; Protocol Last Titration: 05/02/21 09:59 Dose: 0 mcg/kg/min, 0 mls/hr Documented by: Norepinephrine Bitartrate 4 mg (/ Dextrose) 254 mls @ 0 mls/hr IV .Q0M HIWOT; Protocol Last Admin: 05/09/21 19:25 Dose: 2 mcg/min, 7.62 mls/hr Documented by: Dextrose (D5w) 500 mls @ 100 mls/hr IV ONCE PRN; Protocol PRN Reason: Adult Acute Hypoglycemia Prot Vancomycin/PEG/NADA/Lysine/Water (Vancocin) 1,250 mg in 250 mls @ 250 mls/hr IV Q24H HIWOT Last Admin: 05/04/21 20:49 Dose: 250 mls/hr Documented by: dexmedeTOMIDine 0.9 % NaCL (Dexmedetomidine-Ns) 400 mcg in 100 mls @ 0 mls/hr IV .Q0M HIWOT; Protocol Last Titration: 05/04/21 10:08 Dose: 0 mcg/kg/hr, 0 mls/hr Documented by: Phenylephrine HCl 25 mg/ (Sodium Chloride) 252.5 mls @ 0 mls/hr IV .Q0M HIWOT; Protocol Last Titration: 05/08/21 16:56 Dose: 0 mcg/min, 0 mls/hr Documented by: Fentanyl 1,000 mcg/ Sodium (Chloride) 100 mls @ 0 mls/hr IV .Q0M HIWOT; Protocol Last Admin: 05/10/21 02:33 Dose: 100 mcg/hr, 10 mls/hr Documented by: Levofloxacin/Dextrose (Levaquin-D5w) 500 mg in 100 mls @ 100 mls/hr IV Q48H HIWOT; Protocol Last Infusion: 05/08/21 22:12 Dose: Infused Documented by: Heparin Sodium (Porcine) 20, (000 unit/ N/A) 20 mls @ 0 mls/hr CRRT .Q0M HIWOT; Protocol Last Admin: 05/09/21 13:27 Dose: 10 unit/kg/hr, 0.9 mls/hr Documented by: Imipenem/Cilastatin Sodium 250 (mg/ Sodium Chloride) 100 mls @ 200 mls/hr IV Q12H HIWOT; Protocol Last Infusion: 05/10/21 01:35 Dose: Infused Documented by: Amiodarone HCl 900 mg/Dextrose/ IV Miscellaneous Supplies 518 mls @ 0 mls/hr IV .Q0M HIWOT; Protocol Last Admin: 05/09/21 17:17 Dose: 1 mg/min, 34.53 mls/hr Documented by: Albumin Human (Albumin) 12.5 gm in 50 mls @ 60 mls/hr IV Q8H HIWOT Last Admin: 05/10/21 02:07 Dose: 60 mls/hr Documented by: Lactulose (Lactulose Oral Liq 20 Gm/30 Ml Udc) 10 gm PO DAILY [facility]; Protocol Metoprolol Tartrate (Metoprolol Tartrate 25 Mg Tablet) 12.5 mg PO BID@0900,2100 [facility] Last Admin: 05/09/21 21:46 Dose: 12.5 mg Documented by: Ondansetron HCl (Ondansetron 2 Mg/Ml Sdv 2 Ml) 4 mg IVP Q8H PRN PRN Reason: vomiting, or N/V if npo Pantoprazole Sodium (Pantoprazole 40 Mg Sdv) 40 mg IVP Q12H [facility] Last Admin: 05/10/21 05:20 Dose: 40 mg Documented by: Sodium Chloride (Sodium Chloride 0.9% 1,000 Ml Bag) 1,000 - 7,000 ml CRRT PRN PRN PRN Reason: For priming CRRT Machine Last Admin: 05/09/21 05:36 Dose: 2,000 ml Documented by: Sucralfate (Sucralfate 1 Gm/10 Ml Oral Liq Udc) 1 gm PO Q12H HIWOT Last Admin: 05/09/21 21:46 Dose: 1 gm Documented by: Vitamin D (Cholecalciferol (Vitamin D3) 1,000 Unit Tablet) 1,000 unit PO DAILY HIWOT Last Admin: 05/09/21 08:07 Dose: 1,000 unit Documented by: Zinc Gluconate (Zinc Gluconate 50 Mg Tablet) 50 mg PO DAILY HIWOT Last Admin: 05/09/21 08:06 Dose: 50 mg Documented by: Vitals/I&O/Wt Last Vital Signs Temp 98.6 F 05/11/21 16:48 Pulse 111 H 05/12/21 05:56 Resp 24 H 05/12/21 05:47 BP 134/88 05/12/21 05:30 Pulse Ox 97 05/12/21 05:47 05/11/21 05/12/21 05/12/21 22:59 06:59 14:59 Intake Total 1579.103 / 1773.353 749.645 / 2522.998 Output Total 933 / 933 700 / 1633 Balance 646.103 / 840.353 49.645 / 889.998 Weight last 48 hrs Weight 91.6 kg Weight 90.8 kg Physical Exam Narrative: EXAM NARRATIVE: Constitutional: Sedated and vented HEENT: Wet mucosa, no jvp, non icteric Lungs: Bilaterally diminshed, without discernible wheeze, rales in all lung zones CVS: S1 S2, no murmurs Abdo: Soft, BS ok Ext 4: global edema, peripheral perfusion with no cyanosis Neurological: Grossly non-focal Urinary Catheter Management^: William: Cath Placed During This Visit: yes Reason for Continuing Indwelling Catheter: Accurate Measurement of Urinary Output in Critically Ill Patients Urinary Catheter Date of Insertion: 05/10/21 Urinary Catheter Time of Insertion: 19:15 Data : 05/12/21 05:15 05/12/21 05:15 Micro: Microbiology 05/10/21 18:30 Blood Culture - Preliminary Blood NEGATIVE TO DATE 05/10/21 18:15 Blood Culture - Preliminary Blood NEGATIVE TO DATE 05/07/21 15:50 Blood Culture - Preliminary Blood Coagulase negativ staphylococc 05/09/21 19:00 Gram Stain - Final Lung Left Lower Lobe Bronchoalveolar Lavage Culture - Preliminary Yeast A&P Additional A&P Information Patient transitioning to comfort care today. With this in mind, I will sign off his case today. If his situation changes, please do not hesitate to call me so that I can come back on the case. Thank you for our involvement in his care. Mirza Arechiga MD Attestations Medical Necessity Statement*: Eval for GUMARO Coding Level of Care Code Acute [employer] for Chg Saji
[2021-05-12] MEDS: calcium acetate 667 mg Capsule 1334 MG PO ×2 (08:24→11:45)
[2021-05-12] MEDS: amiodarone 200 mg Tablet PO (08:25)
--- NOTE | 2021-05-12 09:16 | PC.NURSE ---
Patient's temperature was 101.7 at sift change. Took off the blanket and rechecked temperature at 0730. By 0800 the temperature went to 100.8.
--- NOTE | 2021-05-12 09:40 | PC.NURSE ---
Taken off for patient comfort. Transition to comfort care.
[2021-05-12 10:19] LABS: Vancomycin Random 15.4 ug/mL (20.0-40.0)
[2021-05-12 10:53] LABS: Glucose Point of Care 94 mg/dL (70-110)
--- NOTE | 2021-05-12 16:24 | P.PN_ITS ---
Subjective Subjective: Interval history: Yesterday patient was transitioned over to comfort measures after discussion with the regarding new findings of type B aortic dissection, ARDS, acute kidney injury requiring hemodialysis. Awaiting family to come bedside before terminal extubation. Medications: Reviewed: Yes Vitals/I&O/Wt Last Vital Signs Temp 100 F H 05/12/21 12:00 Pulse 156 H 05/12/21 15:52 Resp 21 H 05/12/21 15:50 BP 104/65 05/12/21 12:00 Pulse Ox 95 05/12/21 15:50 05/12/21 05/12/21 05/12/21 06:59 14:59 22:59 Intake Total 749.645 / 2522.998 591.75 / 591.75 Output Total 700 / 1633 400 / 400 Balance 49.645 / 889.998 591.75 / 591.75 -400 / 191.75 Weight last 48 hrs Weight 91.6 kg Physical Exam Narrative: EXAM NARRATIVE: Intubated, sedated, on the ventilator Const: COMMON NORMALS: no acute distress OTHER: intubated and sedated HENMT: COMMON NORMALS: normocephalic HEAD & SCALP: normocephalic Eye: OTHER: Pupils Neck/C-Spine: OTHER: Bloody discharge from OG tube Lymph: LYMPHATIC: no lymphadenopathy noted Chest: COMMONS NORMALS: normal inspection of the chest Resp: COMMON NORMALS: normal respiratory effort, No retractions, No use of accessory muscles and clear to auscultation bilaterally EFFORT & INSPECTION: Yes symmetric chest movement AUSCULTATION: clear to auscultation bilaterally and diminished lung sounds diffuse OTHER: Vented sounds b/l Cardio: COMMON NORMALS: regular rate, regular rhythm, S1 normal heart sound present and S2 normal heart sound present RATE: regular rate RHYTHM: regular rhythm HEART SOUNDS: S1 normal heart sound present and S2 normal heart sound present GI: COMMON NORMALS: Normal to inspection, nondistended, normoactive bowel sounds present, Soft to palpation, non-tender and no bruits PALPATION: Yes Soft to palpation : OTHER: William catheter in place, William bag blood within the urine Extremity: COMMON NORMALS: no pedal edema NARRATIVE EXTREMITY EXAM: Right art line in place, left femoral line in place GENERAL: No edema OTHER: DP PT pulses palpable Neuro: OTHER: on vent Skin: COMMON NORMALS: no rashes or lesions noted, turgor normal and no mottling GENERAL SKIN EXAM: no rashes or lesions noted and turgor normal Urinary Catheter Management^: William: Cath Placed During This Visit: yes Reason for Continuing Indwelling Catheter: Accurate Measurement of Urinary Output in Critically Ill Patients Urinary Catheter Date of Insertion: 05/10/21 Urinary Catheter Time of Insertion: 19:15 Data : 05/12/21 05:15 05/12/21 05:15 Micro: Microbiology 05/09/21 19:00 Fungal Smear - Preliminary Sputum - Endotracheal Wash 05/09/21 19:00 Gram Stain - Final Lung Left Lower Lobe Bronchoalveolar Lavage Culture - Preliminary Yeast 05/09/21 19:00 Mycobacterial Smear - Preliminary Sputum - Endotracheal Wash 05/10/21 18:30 Blood Culture - Preliminary Blood NEGATIVE TO DATE 05/10/21 18:15 Blood Culture - Preliminary Blood NEGATIVE TO DATE 05/07/21 15:50 Blood Culture - Preliminary Blood Coagulase negativ staphylococc A&P Assessment and plan (1) COVID-19: Status: Acute (2) Acute respiratory distress syndrome: Status: Acute (3) Acute kidney injury superimposed on CKD: Status: Acute (4) Metabolic acidosis: Status: Acute (5) Hemoptysis: Status: Acute (6) Myocarditis due to 2019 novel coronavirus: Status: Acute (7) Afib: Status: Acute (8) Septic shock: Status: Acute (9) Encounter for continuous renal replacement therapy (CRRT) for acute renal failure: Status: Acute (10) E. coli pneumonia: Status: Acute (11) Descending thoracic aortic dissection: Status: Acute Additional A&P Information ARDS secondary to COVID-19 pneumonia along with possible superadded bacterial pneumonia: Ventilator dependent. Continue sedation with propofol fentanyl. Add Precedex. Sedation vacation and weaning trial to check for brain activity/mentation. If patient does not wakes up appropriately will do CT head. Completed remdesivir. Currently on dexamethasone. Continue with DuoNeb, budesonide. D-dimer elevated on admission. Anticoagulation stopped because of occasional hemoptysis. Hemoglobin has trended down. Continue to monitor inflammatory markers including ESR, CRP, D-dimer every 48 hourly. Given ARDS we will try to keep patient as negative for dialysis. Daily weights, strict input output charting. Severe sepsis: Patient has been having intermittent fevers. Repeat urine Legionella, bacterial antigen, MRSA swab remain negative. Blood cultures so far negative. Repeat blood culture for a fever of more than 101. Sputum culture growing E. coli. Sensitivities appreciated. Vanco random level low today. Redose vancomycin and imipenem as per dialysis sessions. Stop Levaquin as per E. coli sensitivities. LUIS mount negative. Has finished a 5-day course of Diflucan on May 09. Levophed as needed keeping mean arterial pressure over 65. Hemoptysis: Recheck chest x-ray ruled out pneumothorax. Can be ventilator associated lung injury versus pulmonary hemorrhage. 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 Will consult tomorrow for possible bronchoscopy. Bronch findings appreciated. Sample send for LUIS mount, fungal Cx, bacterial Cx, MTB PCR, PJP PCR. Acute on stage 3 CKD/ Metabolic acidosis: Resolved. CRRT stopped and switched over to hemodialysis today. Most likely will not require any further sessions tomorrow. Will repeat labs and decide. Medical reconciliation done for nephrotoxic drugs. Nephrology on board. Appreciate nephrology and pulmonology recommendations. Myocarditis/Acute Systolic HF: Most likely secondary to sepsis versus possible myocarditis secondary to COVID-19. Tachycardia: Occasional. Will start on low dose lopressor. Start on ASA 81 mg PO QD. Afib: Intermittent. C/w Amio load. We will switch over to amiodarone milligrams twice daily. GI PPx Protonix 40mg IV BID DVT ppx- Heparin 5000 units Q8hr Prognosis: Severely Guarded. Discussed patient's care in detail with his over the phone. We discussed unfortunately patient has severe COVID-19 pneumonia, ARDS along with multiple organ dysfunction including GUMARO on CKD, new congestive heart failure secondary to possible myocarditis and possible anoxic brain injury. We discussed patient has a severely guarded prognosis. We also discussed it is quite possible that patient can have cardiac arrest. states for now if she would want the patient to remain full code as she would discuss further goals of care with his family. May 10 Again discussed severe guarded prognosis with patient's Ms. Duong over the phone. She states for now she would want to see how patient's mentation is post sedation vacation and decide the dose accordingly. Requesting if she can come in. We did discuss that she can come in and visit with the patient for a short while while making sure safe and social distancing is maintained. states she would like to think before coming in. Plan for today: Transition over to comfort measures as per discussion with patient's Ms. Duong yesterday. Terminal extubation once family is bedside. Attestations Medical Necessity Statement*: Requires further hospitalization for comfort measures status only while patient is terminally extubated. Time Spent in Patient Care: Greater than 35 minutes (>than 50% of time spent in counselling and/or direct pt care on unit) . 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 coli pneumonia J15.5 Descending thoracic aortic dissection I71.01
--- NOTE | 2021-05-12 17:06 | PC.NURSE ---
Called [facility] about extubation on patient. Got a call back from Tate at 1615 who said to withhold extubation until a vaccine customer representative came. Informed Dr. Martinez. At 1654 Tate called back to say that it was ok to withdrawal care.
--- NOTE | 2021-05-12 18:53 | PC.NURSE ---
wasted 49cc fentanyl with tatynana
--- NOTE | 2021-05-12 19:01 | PC.NURSE ---
Post mortem care done. home notified.
--- NOTE | 2021-05-12 19:38 | PM.DDS ---
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 Bullard Primary Care Provider: Sandra Partida MD DS Diagnoses Hospital Diagnoses (1) COVID-19: (2) Acute respiratory distress syndrome: (3) Acute kidney injury superimposed on CKD: (4) Metabolic acidosis: (5) Hemoptysis: (6) Myocarditis due to 2019 novel coronavirus: (7) Afib: (8) Septic shock: (9) Encounter for continuous renal replacement therapy (CRRT) for acute renal failure: (10) E. coli pneumonia: (11) Descending thoracic aortic dissection: Reason for Visit Reason for Visit: ncovid/ resp distress Summary Date and Time of Date of : 05/12/21 Time of : 18:25 Summary Summary: Taran Carrera is a 75 year old male with a past medical history of hypertension presented to [facility] on 04/28/2021 due to concerns for shortness of breath and hypoxia and was intubated, sedated, in the emergency room history was obtained from . According to , patient started to develop headaches, fatigue, malaise starting on April 20, over the week he started to develop intermittent fevers, cough, fatigue, malaise, shortness of breath. He showed up to the emergency room on April 25, was diagnosed with COVID-19 pneumonia, was sent home on 2 L home oxygen., he was given Decadron, antibiotics. On 04/28/2021 morning he had sudden worsening of shortness of breath, he was confused, his O2 sats were in the low 40s, so they brought him over to the emergency room. He was brought in by EMS he was saturating in the 40s on room air, was placed on CPAP with a PEEP of 10, O2 sats remained in the 70s, remained confused and so was intubated. Later patient lost pulse and CODE BLUE was called, no CPR initiated but was returned after patient was given phenylephrine. Patient was admitted to ICU for acute hypoxic respiratory failure secondary to ARDS due to COVID-19 pneumonia. Clinical course complicated by GUMARO over CKD-leading to metabolic acidosis for which patient required CRRT and hemodialysis, NSTEMI and arrhythmias which were thought to be secondary to myocarditis, superimposed resistant E. coli bacterial pneumonia for which she was treated with broad-spectrum antibiotics and was later transitioned to culture sensitivity directed antibiotics. During hospitalization even after complete coverage patient continued to spike fever for which repeat culture was sent which were positive for coag negative staph and his William cath was changed. He was also found to have yeast growing in endotracheal specimen collected through quick bedside bronchoscopy. As patient continued to spike fever and required high oxygen supplementation along with occasional pressors repeat CT imaging was done which showed ARDS and type B thoracic aortic dissection up to the level of the renal arteries. Because of multiorgan involvement including GUMARO, ARDS, myocarditis, fungal pneumonia, patient requiring pressors and continuous high oxygen supplementation on ventilator since admission and and new diagnosis of type B thoracic aortic dissection further goals of care were discussed with patient's Ms. Duong and she decided patient to be made comfort measures only status. Patient was terminally extubated with family at bedside and on May 12 at 6:25 PM. Additional Data Confirmation of as documented by pronouncing clinician: no pulse, no respirations and no heart sounds Family: at bedside and attempt made Additional persons at bedside: nursing staff Attending/PCP notified?: I am attending Was code activated?: No Autopsy requested?: No Advance directives?: No Hospice patient?: Yes Discharge Plan Discharge Patient Disposition: Condition: Stable Prescriptions: No Action dexamethasone 6 mg tablet 6 mg PO DAILY MDD see pharmacy comment Qty: 6 RF: 0 Referrals: Sandra Partida MD [Primary Care Provider] - Patient Instructions: Opioid Safety Probable Cause of Probable cause of : COVID-19 DS Attestations Time Spent in /Discharge Care*: greater than 30 min Quality - AMI: AMI present?: No Clinical Trial Participant: No Quality - Stroke: CVA present?: No Quality - VTE: VTE present?: No Coding Level of Care Code Acute Attending Anesthesiologist for g Fwd Diagnoses COVID-19 U07.1 Acute respiratory distress syndrome J80 Acute kidney injury superimposed on CKD N17.9; N18.9 Metabolic acidosis E87.2 Hemoptysis R04.2 Myocarditis due to 2019 novel coronavirus U07.1; I40.0 Afib I48.91 Septic shock A41.9; R65.21 Encounter for continuous renal replacement therapy (CRRT) for acute renal failure N17.9 E. coli pneumonia J15.5 Descending thoracic aortic dissection I71.01
[2021-05-15 18:57] LABS: P. Jirovecii DNA QL PCR NOT DETECTED
[2021-05-16 20:57] LABS: Fungitell 1-3-B Glucan Assay 192 pg/mL; Interpretation POSITIVE
== END 2021-05-12 18:25 | disposition expired | DRG 870 ==
LOC: ER 16:36 → ER IP 18:20 → ICU 04-29 05:43
PROVIDERS: Hospitalist; Internal Medicine; Internal Medicine Nephrology; Internal Medicine Pulmonary Disease; Student in an Organized Health Care Education/Training Program; Admitting Provider Family Medicine; Emergency Provider Emergency Medicine; PCP Family Medicine; Visit Provider Student in an Organized Health Care Education/Training Program
DX: A41.9 Sepsis, unspecified organism (principal); R65.21 Severe sepsis with septic shock; U07.1 COVID-19; J12.82 Pneumonia due to coronavirus disease 2019; I50.21 Acute systolic (congestive) heart failure; J15.5 Pneumonia due to Escherichia coli; N17.0 Acute kidney failure with tubular necrosis; I21.A1 Myocardial infarction type 2; I71.01 Dissection of thoracic aorta; I13.0 Hypertensive heart and chronic kidney disease with heart failure and stage 1 through stage 4 chronic kidney disease, or unspecified chronic kidney disease; E87.2 Acidosis; N39.0 Urinary tract infection, site not specified; B37.0 Candidal stomatitis; M62.82 Rhabdomyolysis; R04.2 Hemoptysis; G93.1 Anoxic brain damage, not elsewhere classified; E11.22 Type 2 diabetes mellitus with diabetic chronic kidney disease; E11.65 Type 2 diabetes mellitus with hyperglycemia; N18.30 Chronic kidney disease, stage 3 unspecified; R31.9 Hematuria, unspecified; I95.9 Hypotension, unspecified; E87.5 Hyperkalemia; R00.0 Tachycardia, unspecified; I48.91 Unspecified atrial fibrillation; Z66 Do not resuscitate; I46.9 Cardiac arrest, cause unspecified
CPT/HCPCS: 31500; 36415; 36416; 36556; 36592; 36600; 51702; 70450; 71045; 71275; 74177; 76770; 80051; 80053; 80061; 80069; 80202; 81001; 82330; 82436; 82533; 82550; 82570; 82652; 82728; 82803; 82805; 82962; 83036; 83520; 83540; 83550; 83605; 83615; 83690; 83735; 83880; 83935; 84100; 84133; 84145; 84300; 84443; 84484; 85007; 85014; 85018; 85025; 85045; 85362; 85378; 85384; 85610; 85651; 85730; 85999; 86140; 86403; 86705; 86706; 86803; 87015; 87040; 87070; 87077; 87086; 87102; 87106; 87116; 87186; 87205; 87206; 87210; 87305; 87340; 87449; 87641; 87798; 87801; 90935; 93005; 93306; 93970; 94002; 94003; 94640; 94660; 94664; 94799; 96365; 96367; 96368; 96372; 96375; 99291; 99292; C1751; C9113; J0282; J0330; J0360; J0610; J0692; J0743; J1100; J1450; J1642; J1644; J1650; J1815; J1940; J1956; J2250; J2370; J2704; J3010; J3370; J3490; J7030; J7040; J7050; J7060; P9041; P9047; Q3014; Q9967